=== PATIENT | female | born 1945 | race Caucasian/White ===

== ENCOUNTER 2018-04-21 22:56 | Inpatient (IN) | payer OTHER ==
[~2018-04-21] VITALS: Ht 166.4 cm; Wt 78.0 kg
--- NOTE | 2018-04-21 23:20 | ED GI/GU/ABDOMINAL COMPLAINT ---
History of Present Illness General Chief Complaint: General Adult Stated Complaint: "IM HAVING A GI BLEED" Source: patient, family Exam Limitations: no limitations Vital Signs & Intake/Output Vital Signs & Intake/Output Vital Signs Date Time Temp Pulse Resp B/P B/P Pulse O2 O2 Flow FiO2 Mean Ox Delivery Rate 04/21 2308 98.1 103 16 162/92 97 Room Air ED Intake and Output 04/22 0000 04/21 1200 Intake Total Output Total Balance Patient 160 lb Weight Allergies Coded Allergies: NSAIDS (Non-Steroidal Anti-Inflamma (GI 04/21/18) Sulfa (Sulfonamide Antibiotics) (HIVES 04/21/18) Triage Note: PER PT HEAVY GI BLEED X 30 MINUTES -1 HR. PT REPORTS HX OF IBS AND GI PROBLEMS REPORTS BOWL OF BLOOD X 4 VERY ANXIOUS Triage Nurses Notes Reviewed? yes ? N Is pt currently ? No HPI: Approximately 1 hour prior to arrival patient felt like she had to move her bowels but only dark red blood with blood clots came out. Patient states she filled 4 toilet bowels with blood. She denies any abdominal pain. Patient states that she has been having diarrhea for the past month however over the past week it is gotten much better and she did not have any bowel movements today. Patient had a CAT scan at the end of February which showed ilieitis. Patient does have a history of diverticulitis and has had a microperforation in the past. She denies any abdominal pain. She feels slightly lightheaded when she is standing. There is no chest pain. Past History Travel History Traveled to [place] past 21 day No Medical History Any Pertinent Medical History? see below for history Neurological: NONE EENT: NONE Cardiovascular: NONE Respiratory: NONE Gastrointestinal: irritable bowel syndrome, GI Hepatic: NONE Renal: NONE Musculoskeletal: SORIATIC ARTHRITIS Psychiatric: NONE Endocrine: NONE Surgical History Surgical History: non-contributory Psychosocial History What is your primary language [place] Tobacco Use: Never used ETOH Use: denies use Illicit Drug Use: denies illicit drug use Family History Hx Contributory? No Review of Systems Review of Systems Constitutional: Reports: no symptoms. EENTM: Reports: no symptoms. Respiratory: Reports: no symptoms. Cardiovascular: Reports: no symptoms. GI: Reports: see HPI, bloody stool. Genitourinary: Reports: no symptoms. Musculoskeletal: Reports: no symptoms. Skin: Reports: no symptoms. Neurological/Psychological: Reports: no symptoms. Hematologic/Endocrine: Reports: no symptoms. Immunologic/Allergic: Reports: no symptoms. All Other Systems: Reviewed and Negative Physical Exam Physical Exam General Appearance: well developed/nourished, alert, awake, anxious, mild distress Head: atraumatic, normal appearance Eyes: Bilateral: PERRL, EOMI. Ears, Nose, Throat, Mouth: hearing grossly normal, moist mucous membrane Neck: normal inspection, supple, full range of motion Respiratory: normal breath sounds, chest non-tender, no respiratory distress, lungs clear Cardiovascular: regular rate/rhythm, normal peripheral pulses Gastrointestinal: normal bowel sounds, soft, non-tender, no organomegaly Rectal: normal rectal tone, NO STOOL, HEME POSITIVE Back: normal inspection, normal range of motion Extremities: normal range of motion Neurologic/Psych: no motor/sensory deficits, awake, alert, oriented x 3, normal mood/affect Skin: intact, normal color, warm/dry Core Measures ACS in differential dx? No Sepsis Present: No Sepsis Focused Exam Completed? No Progress Differential Diagnosis: diverticulitis, hemorrhoids, ischemic bowel, inflamm bowel dis Plan of Care: Orders Procedure Date/time Status Clear Liquid Diet 04/22 B Active ED Holding Orders 04/22 0056 Active Admit to inpatient 04/22 0056 Active Vital Signs 04/22 0056 Active Code Status 04/22 0056 Active Patient Data 04/[address] ABD & PELVIS W IV CONTRAST 04/22 0040 Active MISTAKE 04/21 2317 Active URINALYSIS 04/21 2317 Active TROPONIN LEVEL 04/21 2317 Complete PARTIAL THROMBOPLASTIN TIME 04/21 2317 Active PROTHROMBIN TIME 04/21 2317 Active COMPREHENSIVE METABOLIC PANEL 04/21 2317 Complete CBC WITHOUT DIFFERENTIAL 04/21 2317 Complete EKG 04/21 2317 Active TYPE & SCREEN (NOT X-MATCH) 04/21 2317 Active Current Medications Sig/Lynette Start time Last Medication Dose Stop Time Status Admin Sodium Chloride 1,000 ML BOLUS ONE 04/21 2330 UNVr 04/21 (Normal Saline 0.9%) 04/22 0029 2330 Laboratory Tests 04/22/18 0004: Anion Gap 8, Estimated GFR > 60, BUN/Creatinine Ratio 28.3 H, Glucose 101 H, Calcium 8.7, Total Bilirubin 0.2, AST 14, ALT 26, Alkaline Phosphatase 57, Troponin I < 0.01, Total Protein 5.8 L, Albumin 3.0 L, Globulin 2.8, Albumin/ Globulin Ratio 1.1, PT Pending, INR Pending, APTT Pending 04/21/18 2330: CBC w Diff NO MAN DIFF REQ, RBC 3.90 L, MCV 84.9, MCH 27.6, MCHC 32.6 L, RDW 14.9 H, MPV 9.3, Gran % 70.4, Lymphocytes % 20.8, Monocytes % 6.3, Eosinophils % 2.1, Basophils % 0.4, Absolute Granulocytes 9.4 H, Absolute Lymphocytes 2.8, Absolute Monocytes 0.8 H, Absolute Eosinophils 0.3, Absolute Basophils 0 Initial ED EKG: none, NSR, no ST T wave changes Departure Departure Disposition: STILL A PATIENT Condition: Guarded Clinical Impression Primary Impression: Lower GI bleed Referrals: Ta Brink MD, III (PCP/Family) Departure Forms: Customer Survey General Discharge Information Admission Note Spoke With: Jed Powell MD Documentation of Exam: Documentation of any treatments & extenuating circumstances including Concerns Regarding Discharge (functional status, medication knowledge or non-compliance, living conditions, etc.) that warrant an admission rather than observation: [IV fluids, serial hematocrits, gastroenterology consultation, colonoscopy, possible transfusion if she continues to bleed, tagged red blood cell scan if she continues to bleed]
[2018-04-21 23:54] LABS: ABSOLUTE BASOPHIL COUNT 0 /CUMM (0.0-0.2); ABSOLUTE EOSINOPHIL COUNT 0.3 /CUMM (0.0-0.7); ABSOLUTE GRANULOCYTE CT 9.4 /CUMM (1.4-6.5); ABSOLUTE LYMPH COUNT 2.8 /CUMM (1.2-3.4); ABSOLUTE MONOCYTE COUNT 0.8 /CUMM (0.10-0.60); BASOPHIL % 0.4 % (0.0-2.0); EOSINOPHIL % 2.1 % (0-5); GRANULOCYTE % 70.4 % (42.2-75.2); HEMATOCRIT 33.1 % (37-47); MEAN CORPUSCULAR HGB 27.6 PG (27.0-31.0); MEAN CORPUSCULAR HGB CONC 32.6 G/DL (33.0-37.0); MEAN CORPUSCULAR VOLUME 84.9 FL (81.0-99.0); MEAN PLATELET VOLUME 9.3 FL (7.4-10.4); PLATELET COUNT 383 /CUMM (130-400); RBC DISTRIBUTION WIDTH 14.9 % (11.5-14.5); WHITE BLOOD CELL COUNT 13.3 /CUMM (4.8-10.8)
[2018-04-22 00:31] LABS: PT 11.3 SEC (9.4-12.5); PTT 33 SEC (25-37)
[2018-04-22] MEDS ORDERED: COZAAR50 M1 PO (01:32)
[2018-04-22] MEDS ORDERED: AMLODIPINE BESYL5 M1 PO (01:33)
[2018-04-22] MEDS ORDERED: XYZAL5 M1 PO (01:33)
[2018-04-22] MEDS ORDERED: CLARINEX5 M1 PO (01:33)
[2018-04-22] MEDS ORDERED: SINGULAIR10 M1 PO (01:33)
[2018-04-22] MEDS ORDERED: PROAIR HFA8.5 GM INH (01:34)
[2018-04-22] MEDS ORDERED: ENTOCORT EC3 M1 PO (01:36)
[2018-04-22] MEDS ORDERED: PROTONIX40 M3 PO (01:36)
[2018-04-22] MEDS ORDERED: TRAVATAN Z5 ML OPH (01:37)
[2018-04-22] MEDS ORDERED: MULTIVITAMINS1 EAC9 PO (01:38)
--- NOTE | 2018-04-22 01:41 | CT SCAN REPORT ---
EXAMINATION: CT ABDOMEN AND PELVIS WITH CONTRAST CLINICAL INFORMATION: Left lower quadrant pain. Bright red blood per rectum. COMPARISON: None. TECHNIQUE: Contiguous axial thin section helical images of the abdomen and pelvis were performed following the administration of 95 mL of intravenous Optiray 320. The data set was reformatted in the coronal and sagittal planes and reviewed on an independent workstation. DLP: 339 mGy-cm. FINDINGS: Adjacent to the pleura within the lateral segment right middle lobe on image 40/728, there is a 4 mm nodule. Within the lateral basal segment of the right lower lobe on image 52/728, there is a 2 mm nodule. The visualized lung bases are otherwise clear. The visualized portions of the heart are unremarkable. There is a small hiatal hernia. The liver is of normal size and attenuation without intrahepatic biliary ductal dilation. There is a 4 cm cyst within the right lobe of the liver. A normal gallbladder is identified. There is no wall thickening or discernible pericholecystic fluid. The spleen, pancreas, adrenal glands are unremarkable. Both kidneys are of normal size and attenuation without hydronephrosis or nephrolithiasis. Following the administration of IV contrast, prompt symmetric nephrograms are displayed. There is no abdominal free fluid. There is neither mesenteric nor retroperitoneal lymphadenopathy. There are several centimeters of distal small bowel with mucosal enhancement. There is mild wall thickening and no significant adjacent fat stranding. There is mild sigmoid diverticulosis without evidence of diverticulitis. Otherwise, unremarkable unopacified loops of small and large bowel are identified. There is no pelvic free fluid. The urinary bladder is unremarkable. There is neither pelvic nor inguinal lymphadenopathy. Bone windows: Neither sclerotic nor lytic bone lesions are identified. IMPRESSION: Mucosal enhancement and mild wall thickening to several centimeters of distal ileum. The differential diagnosis for this appearance includes inflammatory and infectious processes. There are no drainable fluid collections. Sigmoid diverticulosis without evidence of diverticulitis. 4 mm right middle lobe nodule. 2 mm right lower lobe nodule. Various management parameters for solitary pulmonary nodules are in the literature. According to the Fleischner Society, recommendations for pulmonary nodules are as follows: Nodule size < or = to 4 mm in LOW RISK PATIENTS: No follow up needed. Nodule size < or = to 4 mm in HIGH RISK PATIENTS: Follow up CT at 12 months; if unchanged, no further follow up. Nodule size > 4-6 mm in LOW RISK PATIENTS: Follow up CT at 12 months; if unchanged, no further follow up. Nodule size > 4-6 mm in HIGH RISK PATIENTS: Initial follow up CT at 6-12 months, then at 18-24 months if no change. Nodule size > 6-8 mm in LOW RISK PATIENTS: Initial follow up CT at 6-12 months, then at 18-24 months if no change. Nodule size > 6-8 mm in HIGH RISK PATIENTS: Initial follow up CT at 3-6 months, then 9-12 months and 24 months if no change. Nodule size > 8 mm in LOW RISK PATIENTS: Follow up CT at around 3, 9, and 24 months, dynamic contrast-enhanced CT, PET, and/or biopsy. Nodule size > 8 mm in HIGH RISK PATIENTS: Same as for low-risk patients.
--- NOTE | 2018-04-22 02:05 | History & Physical ---
Karen GASTON,Willy 04/22/18 0156: General Information and HPI History of Present Illness: 72 year old woman with past medical history of GI bleed secondary to NSAID use, chronic diarrhea, terminal ileitis, IBS, psoriatic arthritis, seasonal allergies , asthma, hypertension, GERD, glaucoma, and several cervical stenosis seen for evaluation of bloody stools. Patient reports have chronic diarrhea since June this year for which she is followed by willow analyst Dr. Reynolds of [place]. She occasionally has scant amounts of bright red blood pass during these events which were self limited. She reportedly recently had an abdominal CT scan that demonstrated terminal ileitis. She also reportedly underwent a colonoscopy with biopsy in november of this year that was apparently unremarkable. Patient reports that her diarrhea was actually resolved for the first time over the past four days. She felt well and has no complaints until this evening where she went to use the rest room and noted a large volume bloody bowel movement mixed in with brown stool and dark clots. This occured several more times for which she came to the [facility] ED for evaluation. Presently she is complaining of mild nausea and lightheadedness and otherwise feels well but is admitted anxious. She denies any recent antiplatelet / NSAID use. Review of Systems She otherwise denies any headache, fever, chills, blurred / double vision, chest pain, palpitations, shortness of breath, vomiting, current diarrhea. Allergies/Medications Allergies: Coded Allergies: NSAIDS (Non-Steroidal Anti-Inflamma (GI 04/21/18) Sulfa (Sulfonamide Antibiotics) (HIVES 04/21/18) Home Med list Albuterol Sulfate (Proair Hfa) 90 MCG HFA.AER.AD 2 PUF INH Q4-6 PRN PRN SOB ( Reported) Amlodipine Besylate 5 MG TABLET 1 TAB PO QHS HTN (Reported) Budesonide (Entocort EC) 3 MG CAPDR...ER 9 MG PO DAILY GI (Reported) Desloratadine (Clarinex) 5 MG TABLET 1 TAB PO DAILY Allergies (Reported) Levocetirizine Dihydrochloride (Xyzal) 5 MG TABLET 1 TAB PO DAILY Allergies ( Reported) Losartan Potassium (Cozaar) 50 MG TABLET 1.5 TAB PO DAILY HTN (Reported) Montelukast Sodium (Singulair) 10 MG TABLET 1 TAB PO DAILY Allergies ( Reported) Multiple Vitamin (Multivitamins) 1 EACH TABLET 1 TAB PO DAILY SUPPLEMENT ( Reported) Pantoprazole Sodium (Protonix) 40 MG TABLET.DR 1 TAB PO DAILY GERD (Reported) Travoprost (Travatan Z) 0.004 % DROPS 1 GTT OPH QPM GLAUCOMA (Reported) Past History Travel History Traveled to [place] past 21 day No Medical History Neurological: NONE EENT: NONE Cardiovascular: NONE Respiratory: NONE Gastrointestinal: irritable bowel syndrome, GI Hepatic: NONE Renal: NONE Musculoskeletal: SORIATIC ARTHRITIS Psychiatric: NONE Endocrine: NONE Surgical History Surgical History: non-contributory Past Family/Social History Psychosocial History ETOH Use: denies use Illicit Drug Use: denies illicit drug use Functional Ability ADLs Independent: dressing, eating, toileting, bathing. Ambulation: independent Review of Systems Review of Systems Constitutional: Reports: see HPI. Exam & Diagnostic Data Last 24 Hrs of Vital Signs/I&O Vital Signs Date Time Temp Pulse Resp B/P B/P Pulse O2 O2 Flow FiO2 Mean Ox Delivery Rate 04/22 0130 98.5 83 16 168/88 98 Room Air 04/21 2308 98.1 103 16 162/92 97 Room Air Intake & Output 04/22 0800 04/22 0000 04/21 1600 Intake Total 1000 Output Total 15 Balance 985 Intake, IV 1000 Number 2 Bowel Movements Output, Urine 15 Patient 72.575 kg Weight Physical Exam General Appearance Alert, Oriented X3, Cooperative, No Acute Distress Skin No Rashes, No Breakdown, No Significant Lesion Skin Temp/Moisture Exam: Warm/Dry Sepsis Skin Exam (color): Normal for Ethnicity HEENT Atraumatic, PERRLA, EOMI, Dry oral mucosa Neck Supple Cardiovascular Regular Rate, Normal S1, Normal S2, No Murmurs Lungs Clear to Auscultation, Normal Air Movement Abdomen Normal Bowel Sounds, Soft, No Tenderness, No Hepatospenomegaly, No Masses Neurological Normal Speech, Normal Tone, Cranial Nerves 3-12 NL Extremities No Clubbing, No Cyanosis, No Edema, Normal Pulses, No Tenderness/ Swelling Vascular Normal Pulses, Pulses Symmetrical Last 24 Hrs of Labs/Henry: Laboratory Tests 04/22/18 0055: Urine Color YEL, Urine Clarity CLEAR, Urine pH 6.0, Ur Specific [place] 1.015, Urine Protein NEG, Urine Ketones NEG, Urine Nitrite NEG, Urine Bilirubin NEG, Urine Urobilinogen 0.2, Ur Leukocyte Esterase TRACE H, Ur Microscopic SEDIMENT EXAMINED, Urine RBC RARE, Urine WBC 1-3 H, Ur Epithelial Cells FEW, Urine Hemoglobin MOD H, Urine Glucose NEG 04/22/18 0004: Anion Gap 8, Estimated GFR > 60, BUN/Creatinine Ratio 28.3 H, Glucose 101 H, Calcium 8.7, Total Bilirubin 0.2, AST 14, ALT 26, Alkaline Phosphatase 57, Troponin I < 0.01, Total Protein 5.8 L, Albumin 3.0 L, Globulin 2.8, Albumin/ Globulin Ratio 1.1, PT 11.3, INR 1.04, APTT 33 04/21/18 2330: CBC w Diff NO MAN DIFF REQ, RBC 3.90 L, MCV 84.9, MCH 27.6, MCHC 32.6 L, RDW 14.9 H, MPV 9.3, Gran % 70.4, Lymphocytes % 20.8, Monocytes % 6.3, Eosinophils % 2.1, Basophils % 0.4, Absolute Granulocytes 9.4 H, Absolute Lymphocytes 2.8, Absolute Monocytes 0.8 H, Absolute Eosinophils 0.3, Absolute Basophils 0 Assessment/Plan Assessment: 72-year-old woman with multiple medical problems significant for chronic diarrhea, terminal ileitis, lower GI bleed secondary to NSAID use, and GERD seen for evaluation of multiple bright red bloody bowel movements with clots. Presently patient is complaining of only mild nausea. Vitals signs are significant for an elevated systolic blood pressure to the 160s. Physical exam demonstrates normal cardiopulmonary findings with a soft, nontender, nondistended abdomen. Labs are signficant for WBC 13.3, H/H 10.8/33.1 with normal serum chemistry, hepatic function panel, troponin, and INR. CT abdomen / pelvis with IV contrast redemonstrated her known terminal ileitis. EKG was normal sinus rhythm. Patient received a liter of normal saline in the ED. Patient was orthostat postive. Clinically patient appears to have a lower GI bleed with associated mild acute blood loss anemia, likely secondary to a bleeding diverticuli. She continues to have frequent small to moderate volume bright red bowel movements in the context of orthostasis. Case was discussed with willow analyst Dr. Blanton who recommended urgent evaluation with CTA abdomen / pelvis. Patient remains currently hemodynamically stable without hypotension or tachycardia. Patient is to be admitted to the intensive care unit for for intravenous fluids, serial CBCs, and GI consultation with possible endoscopy. Problem List -Acute blood loss anemia -Bright red blood per rectum with clots, probable lower GI bleed -Leukocytosis, likely reactive -History of GI bleed secondary to chronic NSAID use -History of diverticulitis -History of Severe Cervical stenosis with neuroforaminal stenosis -Hypertension -Glaucoma -Psoriatic arthritis -Seasonal allergies -Asthma Plan -Admit to intensive care unit -Telemetry monitoring -Guaic stool -2 Large bore peripheral IV -NS @ 100 mL / hr -Zofran PRN for nausea -Continue home meds: amlodipine, losartan, singulair, multivitamin, protonix -Hold amlodipine, losartan due to GI bleed / orthostasis, restart as needed -Consult with GI for lower GI bleed -CBC Q6H -Type & Screen -Transfuse PRBC to hemoglobin > 8.0 or for large volume blood loss -Stat CTA / Abdomen pelvis -Pain control with acetaminophen -Clear liquid diet -DVT PPx with ALPS, avoid pharmacologic propylaxis due to active bleeding -FULL CODE As Ranked By This Provider Problem List: 1. Lower GI bleed Core Measures/Misc (07/16) Acute Coronary Syndrome ACS Diagnosis: No Congestive Heart Failure Congestive Heart Failure Diagnosis No Cerebrovascular Accident CVA/TIA Diagnosis: No VTE (View Protocol) VTE Risk Factors Age>40 No Mechanical VTE Prophylaxis d/t N/A MechProphylax Ordered No VTE Pharm Prophylaxis d/t Bleeding (Active) Sepsis (View protocol) Sepsis Present: No If YES complete Sepsis Event Note If YES complete Sepsis Event Note Jed Powell 04/22/18 0356: Core Measures/Misc (07/16) Sepsis (View protocol) If YES complete Sepsis Event Note If YES complete Sepsis Event Note Attending MD Review Statement Attending Statement Attending MD Statement: examined this patient, discuss w/resident/PA/CAMP COOK, agreed w/resident/PA/CAMP COOK, reviewed EMR data (avail), reviewed images, amended to note Attending Assessment/Plan: CC: Bright red blood per rectum PMH: Hypertension, IBS, psoriatic arthritis, seasonal allergies/asthma, GERD, glaucoma, cervical stenosis, history of GI bleed secondary to NSAIDs, diverticulosis Patient came to ER for 4 bloody bowel movements, started suddenly around 8 PM. The bloody bowel movements were not stopping is that she came to ER. Currently she feels lightheaded especially when lying down to sitting position, and nausea . She denies abdominal pain or cramping, fever or chills. Patient had been dealing with chronic on and off diarrhea since July and had undergone extensive GI workup outpatient. She has willow analyst in [place] has obtained a CT scan 2 times and on colonoscopy in November with biopsy results been inconclusive. Patient was started on Secukinumab, monthly injections for psoriatic arthritis in month of August. It has known side effect of diarrhea and exacerbation of underlying inflammatory bowel disease. Her willow analyst was contemplating on this diagnosis but biopsy could not prove any inflammatory bowel disease. Last dose of Secukinumab. As she did not have diarrhea in the last 4-5 days, they decided to continue her medication which is expected next week. According to patient she was feeling much better since last for 5 days, good by mouth intake and certainly noticed bloody bowel movement tonight. A CT scan done a month of back showed inflammation of distal ileum. She is also known to have diverticulosis but never had this excessive bleeding per rectum in the past. She had 2 episode of diverticulitis. She denies any recent travels, different food intake. She has completed 2 different courses of antibiotics in last few months without any relief. She is been tried on oral steroids for suspected inflammation. Vitals: Temperature 98.1, pulse 103, RR 16, blood pressure 162/92, saturating 97 % on room air. Initially patient was negative for orthostatic changes but within 3 hours she was positive for orthostatics with blood pressure dropping from 193/ 94 on lying down and 159/89 on supine position with heart rate increased from 103 to 112. On exam: A O 3, cooperative, pale looking, no acute distress, neck supple, JVD normal, no lymphadenopathy, mucosa dry, no focal neurological deficit, no dependent edema, no obvious skin rashes or inflammation CVS: S1-S2, RRR. RS: Clear to auscultate bilaterally. Abdomen: Soft, NT, ND, bowel sounds present. CT abdomen pelvis with IV contrast Mucosal enhancement and mild wall thickening to several centimeters of distal ileum. The differential diagnosis for this appearance includes inflammatory and infectious processes. There are no drainable fluid collections. Sigmoid diverticulosis without evidence of diverticulitis. 4 mm right middle lobe nodule. 2 mm right lower lobe nodule. Assessment and plan 72-year-old female with multiple comorbidities as mentioned above presented in ER for recurrent bloody bowel movement started approximately half an hour before coming to ER. She had 4 bloody bowel movement at home before coming, bright red blood and clots. Patient had several small bloody bowel movements while in ER approximately 50 mL each, 3 of which in front of me while taking history. Initially she was orthostatic negative but she was getting more and more lightheaded while under evaluation and became orthostatic hypotensive within 3 hours in ER. She appears pale and dehydrated. Abdomen is soft, rectal exam done by ER physician shows heme-positive stool. I saw chaim blood and clotted blood in bedside commode. Even though CT scan mentions distal ileum thickening probably infectious versus inflammatory, this is less likely source of bleeding; Patient would have been more hypotensive with fast transit GI bleed. I suspect this is a diverticular bleed. Given the hemodynamic changes over 3-4 hours in ER we will admit her in intensive care unit GI was called who suggested CT angiogram. + Bright red blood per rectum + Orthostatic hypotension + Terminal ileitis + History of Hypertension, IBS, psoriatic arthritis, seasonal allergies/asthma, GERD, glaucoma, cervical stenosis, history of GI bleed secondary to NSAIDs, diverticulosis - Admit to ICU - 2 wide bore peripheral lines - Aggressive hydration - Type and screen 2 units PRBC - Repeat H&H in 4 hours - Transfuse if hemoglobin drops below 8, or any evidence of further hypotension or tachycardia - Follow-up CT angiogram report and call GI accordingly - Clear liquid diet - IV Protonix - Hold oral antihypertensives - Obtain records from patient's willow analyst - DVT prophylaxis with Alps only, given her current bleeding
[2018-04-22 03:24] LABS: ABSOLUTE BASOPHIL COUNT 0.2 /CUMM (0.0-0.2); ABSOLUTE EOSINOPHIL COUNT 0.2 /CUMM (0.0-0.7); ABSOLUTE GRANULOCYTE CT 9.3 /CUMM (1.4-6.5); ABSOLUTE LYMPH COUNT 3.6 /CUMM (1.2-3.4); ABSOLUTE MONOCYTE COUNT 1.1 /CUMM (0.10-0.60); BASOPHIL % 1.3 % (0.0-2.0); EOSINOPHIL % 1.4 % (0-5); GRANULOCYTE % 64.7 % (42.2-75.2); MEAN CORPUSCULAR HGB 27.2 PG (27.0-31.0); MEAN CORPUSCULAR HGB CONC 32.4 G/DL (33.0-37.0); MEAN CORPUSCULAR VOLUME 83.9 FL (81.0-99.0); MEAN PLATELET VOLUME 8.7 FL (7.4-10.4); PLATELET COUNT 319 /CUMM (130-400); RBC DISTRIBUTION WIDTH 14.7 % (11.5-14.5)
[2018-04-22 03:52] LABS: WHITE BLOOD CELL COUNT 14.3 /CUMM (4.8-10.8)
--- NOTE | 2018-04-22 03:57 | Admission Certification ---
Admission Certification Certification Statement - As attending physician, I certify that at the time of - admission, based on clinical presentation, severity of - symptoms, need for further diagnostic testing and - therapeutic interventions, and risk of adverse outcomes - without in-hospital treatment, in my clinical assessment, - this patient requires an acute hospital stay for a minimum - of two nights or longer. I have also considered psychsocial - factors such as support system, advanced age, financial - issues, cognitive issues, and failed out-patient treatments, - past re-admission history, safety of patient, and lack of - compliance as applicable. Specific rationale supporting this admission is: Bright red blood per rectum
--- NOTE | 2018-04-22 04:05 | CT SCAN REPORT ---
EXAMINATION: CT ABDOMEN AND PELVIS ANGIOGRAM WITH CONTRAST CLINICAL INFORMATION: Left lower quadrant pain. Bright red blood per rectum. COMPARISON: Same day abdominal and pelvic CT. TECHNIQUE: Contiguous axial thin section helical images of the abdomen and pelvis were performed following the administration of 95 mL of intravenous Optiray 320. The data set was reformatted in the coronal and sagittal planes and reviewed on an independent workstation. DLP: 775 mGy-cm. FINDINGS: Adjacent to the pleura within the lateral segment right middle lobe on image 38/772, there is a 4 mm nodule. Within the lateral basal segment of the right lower lobe on image 51/772, there is a 2 mm nodule. The visualized lung bases are otherwise clear. The visualized portions of the heart are unremarkable. There is a small hiatal hernia. The liver is of normal size and attenuation without intrahepatic biliary ductal dilation. There is a 4 cm cyst within the right lobe of the liver. A normal gallbladder is identified. There is no wall thickening or discernible pericholecystic fluid. The spleen, pancreas, adrenal glands are unremarkable. Both kidneys are of normal size and attenuation without hydronephrosis or nephrolithiasis. Following the administration of IV contrast, prompt symmetric nephrograms are displayed. There is no abdominal free fluid. There is neither mesenteric nor retroperitoneal lymphadenopathy. There are several centimeters of distal small bowel with mucosal enhancement. There is mild wall thickening and no significant adjacent fat stranding. There is mild sigmoid diverticulosis. Better demonstrated on the current angiographic phase is mild mucosal enhancement and mild adjacent fat stranding at this location. There are 2 areas of new intraluminal high attenuation. One is identified on image 182/772 within the distal transverse colon. Another focus of intraluminal high attenuation is dependently within the mid descending colon on image 330/772. These 2 areas are suspicious for active contrast extravasation. There is no pelvic free fluid. The urinary bladder is unremarkable. There is neither pelvic nor inguinal lymphadenopathy. Bone windows: Neither sclerotic nor lytic bone lesions are identified. IMPRESSION: Two small discrete areas of intraluminal high attenuation suspicious for contrast extravasation within the distal transverse colon and mid descending colon. These are suspicious as representing two areas of active bleeding. Mucosal enhancement and mild wall thickening to several centimeters of distal ileum. The differential diagnosis for this appearance includes inflammatory and infectious processes. There are no drainable fluid collections. Sigmoid diverticulosis and wall thickening to the distal sigmoid colon. There is better demonstration on this exam of some mild wall thickening, mucosal enhancement and adjacent fat stranding. This could correspond to an area of diverticulitis or colitis. Stable 4 mm right middle lobe nodule. 2 mm right lower lobe nodule. The aforementioned was communicated to Dr. Marrufo at 0359 hours.
[2018-04-22 05:00] VITALS: BP 130/80
--- NOTE | 2018-04-22 05:45 | Event Note ---
Event Note Event Note: Situation Continued bleeding with drop in hemoglobin Background 72 year old woman with multiple medical problems significant for chronic diarrhea and history of GI bleed secondary to NSAID use admitted for acute blood loss anemia secondary to lower GI bleed. Assessment Stat CTA abdomen / pelvis identified two small discrete areas of intraluminal high attenuation suspicious for contrast extravasation within the distal transverse colon and mid descending colon. This was discussed with the reclamation furnace operator golf course architect whom recommended embolization. IR was contacted whom agreed with the plan. Patient continues to pass bright red blood in small volumes with a drop in hemoglobin from 10.8 to 8.4; this may be partially dillution as she received 3 liters of normal saline. Under Presser Dr. Powell aware of these events. Recommendations -Transfuse 1 unit PRBC, consent obtained and placed on chart -IR embolization of bleeding vessel(s) -GI evaluation in morning -Continue to monitor serial CBCs
[2018-04-22 06:10] LABS: ABSOLUTE BASOPHIL COUNT 0 /CUMM (0.0-0.2); ABSOLUTE EOSINOPHIL COUNT 0.2 /CUMM (0.0-0.7); ABSOLUTE GRANULOCYTE CT 10.9 /CUMM (1.4-6.5); ABSOLUTE LYMPH COUNT 2.3 /CUMM (1.2-3.4); ABSOLUTE MONOCYTE COUNT 0.8 /CUMM (0.10-0.60); BASOPHIL % 0.2 % (0.0-2.0); EOSINOPHIL % 1.1 % (0-5); GRANULOCYTE % 76.9 % (42.2-75.2); HEMATOCRIT 22.9 % (37-47); MEAN CORPUSCULAR HGB 27.4 PG (27.0-31.0); MEAN CORPUSCULAR HGB CONC 32.7 G/DL (33.0-37.0); MEAN CORPUSCULAR VOLUME 83.7 FL (81.0-99.0); MEAN PLATELET VOLUME 8.6 FL (7.4-10.4); PLATELET COUNT 300 /CUMM (130-400); RBC DISTRIBUTION WIDTH 14.6 % (11.5-14.5); RED BLOOD CELL CT 2.73 /CUMM (4.20-5.40); WHITE BLOOD CELL COUNT 14.2 /CUMM (4.8-10.8)
[2018-04-22 08:00] VITALS: BP 140/84
--- NOTE | 2018-04-22 08:40 | Cons- CRCU ---
Kevan Fraire 04/22/18 0831: General Information and HPI Consulting Request Date of Consult: 04/22/18 Requested By: Dr. 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 She follows up with her packing machine inspector in [place], who has been working her up for chronic diarrhea. She underwent several abdominal CAT scan which revealed possible ileitis, negative pathology for inflammatory bowel disease as per the patient. She was eventually started on biologic for the treatment of psoriatic arthritis. Reported decrease in the number of episodes of diarrhea in the last 1 week. On the day of presentation, she had several episodes of bleeding per rectum, which she describes it as dark clots mixed with brown stools. She was also orthostatically dizzy while she was in the ER, and had several episodes of bright red bleeding per rectum. She did not have any loss of consciousness, palpitations, chest pain, shortness of breath. At the time of admission, she was found to be orthostatic vitals positive, and was found to have a drop in hematocrit 33-->26, and was admitted to intensive care unit service for further management. Vitals remained stable in the last 12 hours, but she continued to have occasional episodes of lightheadedness. CTA was obtained which revealed 2 small discrete areas of intraluminal contrast extravasation in distal transverse colon and mid descending colon suspicious for active bleeding. She was taken up to interventional suite for possible arterial embolization. Allergies/Medications Allergies: Coded Allergies: NSAIDS (Non-Steroidal Anti-Inflamma (GI 04/21/18) Sulfa (Sulfonamide Antibiotics) (HIVES 04/21/18) Home Med List: Albuterol Sulfate (Proair Hfa) 90 MCG HFA.AER.AD 2 PUF INH Q4-6 PRN PRN SOB ( Reported) Amlodipine Besylate 5 MG TABLET 1 TAB PO QHS HTN (Reported) Budesonide (Entocort EC) 3 MG CAPDR...ER 9 MG PO DAILY GI (Reported) Cyclosporine (Restasis) 0.05 % DROPERETTE 1 GTT OPH BID eye drops (Reported) Desloratadine (Clarinex) 5 MG TABLET 1 TAB PO DAILY Allergies (Reported) Leflunomide (Arava) 20 MG TABLET 1 TAB PO DAILY arthritis (Reported) Levocetirizine Dihydrochloride (Xyzal) 5 MG TABLET 1 TAB PO DAILY Allergies ( Reported) Losartan Potassium (Cozaar) 50 MG TABLET 1.5 TAB PO DAILY HTN (Reported) Montelukast Sodium (Singulair) 10 MG TABLET 1 TAB PO DAILY Allergies ( Reported) Multiple Vitamin (Multivitamins) 1 EACH TABLET 1 TAB PO DAILY SUPPLEMENT ( Reported) Pantoprazole Sodium (Protonix) 40 MG TABLET.DR 1 TAB PO DAILY GERD (Reported) Travoprost (Travatan Z) 0.004 % DROPS 1 GTT OPH QPM GLAUCOMA (Reported) Current Medications: Current Medications Sig/Lynette Start time Last Medication Dose Route Stop Time Status Admin Acetaminophen 650 MG Q6P PRN 04/22 0230 AC PO Albuterol Sulfate 2 PUF Q4-6 PRN PRN 04/22 0215 AC INH Amlodipine Besylate 5 MG DAILY 04/22 0900 CAN PO Fentanyl Citrate 0 .STK-MED ONE 04/22 629 DC .ROUTE Ioversol 0 .STK-MED ONE 04/22 605 DC IV Lidocaine 0 .STK-MED ONE 04/22 605 DC .ROUTE Loratadine 10 MG DAILY 04/22 0900 AC PO Losartan Potassium 75 MG DAILY 04/22 0900 CAN PO Montelukast Sodium 10 MG 2100 04/22 2100 AC PO Multivitamins 1 TAB DAILY 04/22 09 AC Therapeutic PO Omeprazole 40 MG DAILY AC 04/22 0700 DC PO Ondansetron HCl 4 MG Q8P PRN 04/22 0230 AC 04/22 IV 0509 Pantoprazole Sodium 40 MG BID 04/22 0900 AC 04/22 IV 0943 Sodium Chloride 1,000 ML BOLUS ONE 04/22 0245 DC 04/22 IV 04/22 0344 0230 Sodium Chloride 1,000 ML .Q10H 04/22 0230 AC 04/22 IV 0315 Sodium Chloride 1,000 ML BOLUS ONE 04/21 2330 DC 04/21 IV 04/22 0029 2330 Review of Systems Review of Systems Constitutional: Reports: see HPI. EENTM: Denies: blurred vision. Cardiovascular: Denies: chest pain, edema, orthopena. Respiratory: Denies: cough, orthopnea, short of breath. GI: Denies: abdominal pain. Musculoskeletal: Reports: back pain. Skin: Reports: change in hair/nails. Denies: change in skin color. Hematologic/Endocrine: Denies: bruising. Past History Travel History Traveled to [place] past 21 day No Medical History Blood Transfusion Hx: No Neurological: NONE EENT: glaucoma Cardiovascular: NONE Respiratory: asthma Gastrointestinal: irritable bowel syndrome, lower GI bleed Hepatic: NONE Renal: NONE Musculoskeletal: PSORIATIC ARTHRITIS Psychiatric: NONE Endocrine: NONE Blood Disorders: coagulopathy Surgical History Surgical History: non-contributory Psychosocial History Where Do You Live? Home Smoking Status: Never Smoked ETOH Use: denies use Illicit Drug Use: denies illicit drug use Functional Ability ADLs Independent: dressing, eating, toileting, bathing. Ambulation: independent Employment History Employment: Retired Profession/Employer: [employer] UP [employer]PER[employer] Exam & Diagnostic Data Last 24 Hrs of Vital Signs/I&O Vital Signs Date Time Temp Pulse Resp B/P B/P Pulse O2 O2 Flow FiO2 Mean Ox Delivery Rate 04/22 0500 92 130/80 04/22 0325 99 18 145/74 98 Room Air 04/22 0230 112 129/89 04/22 0130 98.5 83 16 168/88 98 Room Air 04/21 2308 98.1 103 16 162/92 97 Room Air Intake & Output 04/22 1600 04/22 0800 04/22 0000 Intake Total 3100 Output Total 365 Balance 2735 Intake, IV 3100 Number 5 Bowel Movements Output, Urine 365 Patient 167 lb 160 lb Weight Weight Bed scale Measurement Method Physical Exam General Appearance: no apparent distress Other Physical Findings: General Appearance Alert, Oriented X3, Cooperative, No Acute Distress Skin No Rashes, No Breakdown, No Significant Lesion Skin Temp/Moisture Exam: Warm/Dry Sepsis Skin Exam (color): Normal for Ethnicity HEENT Atraumatic, PERRLA, EOMI, Dry oral mucosa Neck Supple Cardiovascular Regular Rate, Normal S1, Normal S2, No Murmurs Lungs Clear to Auscultation, Normal Air Movement Abdomen Normal Bowel Sounds, Soft, No Tenderness, No Hepatospenomegaly, No Masses Neurological Normal Speech, Normal Tone, Cranial Nerves 3-12 NL Extremities No Clubbing, No Cyanosis, No Edema, Normal Pulses, No Tenderness/ Swelling Vascular Normal Pulses, Pulses Symmetrica Last 48 Hrs of Labs/Henry: Laboratory Tests 04/22/18 1625: CBC w Diff NO MAN DIFF REQ, RBC 3.57 L, MCV 84.1, MCH 27.6, MCHC 32.8 L, RDW 14.7 H, MPV 9.0, Gran % 64.5, Lymphocytes % 23.6, Monocytes % 9.3, Eosinophils % 2.4, Basophils % 0.2, Absolute Granulocytes 8.5 H, Absolute Lymphocytes 3.1, Absolute Monocytes 1.2 H, Absolute Eosinophils 0.3, Absolute Basophils 0 04/22/18 1200: CBC w Diff Cancelled, WBC Cancelled, RBC Cancelled, Hgb Cancelled, Hct Cancelled , MCV Cancelled, MCH Cancelled, MCHC Cancelled, RDW Cancelled, Plt Count Cancelled, MPV Cancelled 04/22/18 1200: CBC w Diff Cancelled, WBC Cancelled, RBC Cancelled, Hgb Cancelled, Hct Cancelled , MCV Cancelled, MCH Cancelled, MCHC Cancelled, RDW Cancelled, Plt Count Cancelled, MPV Cancelled 04/22/18 1010: RBC 3.60 L, MCV 84.5, MCH 27.6, MCHC 32.6 L, RDW 14.6 H, MPV 8.8, Gran % 67.8 , Lymphocytes % 22.5, Monocytes % 7.9, Eosinophils % 1.5, Basophils % 0.3, Absolute Granulocytes 8.3 H, Absolute Lymphocytes 2.8, Absolute Monocytes 1.0 H, Absolute Eosinophils 0.2, Absolute Basophils 0 04/22/18 0600: Sodium Cancelled, Potassium Cancelled, Chloride Cancelled, Carbon Dioxide Cancelled, Anion Gap Cancelled, BUN Cancelled, Creatinine Cancelled, BUN/ Creatinine Ratio Cancelled, CBC w Diff Cancelled, WBC Cancelled, RBC Cancelled, Hgb Cancelled, Hct Cancelled, MCV Cancelled, MCH Cancelled, MCHC Cancelled, RDW Cancelled, Plt Count Cancelled, MPV Cancelled 04/22/18 0545: CBC w Diff NO MAN DIFF REQ, RBC 2.73 L, MCV 83.7, MCH 27.4, MCHC 32.7 L, RDW 14.6 H, MPV 8.6, Gran % 76.9 H, Lymphocytes % 15.9 L, Monocytes % 5.9, Eosinophils % 1.1, Basophils % 0.2, Absolute Granulocytes 10.9 H, Absolute Lymphocytes 2.3, Absolute Monocytes 0.8 H, Absolute Eosinophils 0.2, Absolute Basophils 0 04/22/18 0316: Anion Gap 8, Estimated GFR > 60, BUN/Creatinine Ratio 28.3 H, Vitamin B12 414, CBC w Diff NO MAN DIFF REQ, RBC 3.10 L, MCV 83.9, MCH 27.2, MCHC 32.4 L, RDW 14.7 H, MPV 8.7, Gran % 64.7, Lymphocytes % 25.1, Monocytes % 7.5, Eosinophils % 1.4, Basophils % 1.3, Absolute Granulocytes 9.3 H, Absolute Lymphocytes 3.6 H, Absolute Monocytes 1.1 H, Absolute Eosinophils 0.2, Absolute Basophils 0.2 04/22/18 0055: Urine Color YEL, Urine Clarity CLEAR, Urine pH 6.0, Ur Specific Farley 1.015, Urine Protein NEG, Urine Ketones NEG, Urine Nitrite NEG, Urine Bilirubin NEG, Urine Urobilinogen 0.2, Ur Leukocyte Esterase TRACE H, Ur Microscopic SEDIMENT EXAMINED, Urine RBC RARE, Urine WBC 1-3 H, Ur Epithelial Cells FEW, Urine Hemoglobin MOD H, Urine Glucose NEG 04/22/18 0004: Anion Gap 8, Estimated GFR > 60, BUN/Creatinine Ratio 28.3 H, Glucose 101 H, Calcium 8.7, Total Bilirubin 0.2, AST 14, ALT 26, Alkaline Phosphatase 57, Troponin I < 0.01, Total Protein 5.8 L, Albumin 3.0 L, Globulin 2.8, Albumin/ Globulin Ratio 1.1, PT 11.3, INR 1.04, APTT 33 04/21/18 2330: CBC w Diff NO MAN DIFF REQ, RBC 3.90 L, MCV 84.9, MCH 27.6, MCHC 32.6 L, RDW 14.9 H, MPV 9.3, Gran % 70.4, Lymphocytes % 20.8, Monocytes % 6.3, Eosinophils % 2.1, Basophils % 0.4, Absolute Granulocytes 9.4 H, Absolute Lymphocytes 2.8, Absolute Monocytes 0.8 H, Absolute Eosinophils 0.3, Absolute Basophils 0 Assessment/Plan CRCU Impression/Plan: Ms Sylvester is a 72-year-old woman with a 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 At the time of admission, temp 98.1, pulse rate 103, respirations 16, blood pressure 162/92, 97% on room air. Orthostatic vitals positive at the time of admission. Pertinent lab findings: WBC 13.3-->14.3-->14.2 Hemoglobin 10.8-->8.4-->7.5-->9.9 (s/p 3 PRBC transfusion) Hematocrit 33.1-->26-->22.9-->30.4 Platelet count 383 Sodium 140, potassium 3.4, chloride 108, bicarbonate 24, anion gap 8, BUN 17, creatinine 0.6 AST 14, ALT 26, alkaline phosphatase 57. INR 1.[address] abdomen pelvis: Mucosal enhancement and mild wall thickening to several centimeters of distal ileum. The differential diagnosis for this appearance includes inflammatory and infectious processes. There are no drainable fluid collections. Sigmoid diverticulosis without evidence of diverticulitis. 4 mm right middle lobe nodule. 2 mm right lower lobe nodule. CTA adbdomen- two small discrete areas of intraluminal high attenuation suspicious for contrast extravasation within the distal transverse colon and mid descending colon. These are suspicious as representing two areas of active bleeding. Etiology in her case with painless lower GI bleed is likely diverticular in origin. Given her chronic history of terminal ileitis, inflammatory bowel disease such as Crohn's with his atypical pattern could be considered in differential. Although history indicates that it was negative for any inflammatory bowel disease pattern on pathology. Having long-standing rheumatoid/psoriatic arthritis and being treated with biologics, would make her more prone to get infectious enteritis which needs to be investigated. As per the interventional radiology, no active bleeding vessels were seen to be embolized. Plan: 1. Respiratory-stable at this time. Given her history of asthma, would continue Singulair and albuterol as needed. Titrate off oxygen as tolerated. Monitor for any dyspnea. 2. Circulatory-systolic blood pressure stable. Check orthostatic vitals. Hold off on any antihypertensives at this time. Monitor blood pressure hourly. If in case of hemodynamic compromise, would alert GI for a possible evaluation to find a source of active bleed. CT scan did not show any evidence of retroperitoneal bleed. 3. Hematology-H&H improved after blood transfusions. Check iron panel. C BC every 12h. 4. Infectious-enteritis is in differential. Monitor for any fever, which could be because of her rheumatological disease, but would keep infectious etiology in differential. WBC is slighlty elevated at this time, which should be monitored. Serial abdominal exams to be done. 5. Metabolic- stable at this time. Monitor renal function closely. Check electrolytes, and replenish as needed given h/o diarrhea. 6. Alimentary- given inability to find a bleeder, even after finding s/o of bleeding vessel on angiogram, would point towards a diverticular bleed which typically behaves in this manner. Monitor for any further GI bleed. Continue protonix iv. Recheck C BC later afternoon. Advance diet to clear liquid diet as per the packing machine inspector recommendation. Await further final recommendation from the packing machine inspector. Colonoscopy in the a.m; GoLYTELY 0.5 gallons at 5PM and 0.5 gallons at 4 AM for bowel prep( as per GI). Obtain records from her packing machine inspector. Restarted budesonide 9 mg daily, but since we dont have budesonie in house would dose with predonisone 40mg x 1 dose. Also dosed leflunomide 20mg daily. Discussed w/ GI. Checklist ICU: #1 Central line- none. #2 Arterial line- none. #3 Ferrer catheter-none. #4 Rectal tube- none. #5 NG tube- none. #6 IV/peripheral line- 2 large bore needles. #7 IV drips- NS at 100ml/hr. #8 Vent settings- none. #9 pressors - none. #10 DVT prophylaxis-alps only #11 GI prophylaxis-Protonix IV. Problem List: 1. Lower GI bleed Consult Acknowledgment - Thank you for your consult request. Nisa GASTON,Dk 04/22/18 0937: Assessment/Plan CRCU Other Findings/Comments: I have: examined this patient, reviewed [employer] EMR data, personally reviewd images, discussd w/resident/PA/RATTLING MACHINE TENDER, discussed mgmt plan w/evelyn, discussed mgmt plan w/CM, discussed mgmt plan w/pt, agreed w/resident/PA/RATTLING MACHINE TENDER, amended to note. Impression 72 year old woman * acute blood loss anemia secondary to 2 small discrete areas of intraluminal high attenuationp suspicious for contrast extravasation - distal transverse colon and mid descending colon - in the setting of diarrhea/IBS * 4mm RML nodule, 2mm RLL nodule - stable - no f/u necessary - never smoker Plan -NPO -GI evaluation -IR consulted and appreciated -CXR -prbcs given bleeding - transfuse if active bleeding and for goal hgb >7 DVT prophylaxis - ALPS TTS 35 min Consult Acknowledgment - Thank you for your consult request.
[2018-04-22 10:33] LABS: ABSOLUTE BASOPHIL COUNT 0 /CUMM (0.0-0.2); ABSOLUTE EOSINOPHIL COUNT 0.2 /CUMM (0.0-0.7); ABSOLUTE GRANULOCYTE CT 8.3 /CUMM (1.4-6.5); ABSOLUTE LYMPH COUNT 2.8 /CUMM (1.2-3.4); BASOPHIL % 0.3 % (0.0-2.0); EOSINOPHIL % 1.5 % (0-5); GRANULOCYTE % 67.8 % (42.2-75.2); MEAN CORPUSCULAR HGB 27.6 PG (27.0-31.0); MEAN CORPUSCULAR HGB CONC 32.6 G/DL (33.0-37.0); MEAN CORPUSCULAR VOLUME 84.5 FL (81.0-99.0); MEAN PLATELET VOLUME 8.8 FL (7.4-10.4); PLATELET COUNT 268 /CUMM (130-400); RBC DISTRIBUTION WIDTH 14.6 % (11.5-14.5); WHITE BLOOD CELL COUNT 12.2 /CUMM (4.8-10.8)
[2018-04-22 10:39] LABS: HEMATOCRIT 30.4 % (37-47)
[2018-04-22 16:00] VITALS: BP 140/80
--- NOTE | 2018-04-22 16:11 | RADIOLOGY REPORT ---
EXAMINATION: XR PORTABLE CHEST CLINICAL INFORMATION: Chest pain. COMPARISON: None TECHNIQUE: Portable frontal view of the chest was obtained. FINDINGS: No significant abnormality is noted involving the heart, lungs, mediastinum, bony thorax or soft tissues. IMPRESSION: Unremarkable chest examination.
--- NOTE | 2018-04-22 16:12 | Cons- Gastroenterology ---
General Information and HPI Consulting Request Date of Consult: 04/22/18 Requested By: Dk Paula MD Reason for Consult: 1. Lower abdominal pain 2. Melena 3. Abnormal CT Scan of the Abdomen Source of Information: patient, Electronic Medical Record Exam Limitations: no limitations History of Present Illness: Patient is a 72 year old female with a H diverticular disease complicated by diverticulitis. She has not had a diverticular bleed in the past. Ms. Sylvester has a history of psoriatic arthritis and known inflammation of the terminal ileum. She underwent colonoscopy with biopsy of the terminal ileum earlier this year given a CT Scan that showed inflammatory changes in the TI. Biopsies were unrevealing. She has been taking Cosentyx for psoriatic arthritis but has had chronic diarrhea for the past 3-4 months. The diarrhea was felt to be an adverse reaction to the Cosentyx and was recently stopped and she has been started on budesonide for the diarrhea. She also has a history of stercoral ulcer and recently underwent surgical repair or a rectocele and cystocele. Patient was in her usual state of health Patient was in her usual state of health when she was awakened from sleep with painless large volume hematochezia admixed with clots. She had no nausea, vomiting or abdominal pain that preceded the onset of bleeding. She had no fever nor shaking chills. She had multiple episodes of large-volume hematochezia prior to coming to the ED. Patient underwent CT scan of the abdomen and pelvis followed by a CTAngiogram. The results are as follows. INDINGS: Adjacent to the pleura within the lateral segment right middle lobe on image 38/772, there is a 4 mm nodule. Within the lateral basal segment of the right lower lobe on image 51/772, there is a 2 mm nodule. The visualized lung bases are otherwise clear. The visualized portions of the heart are unremarkable. There is a small hiatal hernia. The liver is of normal size and attenuation without intrahepatic biliary ductal dilation. There is a 4 cm cyst within the right lobe of the liver. A normal gallbladder is identified. There is no wall thickening or discernible pericholecystic fluid. The spleen, pancreas, adrenal glands are unremarkable. Both kidneys are of normal size and attenuation without hydronephrosis or nephrolithiasis. Following the administration of IV contrast, prompt symmetric nephrograms are displayed. There is no abdominal free fluid. There is neither mesenteric nor retroperitoneal lymphadenopathy. There are several centimeters of distal small bowel with mucosal enhancement. There is mild wall thickening and no significant adjacent fat stranding. There is mild sigmoid diverticulosis. Better demonstrated on the current angiographic phase is mild mucosal enhancement and mild adjacent fat stranding at this location. There are 2 areas of new intraluminal high attenuation. One is identified on image 182/772 within the distal transverse colon. Another focus of intraluminal high attenuation is dependently within the mid descending colon on image 330/772. These 2 areas are suspicious for active contrast extravasation. There is no pelvic free fluid. The urinary bladder is unremarkable. There is neither pelvic nor inguinal lymphadenopathy. Bone windows: Neither sclerotic nor lytic bone lesions are identified. IMPRESSION: Two small discrete areas of intraluminal high attenuation suspicious for contrast extravasation within the distal transverse colon and mid descending colon. These are suspicious as representing two areas of active bleeding. Mucosal enhancement and mild wall thickening to several centimeters of distal ileum. The differential diagnosis for this appearance includes inflammatory and infectious processes. There are no drainable fluid collections. Sigmoid diverticulosis and wall thickening to the distal sigmoid colon. There is better demonstration on this exam of some mild wall thickening, mucosal enhancement and adjacent fat stranding. This could correspond to an area of diverticulitis or colitis. Stable 4 mm right middle lobe nodule. 2 mm right lower lobe nodule. Patient underwent patient underwent angiography for embolization without active bleeding identified. Thus no intervention was performed. Patient was subsequently returned to the room and has had no further bleeding since then. Patient denies nausea vomiting or abdominal pain. Allergies/Medications Allergies: Coded Allergies: NSAIDS (Non-Steroidal Anti-Inflamma (GI 04/21/18) Sulfa (Sulfonamide Antibiotics) (HIVES 04/21/18) Home Med List: Albuterol Sulfate (Proair Hfa) 90 MCG HFA.AER.AD 2 PUF INH Q4-6 PRN PRN SOB ( Reported) Amlodipine Besylate 5 MG TABLET 1 TAB PO QHS HTN (Reported) Budesonide (Entocort EC) 3 MG CAPDR...ER 9 MG PO DAILY GI (Reported) Desloratadine (Clarinex) 5 MG TABLET 1 TAB PO DAILY Allergies (Reported) Levocetirizine Dihydrochloride (Xyzal) 5 MG TABLET 1 TAB PO DAILY Allergies ( Reported) Losartan Potassium (Cozaar) 50 MG TABLET 1.5 TAB PO DAILY HTN (Reported) Montelukast Sodium (Singulair) 10 MG TABLET 1 TAB PO DAILY Allergies ( Reported) Multiple Vitamin (Multivitamins) 1 EACH TABLET 1 TAB PO DAILY SUPPLEMENT ( Reported) Pantoprazole Sodium (Protonix) 40 MG TABLET.DR 1 TAB PO DAILY GERD (Reported) Travoprost (Travatan Z) 0.004 % DROPS 1 GTT OPH QPM GLAUCOMA (Reported) Current Medications: Current Medications Sig/Lynette Start time Last Medication Dose Route Stop Time Status Admin Acetaminophen 650 MG Q6P PRN 04/22 0230 AC 04/22 PO 1400 Albuterol Sulfate 2 PUF Q4-6 PRN PRN 04/22 0215 AC INH Amlodipine Besylate 5 MG DAILY 04/22 0900 CAN PO Budesonide 9 MG DAILY 04/22 1515 AC PO Fentanyl Citrate 0 .STK-MED ONE 04/22 0629 DC .ROUTE Ioversol 0 .STK-MED ONE 04/22 06 DC IV Lidocaine 0 .STK-MED ONE 04/22 06 DC .ROUTE Loratadine 10 MG DAILY 04/22 0900 AC 04/22 PO 1019 Losartan Potassium 75 MG DAILY 04/22 0900 CAN PO Montelukast Sodium 10 MG 2100 04/22 2100 AC PO Multivitamins 1 TAB DAILY 04/22 0900 AC 04/22 Therapeutic PO 1019 Omeprazole 40 MG DAILY AC 04/22 0700 DC PO Ondansetron HCl 4 MG Q8P PRN 04/22 0230 AC 04/22 IV 0509 Pantoprazole Sodium 40 MG BID 04/22 0900 AC 04/22 IV 0943 Polyethylene Glycol 0.5 GAL ONCE ONE 04/23 0400 AC PO 04/23 0401 Polyethylene Glycol 0.5 GAL ONCE ONE 04/22 2355 DC PO 04/22 2356 Polyethylene Glycol 0.5 GAL ONCE ONE 04/22 1700 AC PO 04/22 1701 Potassium Chloride 10 MEQ Q1H 04/22 1115 DC 04/22 IV 04/22 1216 1412 Sodium Chloride 1,000 ML BOLUS ONE 04/22 0245 DC 04/22 IV 04/22 0344 0230 Sodium Chloride 1,000 ML .Q10H 04/22 0230 AC 04/22 IV 0315 Sodium Chloride 1,000 ML BOLUS ONE 04/21 2330 DC 04/21 IV 04/22 0029 2330 Past History Travel History Traveled to [place] past 21 day No Medical History Blood Transfusion Hx: No Neurological: NONE EENT: glaucoma Cardiovascular: NONE Respiratory: asthma Gastrointestinal: irritable bowel syndrome, lower GI bleed Hepatic: NONE Renal: NONE Musculoskeletal: PSORIATIC ARTHRITIS Psychiatric: NONE Endocrine: NONE Blood Disorders: coagulopathy Surgical History Surgical History: non-contributory Psychosocial History Where Do You Live? Home Smoking Status: Never Smoked ETOH Use: denies use Illicit Drug Use: denies illicit drug use Functional Ability ADLs Independent: dressing, eating, toileting, bathing. Ambulation: independent Employment History Employment: Retired Profession/Employer: [employer] Review of Systems Review of Systems Constitutional: Denies: chills, fever, malaise. EENTM: Reports: no symptoms. Cardiovascular: Reports: no symptoms. Respiratory: Reports: no symptoms. GI: Reports: see HPI. Genitourinary: Reports: no symptoms. Musculoskeletal: Reports: see HPI. Skin: Reports: see HPI. Immunologic/Allergic: Reports: other (RA/Psoriatic Arthritis). Exam & Diagnostic Data Vital Signs and I&O Vital Signs Date Time Temp Pulse Resp B/P B/P Pulse O2 O2 Flow FiO2 Mean Ox Delivery Rate 04/22 0800 98 Nasal 2.0L Cannula 04/22 0800 97.4 80 16 140/84 98 Non 2.0L ReBreather 04/22 0500 92 130/80 04/22 0325 99 18 145/74 98 Room Air 04/22 0230 112 129/89 04/22 0130 98.5 83 16 168/88 98 Room Air 04/21 2308 98.1 103 16 162/92 97 Room Air Intake & Output 04/22 1600 04/22 0400 04/21 1600 04/21 0400 04/20 1600 04/20 0400 Intake Total 2100 1000 Output Total 350 15 Balance 1750 985 Intake, IV 2100 1000 Number 3 2 Bowel Movements Output, Urine 350 15 Patient 167 lb 160 lb Weight Weight Bed scale Measurement Method Physical Exam General Appearance: well developed/nourished, no apparent distress, alert Head: atraumatic, normal appearance Eyes: Bilateral: normal appearance. Ears, Nose, Throat: hearing grossly normal Neck: normal inspection, supple, full range of motion Respiratory: lungs clear Cardiovascular: normal S1 and S2, without rub, murmur, or gallop. Gastrointestinal: normal bowel sounds, soft, non-tender, no organomegaly Rectal: deferred Back: severe cervical arthritis Extremities: severe deformity of the hands. Rheumatoid nodules noted. Neurologic/Psych: oriented x 3, normal mood/affect Cranial Nerves: cranial nerves II through XII grossly intact. Skin: normal color Results Pertinent Lab Results: Laboratory Tests 04/22 04/22 04/22 1200 1200 1010 Hematology CBC w Diff Cancelled Cancelled WBC (4.8 - 10.8 /CUMM) Cancelled Cancelled 12.2 H RBC (4.20 - 5.40 /CUMM) Cancelled Cancelled 3.60 L Hgb (12.0 - 16.0 G/DL) Cancelled Cancelled 9.9 L Hct (37 - 47 %) Cancelled Cancelled 30.4 L MCV (81.0 - 99.0 FL) Cancelled Cancelled 84.5 MCH (27.0 - 31.0 PG) Cancelled Cancelled 27.6 MCHC (33.0 - 37.0 G/DL) Cancelled Cancelled 32.6 L RDW (11.5 - 14.5 %) Cancelled Cancelled 14.6 H Plt Count (130 - 400 /CUMM) Cancelled Cancelled 268 MPV (7.4 - 10.4 FL) Cancelled Cancelled 8.8 Gran % (42.2 - 75.2 %) 67.8 Lymphocytes % (20.5 - 51.1 %) 22.5 Monocytes % (1.7 - 9.3 %) 7.9 Eosinophils % (0 - 5 %) 1.5 Basophils % (0.0 - 2.0 %) 0.3 Absolute Granulocytes (1.4 - 6.5 /CUMM) 8.3 H Absolute Lymphocytes (1.2 - 3.4 /CUMM) 2.8 Absolute Monocytes (0.10 - 0.60 /CUMM) 1.0 H Absolute Eosinophils (0.0 - 0.7 /CUMM) 0.2 Absolute Basophils (0.0 - 0.2 /CUMM) 0 04/22 04/22 0600 0545 Chemistry Sodium Cancelled Potassium Cancelled Chloride Cancelled Carbon Dioxide Cancelled Anion Gap Cancelled BUN Cancelled Creatinine Cancelled BUN/Creatinine Ratio Cancelled Hematology CBC w Diff Cancelled NO MAN DIFF REQ WBC (4.8 - 10.8 /CUMM) Cancelled 14.2 H RBC (4.20 - 5.40 /CUMM) Cancelled 2.73 L Hgb (12.0 - 16.0 G/DL) Cancelled 7.5 L Hct (37 - 47 %) Cancelled 22.9 L MCV (81.0 - 99.0 FL) Cancelled 83.7 MCH (27.0 - 31.0 PG) Cancelled 27.4 MCHC (33.0 - 37.0 G/DL) Cancelled 32.7 L RDW (11.5 - 14.5 %) Cancelled 14.6 H Plt Count (130 - 400 /CUMM) Cancelled 300 MPV (7.4 - 10.4 FL) Cancelled 8.6 Gran % (42.2 - 75.2 %) 76.9 H Lymphocytes % (20.5 - 51.1 %) 15.9 L Monocytes % (1.7 - 9.3 %) 5.9 Eosinophils % (0 - 5 %) 1.1 Basophils % (0.0 - 2.0 %) 0.2 Absolute Granulocytes (1.4 - 6.5 /CUMM) 10.9 H Absolute Lymphocytes (1.2 - 3.4 /CUMM) 2.3 Absolute Monocytes (0.10 - 0.60 /CUMM) 0.8 H Absolute Eosinophils (0.0 - 0.7 /CUMM) 0.2 Absolute Basophils (0.0 - 0.2 /CUMM) 0 04/22 04/22 0316 0055 Chemistry Sodium (137 - 145 mmol/L) 140 Potassium (3.5 - 5.1 mmol/L) 3.4 L Chloride (98 - 107 mmol/L) 108 H Carbon Dioxide (22 - 30 mmol/L) 24 Anion Gap (5 - 16) 8 BUN (7 - 17 mg/dL) 17 Creatinine (0.5 - 1.0 mg/dL) 0.6 Estimated GFR (>60 ml/min) > 60 BUN/Creatinine Ratio (7 - 25 %) 28.3 H Vitamin B12 (239 - 931 pg/mL) 414 Hematology CBC w Diff NO MAN DIFF REQ WBC (4.8 - 10.8 /CUMM) 14.3 H RBC (4.20 - 5.40 /CUMM) 3.10 L Hgb (12.0 - 16.0 G/DL) 8.4 L Hct (37 - 47 %) 26.0 L MCV (81.0 - 99.0 FL) 83.9 MCH (27.0 - 31.0 PG) 27.2 MCHC (33.0 - 37.0 G/DL) 32.4 L RDW (11.5 - 14.5 %) 14.7 H Plt Count (130 - 400 /CUMM) 319 MPV (7.4 - 10.4 FL) 8.7 Gran % (42.2 - 75.2 %) 64.7 Lymphocytes % (20.5 - 51.1 %) 25.1 Monocytes % (1.7 - 9.3 %) 7.5 Eosinophils % (0 - 5 %) 1.4 Basophils % (0.0 - 2.0 %) 1.3 Absolute Granulocytes (1.4 - 6.5 /CUMM) 9.3 H Absolute Lymphocytes (1.2 - 3.4 /CUMM) 3.6 H Absolute Monocytes (0.10 - 0.60 /CUMM) 1.1 H Absolute Eosinophils (0.0 - 0.7 /CUMM) 0.2 Absolute Basophils (0.0 - 0.2 /CUMM) 0.2 Urines Urine Color (YEL,AMB,STR) YEL Urine Clarity (CLEAR) CLEAR Urine pH (5.0 - 8.0) 6.0 Ur Specific Fabius (1.001 - 1.035) 1.015 Urine Protein (NEG,<30 MG/DL) NEG Urine Ketones (NEG) NEG Urine Nitrite (NEG) NEG Urine Bilirubin (NEG) NEG Urine Urobilinogen (0.1 - 1.0 EU/dl) 0.2 Ur Leukocyte Esterase (NEG) TRACE H Ur Microscopic SEDIMENT EXAMINED Urine RBC (0 - 5 /HPF) RARE Urine WBC (0 - 2 /HPF) 1-3 H Ur Epithelial Cells (NONE,FEW) FEW Urine Hemoglobin (NEG) MOD H Urine Glucose (N MG/DL) NEG 04/22 04/21 0004 2330 Chemistry Sodium (137 - 145 mmol/L) 141 Potassium (3.5 - 5.1 mmol/L) 3.6 Chloride (98 - 107 mmol/L) 106 Carbon Dioxide (22 - 30 mmol/L) 27 Anion Gap (5 - 16) 8 BUN (7 - 17 mg/dL) 17 Creatinine (0.5 - 1.0 mg/dL) 0.6 Estimated GFR (>60 ml/min) > 60 BUN/Creatinine Ratio (7 - 25 %) 28.3 H Glucose (65 - 99 mg/dL) 101 H Calcium (8.4 - 10.2 mg/dL) 8.7 Total Bilirubin (0.2 - 1.3 mg/dL) 0.2 AST (14 - 36 U/L) 14 ALT (9 - 52 U/L) 26 Alkaline Phosphatase (<127 U/L) 57 Troponin I (< 0.11 ng/ml) < 0.01 Total Protein (6.3 - 8.2 g/dL) 5.8 L Albumin (3.5 - 5.0 g/dL) 3.0 L Globulin (1.9 - 4.2 gm/dL) 2.8 Albumin/Globulin Ratio (1.1 - 2.2 %) 1.1 Coagulation PT (9.4 - 12.5 SEC) 11.3 INR (0.90 - 1.19) 1.04 APTT (25 - 37 SEC) 33 Hematology CBC w Diff NO MAN DIFF REQ WBC (4.8 - 10.8 /CUMM) 13.3 H RBC (4.20 - 5.40 /CUMM) 3.90 L Hgb (12.0 - 16.0 G/DL) 10.8 L Hct (37 - 47 %) 33.1 L MCV (81.0 - 99.0 FL) 84.9 MCH (27.0 - 31.0 PG) 27.6 MCHC (33.0 - 37.0 G/DL) 32.6 L RDW (11.5 - 14.5 %) 14.9 H Plt Count (130 - 400 /CUMM) 383 MPV (7.4 - 10.4 FL) 9.3 Gran % (42.2 - 75.2 %) 70.4 Lymphocytes % (20.5 - 51.1 %) 20.8 Monocytes % (1.7 - 9.3 %) 6.3 Eosinophils % (0 - 5 %) 2.1 Basophils % (0.0 - 2.0 %) 0.4 Absolute Granulocytes (1.4 - 6.5 /CUMM) 9.4 H Absolute Lymphocytes (1.2 - 3.4 /CUMM) 2.8 Absolute Monocytes (0.10 - 0.60 /CUMM) 0.8 H Absolute Eosinophils (0.0 - 0.7 /CUMM) 0.3 Absolute Basophils (0.0 - 0.2 /CUMM) 0 Assessment/Plan Assessment/Recommendations: ASSESSMENT: 1. Hematochezia -- ? etiology, likely diverticular bleed, however, patient has several possible sources of GI blood loss 2. Diverticulosis 3. Inflammatory Changes Sigmoid Colon: ? related to Psoriatic Arthritis versus Segemental Colitis Associated with Diverticula versus ischemia 4. Psoriatic Arthritis 5. Abnormal CT Scan of Abdomen with inflammation of the terminal ileum and sigmoid colon RECOMMENDATIONS: 1. Repeat CBC and perform serial H/H as well as monitor clinically for recurrent GI blood loss. 2. Transfuse as needed 3. Prep for colonoscopy tomorrow. Give patient 2 L of GoLYTELY at 5 PM. On Monday morning at 5 AM repeat 2 L of GoLYTELY. Call Dr. Blanton if patient not clear from below at end of prep 4. NPO after prep 5. I will speak with patient's half section ironer regarding her work up to date 6. Risks and benefits discussed with patient. Consult Acknowledgment - Thank you for your consult request.
[2018-04-22 16:44] LABS: ABSOLUTE BASOPHIL COUNT 0 /CUMM (0.0-0.2); ABSOLUTE EOSINOPHIL COUNT 0.3 /CUMM (0.0-0.7); ABSOLUTE GRANULOCYTE CT 8.5 /CUMM (1.4-6.5); ABSOLUTE LYMPH COUNT 3.1 /CUMM (1.2-3.4); ABSOLUTE MONOCYTE COUNT 1.2 /CUMM (0.10-0.60); BASOPHIL % 0.2 % (0.0-2.0); EOSINOPHIL % 2.4 % (0-5); GRANULOCYTE % 64.5 % (42.2-75.2); MEAN CORPUSCULAR HGB 27.6 PG (27.0-31.0); MEAN CORPUSCULAR HGB CONC 32.8 G/DL (33.0-37.0); MEAN CORPUSCULAR VOLUME 84.1 FL (81.0-99.0); PLATELET COUNT 276 /CUMM (130-400); RBC DISTRIBUTION WIDTH 14.7 % (11.5-14.5); RED BLOOD CELL CT 3.57 /CUMM (4.20-5.40); WHITE BLOOD CELL COUNT 13.1 /CUMM (4.8-10.8)
[2018-04-22] MEDS ORDERED: ARAVA20 M1 PO (18:46)
[2018-04-22] MEDS ORDERED: RESTASIS1 EACH OPH (18:47)
[2018-04-22 23:54] VITALS: BP 144/72
[2018-04-23] VITALS (7 sets, daily range): BP systolic 136–170; BP diastolic 60–86
[2018-04-23 04:49] LABS: ABSOLUTE BASOPHIL COUNT 0 /CUMM (0.0-0.2); ABSOLUTE EOSINOPHIL COUNT 0 /CUMM (0.0-0.7); ABSOLUTE GRANULOCYTE CT 6.5 /CUMM (1.4-6.5); ABSOLUTE LYMPH COUNT 0.9 /CUMM (1.2-3.4); ABSOLUTE MONOCYTE COUNT 0.1 /CUMM (0.10-0.60); BASOPHIL % 0.4 % (0.0-2.0); EOSINOPHIL % 0 % (0-5); GRANULOCYTE % 86.3 % (42.2-75.2); HEMATOCRIT 26.1 % (37-47); MEAN CORPUSCULAR HGB 27.8 PG (27.0-31.0); MEAN CORPUSCULAR HGB CONC 33.2 G/DL (33.0-37.0); MEAN CORPUSCULAR VOLUME 83.9 FL (81.0-99.0); MEAN PLATELET VOLUME 9.1 FL (7.4-10.4); PLATELET COUNT 248 /CUMM (130-400); RBC DISTRIBUTION WIDTH 14.8 % (11.5-14.5); RED BLOOD CELL CT 3.12 /CUMM (4.20-5.40); WHITE BLOOD CELL COUNT 7.6 /CUMM (4.8-10.8)
--- NOTE | 2018-04-23 07:43 | PN- Resident CRCU ---
TraeAvis Mata 04/23/18 0731: Subjective HPI/CRCU Issues: No overnight event. Patient finished golytely without much difficulty. No notice of new BRBPR. Denied CP/Fever/Ab pain/diaphoresis/dizziness. Pending Colonoscopy today Objective Vital Signs & I&O Last 8 Hrs of Vitals and I&O: Intake & Output 04/23 0800 Intake Total 2383 Output Total 450 Balance 1933 Intake, IV 383 Intake, Oral 2000 Number 4 Bowel Movements Output, Urine 450 Exam General Appearance: no apparent distress, alert, awake, comfortable Head: atraumatic Respiratory: normal breath sounds, chest non-tender, no respiratory distress Cardiovascular: regular rate/rhythm Gastrointestinal: normal bowel sounds, soft, non-tender Extremities: no edema Current Medications: Current Medications Sig/Lynette Start time Last Medication Dose Route Stop Time Status Admin Acetaminophen 650 MG Q6P PRN 04/22 0230 AC 04/22 PO 1400 Albuterol Sulfate 2 PUF Q4-6 PRN PRN 04/22 0215 AC INH Budesonide 9 MG DAILY 04/23 1000 AC PO Budesonide 9 MG DAILY 04/22 1515 CAN PO Cyclosporine 1 GTT BID 04/22 2100 AC 04/22 OPH 2130 Latanoprost 1 GTT QPM 04/22 2200 AC 04/22 OPH 2220 Leflunomide 20 MG DAILY 04/22 2000 AC 04/22 PO 2127 Loratadine 10 MG DAILY 04/22 0900 AC 04/22 PO 1019 Melatonin 5 MG AT BEDTIME 04/22 2100 AC 04/22 PO 2128 Montelukast Sodium 10 MG 2100 04/22 2100 AC 04/22 PO 2128 Multivitamins 1 TAB DAILY 04/22 09 AC 04/22 Therapeutic PO 1019 Omeprazole 40 MG DAILY AC 04/22 0700 DC PO Ondansetron HCl 4 MG Q8P PRN 04/22 0230 AC 04/22 IV 1938 Pantoprazole Sodium 40 MG BID 04/22 0900 AC 04/22 IV 2132 Polyethylene Glycol 0.5 GAL ONCE ONE 04/23 0400 DC 04/23 PO 04/23 040 0429 Polyethylene Glycol 0.5 GAL ONCE ONE 04/22 2355 DC PO 04/22 2356 Polyethylene Glycol 0.5 GAL ONCE ONE 04/22 1700 DC 04/22 PO 04/22 1701 1704 Potassium Chloride 10 MEQ Q1H 04/22 1115 DC 04/22 IV 04/22 1216 1412 Prednisone 30 MG ONCE ONE 04/22 1915 DC 04/22 PO 04/22 191 2128 Sodium Chloride 1,000 ML .Q20H 04/22 0230 DC 04/22 IV 04/23 0127 1807 Tramadol HCl 50 MG Q6 PRN 04/22 2345 AC 04/23 PO 0003 Tramadol HCl 50 MG ONCE ONE 04/22 1645 DC 04/22 PO 04/22 1646 1703 Impression/Plan Impression/Problem List Impression: Ms Sylvester is a 72-year-old woman with 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 At the time of admission, T 98.1, pulse rate 103, respirations 16, blood pressure 162/92, 97% on room air. Orthostatic vitals positive at the time of admission. Pertinent lab findings: WBC 13.3-->14.3-->14.2 Hemoglobin 10.8-->8.4-->7.5-->9.9 (s/p 3 PRBC transfusion) Hematocrit 33.1-->26-->22.9-->30.4 Platelet count 383 Sodium 140, potassium 3.4, chloride 108, bicarbonate 24, anion gap 8, BUN 17, creatinine 0.6 AST 14, ALT 26, alkaline phosphatase 57. INR 1.[address] abdomen pelvis: Mucosal enhancement and mild wall thickening to several centimeters of distal ileum. The differential diagnosis for this appearance includes inflammatory and infectious processes. There are no drainable fluid collections. Sigmoid diverticulosis without evidence of diverticulitis. 4 mm right middle lobe nodule. 2 mm right lower lobe nodule. CTA adbdomen- two small discrete areas of intraluminal high attenuation suspicious for contrast extravasation within the distal transverse colon and mid descending colon. These are suspicious as representing two areas of active bleeding. On presentatio, etiology with painless lower GI bleed is likely diverticular in origin. Given her chronic history of terminal ileitis, inflammatory bowel disease such as Crohn's with his atypical pattern could be considered in differential. Although history indicates that it was negative for any inflammatory bowel disease pattern on pathology. Having long-standing rheumatoid/psoriatic arthritis and being treated with biologics, would make her more prone to get infectious enteritis which needs to be investigated. As per the interventional radiology, no active bleeding vessels were seen to be embolized. Plan: 1. Respiratory-stable at this time. - Continue Singulair and albuterol as needed. Titrate off oxygen as tolerated. - Monitor for any dyspnea. 2. Circulatory - Orthostatic positive. Cont vitals per ICU protocol - Hold off on any antihypertensives at this time. - CT scan did not show any evidence of retroperitoneal bleed. 3. Hematology - Hgb trended 9.8 -> 8.7 on latest lab, s/p 2 U PRBC - Cont monitor 4. Infectious-enteritis is in differential. - Monitor for any fever, which could be because of her rheumatological disease, but would keep infectious etiology in differential. - WBC resolved to 7.6 w/ 1 band (reactive?), remained Afebrile and off ABx. 5. Metabolic- stable at this time. Monitor renal function closely. - Daily lab for electrolytes, and replenish as needed given h/o diarrhea. 6. Alimentary- given inability to find a bleeder, even after finding s/o of bleeding vessel on angiogram, would point towards a diverticular bleed which typically behaves in this manner. Monitor for any further GI bleed. - Continue protonix iv. - NPO pending colonoscopy - Obtain records from her tray delivery aide. - on admission, restarted budesonide 9 mg daily + leflunomide 20mg daily. Discussed w/ GI. Checklist ICU: #1 Central line- none. #2 Arterial line- none. #3 Ferrer catheter-none. #4 Rectal tube- none. #5 NG tube- none. #6 IV/peripheral line- 2 large bore needles. DVT prophylaxis-alps only Full Code Problem List: 1. Lower GI bleed Pain Ratin Tomorrow's Labs & Rationales: ICU/CBC Dk Paula MD 04/23/18 0842: Impression/Plan Plan DVT/Prophylaxis: mechanical Attending MD Review Statement Attending Sign Off Attending Cosign Statement: I have: examined this patient, reviewed [employer] EMR data, personally reviewd images, discussd w/resident/PA/SPECIAL EDUCATION PRESCHOOL TEACHER, discussed mgmt plan w/evelyn, discussed mgmt plan w/CM, discussed mgmt plan w/pt, agreed w/resident/PA/SPECIAL EDUCATION PRESCHOOL TEACHER, amended to note. Other Findings: I have: examined this patient, reviewed [employer] EMR data, personally reviewd images, discussd w/resident/PA/SPECIAL EDUCATION PRESCHOOL TEACHER, discussed mgmt plan w/evelyn, discussed mgmt plan w/CM, discussed mgmt plan w/pt, agreed w/resident/PA/SPECIAL EDUCATION PRESCHOOL TEACHER, amended to note. Impression 72 year old woman * acute blood loss anemia secondary to 2 small discrete areas of intraluminal high attenuationp suspicious for contrast extravasation - distal transverse colon and mid descending colon - in the setting of diarrhea/IBS * 4mm RML nodule, 2mm RLL nodule - stable - no f/u necessary - never smoker Plan -NPO -GI consultation appreciated - plan for colonoscopy today -IR consulted and appreciated - no bleeding vessels identified for embolization -prbcs given bleeding - transfuse if active bleeding and for goal hgb >7 DVT prophylaxis - ALPS TTS 35 min
--- NOTE | 2018-04-23 08:59 | INTERVENTIONAL RADIOLOGY RPT ---
CLINICAL HISTORY: This patient is a 72-year-old female with lower GI bleed. The patient presents to interventional radiology for mesenteric angiogram and possible embolization. PROCEDURES: 1. Ultrasound and fluoroscopic access into the right common femoral artery and arteriogram. 2. Arteriograms: Inferior mesenteric, left colic, superior mesenteric and right common femoral PHYSICIANS: Dr. Fab Feliz (attending). The attending radiologist was present during the procedure and related imaging, and reviewed the report. MONITORING: Continuous blood pressure, pulse oximetry as well as heartrate monitoring was performed by an independent registered nurse. MEDICATIONS: 1. 100 micrograms of fentanyl were administered. 2. 10 mL of 1% lidocaine SQ. COMPLICATIONS: None. ESTIMATED BLOOD LOSS: <5 mL SPECIMENS: None. CONTRAST: 146 mL of Optiray 320 FLUOROSCOPY TIME: 14.5 minus PROCEDURE NOTE: Informed consent was obtained from the patient prior to the procedure. During this process, the procedure and potential alternatives were explained along with the intended outcome and benefits. The risks of the procedure, including the possibility of an unsuccessful procedure, as well as the risk of not doing the procedure, were discussed. The patient was given the opportunity to ask questions regarding the procedure and appeared competent to make decisions. A signed consent form documenting this discussion was placed in the medical record. A time-out procedure was performed. Pulses in groin and pedal pulses were checked preprocedure. The patient was placed supine on the fluoroscopy table. The right groin was prepped and draped in usual sterile fashion. All elements of maximal sterile barrier technique followed including use of cap, mask, sterile gown, sterile gloves, a sterile full body drape and hand hygiene. Also followed skin preparation with 2% chlorhexidine for cutaneous antisepsis, and sterile ultrasound preparation with sterile gel and probe cover when applicable. Under ultrasound and fluoroscopic-guidance, a 5 Fr micropuncture set was used to access the right common femoral artery. A 5 Fr vascular sheath was advanced over a 0.035 in Bentson wire. The vascular sheath was attached to continuous slow flush. A 5 Fr Sos 2 catheter was then formed over the aortic arch and used to select the inferior mesenteric artery, and an arteriogram was performed. A STC Renegade catheter was coaxially advanced into the left colic artery, and subselective arteriogram was performed. Next, the superior mesenteric artery was selected and digital angiography was performed.. The catheter was removed. The sheath entry site in the common femoral artery was evaluated with arteriogram. After evaluation of the common femoral arteriogram, the vascular sheath was removed and hemostasis was achieved using a Star close device. Pulses were checked post procedure and were unchanged from the preprocedure exam. Groin and pulses were again unchanged when rechecked after the patient had been transported to the recovery unit. The patient tolerated the procedure well, with no immediate post procedural complications. FINDINGS: 1. Visceral arteriogram demonstrates no evidence of active extravasation. 2. Closure of the right common femoral arteriotomy with Star close. IMPRESSION: Mesenteric angiogram demonstrated no active contrast extravasation. Embolization was not performed. PLAN: 1. The patient was stable after the procedure and was transferred to her medical room. 2. The patient should remain in bed with the right leg straight for 3 hours post arteriotomy.
--- NOTE | 2018-04-23 12:09 | Proc Note Colonoscopy ---
Colonoscopy Procedure Medical History: unchanged Mental Status: alert/oriented Heart/Lung Eval Prior to Sedation: within normal limits Candidate for Sedation? Yes Date of Last Colonoscopy: 2017 Procedure Date: 04/23/18 Procedure Type: colonoscopy w/biopsy Continuous Linter Drier Operator: MD Blanton Deborah E. ASA Classification: III Indications: 1. Acute blood loss anemia 2. Hematochezia 3. Abnormal CT scan of the abdomen and pelvis 4. Psoriatic arthritis Instrument (Colonoscope): single channel Meds Received: MAC Patient's Tolerance: good Complications: none Extent Reached: terminal ileum Prep: good Procedure: The patient took a split dose colonic preparation after which they were NPO for an appropriate time prior to procedure. Note: Informed consent was obtained prior to procedure. Risks and benefits of procedure were discussed with patient. Potential complications discussed included perforation, bleeding, abdominal pain, and adverse reaction to medications. It was explained that iany or all of these complications could result in the need for extended hospitalization, emergency surgery, transfusion of packed red blood cells (with the risk of HIV or hepatitis virus), intubation with mechanical ventilation, and possible need for antibiotics. It was further explained that an existing tumor polyp or mucosal abnormality might not be identified at the time of the procedure thus resulting in a missed opportunity for early diagnosis and treatment of a gastrointestinal malignancy or disease with possible interval development of a gastrointestinal cancer or other disease with possible worsening of clinical condition in the interval between endoscopies. It was also discussed that complications are not limited to those listed above. Possible alternatives to endoscopic treatment or evaluation were discussed. All questions were answered. Continuous EKG and blood pressure monitors were attached. Supplemental oxygen was provided with O2 Sat monitoring. Patient was placed in the left lateral decubitus position. A surgical timeout was performed. All persons in the room were identified. All concerns were expressed and answered. Sedation was administered by anesthesia and titrated to comfort prior to starting procdedure. A digital rectal exam was performed. There was normal tone and no masses. The Olympus CHF 180AL video colonoscope was advanced under direct vision to the level of the cecum. The cecum was easily identified by internal landmarks. The cecum, ileocecal valve and appendiceal orifice were easily identified and photo documented. The ileocecal valve was intubated. The colonoscope was advanced for a distance of 10 cm within the terminal ileum. There was diffuse edema with scattered aphthous ulceration the visualized terminal ileum. Multiple biopsies were obtained from the terminal ileum. With colonoscope in the forward-viewing position it was slowly withdrawn and all areas were reinspected. The cecum, ascending colon, hepatic flexure, transverse colon, splenic flexure, descending colon, sigmoid colon, rectosigmoid junction, rectum and retroflexed view of the rectum all fully examined. Retroflexed view of the rectum revealed a normal mucosal and vascular pattern. There was a normal mucosal and vascular pattern throughout the colon with the exception of shallow ulceration with mucus in the cecum and proximal ascending colon. Multiple biopsies were obtained from this area. There also scattered rare diverticuli in the sigmoidvolon as well as in the ascending colon. Given patient's history of diarrhea unexplained by previous biopsy multiple biopsies were obtained from the ascending, transverse, descending, sigmoid colon and rectum to rule out microscopic or collagenous colitis. Air was suctioned as the scope was withdrawn from the colon. Patient tolerated the procedure well. Cecal withdrawal time: 12 minutes Colonic preparation: Davenport Prep Scale Total: 9. Difficulty of Colonoscopy: Not difficult EBL: Minimal Specimens Removed: 1. Mild colitis cecum and proximal ascending colon 2. Biopsy terminal ileum with edema and scattered aphthous ulceration 3. Random colon biopsy to rule out microscopic or collagenous colitis Findings: 1. Colitis involving cecum and proximal ascending colon 2. Edema with scattered aphthous ulceration terminal ileum 3. Scattered diverticuli in the sigmoid and distal descending colon as well as a ascending colon without stigmata of bleeding Impression: 1. Colitis involving cecum and proximal ascending colon 2. Edema with scattered aphthous ulceration terminal ileum 3. Scattered diverticuli in the sigmoid and distal descending colon as well as a ascending colon without stigmata of bleeding Recommendations: 1. Advance diet 2. If no further bleeding and patient tolerating diet consider discharge to home 3. Patient follow-up with regular co op in [place]. 4. The results of the procedure have been discussed with the patient. All questions have been answered. Patient has been instructed to call the office immediately for nausea, vomiting, abdominal pain, fever or shaking chills or any change in clinical condition. Patient has expressed understanding of discharge instructions and agreed to call for any questions or concerns. Patient has been given written instructions to this effect. Followup Colonscopy Screen In: pending biopsy result(s)
[2018-04-23 20:57] LABS: ABSOLUTE BASOPHIL COUNT 0.1 /CUMM (0.0-0.2); ABSOLUTE EOSINOPHIL COUNT 0.2 /CUMM (0.0-0.7); ABSOLUTE GRANULOCYTE CT 8.3 /CUMM (1.4-6.5); ABSOLUTE LYMPH COUNT 2.2 /CUMM (1.2-3.4); ABSOLUTE MONOCYTE COUNT 1.3 /CUMM (0.10-0.60); BASOPHIL % 0.5 % (0.0-2.0); EOSINOPHIL % 1.3 % (0-5); GRANULOCYTE % 69.6 % (42.2-75.2); HEMATOCRIT 22.4 % (37-47); MEAN CORPUSCULAR HGB 28.2 PG (27.0-31.0); MEAN CORPUSCULAR HGB CONC 33.4 G/DL (33.0-37.0); MEAN CORPUSCULAR VOLUME 84.4 FL (81.0-99.0); MEAN PLATELET VOLUME 9.6 FL (7.4-10.4); PLATELET COUNT 230 /CUMM (130-400); RBC DISTRIBUTION WIDTH 14.8 % (11.5-14.5); RED BLOOD CELL CT 2.65 /CUMM (4.20-5.40)
[2018-04-24 05:38] LABS: ABSOLUTE BASOPHIL COUNT 0.1 /CUMM (0.0-0.2); ABSOLUTE EOSINOPHIL COUNT 0.2 /CUMM (0.0-0.7); ABSOLUTE GRANULOCYTE CT 5.2 /CUMM (1.4-6.5); ABSOLUTE LYMPH COUNT 2.5 /CUMM (1.2-3.4); ABSOLUTE MONOCYTE COUNT 0.8 /CUMM (0.10-0.60); BASOPHIL % 0.6 % (0.0-2.0); EOSINOPHIL % 2.3 % (0-5); GRANULOCYTE % 59.2 % (42.2-75.2); HEMATOCRIT 23.7 % (37-47); MEAN CORPUSCULAR VOLUME 84.9 FL (81.0-99.0); MEAN PLATELET VOLUME 9.2 FL (7.4-10.4); PLATELET COUNT 229 /CUMM (130-400); RBC DISTRIBUTION WIDTH 14.9 % (11.5-14.5); RED BLOOD CELL CT 2.79 /CUMM (4.20-5.40); WHITE BLOOD CELL COUNT 8.8 /CUMM (4.8-10.8)
--- NOTE | 2018-04-24 07:24 | PN- Resident CRCU ---
TraeAvisie 04/24/18 0723: Subjective HPI/CRCU Issues: Patient had 1 episode of bloody/maroon BM yesterday with more liquid/mucoid stools subsequent BMs. Denied lightheadedness/CP/SOB/Ab pain. Patient had been eating regular diet for dinner without complaint. Objective Vital Signs & I&O Last 8 Hrs of Vitals and I&O: Intake & Output 04/24 0800 Intake Total 120 Output Total Balance 120 Intake, IV 0 Intake, Oral 120 Number 0 Bowel Movements Exam General Appearance: no apparent distress, alert, awake, comfortable Head: atraumatic, normal appearance Cardiovascular: regular rate/rhythm Gastrointestinal: normal bowel sounds, soft, non-tender Extremities: normal inspection, no edema Current Medications: Current Medications Sig/Lynette Start time Last Medication Dose Route Stop Time Status Admin Acetaminophen 650 MG Q6P PRN 04/22 0230 AC 04/22 PO 1400 Albuterol Sulfate 2 PUF Q4-6 PRN PRN 04/22 0215 AC INH Amlodipine Besylate 5 MG AT BEDTIME 04/23 2100 AC 04/23 PO 2125 Budesonide 9 MG DAILY 04/23 1000 AC 04/23 PO 1424 Chlorhexidine 1 GM .STK-MED ONE 04/23 1307 DC Gluconate TOP 04/23 1308 Cyclosporine 1 GTT BID 04/22 2100 AC 04/24 OPH 09 Latanoprost 1 GTT QPM 04/22 2200 AC 04/23 OPH 2125 Leflunomide 20 MG 2100 04/23 2100 AC 04/23 PO 2124 Leflunomide 20 MG DAILY 04/22 2000 DC 04/22 PO 2127 Loratadine 10 MG DAILY 04/22 0900 AC 04/23 PO 1424 Losartan Potassium 75 MG DAILY 04/23 1343 AC 04/23 PO 1424 Melatonin 5 MG AT BEDTIME 04/22 2100 AC 04/23 PO 2125 Montelukast Sodium 10 MG 2100 04/22 2100 AC 04/23 PO 2125 Multivitamins 1 TAB DAILY 04/22 09 AC 04/23 Therapeutic PO 1424 Omeprazole 40 MG DAILY AC 04/24 0700 AC 04/24 PO 0609 Ondansetron HCl 4 MG Q8P PRN 04/22 0230 AC 04/22 IV 1938 Pantoprazole Sodium 40 MG BID 04/22 0900 DC 04/23 IV 04/23 2300 2125 Tramadol HCl 50 MG Q6 PRN 04/22 2345 AC 04/24 PO 0523 Impression/Plan Impression/Problem List Impression: Ms Sylvester is a 72-year-old woman with 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 At the time of admission, T 98.1, pulse rate 103, respirations 16, blood pressure 162/92, 97% on room air. Orthostatic vitals positive at the time of admission. Pertinent lab findings: WBC 13.3-->14.3-->14.2 Hemoglobin 10.8-->8.4-->7.5-->9.9 (s/p 3 PRBC transfusion) Hematocrit 33.1-->26-->22.9-->30.4 Platelet count 383 Sodium 140, potassium 3.4, chloride 108, bicarbonate 24, anion gap 8, BUN 17, creatinine 0.6 AST 14, ALT 26, alkaline phosphatase 57. INR 1.[address] abdomen pelvis: Mucosal enhancement and mild wall thickening to several centimeters of distal ileum. The differential diagnosis for this appearance includes inflammatory and infectious processes. There are no drainable fluid collections. Sigmoid diverticulosis without evidence of diverticulitis. 4 mm right middle lobe nodule. 2 mm right lower lobe nodule. CTA adbdomen- two small discrete areas of intraluminal high attenuation suspicious for contrast extravasation within the distal transverse colon and mid descending colon. These are suspicious as representing two areas of active bleeding. On presentation, etiology with painless lower GI bleed is likely diverticular in origin. Given her chronic history of terminal ileitis, inflammatory bowel disease such as Crohn's with his atypical pattern could be considered in differential. Although history indicates that it was negative for any inflammatory bowel disease pattern on pathology. Having long-standing rheumatoid/psoriatic arthritis and being treated with biologics, would make her more prone to get infectious enteritis which needs to be investigated. As per the interventional radiology, no active bleeding vessels were seen to be embolized. Plan: 1. Respiratory-stable at this time. - Continue Singulair and albuterol as needed. Titrate off oxygen as tolerated. - Monitor for any dyspnea. 2. Circulatory - Orthostatic positive, however no longer dizzy/lightheadedness/SOB. Cont vitals per protocol - Restarted losartan and amlodipine, will cont monitor BP - CT scan did not show any evidence of retroperitoneal bleed. 3. Hematology - Hgb trended 9.8 -> 8.7 -> 7.5 -> 7.8 on latest lab, s/p 2 U PRBC 04/22 - Recheck CBC at 1600, if stable, may be discharged. - Cont monitor. No active bleeding at this point however patient had bloody/ maroon BMs s/p colonoscopy, will cont monitor, probably bleeding was 2/2 colonoscopy procedure? 4. Infectious-enteritis is in differential. - Monitor for any fever, which could be because of her rheumatological disease, but would keep infectious etiology in differential. - WBC 7.6 -> 12.0 -> 8.8. Patient had colitis on colonoscopy howeve rreamined afebrile overnight, without bands on latest AM lab. Will continue monitor off ABx. 5. Metabolic- stable at this time. Monitor renal function closely. - Daily lab for electrolytes, and replenish as needed given h/o diarrhea. 6. Alimentary- given inability to find a bleeder, even after finding s/o of bleeding vessel on angiogram, would point towards a diverticular bleed which typically behaves in this manner. Monitor for any further GI bleed. - Continue Omeprazole PO QAM - Tolerating regular diet well overnight without c/o AB pain. - on admission, restarted budesonide 9 mg daily + leflunomide 20mg daily. Discussed w/ GI. Checklist ICU: #1 Central line- none. #2 Arterial line- none. #3 Ferrer catheter-none. #4 Rectal tube- none. #5 NG tube- none. #6 IV/peripheral IV DVT prophylaxis-alps only Full Code Problem List: 1. Lower GI bleed Pain Ratin Tomorrow's Labs & Rationales: CBC/ICU Plan DVT/Prophylaxis: Dk Garcia MD 04/24/18 0903: Attending MD Review Statement Attending Sign Off Attending Cosign Statement: I have: examined this patient, reviewed aval EMR data, personally reviewd images, discussd w/resident/PA/POT FISHER, discussed mgmt plan w/evelyn, discussed mgmt plan w/CM, discussed mgmt plan w/pt, agreed w/resident/PA/POT FISHER, amended to note. Other Findings: Impression 72 year old woman * acute blood loss anemia secondary to 2 small discrete areas of intraluminal high attenuationp suspicious for contrast extravasation - distal transverse colon and mid descending colon - in the setting of diarrhea/IBS * 4mm RML nodule, 2mm RLL nodule - stable - no f/u necessary - never smoker Plan -s/p colonoscopy, report reviewed -GI consultation appreciated -still with anemia, monitor hgb prior to dc DVT prophylaxis - ALPS GM hold
[2018-04-24 08:00] VITALS: BP 132/70
[2018-04-24] MEDS ORDERED: OMEPRAZOLE20 M2 PO (10:58)
--- NOTE | 2018-04-24 11:03 | Patient Discharge Instructions ---
Discharge Instructions General Discharge Information Special Instructions: -Repeat CBC on MondayApril 27 - Please follow up with your primary care physician within 1-2 weeks of discharge. Inform your primary care physician of this admission to [facility]. F/U with your GI doctor after discharge - Continue your current medications per discharge instructions. - Please watch for these problems: Fever, Chills, Nausea, Vomiting, Shortness of Breath, Productive Cough, Chest Pain/Discomfort, Abdominal Pain, Active Bleeding or Bloody urine/stool. Diet Continue normal diet: Yes Recommended Diet: Regular Activity Full Activity/No Limits: Yes Acute Coronary Syndrome Inclusion Criteria At DC or during hospital stay patient has or had the following: ACS DIAGNOSIS No Discharge Core Measures Meds if any: Prescribed or Continued at Discharge Meds if any: NOT Prescribed or Continued at Discharge Congestive Heart Failure Inclusion Criteria At DC or during hospital stay patient has or had the following: CHF DIAGNOSIS No Discharge Core Measures Meds if any: Prescribed or Continued at Discharge Meds if any: NOT Prescribed or Continued at Discharge Cerebrovascular accident Inclusion Criteria At DC or during hospital stay patient has or had the following: CVA/TIA Diagnosis No Discharge Core Measures Meds if any: Prescribed or Continued at Discharge Meds if any: NOT Prescribed or Continued at Discharge Venous thromboembolism Inclusion Criteria VTE Diagnosis No VTE Type NONE VTE Confirmed by (Test) NONE Discharge Core Measures - Per Current guidelines, there needs to be overlap - treatment for the first 5 days of Warfarin therapy. - If discharged on Warfarin prior to 5 days of - overlap therapy, the patient will need to be - assessed for post discharge needs including - *Post discharge parental anticoagulation - *Warfarin and/or parental anticoagulation education - *Follow up date to check INR post discharge At least 5 days overlap therapy as Inpatient No Meds if any: Prescribed or Continued at Discharge Note: Overlap Therapy is Warfarin and Anticoagulant Meds if any: NOT Prescribed or Continued at Discharge
--- NOTE | 2018-04-24 11:16 | Discharge Summary ---
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 At the time of admission, T 98.1, pulse rate 103, respirations 16, blood pressure 162/92, 97% on room air. Orthostatic vitals positive at the time of admission. Pertinent lab findings: WBC 13.3-->14.3-->14.2 Hemoglobin 10.8-->8.4-->7.5-->9.9 (s/p 3 PRBC transfusion) Hematocrit 33.1-->26-->22.9-->30.4 Platelet count 383 Sodium 140, potassium 3.4, chloride 108, bicarbonate 24, anion gap 8, BUN 17, creatinine 0.6 AST 14, ALT 26, alkaline phosphatase 57. INR 1.[address] abdomen pelvis: Mucosal enhancement and mild wall thickening to several centimeters of distal ileum. The differential diagnosis for this appearance includes inflammatory and infectious processes. There are no drainable fluid collections. Sigmoid diverticulosis without evidence of diverticulitis. 4 mm right middle lobe nodule. 2 mm right lower lobe nodule. CTA adbdomen- two small discrete areas of intraluminal high attenuation suspicious for contrast extravasation within the distal transverse colon and mid descending colon. These are suspicious as representing two areas of active bleeding. On presentation, etiology with painless lower GI bleed is likely diverticular in origin. Given her chronic history of terminal ileitis, inflammatory bowel disease such as Crohn's with his atypical pattern could be considered in differential. Although history indicates that it was negative for any inflammatory bowel disease pattern on pathology. Having long-standing rheumatoid/psoriatic arthritis and being treated with biologics, would make her more prone to get infectious enteritis which needs to be investigated. As per the interventional radiology, no active bleeding vessels were seen to be embolized. Patient was admitted to ICU for management of the following: #Acute blood loss anemia 2/2 BRBPR (small discrete area of intraluminal high attenuation suspicious for contrast extravasation) #Colitis involving cecum and proximal ascending colon #Diverticulosis and sigmoid/distal descending colon/ascending colon, without stigmata of bleeding #Leukocytosis, likely reactive #Stable lung nodules (4mm RML nodule, 2mm RLL nodule) #MRSA surveillance positive #PMH of rheumoatoid + psoriatic arthritis, chronic back pain on occassional NSAID, recent diagnosis of terminal ileitis (negative pathologies for IBS), hypertension, asthma, glaucoma, chronic diarrhea for the last 10 months. On admission, patient was given 2 units of PRBC on 04/22, and hemoglobin improved to 9.8, stabilized and patient underwent abdominal CTA, with findings of 2 small discrete areas of intraluminal high attenuation suspicious for contrast extravasation within the distal transverse colon and mid descending colon, however due to the fact that with visceral arteriogram demonstrated no evidence of active extravasation, embolization was not performed and patient was scheduled for colonoscopy by Dr. Marcial. She underwent GoLYTELY prep with mostly maroon color liquid stool, later resolved to clear yellowish stool prior to the colonoscopy, and a biopsy was taken during the colonoscopy without finding of any active source of bleeding (see report below). Patient tolerated the procedure without any complications, came back and advanced the diet full liquid and later to regular diet without any specific complaint. Status post colonoscopy, patient had 3 more bowel movements of bloody clots, however no active bright red blood and resolved without any more bloody bowel movements at 9 PM on 04/23. Patient CBCs trended down to 7.5, and later stabilized at 7.8 the morning prior to discharge, recheck of CBCs at 4 PM prior to discharge showed that hemoglobin stabilized at ? After discussion with attending, patient was safe to discharge home at this point and will recheck CBCs in 3 days, follow-up her GI specialist in [place]. DVT PPX, ALPS only Regular diet Focal Allergies: Coded Allergies: NSAIDS (Non-Steroidal Anti-Inflamma (GI 04/21/18) Sulfa (Sulfonamide Antibiotics) (HIVES 04/21/18) Significant Procedures: SERVICE DATE: 04/22/18-599 EXAM TYPE: IR - INTERVENTIONAL SETUP; THERAPEUTIC EMBOLIZATION ROUTN; US- GUIDANCE VASCULAR ACCESS FINDINGS: 1. Visceral arteriogram demonstrates no evidence of active extravasation. 2. Closure of the right common femoral arteriotomy with Star close. IMPRESSION: Mesenteric angiogram demonstrated no active contrast extravasation. Embolization was not performed. PLAN: 1. The patient was stable after the procedure and was transferred to her medical room. 2. The patient should remain in bed with the right leg straight for 3 hours post arteriotomy. Pertinent Lab Results: SERVICE DATE: 04/22/18- EXAM TYPE: RAD - XRY-PORTABLE CHEST XRAY IMPRESSION: Unremarkable chest examination. SERVICE DATE: 04/22/18 EXAM TYPE: CAT - CT ABD & PELVIS W IV CONTRAST IMPRESSION: Mucosal enhancement and mild wall thickening to several centimeters of distal ileum. The differential diagnosis for this appearance includes inflammatory and infectious processes. There are no drainable fluid collections. Sigmoid diverticulosis without evidence of diverticulitis. 4 mm right middle lobe nodule. 2 mm right lower lobe nodule. Various management parameters for solitary pulmonary nodules are in the literature. According to the Fleischner Society, recommendations for pulmonary nodules are as follows: Nodule size < or = to 4 mm in LOW RISK PATIENTS: No follow up needed. Nodule size < or = to 4 mm in HIGH RISK PATIENTS: Follow up CT at 12 months; if unchanged, no further follow up. Nodule size > 4-6 mm in LOW RISK PATIENTS: Follow up CT at 12 months; if unchanged, no further follow up. Nodule size > 4-6 mm in HIGH RISK PATIENTS: Initial follow up CT at 6-12 months, then at 18-24 months if no change. Nodule size > 6-8 mm in LOW RISK PATIENTS: Initial follow up CT at 6-12 months, then at 18-24 months if no change. Nodule size > 6-8 mm in HIGH RISK PATIENTS: Initial follow up CT at 3-6 months, then 9-12 months and 24 months if no change. Nodule size > 8 mm in LOW RISK PATIENTS: Follow up CT at around 3, 9, and 24 months, dynamic contrast-enhanced CT, PET, and/or biopsy. Nodule size > 8 mm in HIGH RISK PATIENTS: Same as for low-risk patients. SERVICE DATE: 04/22/18 EXAM TYPE: CAT - CT ABD & PELVIS ANGIOGRAM IMPRESSION: Two small discrete areas of intraluminal high attenuation suspicious for contrast extravasation within the distal transverse colon and mid descending colon. These are suspicious as representing two areas of active bleeding. Mucosal enhancement and mild wall thickening to several centimeters of distal ileum. The differential diagnosis for this appearance includes inflammatory and infectious processes. There are no drainable fluid collections. Sigmoid diverticulosis and wall thickening to the distal sigmoid colon. There is better demonstration on this exam of some mild wall thickening, mucosal enhancement and adjacent fat stranding. This could correspond to an area of diverticulitis or colitis. Stable 4 mm right middle lobe nodule. 2 mm right lower lobe nodule. The aforementioned was communicated to Dr. Marrufo at 0359 hours. SERVICE DATE: 04/22/18 EXAM TYPE: IR - INTERVENTIONAL SETUP; THERAPEUTIC EMBOLIZATION ROUTN; US- GUIDANCE VASCULAR ACCESS FINDINGS: 1. Visceral arteriogram demonstrates no evidence of active extravasation. 2. Closure of the right common femoral arteriotomy with Star close. IMPRESSION: Mesenteric angiogram demonstrated no active contrast extravasation. Embolization was not performed. PLAN: 1. The patient was stable after the procedure and was transferred to her medical room. 2. The patient should remain in bed with the right leg straight for 3 hours post arteriotomy. SERVICE DATE: 04/22/18 EXAM TYPE: IR - INTERVENTIONAL SETUP; THERAPEUTIC EMBOLIZATION ROUTN; US- GUIDANCE VASCULAR ACCESS FINDINGS: 1. Visceral arteriogram demonstrates no evidence of active extravasation. 2. Closure of the right common femoral arteriotomy with Star close. IMPRESSION: Mesenteric angiogram demonstrated no active contrast extravasation. Embolization was not performed. PLAN: 1. The patient was stable after the procedure and was transferred to her medical room. 2. The patient should remain in bed with the right leg straight for 3 hours post arteriotomy. Laboratory Tests 04/24 Chemistry Sodium (137 - 145 mmol/L) 141 Potassium (3.5 - 5.1 mmol/L) 3.7 Chloride (98 - 107 mmol/L) 108 H Carbon Dioxide (22 - 30 mmol/L) 29 Anion Gap (5 - 16) 5 BUN (7 - 17 mg/dL) 9 Creatinine (0.5 - 1.0 mg/dL) 0.6 Estimated GFR (>60 ml/min) > 60 Glucose (65 - 99 mg/dL) 97 Calcium (8.4 - 10.2 mg/dL) 8.4 Phosphorus (2.5 - 4.5 mg/dL) 3.1 Magnesium (1.6 - 2.3 mg/dL) 1.6 Total Bilirubin (0.2 - 1.3 mg/dL) < 0.1 L AST (14 - 36 U/L) 12 L ALT (9 - 52 U/L) 24 Albumin (3.5 - 5.0 g/dL) 2.3 L Hematology CBC w Diff NO MAN DIFF REQ NO MAN DIFF REQ WBC (4.8 - 10.8 /CUMM) 8.8 12.0 H RBC (4.20 - 5.40 /CUMM) 2.79 L 2.65 L Hgb (12.0 - 16.0 G/DL) 7.8 L 7.5 L Hct (37 - 47 %) 23.7 L 22.4 L MCV (81.0 - 99.0 FL) 84.9 84.4 MCH (27.0 - 31.0 PG) 28.0 28.2 MCHC (33.0 - 37.0 G/DL) 33.0 33.4 RDW (11.5 - 14.5 %) 14.9 H 14.8 H Plt Count (130 - 400 /CUMM) 229 230 MPV (7.4 - 10.4 FL) 9.2 9.6 Gran % (42.2 - 75.2 %) 59.2 69.6 Lymphocytes % (20.5 - 51.1 %) 29.0 18.0 L Monocytes % (1.7 - 9.3 %) 8.9 10.6 H Eosinophils % (0 - 5 %) 2.3 1.3 Basophils % (0.0 - 2.0 %) 0.6 0.5 Absolute Granulocytes (1.4 - 6.5 /CUMM) 5.2 8.3 H Absolute Lymphocytes (1.2 - 3.4 /CUMM) 2.5 2.2 Absolute Monocytes (0.10 - 0.60 /CUMM) 0.8 H 1.3 H Absolute Eosinophils (0.0 - 0.7 /CUMM) 0.2 0.2 Absolute Basophils (0.0 - 0.2 /CUMM) 0.1 0.1 Disposition Summary Disposition Principal Diagnosis: #acute blood loss anemia, resolved #Stable lung nodules (4mm RML nodule, 2mm RLL nodule) #PMH of rheumoatoid + psoriatic arthritis, chronic back pain, terminal ileitis, hypertension, asthma, glaucoma, chronic diarrhea for the last 10 months Additional Diagnosis: as above Discharge Disposition: home or self care Discharge Instructions General Discharge Information Code Status: Full Code Patient's Diet: regular diet Patient's Activity: as tolerated Follow-Up Instructions/Appts: - Repeat CBC on MondayApril 27 - Please follow up with your primary care physician within 1-2 weeks of discharge. Inform your primary care physician of this admission to [facility]. F/U with your GI doctor after discharge - Continue your current medications per discharge instructions. - Please watch for these problems: Fever, Chills, Nausea, Vomiting, Shortness of Breath, Productive Cough, Chest Pain/Discomfort, Abdominal Pain, Active Bleeding or Bloody urine/stool. Medications at Discharge Discharge Medications: Continue taking these medications: Losartan Potassium (Cozaar) 50 MG TABLET 1.5 Tablet ORAL DAILY Comments: Last Taken: 04/24/18 Time: 9AM Amlodipine Besylate (Amlodipine Besylate) 5 MG TABLET 1 Tablet ORAL TAKE AT BEDTIME Comments: Last Taken: 04/23/18 Time: 9PM Montelukast Sodium (Singulair) 10 MG TABLET 1 Tablet ORAL DAILY Comments: Last Taken: 04/23/18 Time: 9PM Desloratadine (Clarinex) 5 MG TABLET 1 Tablet ORAL DAILY Comments: Last Taken: 04/24/18 Time: 9AM CLARITIN GIVEN SUBSTITUTION Levocetirizine Dihydrochloride (Xyzal) 5 MG TABLET 1 Tablet ORAL DAILY Comments: NOT GIVEN WHILE IN HOSPITAL Albuterol Sulfate (Proair Hfa) 90 MCG HFA.AER.AD 2 Puff Inhale through mouth EVERY 4-6 HOURS NEEDED as needed for SOB Comments: NOT GIVEN WHILE IN HOSPITAL Budesonide (Entocort EC) 3 MG CAPDR...ER 9 Milligram ORAL DAILY Comments: Last Taken: 04/24/18 Time: 9AM Pantoprazole Sodium (Protonix) 40 MG TABLET.DR 1 Tablet ORAL DAILY Comments: Last Taken: 04/24/18 Time: 6AM PRILOSEC GIVEN SUBSTITUTION Travoprost (Travatan Z) 0.004 % DROPS 1 Drop In the eye Every night Comments: Last Taken: 04/23/18 Time: 9PM LATANOPROST GIVEN WHILE IN HOSPITAL Multiple Vitamin (Multivitamins) 1 EACH TABLET 1 Tablet ORAL DAILY Comments: Last Taken: 04/24/18 Time: 9AM Leflunomide (Arava) 20 MG TABLET 1 Tablet ORAL DAILY Comments: Last Taken: 04/23/18 Time: 9PM Cyclosporine (Restasis) 0.05 % DROPERETTE 1 Drop In the eye TWICE DAILY Comments: Last Taken: 04/24/18 Time: 6AM Copies To: Keena GASTON,Ta Webb III
--- NOTE | 2018-04-24 12:38 | PN- Gastroenterology ---
Assessment/Plan GI Assessment/Recommendations: ASSESSMENT: 1. Drop in Hgb and Hct -- ? Dilutional 2. Diverticulosis with diverticular bleed 3. Psoriatic arthritis with mild superficial ulceration in the proximal ascending colon 4. Abnormal CT scan of the abdomen and pelvis 5. Edema in the terminal ileum with scattered aphthous ulceration RECOMMENDATIONS: 1. Await pathology 2. If H&H remained stable consider discharge to home. I have discussed with patient that she likely had a diverticular bleed. I've explained to her that she may have recurrent diverticular bleeding and should this happen she should return to the [place] ED for monitoring. I have told her that her nonprofit financial controller can obtain these records by having her sign a release of information. All questions were answered. 3. If patient has no further bleeding and is tolerating diet she is stable for discharge to home. 4. GI will sign off for now. Please do not hesitate contact us as needed. Subjective Subjective: Patient has had no nausea vomiting or abdominal pain. She had an episode of hematochezia last night but has had none since then. She has had a general trend downwards in her H/H from 8.4 to 7.5 with a repeat of 7.8. This may be, in part, dilutional. I have reviewed the results of her colonoscopy with her. She is tolerating a diet. Objective Vital Signs and I&Os Vital Signs Date Time Temp Pulse Resp B/P B/P Pulse O2 O2 Flow FiO2 Mean Ox Delivery Rate 04/24 0800 97.7 85 16 132/70 96 Room Air 04/23 2207 97.6 90 20 136/68 97 Room Air 04/23 2125 97.6 90 20 136/68 04/23 1828 148/60 04/23 1718 170/70 04/23 1626 98.4 90 16 160/70 98 Room Air 04/23 1341 97.0 80 15 156/80 96 Room Air Intake & Output 04/24 1600 04/24 0400 04/23 1600 04/23 0400 04/22 1600 04/22 0400 Intake Total 612 267 0487 555 3700 1000 Output Total 250 430 652 6500 15 Balance 329 970 6437 455 2650 985 Intake, Blood 700 Product Intake, IV 0 20 091 288 6766 1000 Intake, Oral 208 819 5368 320 400 Number 0 2 7 4 2 Bowel Movements Output, Stool 250 Output, Urine 928 406 7260 15 Patient 172 lb 167 lb 160 lb Weight Weight Bed scale Bed scale Measurement Method Physical Exam General Appearance: well developed/nourished, no apparent distress, comfortable Respiratory: lungs clear Neurologic/Psychiatric: oriented x 3, normal mood/affect Current Medications: Current Medications Sig/Lynette Start time Last Medication Dose Route Stop Time Status Admin Acetaminophen 650 MG Q6P PRN 04/22 0230 AC 04/24 PO 1042 Albuterol Sulfate 2 PUF Q4-6 PRN PRN 04/22 0215 AC INH Amlodipine Besylate 5 MG AT BEDTIME 04/23 2100 AC 04/23 PO 2125 Budesonide 9 MG DAILY 04/23 1000 AC 04/24 PO 0908 Chlorhexidine 1 GM .STK-MED ONE 04/23 1307 DC Gluconate TOP 04/23 1308 Cyclosporine 1 GTT BID 04/22 2100 AC 04/24 OPH 0609 Latanoprost 1 GTT QPM 04/22 220 AC 04/23 OPH 2125 Leflunomide 20 MG 04/23 AC 04/23 PO 2124 Leflunomide 20 MG DAILY 04/22 2000 DC 04/22 PO 2127 Loratadine 10 MG DAILY 04/22 09 AC 04/24 PO 0908 Losartan Potassium 75 MG DAILY 04/23 1343 AC 04/24 PO 0908 Melatonin 5 MG AT BEDTIME 04/22 2100 AC 04/23 PO 2125 Montelukast Sodium 10 MG 2100 04/22 2100 AC 04/23 PO 2125 Multivitamins 1 TAB DAILY 04/22 09 AC 04/24 Therapeutic PO 0908 Omeprazole 40 MG DAILY AC 04/24 07 AC 04/24 PO 0609 Ondansetron HCl 4 MG Q8P PRN 04/22 0230 AC 04/22 IV 1938 Pantoprazole Sodium 40 MG BID 04/22 09 DC 04/23 IV 04/23 2300 212 Tramadol HCl 50 MG Q6 PRN 04/22 234 AC 04/24 PO 0523 Results Pertinent Lab Results: Laboratory Tests 04/24 Chemistry Sodium (137 - 145 mmol/L) 141 Potassium (3.5 - 5.1 mmol/L) 3.7 Chloride (98 - 107 mmol/L) 108 H Carbon Dioxide (22 - 30 mmol/L) 29 Anion Gap (5 - 16) 5 BUN (7 - 17 mg/dL) 9 Creatinine (0.5 - 1.0 mg/dL) 0.6 Estimated GFR (>60 ml/min) > 60 Glucose (65 - 99 mg/dL) 97 Calcium (8.4 - 10.2 mg/dL) 8.4 Phosphorus (2.5 - 4.5 mg/dL) 3.1 Magnesium (1.6 - 2.3 mg/dL) 1.6 Total Bilirubin (0.2 - 1.3 mg/dL) < 0.1 L AST (14 - 36 U/L) 12 L ALT (9 - 52 U/L) 24 Albumin (3.5 - 5.0 g/dL) 2.3 L Hematology CBC w Diff NO MAN DIFF REQ NO MAN DIFF REQ WBC (4.8 - 10.8 /CUMM) 8.8 12.0 H RBC (4.20 - 5.40 /CUMM) 2.79 L 2.65 L Hgb (12.0 - 16.0 G/DL) 7.8 L 7.5 L Hct (37 - 47 %) 23.7 L 22.4 L MCV (81.0 - 99.0 FL) 84.9 84.4 MCH (27.0 - 31.0 PG) 28.0 28.2 MCHC (33.0 - 37.0 G/DL) 33.0 33.4 RDW (11.5 - 14.5 %) 14.9 H 14.8 H Plt Count (130 - 400 /CUMM) 229 230 MPV (7.4 - 10.4 FL) 9.2 9.6 Gran % (42.2 - 75.2 %) 59.2 69.6 Lymphocytes % (20.5 - 51.1 %) 29.0 18.0 L Monocytes % (1.7 - 9.3 %) 8.9 10.6 H Eosinophils % (0 - 5 %) 2.3 1.3 Basophils % (0.0 - 2.0 %) 0.6 0.5 Absolute Granulocytes (1.4 - 6.5 /CUMM) 5.2 8.3 H Absolute Lymphocytes (1.2 - 3.4 /CUMM) 2.5 2.2 Absolute Monocytes (0.10 - 0.60 /CUMM) 0.8 H 1.3 H Absolute Eosinophils (0.0 - 0.7 /CUMM) 0.2 0.2 Absolute Basophils (0.0 - 0.2 /CUMM) 0.1 0.1 04/23 04/22 0420 1625 Chemistry Sodium (137 - 145 mmol/L) 140 Potassium (3.5 - 5.1 mmol/L) 3.7 Chloride (98 - 107 mmol/L) 108 H Carbon Dioxide (22 - 30 mmol/L) 25 Anion Gap (5 - 16) 7 BUN (7 - 17 mg/dL) 6 L Creatinine (0.5 - 1.0 mg/dL) 0.5 Estimated GFR (>60 ml/min) > 60 BUN/Creatinine Ratio (7 - 25 %) 12.0 Iron (37 - 170 ug/dL) 23 L TIBC (265 - 497 ug/dL) 224 L Ferritin (11.1 - 264 ng/mL) 153.0 Hematology CBC w Diff MAN DIFF ORDERED NO MAN DIFF REQ WBC (4.8 - 10.8 /CUMM) 7.6 13.1 H RBC (4.20 - 5.40 /CUMM) 3.12 L 3.57 L Hgb (12.0 - 16.0 G/DL) 8.7 L 9.8 L Hct (37 - 47 %) 26.1 L 30.0 L MCV (81.0 - 99.0 FL) 83.9 84.1 MCH (27.0 - 31.0 PG) 27.8 27.6 MCHC (33.0 - 37.0 G/DL) 33.2 32.8 L RDW (11.5 - 14.5 %) 14.8 H 14.7 H Plt Count (130 - 400 /CUMM) 248 276 MPV (7.4 - 10.4 FL) 9.1 9.0 Gran % (42.2 - 75.2 %) 86.3 H 64.5 Lymphocytes % (20.5 - 51.1 %) 11.6 L 23.6 Monocytes % (1.7 - 9.3 %) 1.7 9.3 Eosinophils % (0 - 5 %) 0 2.4 Basophils % (0.0 - 2.0 %) 0.4 0.2 Absolute Granulocytes (1.4 - 6.5 /CUMM) 6.5 8.5 H Segmented Neutrophils (42.2 - 75.2 %) 80 H Band Neutrophils (0.0 - 5.0 %) 1 Absolute Lymphocytes (1.2 - 3.4 /CUMM) 0.9 L 3.1 Lymphocytes (20.5 - 51.1 %) 17 L Monocytes (1.7 - 9.3 %) 2 Absolute Monocytes (0.10 - 0.60 /CUMM) 0.1 1.2 H Absolute Eosinophils (0.0 - 0.7 /CUMM) 0 0.3 Absolute Basophils (0.0 - 0.2 /CUMM) 0 0 Platelet Estimate (ADEQUATE) ADEQUATE Polychromasia 1+ Ovalocytes FEW Other Body Source Fld Total RBCs Counted (%) 100 04/22 04/22 04/22 1200 1200 1010 Hematology CBC w Diff Cancelled Cancelled WBC (4.8 - 10.8 /CUMM) Cancelled Cancelled 12.2 H RBC (4.20 - 5.40 /CUMM) Cancelled Cancelled 3.60 L Hgb (12.0 - 16.0 G/DL) Cancelled Cancelled 9.9 L Hct (37 - 47 %) Cancelled Cancelled 30.4 L MCV (81.0 - 99.0 FL) Cancelled Cancelled 84.5 MCH (27.0 - 31.0 PG) Cancelled Cancelled 27.6 MCHC (33.0 - 37.0 G/DL) Cancelled Cancelled 32.6 L RDW (11.5 - 14.5 %) Cancelled Cancelled 14.6 H Plt Count (130 - 400 /CUMM) Cancelled Cancelled 268 MPV (7.4 - 10.4 FL) Cancelled Cancelled 8.8 Gran % (42.2 - 75.2 %) 67.8 Lymphocytes % (20.5 - 51.1 %) 22.5 Monocytes % (1.7 - 9.3 %) 7.9 Eosinophils % (0 - 5 %) 1.5 Basophils % (0.0 - 2.0 %) 0.3 Absolute Granulocytes (1.4 - 6.5 /CUMM) 8.3 H Absolute Lymphocytes (1.2 - 3.4 /CUMM) 2.8 Absolute Monocytes (0.10 - 0.60 /CUMM) 1.0 H Absolute Eosinophils (0.0 - 0.7 /CUMM) 0.2 Absolute Basophils (0.0 - 0.2 /CUMM) 0 04/22 04/22 0600 0545 Chemistry Sodium Cancelled Potassium Cancelled Chloride Cancelled Carbon Dioxide Cancelled Anion Gap Cancelled BUN Cancelled Creatinine Cancelled BUN/Creatinine Ratio Cancelled Hematology CBC w Diff Cancelled NO MAN DIFF REQ WBC (4.8 - 10.8 /CUMM) Cancelled 14.2 H RBC (4.20 - 5.40 /CUMM) Cancelled 2.73 L Hgb (12.0 - 16.0 G/DL) Cancelled 7.5 L Hct (37 - 47 %) Cancelled 22.9 L MCV (81.0 - 99.0 FL) Cancelled 83.7 MCH (27.0 - 31.0 PG) Cancelled 27.4 MCHC (33.0 - 37.0 G/DL) Cancelled 32.7 L RDW (11.5 - 14.5 %) Cancelled 14.6 H Plt Count (130 - 400 /CUMM) Cancelled 300 MPV (7.4 - 10.4 FL) Cancelled 8.6 Gran % (42.2 - 75.2 %) 76.9 H Lymphocytes % (20.5 - 51.1 %) 15.9 L Monocytes % (1.7 - 9.3 %) 5.9 Eosinophils % (0 - 5 %) 1.1 Basophils % (0.0 - 2.0 %) 0.2 Absolute Granulocytes (1.4 - 6.5 /CUMM) 10.9 H Absolute Lymphocytes (1.2 - 3.4 /CUMM) 2.3 Absolute Monocytes (0.10 - 0.60 /CUMM) 0.8 H Absolute Eosinophils (0.0 - 0.7 /CUMM) 0.2 Absolute Basophils (0.0 - 0.2 /CUMM) 0 04/22 04/22 0316 0055 Chemistry Sodium (137 - 145 mmol/L) 140 Potassium (3.5 - 5.1 mmol/L) 3.4 L Chloride (98 - 107 mmol/L) 108 H Carbon Dioxide (22 - 30 mmol/L) 24 Anion Gap (5 - 16) 8 BUN (7 - 17 mg/dL) 17 Creatinine (0.5 - 1.0 mg/dL) 0.6 Estimated GFR (>60 ml/min) > 60 BUN/Creatinine Ratio (7 - 25 %) 28.3 H Vitamin B12 (239 - 931 pg/mL) 414 Hematology CBC w Diff NO MAN DIFF REQ WBC (4.8 - 10.8 /CUMM) 14.3 H RBC (4.20 - 5.40 /CUMM) 3.10 L Hgb (12.0 - 16.0 G/DL) 8.4 L Hct (37 - 47 %) 26.0 L MCV (81.0 - 99.0 FL) 83.9 MCH (27.0 - 31.0 PG) 27.2 MCHC (33.0 - 37.0 G/DL) 32.4 L RDW (11.5 - 14.5 %) 14.7 H Plt Count (130 - 400 /CUMM) 319 MPV (7.4 - 10.4 FL) 8.7 Gran % (42.2 - 75.2 %) 64.7 Lymphocytes % (20.5 - 51.1 %) 25.1 Monocytes % (1.7 - 9.3 %) 7.5 Eosinophils % (0 - 5 %) 1.4 Basophils % (0.0 - 2.0 %) 1.3 Absolute Granulocytes (1.4 - 6.5 /CUMM) 9.3 H Absolute Lymphocytes (1.2 - 3.4 /CUMM) 3.6 H Absolute Monocytes (0.10 - 0.60 /CUMM) 1.1 H Absolute Eosinophils (0.0 - 0.7 /CUMM) 0.2 Absolute Basophils (0.0 - 0.2 /CUMM) 0.2 Urines Urine Color (YEL,AMB,STR) YEL Urine Clarity (CLEAR) CLEAR Urine pH (5.0 - 8.0) 6.0 Ur Specific Rayle (1.001 - 1.035) 1.015 Urine Protein (NEG,<30 MG/DL) NEG Urine Ketones (NEG) NEG Urine Nitrite (NEG) NEG Urine Bilirubin (NEG) NEG Urine Urobilinogen (0.1 - 1.0 EU/dl) 0.2 Ur Leukocyte Esterase (NEG) TRACE H Ur Microscopic SEDIMENT EXAMINED Urine RBC (0 - 5 /HPF) RARE Urine WBC (0 - 2 /HPF) 1-3 H Ur Epithelial Cells (NONE,FEW) FEW Urine Hemoglobin (NEG) MOD H Urine Glucose (N MG/DL) NEG 04/22 04/21 0004 2330 Chemistry Sodium (137 - 145 mmol/L) 141 Potassium (3.5 - 5.1 mmol/L) 3.6 Chloride (98 - 107 mmol/L) 106 Carbon Dioxide (22 - 30 mmol/L) 27 Anion Gap (5 - 16) 8 BUN (7 - 17 mg/dL) 17 Creatinine (0.5 - 1.0 mg/dL) 0.6 Estimated GFR (>60 ml/min) > 60 BUN/Creatinine Ratio (7 - 25 %) 28.3 H Glucose (65 - 99 mg/dL) 101 H Calcium (8.4 - 10.2 mg/dL) 8.7 Total Bilirubin (0.2 - 1.3 mg/dL) 0.2 AST (14 - 36 U/L) 14 ALT (9 - 52 U/L) 26 Alkaline Phosphatase (<127 U/L) 57 Troponin I (< 0.11 ng/ml) < 0.01 Total Protein (6.3 - 8.2 g/dL) 5.8 L Albumin (3.5 - 5.0 g/dL) 3.0 L Globulin (1.9 - 4.2 gm/dL) 2.8 Albumin/Globulin Ratio (1.1 - 2.2 %) 1.1 Coagulation PT (9.4 - 12.5 SEC) 11.3 INR (0.90 - 1.19) 1.04 APTT (25 - 37 SEC) 33 Hematology CBC w Diff NO MAN DIFF REQ WBC (4.8 - 10.8 /CUMM) 13.3 H RBC (4.20 - 5.40 /CUMM) 3.90 L Hgb (12.0 - 16.0 G/DL) 10.8 L Hct (37 - 47 %) 33.1 L MCV (81.0 - 99.0 FL) 84.9 MCH (27.0 - 31.0 PG) 27.6 MCHC (33.0 - 37.0 G/DL) 32.6 L RDW (11.5 - 14.5 %) 14.9 H Plt Count (130 - 400 /CUMM) 383 MPV (7.4 - 10.4 FL) 9.3 Gran % (42.2 - 75.2 %) 70.4 Lymphocytes % (20.5 - 51.1 %) 20.8 Monocytes % (1.7 - 9.3 %) 6.3 Eosinophils % (0 - 5 %) 2.1 Basophils % (0.0 - 2.0 %) 0.4 Absolute Granulocytes (1.4 - 6.5 /CUMM) 9.4 H Absolute Lymphocytes (1.2 - 3.4 /CUMM) 2.8 Absolute Monocytes (0.10 - 0.60 /CUMM) 0.8 H Absolute Eosinophils (0.0 - 0.7 /CUMM) 0.3 Absolute Basophils (0.0 - 0.2 /CUMM) 0
[2018-04-24 15:47] LABS: ABSOLUTE BASOPHIL COUNT 0 /CUMM (0.0-0.2); ABSOLUTE EOSINOPHIL COUNT 0.2 /CUMM (0.0-0.7); ABSOLUTE GRANULOCYTE CT 8.2 /CUMM (1.4-6.5); ABSOLUTE LYMPH COUNT 1.4 /CUMM (1.2-3.4); ABSOLUTE MONOCYTE COUNT 0.7 /CUMM (0.10-0.60); BASOPHIL % 0.4 % (0.0-2.0); EOSINOPHIL % 1.7 % (0-5); GRANULOCYTE % 77.4 % (42.2-75.2); HEMATOCRIT 24.7 % (37-47); MEAN CORPUSCULAR HGB 28.1 PG (27.0-31.0); MEAN CORPUSCULAR HGB CONC 32.9 G/DL (33.0-37.0); MEAN CORPUSCULAR VOLUME 85.2 FL (81.0-99.0); MEAN PLATELET VOLUME 9.5 FL (7.4-10.4); PLATELET COUNT 257 /CUMM (130-400); RBC DISTRIBUTION WIDTH 14.6 % (11.5-14.5); WHITE BLOOD CELL COUNT 10.6 /CUMM (4.8-10.8)
[2018-04-24 16:00] VITALS: BP 124/68
== END 2018-04-24 17:00 | DRG 811 ==
LOC: ERH 22:56 → ERHI 04-22 00:55 → CRI 04-22 00:55 → CANRESERV 04-22 01:36 → ENRESERV 04-22 01:36 → EDBEDREQ 04-22 03:47 → CRI 04-22 03:48 → ENTRNSPT 04-24 17:10 → EDTRNSPT 04-24 17:13 → EDTRNSPTSTS 04-24 17:13 → CMPTRNSPT 04-24 17:24
PROVIDERS: Emergency Medicine; Internal Medicine Endocrinology, Diabetes & Metabolism; Internal Medicine Interventional Cardiology; Preventive Medicine Public Health & General Preventive Medicine
PROC: 30233N1 Transfusion of Nonautologous Red Blood Cells into Peripheral Vein, Percutaneous Approach (ICD-10-PCS; principal; 2018-04-22)
PROC: B4151ZZ Fluoroscopy of Inferior Mesenteric Artery using Low Osmolar Contrast (ICD-10-PCS; 2018-04-22)
PROC: B41J1ZZ Fluoroscopy of Other Lower Arteries using Low Osmolar Contrast (ICD-10-PCS; 2018-04-22)
PROC: 0DBP8ZX Excision of Rectum, Via Natural or Artificial Opening Endoscopic, Diagnostic (ICD-10-PCS; 2018-04-23)
PROC: 0DBM8ZX Excision of Descending Colon, Via Natural or Artificial Opening Endoscopic, Diagnostic (ICD-10-PCS; 2018-04-23)
PROC: 0DBN8ZX Excision of Sigmoid Colon, Via Natural or Artificial Opening Endoscopic, Diagnostic (ICD-10-PCS; 2018-04-23)
PROC: 0DBL8ZX Excision of Transverse Colon, Via Natural or Artificial Opening Endoscopic, Diagnostic (ICD-10-PCS; 2018-04-23)
PROC: 0DBK8ZX Excision of Ascending Colon, Via Natural or Artificial Opening Endoscopic, Diagnostic (ICD-10-PCS; 2018-04-23)
DX: D62 Acute posthemorrhagic anemia (principal); K57.31 Diverticulosis of large intestine without perforation or abscess with bleeding; K50.10 Crohn's disease of large intestine without complications; E86.0 Dehydration; L40.50 Arthropathic psoriasis, unspecified; K21.9 Gastro-esophageal reflux disease without esophagitis; H40.9 Unspecified glaucoma; I10 Essential (primary) hypertension; Z88.6 Allergy status to analgesic agent; Z88.2 Allergy status to sulfonamides; Z79.51 Long term (current) use of inhaled steroids; M48.02 Spinal stenosis, cervical region; M06.9 Rheumatoid arthritis, unspecified; J45.909 Unspecified asthma, uncomplicated; D72.829 Elevated white blood cell count, unspecified; R91.8 Other nonspecific abnormal finding of lung field; B95.62 Methicillin resistant Staphylococcus aureus infection as the cause of diseases classified elsewhere
CPT/HCPCS: CCU; 36415; 36592; 71045; 74174; 74177; 81001; 82436; 86920; 87070; 93005; 93010; 96360; C1725; C1760; C1769; J2001; J2405; J3490; J7512; P9016; Q9967

== ENCOUNTER 2018-04-25 13:29 | Inpatient (IN) | payer OTHER ==
[~2018-04-25] VITALS: Ht 165.1 cm; Wt 77.6 kg
[~2018-04-25 13:29] MED LIST: AMLODIPINE BESYL5 M1 PO; ARAVA20 M1 PO; CLARINEX5 M1 PO; COZAAR50 M1 PO; ENTOCORT EC3 M1 PO; MULTIVITAMINS1 EAC9 PO; OMEPRAZOLE20 M2 PO; PROAIR HFA8.5 GM INH; PROTONIX40 M3 PO; RESTASIS1 EACH OPH; SINGULAIR10 M1 PO; TRAVATAN Z5 ML OPH; XYZAL5 M1 PO
--- NOTE | 2018-04-25 15:12 | ED GI/GU/ABDOMINAL COMPLAINT ---
History of Present Illness General Chief Complaint: General Adult Stated Complaint: BIBA RECTAL BLEEDING Source: patient, family Exam Limitations: no limitations Vital Signs & Intake/Output Vital Signs & Intake/Output Vital Signs Date Time Temp Pulse Resp B/P B/P Pulse O2 O2 Flow FiO2 Mean Ox Delivery Rate 04/25 1750 88 18 175/86 99 Room Air 04/25 1636 90 18 163/76 97 Room Air 04/25 1413 98 166/70 04/25 1339 Room Air 04/25 1337 99.3 101 18 177/84 100 Room Air Allergies Coded Allergies: NSAIDS (Non-Steroidal Anti-Inflamma (GI 04/21/18) Sulfa (Sulfonamide Antibiotics) (HIVES 04/21/18) Reconcile Medications Albuterol Sulfate (Proair Hfa) 90 MCG HFA.AER.AD 2 PUF INH Q4-6 PRN PRN SOB ( Reported) Amlodipine Besylate 5 MG TABLET 1 TAB PO QHS HTN (Reported) Budesonide (Entocort EC) 3 MG CAPDR...ER 9 MG PO DAILY GI (Reported) Cyclosporine (Restasis) 0.05 % DROPERETTE 1 GTT OPH BID eye drops (Reported) Desloratadine (Clarinex) 5 MG TABLET 1 TAB PO DAILY Allergies (Reported) Leflunomide (Arava) 20 MG TABLET 1 TAB PO DAILY arthritis (Reported) Levocetirizine Dihydrochloride (Xyzal) 5 MG TABLET 1 TAB PO DAILY Allergies ( Reported) Losartan Potassium (Cozaar) 50 MG TABLET 1.5 TAB PO DAILY HTN (Reported) Montelukast Sodium (Singulair) 10 MG TABLET 1 TAB PO DAILY Allergies ( Reported) Multiple Vitamin (Multivitamins) 1 EACH TABLET 1 TAB PO DAILY SUPPLEMENT ( Reported) Pantoprazole Sodium (Protonix) 40 MG TABLET.DR 1 TAB PO DAILY GERD (Reported) Travoprost (Travatan Z) 0.004 % DROPS 1 GTT OPH QPM GLAUCOMA (Reported) Triage Note: PT WAS DC FROM ICU YESTERDAY FOR LOWER GI BLEED. PT HAD SCOPE AND COLONOSCOPY. NO ACTIVE BLEEDING FOUND. HGB DROPPED DOWN TO 7.2 WHILE IN HOSPITAL, HAD 2 BLOOD TRANSFUSIONS. NO THINNERS. B/P 150/90 Triage Nurses Notes Reviewed? yes ? N Is pt currently ? No HPI: Patient is a 72-year-old female with recent past medical history of lower GI bleeding who presents today with return of her bleeding. She was admitted to this institution in the ICU for critical hemoglobin and multiple blood transfusions. She underwent emergent colonoscopy with Dr. Marcial, during which they did not see evidence of active bleeding. She was discharged home yesterday at 6 PM after having had approximately 24 hours of no bloody bowel movements. Today however, she has had right middle abdominal pain and multiple red bloody bowel movements, including 2 here. She approximates the volume at home to be around 300 mL, and her nurse here, keyshawn, approximates 500 mL of output. She has a systolic blood pressure of 170 at present. Past History Travel History Traveled to [place] past 21 day No Medical History Any Pertinent Medical History? see below for history Neurological: NONE EENT: glaucoma Cardiovascular: NONE, hypertension Respiratory: asthma Gastrointestinal: irritable bowel syndrome, lower GI bleed, DIVERTICULITIS Hepatic: NONE Renal: NONE Musculoskeletal: PSORIATIC ARTHRITIS Psychiatric: NONE Endocrine: NONE Blood Disorders: coagulopathy History of MRSA: Yes History of VRE: No History of CDIFF: No Surgical History Surgical History: non-contributory Psychosocial History Who do you live with Spouse What is your primary language Marshallese Tobacco Use: Never used ETOH Use: denies use Illicit Drug Use: denies illicit drug use Family History Hx Contributory? No Review of Systems Review of Systems Constitutional: Reports: see HPI. Denies: diaphoresis, fever. EENTM: Reports: no symptoms. Respiratory: Reports: no symptoms. Cardiovascular: Reports: no symptoms. GI: Reports: melena, bloody stool. Genitourinary: Reports: no symptoms. Musculoskeletal: Reports: no symptoms. Skin: Reports: no symptoms. Neurological/Psychological: Reports: no symptoms. Hematologic/Endocrine: Reports: no symptoms. Immunologic/Allergic: Reports: no symptoms. All Other Systems: Reviewed and Negative Physical Exam Physical Exam Gastrointestinal: soft, non-tender Comments: HEENT: Inspection of the head reveals a normocephalic cranium with no signs of trauma. Ophtho: Extraocular muscles are intact. The sclera are noninjected, and there is no obvious discharge. Neck: No signs of trauma or asymmetry to the neck. Respiratory: The patient exhibits no signs of labored breathing. Cardiac: Non-tachycardic. GI: No gross abdominal distention. No pain on palpation. Rectal: Obviously bloody bowel movement witnessed by RN, therefore rectal examination for guaiac testing was deferred. : Deferred Neuro: The patient is oriented to person, place, time, and situation, with no obvious focal motor deficits. Cranial nerves II through XII are intact, and gait is normal. Behavioral: Calm and cooperative Dermatologic: Dermatologic examination reveals no obvious rashes or exanthems. Core Measures ACS in differential dx? No Sepsis Present: No Sepsis Focused Exam Completed? No Progress Differential Diagnosis: ischemic bowel, inflamm bowel dis, GI bleed Plan of Care: Orders Procedure Date/time Status Nothing by Mouth 04/26 B Active ED Holding Orders 04/25 173 Active Admit to inpatient 04/25 1739 Active Code Status 04/[address] ABD & PELVIS ANGIOGRAM 04/25 1548 Active PARTIAL THROMBOPLASTIN TIME 04/25 1507 Complete PROTHROMBIN TIME 04/25 1507 Complete COMPREHENSIVE METABOLIC PANEL 04/25 1507 Complete CBC WITHOUT DIFFERENTIAL 04/25 1507 Complete TYPE & SCREEN (NOT X-MATCH) 04/25 1507 Complete EKG 04/25 1342 Active Laboratory Tests 04/25/18 1523: Anion Gap 8, Estimated GFR > 60, BUN/Creatinine Ratio 17.1, Glucose 99, Calcium 8.7, Total Bilirubin 0.2, AST 15, ALT 33, Alkaline Phosphatase 55, Total Protein 5.3 L, Albumin 2.9 L, Globulin 2.4, Albumin/Globulin Ratio 1.2, PT 11.8, INR 1.08, APTT 30, CBC w Diff NO MAN DIFF REQ, RBC 2.63 L, MCV 85.2, MCH 28.3, MCHC 33.2, RDW 15.2 H, MPV 8.9, Gran % 80.3 H, Lymphocytes % 12.6 L, Monocytes % 6.3, Eosinophils % 0.4, Basophils % 0.4, Absolute Granulocytes 8.9 H, Absolute Lymphocytes 1.4, Absolute Monocytes 0.7 H, Absolute Eosinophils 0, Absolute Basophils 0 Initial ED EKG: none Comments: Patient returns today for return of her bleeding. From her discharge yesterday at 6 PM to her arrival in the ED today, she dropped also 1 g of her hemoglobin. I discussed the case with the treating small battery plate assembler from her recent admission, and she recommended repeating the CT abdomen angiogram and admitting to the ICU for consideration of transfusion, close monitoring, and GI consultation. Hospitalized in hemodynamically stable condition. Departure Departure Time of Disposition: 1802 Disposition: HOME OR SELF CARE Condition: Stable Clinical Impression Primary Impression: GI hemorrhage Qualifiers: GI bleed type/associated pathology: unspecified gastrointestinal hemorrhage type Qualified Code: K92.2 - Gastrointestinal hemorrhage, unspecified Referrals: Keena GASTON,Ta Webb III (PCP/Family) Departure Forms: Customer Survey General Discharge Information Admission Note Spoke With: Hugo Kirby MD Documentation of Exam: Documentation of any treatments & extenuating circumstances including Concerns Regarding Discharge (functional status, medication knowledge or non-compliance, living conditions, etc.) that warrant an admission rather than observation: The patient is in critical condition with return of brisk GI bleeding and a drop of almost 1 g of hemoglobin in less than 24 hours. I feel that she is at risk for clinical decompensation and that she will require frequent laboratory reassessment, frequent blood pressure control and management him a GI consultation, possible colonoscopy procedure, likely blood transfusion, and further critical care needs. Critical Care Note Critical Care Note Critical Care Time: 30-74 min Comments: Critical care time spent >60 minutes. The patient was suffering from a critical illness that acutely impairs one or more vital organ systems and there is a high probability of imminent or life threatening deterioration in the patient's condition. During this time I was personally involved in activities including direct delivery of medical care, consulting multiple specialists, and decision making of high complexity to assess, manipulate, and support vital organ system failure (in this case, GI hemorrhage with potential for hemorrhagic shock) and/ or to prevent further life threatening deterioration of the patient's condition. The failure to initiate these interventions on an urgent basis would likely result in sudden, clinically significant or life threatening deterioration in the patient's condition.
[2018-04-25 15:34] LABS: ABSOLUTE BASOPHIL COUNT 0 /CUMM (0.0-0.2); ABSOLUTE EOSINOPHIL COUNT 0 /CUMM (0.0-0.7); ABSOLUTE GRANULOCYTE CT 8.9 /CUMM (1.4-6.5); ABSOLUTE LYMPH COUNT 1.4 /CUMM (1.2-3.4); ABSOLUTE MONOCYTE COUNT 0.7 /CUMM (0.10-0.60); BASOPHIL % 0.4 % (0.0-2.0); EOSINOPHIL % 0.4 % (0-5); GRANULOCYTE % 80.3 % (42.2-75.2); HEMATOCRIT 22.4 % (37-47); MEAN CORPUSCULAR HGB 28.3 PG (27.0-31.0); MEAN CORPUSCULAR HGB CONC 33.2 G/DL (33.0-37.0); MEAN CORPUSCULAR VOLUME 85.2 FL (81.0-99.0); MEAN PLATELET VOLUME 8.9 FL (7.4-10.4); PLATELET COUNT 267 /CUMM (130-400); RBC DISTRIBUTION WIDTH 15.2 % (11.5-14.5); RED BLOOD CELL CT 2.63 /CUMM (4.20-5.40); WHITE BLOOD CELL COUNT 11.1 /CUMM (4.8-10.8)
[2018-04-25 15:42] LABS: PT 11.8 SEC (9.4-12.5); PTT 30 SEC (25-37)
--- NOTE | 2018-04-25 18:11 | History & Physical ---
PedroJorge Luis 04/25/181810: General Information and HPI MD Statement: I have seen and personally examined BELLA ARAIZA and documented this H&P. The patient is a 72 year old F who presented with a patient stated chief complaint of [rectal bleeding]. Source of Information: patient, old records Exam Limitations: no limitations History of Present Illness: This is a 72 year old woman with past medical history of GI bleed secondary to NSAID use, chronic diarrhea, terminal ileitis, IBS, psoriatic arthritis, seasonal allergies, asthma, hypertension, GERD, glaucoma, and several cervical stenosis who is presenting today for evaluation of bloody stools. The patient was discharged on April 24 yesterday after being admitted for blood in stool. During the course of the admission she had a colonoscopy which could not identify active bleeding site for cauterization although it demonstrated multiple diverticuli. Patient had abdominal CTA that demonstrated active bleeding sites but when angiography was performed the area could not be identified. patient was discharged home after having 24 hours of no blood in stool but is reporting today starting from 10 AM she had the first bowel movement mixed with blood and he subsequently had other 2 small bowel motions before a heavy fourth large bowel motion with blood clots and chaim red blood after which she started feeling lightheaded. Patient reports history chronic diarrhea for which she is followed by [employer] attendant Dr. Reynolds of [place]. She occasionally has scant amounts of bright red blood which are self limited. She reports mild abdominal pain that was transient around 3-4 out of 10 mainly on the center part of the belly and was not radiating she just had one episode and pain completely resolved without using an medication to alleviate. She denies any chest pain or shortness of breath but reports that before she was given IV fluid she was experiencing palpitations which has resolved with the hydration. She has no nausea or vomiting. She denies any fevers or chills. She has no urine frequency or dysuria. Allergies/Medications Allergies: Coded Allergies: NSAIDS (Non-Steroidal Anti-Inflamma (GI 04/21/18) Sulfa (Sulfonamide Antibiotics) (HIVES 04/21/18) Home Med list Albuterol Sulfate (Proair Hfa) 90 MCG HFA.AER.AD 2 PUF INH Q4-6 PRN PRN SOB ( Reported) Amlodipine Besylate 5 MG TABLET 1 TAB PO QHS HTN (Reported) Budesonide (Entocort EC) 3 MG CAPDR...ER 9 MG PO DAILY GI (Reported) Cyclosporine (Restasis) 0.05 % DROPERETTE 1 GTT OPH BID eye drops (Reported) Desloratadine (Clarinex) 5 MG TABLET 1 TAB PO DAILY Allergies (Reported) Leflunomide (Arava) 20 MG TABLET 1 TAB PO DAILY arthritis (Reported) Levocetirizine Dihydrochloride (Xyzal) 5 MG TABLET 1 TAB PO DAILY Allergies ( Reported) Losartan Potassium (Cozaar) 50 MG TABLET 1.5 TAB PO DAILY HTN (Reported) Montelukast Sodium (Singulair) 10 MG TABLET 1 TAB PO DAILY Allergies ( Reported) Multiple Vitamin (Multivitamins) 1 EACH TABLET 1 TAB PO DAILY SUPPLEMENT ( Reported) Pantoprazole Sodium (Protonix) 40 MG TABLET.DR 1 TAB PO DAILY GERD (Reported) Travoprost (Travatan Z) 0.004 % DROPS 1 GTT OPH QPM GLAUCOMA (Reported) Past History Travel History Traveled to [place] past 21 day No Medical History Neurological: NONE EENT: glaucoma Cardiovascular: NONE, hypertension Respiratory: asthma Gastrointestinal: irritable bowel syndrome, lower GI bleed, DIVERTICULITIS Hepatic: NONE Renal: NONE Musculoskeletal: PSORIATIC ARTHRITIS Psychiatric: NONE Endocrine: NONE Blood Disorders: coagulopathy History of MRSA: Yes History of VRE: No History of CDIFF: No Surgical History Surgical History: non-contributory Past Family/Social History Family History Relations & Conditions if any MOTHER (Hypertension Arthritis). FATHER (Esophageal cancer). BROTHER (Esophageal cancer Coronary artery disease). Psychosocial History ETOH Use: denies use Illicit Drug Use: denies illicit drug use Functional Ability ADLs Independent: dressing, eating, toileting, bathing. Ambulation: independent Review of Systems Review of Systems Constitutional: Denies: chills, fever. EENTM: Denies: no symptoms. Cardiovascular: Denies: chest pain, palpitations, syncope. Respiratory: Denies: cough, short of breath. GI: Reports: see HPI, abdominal pain, bloody stool. Genitourinary: Denies: no symptoms. Musculoskeletal: Denies: no symptoms. Skin: Denies: no symptoms. Neurological/Psychological: Reports: anxiety. Immunologic/Allergic: Denies: no symptoms. All Other Systems: Reviewed and Negative Exam & Diagnostic Data Last 24 Hrs of Vital Signs/I&O Vital Signs Date Time Temp Pulse Resp B/P B/P Pulse O2 O2 Flow FiO2 Mean Ox Delivery Rate 04/25 1750 88 18 175/86 99 Room Air 04/25 1636 90 18 163/76 97 Room Air 04/25 1413 98 166/70 04/25 1339 Room Air 04/25 1337 99.3 101 18 177/84 100 Room Air Intake & Output 04/25 1600 04/25 0800 04/25 0000 Intake Total Output Total Balance Patient 164 lb Weight Weight Estimated Measurement Method Physical Exam General Appearance Alert, Oriented X3, Cooperative, No Acute Distress Skin No Rashes, No Breakdown Skin Temp/Moisture Exam: Warm/Dry Sepsis Skin Exam (color): Normal for Ethnicity HEENT Atraumatic, Dry mucous membranes Neck Supple, No JVD Cardiovascular Regular Rate, Normal S1, Normal S2, No Murmurs Lungs Clear to Auscultation, Normal Air Movement Abdomen Normal Bowel Sounds, Soft, No Tenderness, No Masses Neurological Normal Speech, Normal Tone Extremities No Clubbing, No Cyanosis, No Edema Last 24 Hrs of Labs/Henry: Laboratory Tests 04/25/18 1523: Anion Gap 8, Estimated GFR > 60, BUN/Creatinine Ratio 17.1, Glucose 99, Calcium 8.7, Total Bilirubin 0.2, AST 15, ALT 33, Alkaline Phosphatase 55, Total Protein 5.3 L, Albumin 2.9 L, Globulin 2.4, Albumin/Globulin Ratio 1.2, PT 11.8, INR 1.08, APTT 30, CBC w Diff NO MAN DIFF REQ, RBC 2.63 L, MCV 85.2, MCH 28.3, MCHC 33.2, RDW 15.2 H, MPV 8.9, Gran % 80.3 H, Lymphocytes % 12.6 L, Monocytes % 6.3, Eosinophils % 0.4, Basophils % 0.4, Absolute Granulocytes 8.9 H, Absolute Lymphocytes 1.4, Absolute Monocytes 0.7 H, Absolute Eosinophils 0, Absolute Basophils 0 Diagnostic Data EKG Results Regular sinus normal axis no ST-T wave changes, QTC of 440 Other Results 1. No contrast is seen extravasating into the gastrointestinal track. Source of the gastrointestinal bleed noted to be clinically present is not identified. 2. No acute change of the abdomen or pelvis. Assessment/Plan Assessment: This is a 72 years old lady with past medical history of lower GI bleeding who was discharged from [facility] yesterday April 24 after being admitted for lower GI bleeding during the course of workup the source colonoscopy and identified through IR and colonoscopy and is presenting again today after several bouts of hematochezia and subsequent lightheadedness. Patient has had about 4 bloody bowel motions in the ER and has experienced significant drop in hemoglobin from 8.1 on discharge to 7.4. Diverticular bleed is common to have repetitive episodes in this patient could be an unfortunate for having multiple episodes of lower GI bleed. On arrival she has stable vitals with blood pressure of 177/84 but was slightly tachycardic at 101, orthostatic vitals on arrival were negative for blood pressure no documentation of heart rate. Problem list Hematochezia Acute blood loss anemia Multiple diverticula Diverticular bleed Hypertension Psoriatic arthritis Admit the patient to the intensive care unit Vital signs every hour 2 peripheral large bore cannulas N.p.o. Check CBCs every 6 hours Guaiac all stools Type and crossmatch done in the ER We will consider transfusion to maintain hemoglobin above 7 Will hold on antihypertensive medication losartan and amlodipine on the only dose when systolic is above 180 Continue home medications Singulair 10 mg daily and budesonide We will continue Arava 20 mg daily Patient medication history has asthma medications but she has not taken them for a while and reports no symptoms, will order TRC evaluation in case of respiratory symptoms DVT prophylaxis by Alps only Patient is full code As Ranked By This Provider Problem List: 1. Lower GI bleed 2. Acute blood loss anemia 3. Diverticula of colon Core Measures/Misc (07/16) Acute Coronary Syndrome ACS Diagnosis: No Congestive Heart Failure Congestive Heart Failure Diagnosis No Cerebrovascular Accident CVA/TIA Diagnosis: No VTE (View Protocol) VTE Risk Factors Age>40 No Mechanical VTE Prophylaxis d/t N/A MechProphylax Ordered No VTE Pharm Prophylaxis d/t Bleeding (Active) Sepsis (View protocol) Sepsis Present: No If YES complete Sepsis Event Note If YES complete Sepsis Event Note Jed Powell 04/26/18 0403: Core Measures/Misc (07/16) Sepsis (View protocol) If YES complete Sepsis Event Note If YES complete Sepsis Event Note Attending MD Review Statement Attending Statement Attending MD Statement: examined this patient, discuss w/resident/PA/SENIOR PRODUCT DEVELOPMENT SCIENTIST, agreed w/resident/PA/SENIOR PRODUCT DEVELOPMENT SCIENTIST, reviewed EMR data (avail), reviewed images, amended to note Attending Assessment/Plan: CC: Bright red blood per rectum PMH: Hypertension, IBS, psoriatic arthritis, seasonal allergies/asthma, GERD, glaucoma, cervical stenosis, history of GI bleed secondary to NSAIDs, diverticulosis Patient came to ER for 4 bowel movements mixed with stool, started suddenly around 10 Am. The bloody bowel movements were not stopping is that she came to ER. As she was recently admitted here for similar problem and had blood transfusion, she immediately called EMS and came to ER . Patient had additional 6 bloody bowel movements while in ER. She has mild cramp in abdomen otherwise complete ROS is negative. Vitals: Temperature 99.3, pulse 101, RR 18, blood pressure 177/84 on arrival dropped up to 160/80, saturating well on room air. Orthostatic vital positive lying down blood pressure 173/101, sitting blood pressure 159/83 On exam: A O 3, cooperative, pale looking, no acute distress, neck supple, JVD normal, no lymphadenopathy, mucosa dry, no focal neurological deficit, no dependent edema, no obvious skin rashes or inflammation CVS: S1-S2, RRR. RS: Clear to auscultate bilaterally. Abdomen: Soft, NT, ND, bowel sounds present. Assessment and plan 72-year-old female with multiple comorbidities as mentioned above presented in ER for recurrent bloody bowel movement started approximately 10 am and continued after coming to ER. She had 4 bloody bowel movement at home before coming, bright red blood and clots and ER in ER. Initially she was orthostatic negative but she eventually became orthostatic hypotensive while in ER. She appears pale and dehydrated. Abdomen is soft, I saw chaim blood and clotted blood in bedside commode. She recently underwent workup for similar problem. No active bleeder was identified on colonoscopy. BRBPR resolved and she was discharged once H and H was stable. I suspect this is a diverticular bleed. Given the hemodynamic changes over 3-4 hours in ER we will admit her in intensive care unit. CTA was obtained showed no active bleeding. + Bright red blood per rectum + acute blood loss anemia + Orthostatic hypotension + Terminal ileitis + History of Hypertension, IBS, psoriatic arthritis, seasonal allergies/asthma, GERD, glaucoma, cervical stenosis, history of GI bleed secondary to NSAIDs, diverticulosis - Admit to ICU - 2 wide bore peripheral lines - Aggressive hydration - Type and screen 1 units PRBC - Repeat H&H in 4 hours - Transfuse if hemoglobin drops below 8, or any evidence of further hypotension or tachycardia - Clear liquid diet - Hold oral antihypertensives - DVT prophylaxis with Alps only, given her current bleeding
--- NOTE | 2018-04-25 18:21 | CT SCAN REPORT ---
EXAMINATION: CT ANGIOGRAM ABDOMEN AND PELVIS CLINICAL INFORMATION: GI bleed. COMPARISON: CT abdomen pelvis angiogram 04/22/2018. TECHNIQUE: Noncontrast axial images obtained through the abdomen and pelvis. Multiple axial images were obtained through the abdomen and pelvis following the administration of 95 mL of Optiray 320 intravenous contrast. Coronal and sagittal reformatted images are performed at the CT scanner. No 3-D images performed. DLP: 562.21 mGy-cm FINDINGS: VASCULAR: There is atherosclerotic vascular wall calcifications of the aorta and common iliac arteries but there is no aneurysm. After injection of contrast there is good opacification of aorta and iliac arteries with runoff into the femoral arteries without occlusions or stenosis. There is good opacification of the celiac axis, renal arteries and SMA. There is no extravasation of contrast into the gastrointestinal track. The site of the gastrointestinal bleed noted to be clinically present not identified. LUNG BASES: The visualized lung bases are unremarkable. LIVER, GALLBLADDER, AND BILIARY TREE: There is a focal ovoid hypodensity in the central liver measuring 3.5 cm but is nonenhancing consistent with hepatic cyst. No suspicious liver lesions. There is no intrahepatic bile duct dilatation. The gallbladder is unremarkable with no evidence of radiopaque gallstones, gallbladder wall thickening, or obvious pericholecystic inflammatory changes. PANCREAS: No acute change of the pancreas. No mass. No pancreatic duct dilatation. SPLEEN: Spleen normal in size and contour. No focal lesion. There is a 1.5 cm splenule at the anterior inferior splenic margin. ADRENAL GLANDS: Adrenal glands are normal in size. No focal mass. KIDNEYS AND URETERS: There is normal variant of a duplicated left collecting system. No acute change of the kidneys. The kidneys are normal in size, shape, and attenuation. No hydronephrosis, hydroureter, or calculi seen. No perinephric stranding. BLADDER: Unremarkable. GASTROINTESTINAL TRACT: There are a few diverticula of the colon but no diverticulitis. There is no acute change of the bowel. No bowel obstruction. No bowel wall thickening or edema. Moderate amount of scattered stool in the colon. The appendix is not seen. There is no inflammation the mesentery. The small bowel loops are unremarkable. MESENTERY: No focal inflammation. No free fluid. No free air. ABDOMINAL WALL: No significant hernia is appreciated. LYMPH NODES: Normal. PELVIC VISCERA: The uterus is absent. There is no adnexal abnormality. OSSEOUS STRUCTURES: Degenerative endplate spurring of the thoracic and lumbar vertebrae with multilevel facet joint arthrosis. IMPRESSION: 1. No contrast is seen extravasating into the gastrointestinal track. Source of the gastrointestinal bleed noted to be clinically present is not identified. 2. No acute change of the abdomen or pelvis.
--- NOTE | 2018-04-25 18:44 | Cons- Gastroenterology ---
General Information and HPI Consulting Request Date of Consult: 04/25/18 Requested By: DO Freitas Douglas Reason for Consult: 1. Hematochezia 2. Acute blood loss anemia 3. Diverticulosis 4. Diverticular bleed Source of Information: patient Exam Limitations: no limitations History of Present Illness: Patient is a 72-year-old white female well known to me. She has a past medical history of diverticular bleed as well as psoriatic arthritis. She was discharged from [facility] on 04/24 where she had been admitted for diverticular bleeding. During that admission she had undergone CT angiography which was positive for two possible sources of bleeding in the distal transverse colon and mid-descending colon. After CT a she had undergone angiography however a bleeding source was not identified at that time and embolization was not performed.. I performed a colonoscopy on 04/23/2018 which showed extensive diverticular disease with no active bleeding as well as mild colitis in the proximal ascending colon and cecum. Pathology from biopsies obtained during that procedure is not available at this time. Of recurrent large volume hematochezia. At discharge her hemoglobin had been 8.1 and on admission it is 7.4. She is also felt lightheaded but had not had a syncopal episode. She denies chest pain shortness of breath or palpitations. On admission she had had 2 additional large volume episodes of hematochezia in the ED and underwent repeat CTA which was negative for an active source of bleeding. She denies nausea vomiting or abdominal pain. She has had no fever or shaking chills. Allergies/Medications Allergies: Coded Allergies: NSAIDS (Non-Steroidal Anti-Inflamma (GI 04/21/18) Sulfa (Sulfonamide Antibiotics) (HIVES 04/21/18) Home Med List: Albuterol Sulfate (Proair Hfa) 90 MCG HFA.AER.AD 2 PUF INH Q4-6 PRN PRN SOB ( Reported) Amlodipine Besylate 5 MG TABLET 1 TAB PO QHS HTN (Reported) Budesonide (Entocort EC) 3 MG CAPDR...ER 9 MG PO DAILY GI (Reported) Cyclosporine (Restasis) 0.05 % DROPERETTE 1 GTT OPH BID eye drops (Reported) Desloratadine (Clarinex) 5 MG TABLET 1 TAB PO DAILY Allergies (Reported) Leflunomide (Arava) 20 MG TABLET 1 TAB PO DAILY arthritis (Reported) Levocetirizine Dihydrochloride (Xyzal) 5 MG TABLET 1 TAB PO DAILY Allergies ( Reported) Losartan Potassium (Cozaar) 50 MG TABLET 1.5 TAB PO DAILY HTN (Reported) Montelukast Sodium (Singulair) 10 MG TABLET 1 TAB PO DAILY Allergies ( Reported) Multiple Vitamin (Multivitamins) 1 EACH TABLET 1 TAB PO DAILY SUPPLEMENT ( Reported) Pantoprazole Sodium (Protonix) 40 MG TABLET.DR 1 TAB PO DAILY GERD (Reported) Travoprost (Travatan Z) 0.004 % DROPS 1 GTT OPH QPM GLAUCOMA (Reported) Current Medications: Current Medications Sig/Lynette Start time Last Medication Dose Route Stop Time Status Admin Sodium Chloride 1,000 ML BOLUS ONE 04/25 1515 DC 04/25 IV 04/25 1614 1510 Past History Travel History Traveled to [place] past 21 day No Medical History Neurological: NONE EENT: glaucoma Cardiovascular: NONE, hypertension Respiratory: asthma Gastrointestinal: irritable bowel syndrome, lower GI bleed, DIVERTICULITIS Hepatic: NONE Renal: NONE Musculoskeletal: PSORIATIC ARTHRITIS Psychiatric: NONE Endocrine: NONE Blood Disorders: coagulopathy Surgical History Surgical History: non-contributory Psychosocial History ETOH Use: denies use Illicit Drug Use: denies illicit drug use Functional Ability ADLs Independent: dressing, eating, toileting, bathing. Ambulation: independent Review of Systems Review of Systems Constitutional: Reports: weakness. Denies: chills, diaphoresis, fever, malaise. EENTM: Reports: no symptoms. Cardiovascular: Reports: no symptoms. Respiratory: Reports: no symptoms. GI: Reports: see HPI. Genitourinary: Reports: no symptoms. Musculoskeletal: Reports: see HPI (Psoriatic Arthritis). Skin: Reports: no symptoms. Neurological/Psychological: Reports: no symptoms. Hematologic/Endocrine: Reports: no symptoms. Exam & Diagnostic Data Vital Signs and I&O Vital Signs Date Time Temp Pulse Resp B/P B/P Pulse O2 O2 Flow FiO2 Mean Ox Delivery Rate 04/25 1750 88 18 175/86 99 Room Air 04/25 1636 90 18 163/76 97 Room Air 04/25 1413 98 166/70 04/25 1339 Room Air 04/25 1337 99.3 101 18 177/84 100 Room Air Intake & Output 04/25 1600 04/25 0400 04/24 1600 04/24 0400 04/23 1600 04/23 0400 Intake Total Output Total Balance Patient 164 lb Weight Weight Estimated Measurement Method Physical Exam General Appearance: well developed/nourished, no apparent distress, comfortable Head: atraumatic, normal appearance Eyes: Bilateral: normal appearance. Ears, Nose, Throat: hearing grossly normal Neck: normal inspection, supple, full range of motion Respiratory: normal breath sounds, lungs clear Cardiovascular: regular rate/rhythm Gastrointestinal: normal bowel sounds, soft, non-tender, no organomegaly Extremities: no edema Neurologic/Psych: awake, alert, oriented x 3 Cranial Nerves: normal hearing, normal speech, PERRL, Cranial Nerves II-XII Intact Skin: intact, normal color, warm/dry Results Pertinent Lab Results: Laboratory Tests 04/25 1523 Chemistry Sodium (137 - 145 mmol/L) 142 Potassium (3.5 - 5.1 mmol/L) 3.6 Chloride (98 - 107 mmol/L) 106 Carbon Dioxide (22 - 30 mmol/L) 28 Anion Gap (5 - 16) 8 BUN (7 - 17 mg/dL) 12 Creatinine (0.5 - 1.0 mg/dL) 0.7 Estimated GFR (>60 ml/min) > 60 BUN/Creatinine Ratio (7 - 25 %) 17.1 Glucose (65 - 99 mg/dL) 99 Calcium (8.4 - 10.2 mg/dL) 8.7 Total Bilirubin (0.2 - 1.3 mg/dL) 0.2 AST (14 - 36 U/L) 15 ALT (9 - 52 U/L) 33 Alkaline Phosphatase (<127 U/L) 55 Total Protein (6.3 - 8.2 g/dL) 5.3 L Albumin (3.5 - 5.0 g/dL) 2.9 L Globulin (1.9 - 4.2 gm/dL) 2.4 Albumin/Globulin Ratio (1.1 - 2.2 %) 1.2 Coagulation PT (9.4 - 12.5 SEC) 11.8 INR (0.90 - 1.19) 1.08 APTT (25 - 37 SEC) 30 Hematology CBC w Diff NO MAN DIFF REQ WBC (4.8 - 10.8 /CUMM) 11.1 H RBC (4.20 - 5.40 /CUMM) 2.63 L Hgb (12.0 - 16.0 G/DL) 7.4 *L Hct (37 - 47 %) 22.4 L MCV (81.0 - 99.0 FL) 85.2 MCH (27.0 - 31.0 PG) 28.3 MCHC (33.0 - 37.0 G/DL) 33.2 RDW (11.5 - 14.5 %) 15.2 H Plt Count (130 - 400 /CUMM) 267 MPV (7.4 - 10.4 FL) 8.9 Gran % (42.2 - 75.2 %) 80.3 H Lymphocytes % (20.5 - 51.1 %) 12.6 L Monocytes % (1.7 - 9.3 %) 6.3 Eosinophils % (0 - 5 %) 0.4 Basophils % (0.0 - 2.0 %) 0.4 Absolute Granulocytes (1.4 - 6.5 /CUMM) 8.9 H Absolute Lymphocytes (1.2 - 3.4 /CUMM) 1.4 Absolute Monocytes (0.10 - 0.60 /CUMM) 0.7 H Absolute Eosinophils (0.0 - 0.7 /CUMM) 0 Absolute Basophils (0.0 - 0.2 /CUMM) 0 Assessment/Plan Assessment/Recommendations: ASSESSMENT: 1. Hematochezia 2. Likely Diverticular Bleeding, Recurrent 3. Inflammation, Proximal Ascending Colon and Cecum, likely adverse effect Cosentyx 4. Psoriatic Arthritis 5. Acute Blood Loss Anemia RECOMMENDATIONS: 1. Two large Bore IVs 2. Serial H/h 3. Transfuse to keep Hgb between 7 and 8 4. Admit to ICU. 5. Await Pathology 6. Call GI livestock nutritionist for recurrent bleeding Consult Acknowledgment - Thank you for your consult request.
[2018-04-25 20:19] LABS: ABSOLUTE BASOPHIL COUNT 0.1 /CUMM (0.0-0.2); ABSOLUTE EOSINOPHIL COUNT 0.1 /CUMM (0.0-0.7); ABSOLUTE GRANULOCYTE CT 7.1 /CUMM (1.4-6.5); ABSOLUTE LYMPH COUNT 2.3 /CUMM (1.2-3.4); ABSOLUTE MONOCYTE COUNT 0.8 /CUMM (0.10-0.60); BASOPHIL % 0.7 % (0.0-2.0); EOSINOPHIL % 0.9 % (0-5); GRANULOCYTE % 68.1 % (42.2-75.2); HEMATOCRIT 21.1 % (37-47); MEAN CORPUSCULAR HGB 28.3 PG (27.0-31.0); MEAN CORPUSCULAR HGB CONC 33.3 G/DL (33.0-37.0); MEAN PLATELET VOLUME 9.1 FL (7.4-10.4); PLATELET COUNT 254 /CUMM (130-400); RBC DISTRIBUTION WIDTH 15.7 % (11.5-14.5); RED BLOOD CELL CT 2.48 /CUMM (4.20-5.40); WHITE BLOOD CELL COUNT 10.4 /CUMM (4.8-10.8)
[2018-04-25 21:00] VITALS: BP 116/80
[2018-04-26 03:37] LABS: ABSOLUTE BASOPHIL COUNT 0.2 /CUMM (0.0-0.2); ABSOLUTE EOSINOPHIL COUNT 0.2 /CUMM (0.0-0.7); ABSOLUTE GRANULOCYTE CT 4.8 /CUMM (1.4-6.5); ABSOLUTE LYMPH COUNT 2.8 /CUMM (1.2-3.4); ABSOLUTE MONOCYTE COUNT 0.9 /CUMM (0.10-0.60); BASOPHIL % 1.8 % (0.0-2.0); EOSINOPHIL % 2.6 % (0-5); GRANULOCYTE % 53.6 % (42.2-75.2); MEAN CORPUSCULAR HGB 28.9 PG (27.0-31.0); MEAN CORPUSCULAR HGB CONC 33.6 G/DL (33.0-37.0); MEAN CORPUSCULAR VOLUME 86.2 FL (81.0-99.0); MEAN PLATELET VOLUME 10.3 FL (7.4-10.4); PLATELET COUNT 194 /CUMM (130-400); RBC DISTRIBUTION WIDTH 14.4 % (11.5-14.5); RED BLOOD CELL CT 2.16 /CUMM (4.20-5.40); WHITE BLOOD CELL COUNT 8.9 /CUMM (4.8-10.8)
[2018-04-26 03:39] LABS: HEMATOCRIT 18.6 % (37-47)
--- NOTE | 2018-04-26 04:04 | Admission Certification ---
Admission Certification Certification Statement - As attending physician, I certify that at the time of - admission, based on clinical presentation, severity of - symptoms, need for further diagnostic testing and - therapeutic interventions, and risk of adverse outcomes - without in-hospital treatment, in my clinical assessment, - this patient requires an acute hospital stay for a minimum - of two nights or longer. I have also considered psychsocial - factors such as support system, advanced age, financial - issues, cognitive issues, and failed out-patient treatments, - past re-admission history, safety of patient, and lack of - compliance as applicable. Specific rationale supporting this admission is: Recurrent lower GI bleed
--- NOTE | 2018-04-26 07:41 | Cons- CRCU ---
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 (dx'ed 2002 recently tx w/ anti-IL17a, failed anti-TNFa and MTX), occassional NSAID use for back pain, recent diagnosis of terminal ileitis (negative pathologies for IBS), hypertension, asthma, glaucoma, chronic diarrhea for the last 10 months, recently admitted to [facility] ICU from 04/22 - 04/24 for BRBPR s/p Ab CTA w/o embolization & colonoscopy w/ extensive diverticular disease however no signs of active bleeding, presented w/ CC of similar several episodes of painless GI bleed starting 10AM of 04/25 that she had first bowel movement mixed with blood and subsequently added 2 small bowel movements before are negative large 4th large bowel movement with blood clots and chaim red blood after which started feeling lightheaded however there was no syncope episodes per patient, and denied any chest pain/shortness breath/ palpitations. On admission, patient had 2 additional large-volume episodes of bloody bowel movement in the ED, and underwent repeat a CTA which was negative for any active source of bleeding. For last discharge, her hemoglobin had been 8.1, and on admission that decreased down to 7.4, and now trended down to 6.2 on latest lab, currently S/P 2 unit PRBC. Patient reports history chronic diarrhea for which she is followed by rn cvicu Dr. Reynolds of [place]. Allergies/Medications Allergies: Coded Allergies: NSAIDS (Non-Steroidal Anti-Inflamma (GI 04/21/18) Sulfa (Sulfonamide Antibiotics) (HIVES 04/21/18) Home Med List: Albuterol Sulfate (Proair Hfa) 90 MCG HFA.AER.AD 2 PUF INH Q4-6 PRN PRN SOB ( Reported) Amlodipine Besylate 5 MG TABLET 1 TAB PO QHS HTN (Reported) Budesonide (Entocort EC) 3 MG CAPDR...ER 9 MG PO DAILY GI (Reported) Cyclosporine (Restasis) 0.05 % DROPERETTE 1 GTT OPH BID eye drops (Reported) Desloratadine (Clarinex) 5 MG TABLET 1 TAB PO DAILY Allergies (Reported) Leflunomide (Arava) 20 MG TABLET 1 TAB PO DAILY arthritis (Reported) Levocetirizine Dihydrochloride (Xyzal) 5 MG TABLET 1 TAB PO DAILY Allergies ( Reported) Losartan Potassium (Cozaar) 50 MG TABLET 1.5 TAB PO DAILY HTN (Reported) Montelukast Sodium (Singulair) 10 MG TABLET 1 TAB PO DAILY Allergies ( Reported) Multiple Vitamin (Multivitamins) 1 EACH TABLET 1 TAB PO DAILY SUPPLEMENT ( Reported) Pantoprazole Sodium (Protonix) 40 MG TABLET.DR 1 TAB PO DAILY GERD (Reported) Travoprost (Travatan Z) 0.004 % DROPS 1 GTT OPH QPM GLAUCOMA (Reported) Review of Systems Review of Systems Constitutional: Reports: see HPI. Past History Travel History Traveled to [place] past 21 day No Medical History Neurological: NONE EENT: glaucoma Cardiovascular: NONE, hypertension Respiratory: asthma Gastrointestinal: irritable bowel syndrome, lower GI bleed, DIVERTICULITIS Hepatic: NONE Renal: NONE Musculoskeletal: PSORIATIC ARTHRITIS Psychiatric: NONE Endocrine: NONE Blood Disorders: coagulopathy Surgical History Surgical History: non-contributory Family History Relations & Conditions If Any: MOTHER (Hypertension Arthritis). FATHER (Esophageal cancer). BROTHER (Esophageal cancer Coronary artery disease). Psychosocial History Where Do You Live? Home Services at Home: None Smoking Status: Never Smoked ETOH Use: denies use Illicit Drug Use: denies illicit drug use Functional Ability ADLs Independent: dressing, eating, toileting, bathing. Ambulation: independent Exam & Diagnostic Data Last 24 Hrs of Vital Signs/I&O Vital Signs Date Time Temp Pulse Resp B/P B/P Pulse O2 O2 Flow FiO2 Mean Ox Delivery Rate 04/25 2100 98.7 89 20 116/80 98 Room Air 04/25 2041 Room Air 04/25 202 84 18 98 Room Air 04/25 2025 159/83 04/25 1750 88 18 175/86 99 Room Air 04/25 1636 90 18 163/76 97 Room Air 04/25 1413 98 166/70 04/25 1339 Room Air 04/25 1337 99.3 101 18 177/84 100 Room Air Intake & Output 04/26 0800 04/26 0000 04/25 1600 Intake Total 1935 1660 Output Total 200 100 Balance 1735 1560 Intake, Blood 350 960 Product Intake, IV 1535 650 Intake, Oral 50 50 Number 8 7 Bowel Movements Output, Urine 200 100 Patient 77.564 kg 74.389 kg Weight Weight Bed scale Estimated Measurement Method Physical Exam General Appearance: alert, awake, comfortable Head: atraumatic, normal appearance Respiratory: normal breath sounds, chest non-tender, no respiratory distress Cardiovascular: regular rate/rhythm Gastrointestinal: normal bowel sounds, soft, non-tender Extremities: normal inspection, no edema Last 48 Hrs of Labs/Henry: Laboratory Tests 04/26/18 0700: CBC w Diff Pending, WBC Pending, RBC Pending, Hgb Pending, Hct Pending, MCV Pending, MCH Pending, MCHC Pending, RDW Pending, Plt Count Pending, MPV Pending 04/26/18 0320: Anion Gap 5, Estimated GFR > 60, Glucose 79, Calcium 7.4 L, Phosphorus 3.3, Magnesium 1.5 L, Total Bilirubin 0.6, AST 12 L, ALT 21, Albumin 1.9 L, CBC w Diff NO MAN DIFF REQ, RBC 2.16 L, MCV 86.2, MCH 28.9, MCHC 33.6, RDW 14.4, MPV 10.3, Gran % 53.6, Lymphocytes % 31.9, Monocytes % 10.1 H, Eosinophils % 2.6, Basophils % 1.8, Absolute Granulocytes 4.8, Absolute Lymphocytes 2.8, Absolute Monocytes 0.9 H, Absolute Eosinophils 0.2, Absolute Basophils 0.2 04/26/18 0230: WBC Cancelled, RBC Cancelled, Hgb Cancelled, Hct Cancelled, MCV Cancelled, MCH Cancelled, MCHC Cancelled, RDW Cancelled, Plt Count Cancelled, MPV Cancelled 04/25/182011: CBC w Diff NO MAN DIFF REQ, RBC 2.48 L, MCV 85.0, MCH 28.3, MCHC 33.3, RDW 15.7 H, MPV 9.1, Gran % 68.1, Lymphocytes % 22.4, Monocytes % 7.9, Eosinophils % 0.9 , Basophils % 0.7, Absolute Granulocytes 7.1 H, Absolute Lymphocytes 2.3, Absolute Monocytes 0.8 H, Absolute Eosinophils 0.1, Absolute Basophils 0.1 04/25/18 1523: Anion Gap 8, Estimated GFR > 60, BUN/Creatinine Ratio 17.1, Glucose 99, Calcium 8.7, Total Bilirubin 0.2, AST 15, ALT 33, Alkaline Phosphatase 55, Total Protein 5.3 L, Albumin 2.9 L, Globulin 2.4, Albumin/Globulin Ratio 1.2, PT 11.8, INR 1.08, APTT 30, CBC w Diff NO MAN DIFF REQ, RBC 2.63 L, MCV 85.2, MCH 28.3, MCHC 33.2, RDW 15.2 H, MPV 8.9, Gran % 80.3 H, Lymphocytes % 12.6 L, Monocytes % 6.3, Eosinophils % 0.4, Basophils % 0.4, Absolute Granulocytes 8.9 H, Absolute Lymphocytes 1.4, Absolute Monocytes 0.7 H, Absolute Eosinophils 0, Absolute Basophils 0 Assessment/Plan CRCU Impression/Plan: VS: Stable afebrile, BP 116/80, heart rate 89, breathing on room air Sedation: None Vent Setting: None [id number]: NGTD Problem List: #BRBPR likely 2/2 diverticular disease w/ recurrency #Acute blood loss anemia #Hypokalemia 2/2 blood loss #Inflammation, Proximal Ascending Colon and Cecum, likely adverse effect Cosentyx #orthostatic hypotension #terminal ileitis #History of Hypertension, IBS, psoriatic arthritis, seasonal allergies/asthma, GERD, glaucoma, cervical stenosis, history of GI bleed secondary to NSAIDs, diverticulosis Respiratory: - No issues at this moment. Patient was restarted on home medication of Singulair 10 mg every afternoon. Infection: underlying clinical conditions of GI bleeding. Currently resolved to 8.9 on latest lab ascending colon and cecum, likely adverse effect of course Entex pending further rule out of other possible etiology. - Pending Biopsy Cardio: for BRBPR was acute blood loss anemia. antihypertensive medications including losartan/amlodipine. Hem: P 2 units PRBC, 3rd unit in transfusion. - recheck in the PM Metabolism: Alimentary: bloody bowel movement. Neuro: DVT prophylaxis: Only ALPS NPO IV Access: Peripheral IV Full Code Consult Acknowledgment - Thank you for your consult request. Dk Paula MD 04/26/18 0847: Assessment/Plan CRCU Other Findings/Comments: Attending Cosign Statement: I have: examined this patient, reviewed aval EMR data, personally reviewd images, discussd w/resident/PA/PIG IRON LOADER, discussed mgmt plan w/evelyn, discussed mgmt plan w/CM, discussed mgmt plan w/pt, agreed w/resident/PA/PIG IRON LOADER, amended to note. Other Findings: Impression 72 year old woman * acute blood loss anemia, s/p recent colonoscopy 2 small discrete areas of intraluminal high attenuationp suspicious for contrast extravasation - distal transverse colon and mid descending colon - in the setting of diarrhea/IBS * 4mm RML nodule, 2mm RLL nodule - stable - no f/u necessary - never smoker Plan -s/p colonoscopy, report reviewed -GI consultation appreciated -large bore ivs -prbcs -NPO DVT prophylaxis - ALPS TTS 35 min Consult Acknowledgment - Thank you for your consult request.
[2018-04-26 08:00] VITALS: BP 114/70
[2018-04-26 08:31] LABS: ABSOLUTE BASOPHIL COUNT 0.1 /CUMM (0.0-0.2); ABSOLUTE EOSINOPHIL COUNT 0.3 /CUMM (0.0-0.7); ABSOLUTE GRANULOCYTE CT 5.6 /CUMM (1.4-6.5); ABSOLUTE LYMPH COUNT 2.4 /CUMM (1.2-3.4); ABSOLUTE MONOCYTE COUNT 0.9 /CUMM (0.10-0.60); BASOPHIL % 0.6 % (0.0-2.0); EOSINOPHIL % 3.3 % (0-5); HEMATOCRIT 22.2 % (37-47); MEAN CORPUSCULAR HGB 29.9 PG (27.0-31.0); MEAN CORPUSCULAR HGB CONC 34.4 G/DL (33.0-37.0); MEAN CORPUSCULAR VOLUME 86.8 FL (81.0-99.0); MEAN PLATELET VOLUME 9.4 FL (7.4-10.4); PLATELET COUNT 188 /CUMM (130-400); RBC DISTRIBUTION WIDTH 14.8 % (11.5-14.5); RED BLOOD CELL CT 2.56 /CUMM (4.20-5.40); WHITE BLOOD CELL COUNT 9.3 /CUMM (4.8-10.8)
[2018-04-26 12:00] VITALS: BP 130/70
--- NOTE | 2018-04-26 14:26 | PN- Gastroenterology ---
Assessment/Plan GI Assessment/Recommendations: ASSESSMENT: 1. Recurrent lower GI bleeding presumably diverticular. CTA was negative. 2. Mild colitis proximal ascending colon. Biopsies are unrevealing. They've been sent to [facility] for a second opinion. However there are no signs to suggest that this represents either Crohn's disease or other inflammatory colitis. This may represent an adverse reaction to CoSentyx. 3. Psoriatic Arthritis 4. Acute Blood Loss Anemia 5. Precipitous Drop in Hgb/Hct I spent 35 minutes with the patient and her son discussing the nature and natural history of diverticular bleeding. I have also discussed with them that there is no indication for colonoscopy at this time as patient does not appear to be actively bleeding. I discussed with them the treatment plan which would include advancing diet and observation with no plans for discharge until patient has been at least 48 hours without signs of bleeding. RECOMMENDATIONS: 1. Clear liquid diet 2. Monitor for clinical signs of bleeding 3. Serial H&H 4. Do not discharge patient to home until she is been at least 48 hours without any signs of gastrointestinal blood loss. 5. Keep hemoglobin between 7 and 8. 6. If patient has recurrent increased GI bleeding called GI doctor mason foreman/superintendant. Subjective Subjective: Patient had multiple small bloody stools last night. She received 3 units PRBC after having dropped her hgb to 6.2. Her Hgb this morning is 7.6. She has had no nausea, vomiting or abdominal pain. This morning shehas had several episodes during which she passed small amounts of old, dark blood (<50cc). She has had no fever or shaking chills. She has had no hypotension. Objective Vital Signs and I&Os Vital Signs Date Time Temp Pulse Resp B/P B/P Pulse O2 O2 Flow FiO2 Mean Ox Delivery Rate 04/26 1200 98.1 86 21 130/70 97 Room Air 04/26 0800 99 Room Air 04/26 0800 98.0 89 19 114/70 99 Room Air 04/25 2100 98.7 89 20 116/80 98 Room Air 04/25 204 Room Air 04/25 2026 84 18 98 Room Air 04/25 2025 159/83 04/25 1750 88 18 175/86 99 Room Air 04/25 1636 90 18 163/76 97 Room Air Intake & Output 04/26 1600 04/26 0400 04/25 1600 04/25 0400 04/24 1600 04/24 0400 Intake Total 2670 1660 Output Total 203 100 Balance 2467 1560 Intake, Blood 700 960 Product Intake, IV 1820 650 Intake, Oral 150 50 Number 12 7 Bowel Movements Output, Urine 203 100 Patient 171 lb 171 lb 164 lb Weight Weight Bed scale Bed scale Estimated Measurement Method Physical Exam General Appearance: well developed/nourished, no apparent distress, comfortable Head: atraumatic, normal appearance Respiratory: normal breath sounds, chest non-tender, lungs clear Cardiovascular: regular rate/rhythm Abdomen: normal bowel sounds, soft, non-tender Extremities: no edema Neurologic/Psychiatric: awake, alert, oriented x 3, normal mood/affect Skin: intact, warm/dry, pallor Current Medications: Current Medications Sig/Lynette Start time Last Medication Dose Route Stop Time Status Admin Acetaminophen 650 MG Q6-PRN PRN 04/25 214 AC 04/26 PO 1113 Cyclosporine 1 GTT Q12 04/25 2100 AC 04/26 OPH 0849 Latanoprost 1 GTT AT BEDTIME 04/25 2100 04/25 OPH 2303 Leflunomide 20 MG DAILY 04/26 0900 DC PO Leflunomide 20 MG QPM 04/25 2145 AC 04/25 PO 2303 Loratadine 10 MG DAILY 04/26 1157 AC 04/26 PO 1230 Montelukast Sodium 10 MG AT BEDTIME 04/26 2100 AC PO Pantoprazole Sodium 0 .STK-MED ONE 04/25 1857 DC IV Pantoprazole Sodium 40 MG DAILY 04/25 1848 AC 04/26 IV 0849 Potassium Chloride 40 MEQ .STK-MED ONE 04/26 1335 DC PO 04/26 1336 Potassium Chloride 40 MEQ ONCE ONE 04/26 0545 DC 04/26 PO 04/26 0546 0615 Sodium Chloride 500 ML BOLUS ONE 04/25 2315 DC 04/25 IV 04/26 0014 2315 Sodium Chloride 500 ML BOLUS ONE 04/25 2145 DC 04/25 IV 04/25 2244 2145 Sodium Chloride 1,000 ML Q13H 04/25 2030 AC 04/25 IV 2040 Sodium Chloride 1,000 ML BOLUS ONE 04/25 1515 DC 04/25 IV 04/25 1614 1510 Results Pertinent Lab Results: Laboratory Tests 04/26 04/26 04/26 0811 0320 0230 Chemistry Sodium (137 - 145 mmol/L) 142 Potassium (3.5 - 5.1 mmol/L) 3.2 L Chloride (98 - 107 mmol/L) 110 H Carbon Dioxide (22 - 30 mmol/L) 27 Anion Gap (5 - 16) 5 BUN (7 - 17 mg/dL) 10 Creatinine (0.5 - 1.0 mg/dL) 0.6 Estimated GFR (>60 ml/min) > 60 Glucose (65 - 99 mg/dL) 79 Calcium (8.4 - 10.2 mg/dL) 7.4 L Phosphorus (2.5 - 4.5 mg/dL) 3.3 Magnesium (1.6 - 2.3 mg/dL) 1.5 L Total Bilirubin (0.2 - 1.3 mg/dL) 0.6 AST (14 - 36 U/L) 12 L ALT (9 - 52 U/L) 21 Albumin (3.5 - 5.0 g/dL) 1.9 L Hematology CBC w Diff NO MAN DIFF REQ WBC (4.8 - 10.8 /CUMM) 9.3 8.9 Cancelled RBC (4.20 - 5.40 /CUMM) 2.56 L 2.16 L Cancelled Hgb (12.0 - 16.0 G/DL) 7.6 L 6.2 *L Cancelled Hct (37 - 47 %) 22.2 L 18.6 *L Cancelled MCV (81.0 - 99.0 FL) 86.8 86.2 Cancelled MCH (27.0 - 31.0 PG) 29.9 28.9 Cancelled MCHC (33.0 - 37.0 G/DL) 34.4 33.6 Cancelled RDW (11.5 - 14.5 %) 14.8 H 14.4 Cancelled Plt Count (130 - 400 /CUMM) 188 194 Cancelled MPV (7.4 - 10.4 FL) 9.4 10.3 Cancelled Gran % (42.2 - 75.2 %) 60.0 53.6 Lymphocytes % (20.5 - 51.1 %) 26.2 31.9 Monocytes % (1.7 - 9.3 %) 9.9 H 10.1 H Eosinophils % (0 - 5 %) 3.3 2.6 Basophils % (0.0 - 2.0 %) 0.6 1.8 Absolute Granulocytes (1.4 - 6.5 /CUMM) 5.6 4.8 Absolute Lymphocytes (1.2 - 3.4 /CUMM) 2.4 2.8 Absolute Monocytes (0.10 - 0.60 /CUMM) 0.9 H 0.9 H Absolute Eosinophils (0.0 - 0.7 /CUMM) 0.3 0.2 Absolute Basophils (0.0 - 0.2 /CUMM) 0.1 0.2 04/25 1523 Chemistry Sodium (137 - 145 mmol/L) 142 Potassium (3.5 - 5.1 mmol/L) 3.6 Chloride (98 - 107 mmol/L) 106 Carbon Dioxide (22 - 30 mmol/L) 28 Anion Gap (5 - 16) 8 BUN (7 - 17 mg/dL) 12 Creatinine (0.5 - 1.0 mg/dL) 0.7 Estimated GFR (>60 ml/min) > 60 BUN/Creatinine Ratio (7 - 25 %) 17.1 Glucose (65 - 99 mg/dL) 99 Calcium (8.4 - 10.2 mg/dL) 8.7 Total Bilirubin (0.2 - 1.3 mg/dL) 0.2 AST (14 - 36 U/L) 15 ALT (9 - 52 U/L) 33 Alkaline Phosphatase (<127 U/L) 55 Total Protein (6.3 - 8.2 g/dL) 5.3 L Albumin (3.5 - 5.0 g/dL) 2.9 L Globulin (1.9 - 4.2 gm/dL) 2.4 Albumin/Globulin Ratio (1.1 - 2.2 %) 1.2 Coagulation PT (9.4 - 12.5 SEC) 11.8 INR (0.90 - 1.19) 1.08 APTT (25 - 37 SEC) 30 Hematology CBC w Diff NO MAN DIFF REQ NO MAN DIFF REQ WBC (4.8 - 10.8 /CUMM) 10.4 11.1 H RBC (4.20 - 5.40 /CUMM) 2.48 L 2.63 L Hgb (12.0 - 16.0 G/DL) 7.0 *L 7.4 *L Hct (37 - 47 %) 21.1 L 22.4 L MCV (81.0 - 99.0 FL) 85.0 85.2 MCH (27.0 - 31.0 PG) 28.3 28.3 MCHC (33.0 - 37.0 G/DL) 33.3 33.2 RDW (11.5 - 14.5 %) 15.7 H 15.2 H Plt Count (130 - 400 /CUMM) 254 267 MPV (7.4 - 10.4 FL) 9.1 8.9 Gran % (42.2 - 75.2 %) 68.1 80.3 H Lymphocytes % (20.5 - 51.1 %) 22.4 12.6 L Monocytes % (1.7 - 9.3 %) 7.9 6.3 Eosinophils % (0 - 5 %) 0.9 0.4 Basophils % (0.0 - 2.0 %) 0.7 0.4 Absolute Granulocytes (1.4 - 6.5 /CUMM) 7.1 H 8.9 H Absolute Lymphocytes (1.2 - 3.4 /CUMM) 2.3 1.4 Absolute Monocytes (0.10 - 0.60 /CUMM) 0.8 H 0.7 H Absolute Eosinophils (0.0 - 0.7 /CUMM) 0.1 0 Absolute Basophils (0.0 - 0.2 /CUMM) 0.1 0
[2018-04-26 16:00] VITALS: BP 116/64
[2018-04-26 18:25] LABS: ABSOLUTE BASOPHIL COUNT 0 /CUMM (0.0-0.2); ABSOLUTE EOSINOPHIL COUNT 0.4 /CUMM (0.0-0.7); ABSOLUTE GRANULOCYTE CT 6.7 /CUMM (1.4-6.5); ABSOLUTE LYMPH COUNT 3.2 /CUMM (1.2-3.4); BASOPHIL % 0.4 % (0.0-2.0); EOSINOPHIL % 3.5 % (0-5); GRANULOCYTE % 59.1 % (42.2-75.2); MEAN CORPUSCULAR HGB CONC 34.7 G/DL (33.0-37.0); MEAN CORPUSCULAR VOLUME 86.6 FL (81.0-99.0); MEAN PLATELET VOLUME 9.6 FL (7.4-10.4); PLATELET COUNT 189 /CUMM (130-400); RBC DISTRIBUTION WIDTH 14.6 % (11.5-14.5); RED BLOOD CELL CT 2.89 /CUMM (4.20-5.40); WHITE BLOOD CELL COUNT 11.3 /CUMM (4.8-10.8)
[2018-04-27] VITALS: BP 138/70
[2018-04-27 04:07] LABS: ABSOLUTE BASOPHIL COUNT 0 /CUMM (0.0-0.2); ABSOLUTE EOSINOPHIL COUNT 0.4 /CUMM (0.0-0.7); ABSOLUTE GRANULOCYTE CT 5.2 /CUMM (1.4-6.5); ABSOLUTE LYMPH COUNT 2.7 /CUMM (1.2-3.4); ABSOLUTE MONOCYTE COUNT 0.9 /CUMM (0.10-0.60); BASOPHIL % 0.5 % (0.0-2.0); EOSINOPHIL % 4.7 % (0-5); HEMATOCRIT 22.8 % (37-47); MEAN CORPUSCULAR HGB 29.5 PG (27.0-31.0); MEAN CORPUSCULAR HGB CONC 33.6 G/DL (33.0-37.0); MEAN CORPUSCULAR VOLUME 87.9 FL (81.0-99.0); PLATELET COUNT 176 /CUMM (130-400); RBC DISTRIBUTION WIDTH 15.4 % (11.5-14.5); RED BLOOD CELL CT 2.59 /CUMM (4.20-5.40); WHITE BLOOD CELL COUNT 9.2 /CUMM (4.8-10.8)
[2018-04-27 08:00] VITALS: BP 130/70
--- NOTE | 2018-04-27 08:32 | PN- Resident CRCU ---
TraeAvis 04/27/18 0811: Subjective HPI/CRCU Issues: Patient had additional 8 hemepositive BMs overnight, however she had a good night sleep, less dizziness on ambulating within the room. This morning she had 2 more episodes of bloody stool with blood dripped on floor. However, she denied any ab pain, tolerated the clear liquid diet well. Denied CP/SOB/Urinary abnormalities. Objective Vital Signs & I&O Last 8 Hrs of Vitals and I&O: Intake & Output 04/27 1600 04/27 0800 04/27 0000 Intake Total 663 1355 Output Total Balance 663 1355 Intake, IV 543 635 Intake, Oral 120 720 Number 3 5 Bowel Movements Exam General Appearance: alert, awake, comfortable Respiratory: normal breath sounds, chest non-tender, no respiratory distress Cardiovascular: regular rate/rhythm Gastrointestinal: normal bowel sounds, soft, non-tender Extremities: normal inspection, normal capillary refill, no edema Current Medications: Current Medications Sig/Lynette Start time Last Medication Dose Route Stop Time Status Admin Acetaminophen 650 MG .STK-MED ONE 04/26 1109 DC PO 04/26 1110 Acetaminophen 650 MG Q6-PRN PRN 04/25 2145 04/26 PO 1113 Cyclosporine 1 GTT Q12 04/25 2100 04/26 OPH 2023 Latanoprost 1 GTT AT BEDTIME 04/25 2100 04/26 OPH 2025 Leflunomide 20 MG QPM 04/25 2145 04/26 PO 2023 Loratadine 10 MG DAILY 04/26 1157 AC 04/26 PO 1230 Magnesium Sulfate 1 GM Q2H 04/26 1530 DC 04/26 Dextrose/Water 100 ML IV 04/26 Montelukast Sodium 10 MG AT BEDTIME 04/26 2100 04/26 PO 2023 Pantoprazole Sodium 40 MG DAILY 04/25 1848 AC 04/26 IV 0849 Potassium Chloride 60 MEQ ONCE ONE 04/26 191 DC 04/26 PO 04/26 1916 194 Potassium Chloride 40 MEQ .STK-MED ONE 04/26 1335 DC PO 04/26 1336 Sodium Chloride 1,000 ML Q13H 04/25 2030 04/27 IV 0040 Impression/Plan Impression/Problem List Impression: VS: Stable afebrile, BP 116/80, heart rate 89, breathing on room air Sedation: None Vent Setting: None [id number]: NGTD Problem List: #BRBPR likely 2/2 diverticular disease w/ recurrency #Acute blood loss anemia #Hypokalemia 2/2 blood loss #Inflammation, Proximal Ascending Colon and Cecum, likely adverse effect Cosentyx #orthostatic hypotension #terminal ileitis #History of Hypertension, IBS, psoriatic arthritis, seasonal allergies/asthma, GERD, glaucoma, cervical stenosis, history of GI bleed secondary to NSAIDs, diverticulosis Respiratory: - No issues at this moment. Patient was restarted on home medication of Singulair 10 mg every afternoon. Infection: underlying clinical conditions of GI bleeding. Currently resolved to 9.2 on latest lab - Of note, patient had intermittent leukocytosis in the PM (11.3), similar to last admission. ascending colon and cecum, likely adverse effect of course Entex pending further rule out of other possible etiology. - Pending Biopsy Cardio: for BRBPR was acute blood loss anemia. - Resolving overnight with less lightheadedness bloody BM. will recheck CBC as above and cont current diet regimen. antihypertensive medications including losartan/amlodipine. Hem: 8.7 -> 7.7, S/P 3 units PRBC - recheck q12h. Metabolism: Alimentary: any more bloody bowel movement. - May consider repeat Ab CTA if again bleeding. Neuro: DVT prophylaxis: Only ALPS NPO IV Access: Peripheral IV Full Code Problem List: 1. Diverticula of colon 2. Acute blood loss anemia Pain Ratin Tomorrow's Labs & Rationales: ICU/CBC Nisa GASTON,Dk 04/27/18 0846: Impression/Plan Plan DVT/Prophylaxis: mechanical Attending MD Review Statement Attending Sign Off Attending Cosign Statement: I have: examined this patient, reviewed aval EMR data, personally reviewd images, discussd w/resident/PA/INSTRUMENTATION SPECIALIST, discussed mgmt plan w/evelyn, discussed mgmt plan w/CM, discussed mgmt plan w/pt, agreed w/resident/PA/INSTRUMENTATION SPECIALIST, amended to note. Other Findings: Impression 72 year old woman * acute blood loss anemia, s/p recent colonoscopy 2 small discrete areas of intraluminal high attenuationp suspicious for contrast extravasation - distal transverse colon and mid descending colon - in the setting of diarrhea/IBS * 4mm RML nodule, 2mm RLL nodule - stable - no f/u necessary - never smoker Plan -s/p colonoscopy, report reviewed -GI consultation appreciated -large bore ivs -s/p prbcs -diet per GI -f/u pathology DVT prophylaxis - ALPS TTS 35 min
[2018-04-27 12:00] VITALS: BP 118/60
--- NOTE | 2018-04-27 12:29 | PN- Gastroenterology ---
Assessment/Plan GI Assessment/Recommendations: ASSESSMENT: 1. Hematochezia: Likely ongoing diverticular bleeding. 2. Non-specific Colitis involving Cecum and Terminal Ileum -- pathology still pending, however, initial report is not consistent with inflammatory bowel disease 3. Psoriatic Arthritis 4. Diverticulosis with bleeding -- patient given information from Up to Date regarding diverticular bleeding. RECOMMENDATIONS: 1. Surgical Consultation as patient has already received 5 units of packed red blood cells. 2. Continue to monitor for ongoing bleeding 3. Serial H/H and transfuse to keep Hgb between 7 and 8. 4. Spoke with housestaff this morning. Shoud patient have recurrent bleeding, GI should be called so that GI can help them assess the severity of bleeding and help them decide whether CTA is an appropriate diagnostic tool at that time. 5. Dr. Balbuena will be covering this weekend. Subjective Subjective: Patient with continued small volume hematochezia last night. Last episode of hematochezia was at 8 a.m. and was only a small amount of old blood. Ms. Sylvester feels that the amount of bleeding that she has been having is slowing down. GI was not called last night nor was a CTA ordered. Dropped Hgb from 8.7 to 7.7. However, her most recent Hgb has increased again to 8.7. Pt denies nausea, vomiting, or abdominal pain. She says she feels much better and has more energy. Objective Vital Signs and I&Os Vital Signs Date Time Temp Pulse Resp B/P B/P Pulse O2 O2 Flow FiO2 Mean Ox Delivery Rate 04/27 0800 98.4 94 20 130/70 96 Room Air 04/27 0400 98 Room Air 04/27 0000 94 Room Air 04/27 0000 99.4 82 18 138/70 94 Room Air 04/26 2000 98 Room Air 04/26 1600 98.7 82 18 116/64 94 Room Air Intake & Output 04/27 1600 04/27 0400 04/26 1600 04/26 0400 04/25 1600 04/25 0400 Intake Total 663 1355 2670 1660 Output Total 203 100 Balance 663 1355 2467 1560 Intake, Blood 700 960 Product Intake, IV 208 719 5742 650 Intake, Oral 120 720 150 50 Number 3 5 12 7 Bowel Movements Output, Urine 203 100 Patient 171 lb 171 lb 171 lb 164 lb Weight Weight Bed scale Bed scale Estimated Measurement Method Physical Exam General Appearance: no apparent distress, comfortable Respiratory: normal breath sounds, lungs clear Cardiovascular: regular rate/rhythm Abdomen: normal bowel sounds, soft, non-tender Extremities: no edema Neurologic/Psychiatric: awake, alert, oriented x 3 Skin: pallor Current Medications: Current Medications Sig/Lynette Start time Last Medication Dose Route Stop Time Status Admin Acetaminophen 650 MG Q6-PRN PRN 04/25 214 04/26 PO 1113 Cyclosporine 1 GTT Q12 04/25 2100 04/27 OPH 0942 Latanoprost 1 GTT AT BEDTIME 04/25 2100 04/26 OPH 2025 Leflunomide 20 MG QPM 04/25 2145 04/26 PO 2023 Loratadine 10 MG DAILY 04/26 1157 04/27 PO 0942 Magnesium Sulfate 1 GM Q2H 04/26 1530 SD 04/26 Dextrose/Water 100 ML IV 04/26 1929 1657 Montelukast Sodium 10 MG AT BEDTIME 04/26 2100 04/26 PO 2023 Pantoprazole Sodium 40 MG DAILY 04/25 1848 04/27 IV 0942 Potassium Chloride 60 MEQ ONCE ONE 04/26 1915 DC 04/26 PO 04/26 191 1945 Potassium Chloride 40 MEQ .STK-MED ONE 04/26 1335 DC PO 04/26 1336 Sodium Chloride 1,000 ML Q13H 04/25 2030 04/27 IV 0040 Results Pertinent Lab Results: Laboratory Tests 04/27 04/27 04/26 1200 0358 2130 Chemistry Sodium (137 - 145 mmol/L) 141 Potassium (3.5 - 5.1 mmol/L) 4.2 Chloride (98 - 107 mmol/L) 113 H Carbon Dioxide (22 - 30 mmol/L) 23 Anion Gap (5 - 16) 4 L BUN (7 - 17 mg/dL) 5 L Creatinine (0.5 - 1.0 mg/dL) 0.6 Estimated GFR (>60 ml/min) > 60 Glucose (65 - 99 mg/dL) 81 Calcium (8.4 - 10.2 mg/dL) 7.7 L Phosphorus (2.5 - 4.5 mg/dL) 3.0 Magnesium (1.6 - 2.3 mg/dL) 2.1 Total Bilirubin (0.2 - 1.3 mg/dL) 0.3 AST (14 - 36 U/L) 12 L ALT (9 - 52 U/L) 31 Albumin (3.5 - 5.0 g/dL) 2.1 L Hematology CBC w Diff Pending NO MAN DIFF REQ Cancelled WBC (4.8 - 10.8 /CUMM) Pending 9.2 Cancelled RBC (4.20 - 5.40 /CUMM) Pending 2.59 L Cancelled Hgb (12.0 - 16.0 G/DL) Pending 7.7 L Cancelled Hct (37 - 47 %) Pending 22.8 L Cancelled MCV (81.0 - 99.0 FL) Pending 87.9 Cancelled MCH (27.0 - 31.0 PG) Pending 29.5 Cancelled MCHC (33.0 - 37.0 G/DL) Pending 33.6 Cancelled RDW (11.5 - 14.5 %) Pending 15.4 H Cancelled Plt Count (130 - 400 /CUMM) Pending 176 Cancelled MPV (7.4 - 10.4 FL) Pending 9.0 Cancelled Gran % (42.2 - 75.2 %) 56.0 Lymphocytes % (20.5 - 51.1 %) 28.8 Monocytes % (1.7 - 9.3 %) 10.0 H Eosinophils % (0 - 5 %) 4.7 Basophils % (0.0 - 2.0 %) 0.5 Absolute Granulocytes (1.4 - 6.5 /CUMM) 5.2 Absolute Lymphocytes (1.2 - 3.4 /CUMM) 2.7 Absolute Monocytes (0.10 - 0.60 /CUMM) 0.9 H Absolute Eosinophils (0.0 - 0.7 /CUMM) 0.4 Absolute Basophils (0.0 - 0.2 /CUMM) 0 04/26 04/26 1800 0811 Chemistry Sodium (137 - 145 mmol/L) 137 Potassium (3.5 - 5.1 mmol/L) 3.2 L Chloride (98 - 107 mmol/L) 108 H Carbon Dioxide (22 - 30 mmol/L) 22 Anion Gap (5 - 16) 6 BUN (7 - 17 mg/dL) 8 Creatinine (0.5 - 1.0 mg/dL) 0.6 Estimated GFR (>60 ml/min) > 60 BUN/Creatinine Ratio (7 - 25 %) 13.3 Hematology CBC w Diff NO MAN DIFF REQ WBC (4.8 - 10.8 /CUMM) 11.3 H 9.3 RBC (4.20 - 5.40 /CUMM) 2.89 L 2.56 L Hgb (12.0 - 16.0 G/DL) 8.7 L 7.6 L Hct (37 - 47 %) 25.0 L 22.2 L MCV (81.0 - 99.0 FL) 86.6 86.8 MCH (27.0 - 31.0 PG) 30.0 29.9 MCHC (33.0 - 37.0 G/DL) 34.7 34.4 RDW (11.5 - 14.5 %) 14.6 H 14.8 H Plt Count (130 - 400 /CUMM) 189 188 MPV (7.4 - 10.4 FL) 9.6 9.4 Gran % (42.2 - 75.2 %) 59.1 60.0 Lymphocytes % (20.5 - 51.1 %) 28.4 26.2 Monocytes % (1.7 - 9.3 %) 8.6 9.9 H Eosinophils % (0 - 5 %) 3.5 3.3 Basophils % (0.0 - 2.0 %) 0.4 0.6 Absolute Granulocytes (1.4 - 6.5 /CUMM) 6.7 H 5.6 Absolute Lymphocytes (1.2 - 3.4 /CUMM) 3.2 2.4 Absolute Monocytes (0.10 - 0.60 /CUMM) 1.0 H 0.9 H Absolute Eosinophils (0.0 - 0.7 /CUMM) 0.4 0.3 Absolute Basophils (0.0 - 0.2 /CUMM) 0 0.1 04/26 04/26 0320 0230 Chemistry Sodium (137 - 145 mmol/L) 142 Potassium (3.5 - 5.1 mmol/L) 3.2 L Chloride (98 - 107 mmol/L) 110 H Carbon Dioxide (22 - 30 mmol/L) 27 Anion Gap (5 - 16) 5 BUN (7 - 17 mg/dL) 10 Creatinine (0.5 - 1.0 mg/dL) 0.6 Estimated GFR (>60 ml/min) > 60 Glucose (65 - 99 mg/dL) 79 Calcium (8.4 - 10.2 mg/dL) 7.4 L Phosphorus (2.5 - 4.5 mg/dL) 3.3 Magnesium (1.6 - 2.3 mg/dL) 1.5 L Total Bilirubin (0.2 - 1.3 mg/dL) 0.6 AST (14 - 36 U/L) 12 L ALT (9 - 52 U/L) 21 Albumin (3.5 - 5.0 g/dL) 1.9 L Hematology CBC w Diff NO MAN DIFF REQ WBC (4.8 - 10.8 /CUMM) 8.9 Cancelled RBC (4.20 - 5.40 /CUMM) 2.16 L Cancelled Hgb (12.0 - 16.0 G/DL) 6.2 *L Cancelled Hct (37 - 47 %) 18.6 *L Cancelled MCV (81.0 - 99.0 FL) 86.2 Cancelled MCH (27.0 - 31.0 PG) 28.9 Cancelled MCHC (33.0 - 37.0 G/DL) 33.6 Cancelled RDW (11.5 - 14.5 %) 14.4 Cancelled Plt Count (130 - 400 /CUMM) 194 Cancelled MPV (7.4 - 10.4 FL) 10.3 Cancelled Gran % (42.2 - 75.2 %) 53.6 Lymphocytes % (20.5 - 51.1 %) 31.9 Monocytes % (1.7 - 9.3 %) 10.1 H Eosinophils % (0 - 5 %) 2.6 Basophils % (0.0 - 2.0 %) 1.8 Absolute Granulocytes (1.4 - 6.5 /CUMM) 4.8 Absolute Lymphocytes (1.2 - 3.4 /CUMM) 2.8 Absolute Monocytes (0.10 - 0.60 /CUMM) 0.9 H Absolute Eosinophils (0.0 - 0.7 /CUMM) 0.2 Absolute Basophils (0.0 - 0.2 /CUMM) 0.2 04/25 1523 Chemistry Sodium (137 - 145 mmol/L) 142 Potassium (3.5 - 5.1 mmol/L) 3.6 Chloride (98 - 107 mmol/L) 106 Carbon Dioxide (22 - 30 mmol/L) 28 Anion Gap (5 - 16) 8 BUN (7 - 17 mg/dL) 12 Creatinine (0.5 - 1.0 mg/dL) 0.7 Estimated GFR (>60 ml/min) > 60 BUN/Creatinine Ratio (7 - 25 %) 17.1 Glucose (65 - 99 mg/dL) 99 Calcium (8.4 - 10.2 mg/dL) 8.7 Total Bilirubin (0.2 - 1.3 mg/dL) 0.2 AST (14 - 36 U/L) 15 ALT (9 - 52 U/L) 33 Alkaline Phosphatase (<127 U/L) 55 Total Protein (6.3 - 8.2 g/dL) 5.3 L Albumin (3.5 - 5.0 g/dL) 2.9 L Globulin (1.9 - 4.2 gm/dL) 2.4 Albumin/Globulin Ratio (1.1 - 2.2 %) 1.2 Coagulation PT (9.4 - 12.5 SEC) 11.8 INR (0.90 - 1.19) 1.08 APTT (25 - 37 SEC) 30 Hematology CBC w Diff NO MAN DIFF REQ NO MAN DIFF REQ WBC (4.8 - 10.8 /CUMM) 10.4 11.1 H RBC (4.20 - 5.40 /CUMM) 2.48 L 2.63 L Hgb (12.0 - 16.0 G/DL) 7.0 *L 7.4 *L Hct (37 - 47 %) 21.1 L 22.4 L MCV (81.0 - 99.0 FL) 85.0 85.2 MCH (27.0 - 31.0 PG) 28.3 28.3 MCHC (33.0 - 37.0 G/DL) 33.3 33.2 RDW (11.5 - 14.5 %) 15.7 H 15.2 H Plt Count (130 - 400 /CUMM) 254 267 MPV (7.4 - 10.4 FL) 9.1 8.9 Gran % (42.2 - 75.2 %) 68.1 80.3 H Lymphocytes % (20.5 - 51.1 %) 22.4 12.6 L Monocytes % (1.7 - 9.3 %) 7.9 6.3 Eosinophils % (0 - 5 %) 0.9 0.4 Basophils % (0.0 - 2.0 %) 0.7 0.4 Absolute Granulocytes (1.4 - 6.5 /CUMM) 7.1 H 8.9 H Absolute Lymphocytes (1.2 - 3.4 /CUMM) 2.3 1.4 Absolute Monocytes (0.10 - 0.60 /CUMM) 0.8 H 0.7 H Absolute Eosinophils (0.0 - 0.7 /CUMM) 0.1 0 Absolute Basophils (0.0 - 0.2 /CUMM) 0.1 0
[2018-04-27 13:07] LABS: ABSOLUTE BASOPHIL COUNT 0 /CUMM (0.0-0.2); ABSOLUTE EOSINOPHIL COUNT 0.5 /CUMM (0.0-0.7); ABSOLUTE GRANULOCYTE CT 6.5 /CUMM (1.4-6.5); ABSOLUTE LYMPH COUNT 2.4 /CUMM (1.2-3.4); BASOPHIL % 0.5 % (0.0-2.0); EOSINOPHIL % 4.6 % (0-5); GRANULOCYTE % 62.5 % (42.2-75.2); HEMATOCRIT 26.2 % (37-47); MEAN CORPUSCULAR HGB 29.6 PG (27.0-31.0); MEAN CORPUSCULAR HGB CONC 33.2 G/DL (33.0-37.0); MEAN CORPUSCULAR VOLUME 89.3 FL (81.0-99.0); MEAN PLATELET VOLUME 9.9 FL (7.4-10.4); PLATELET COUNT 216 /CUMM (130-400); RBC DISTRIBUTION WIDTH 15.4 % (11.5-14.5); RED BLOOD CELL CT 2.93 /CUMM (4.20-5.40); WHITE BLOOD CELL COUNT 10.4 /CUMM (4.8-10.8)
[2018-04-27 15:48] VITALS: BP 132/60
--- NOTE | 2018-04-27 19:13 | CT SCAN REPORT ---
EXAMINATION: CT ANGIOGRAM ABDOMEN AND PELVIS CLINICAL INFORMATION: Lower GI bleed. COMPARISON: CT abdomen and pelvis angiogram 04/25/2018. 04/22/2018. TECHNIQUE: Noncontrast axial images obtained through the abdomen and pelvis. Multiple axial images were obtained through the abdomen and pelvis following the administration of 95 mL of Optiray 320 intravenous contrast. Coronal and sagittal reformatted images performed at CT scanner. No 3-D imaging. DLP: 604.04 mGy-cm. FINDINGS: VASCULAR: There are atherosclerotic vascular wall calcifications of aorta and the common iliac arteries but there is no aneurysm. After injection of contrast there is good opacification of the aorta and iliac arteries with runoff into the femoral arteries without occlusion or stenosis. There is good opacification of the celiac axis, renal arteries and SMA. There is no extravasation of contrast into the gastrointestinal tract. The site of a gastrointestinal bleed noted to be clinically present is not identified. CT SCAN ABDOMEN PELVIS: Lung bases: The visualized lung bases are unremarkable. Liver, Gallbladder, And Biliary Tree: There is a focal ovoid hypodensity in the central liver measuring 3.5 cm consistent with hepatic cysts. No suspicious liver lesions. No intrahepatic bile duct dilatation. The gallbladder is unremarkable with no evidence of radiopaque gallstones, gallbladder wall thickening, or obvious pericholecystic inflammatory changes. Pancreas: Unremarkable. Spleen: The spleen is normal in size and contour. No focal lesion. There is a 1.5 cm splenule at the anterior inferior splenic margin. Adrenal Glands: The adrenal glands are normal in size. No focal mass. Kidneys And Ureters: There is a normal variant of a duplicated left collecting system. There is no acute abnormality of the kidneys. The kidneys are of normal size, shape and attenuation. There is no hydronephrosis, no hydroureter or calculi. There is no perinephric stranding. Bladder: Unremarkable. Gastrointestinal Tract: There are a few diverticula of the colon but no diverticulitis. No acute change of the bowel. No bowel obstruction. No bowel wall thickening or edema. Moderate amount of scattered stool in the colon. The appendix is not seen. There is no inflammation of the mesentery. Mild enhancement of the submucosal of the terminal ileum is seen similar to prior CT study of 04/22/2018 but without inflammatory changes of the surrounding mesentery. This is nonspecific. Mesentery: No focal inflammation. No free air. No free fluid. Abdominal Wall: No significant hernia is appreciated. Lymph Nodes: Normal. Pelvic Viscera: The uterus is absent. There is no adnexal abnormality. Osseous Structures: Degenerative endplate spurring of thoracic and lumbar vertebrae with multilevel facet joint arthrosis. IMPRESSION: 1. No contrast is seen to extravasate into the gastrointestinal tract. Source of a gastrointestinal bleed noted to be clinically present is not identified. 2. No acute abnormality of the abdomen or the pelvis.
[2018-04-27 21:28] LABS: ABSOLUTE BASOPHIL COUNT 0.1 /CUMM (0.0-0.2); ABSOLUTE EOSINOPHIL COUNT 0.4 /CUMM (0.0-0.7); ABSOLUTE GRANULOCYTE CT 6.4 /CUMM (1.4-6.5); BASOPHIL % 0.5 % (0.0-2.0); EOSINOPHIL % 3.6 % (0-5); GRANULOCYTE % 65.4 % (42.2-75.2); MEAN CORPUSCULAR HGB 29.7 PG (27.0-31.0); MEAN CORPUSCULAR HGB CONC 33.8 G/DL (33.0-37.0); MEAN CORPUSCULAR VOLUME 87.8 FL (81.0-99.0); MEAN PLATELET VOLUME 9.7 FL (7.4-10.4); PLATELET COUNT 194 /CUMM (130-400); RBC DISTRIBUTION WIDTH 15.3 % (11.5-14.5); WHITE BLOOD CELL COUNT 9.8 /CUMM (4.8-10.8)
[2018-04-28] VITALS: BP 118/60
[2018-04-28 01:08] LABS: ABSOLUTE BASOPHIL COUNT 0.1 /CUMM (0.0-0.2); ABSOLUTE EOSINOPHIL COUNT 0.4 /CUMM (0.0-0.7); ABSOLUTE GRANULOCYTE CT 4.6 /CUMM (1.4-6.5); ABSOLUTE LYMPH COUNT 2.4 /CUMM (1.2-3.4); BASOPHIL % 0.8 % (0.0-2.0); EOSINOPHIL % 4.5 % (0-5); HEMATOCRIT 22.5 % (37-47); MEAN CORPUSCULAR HGB 29.6 PG (27.0-31.0); MEAN CORPUSCULAR HGB CONC 33.8 G/DL (33.0-37.0); MEAN CORPUSCULAR VOLUME 87.5 FL (81.0-99.0); MEAN PLATELET VOLUME 8.8 FL (7.4-10.4); PLATELET COUNT 177 /CUMM (130-400); RBC DISTRIBUTION WIDTH 15.1 % (11.5-14.5); RED BLOOD CELL CT 2.57 /CUMM (4.20-5.40); WHITE BLOOD CELL COUNT 8.4 /CUMM (4.8-10.8)
[2018-04-28 06:39] LABS: ABSOLUTE BASOPHIL COUNT 0 /CUMM (0.0-0.2); ABSOLUTE EOSINOPHIL COUNT 0.3 /CUMM (0.0-0.7); ABSOLUTE GRANULOCYTE CT 4.6 /CUMM (1.4-6.5); ABSOLUTE LYMPH COUNT 1.8 /CUMM (1.2-3.4); ABSOLUTE MONOCYTE COUNT 0.9 /CUMM (0.10-0.60); BASOPHIL % 0.3 % (0.0-2.0); EOSINOPHIL % 4.3 % (0-5); GRANULOCYTE % 59.9 % (42.2-75.2); HEMATOCRIT 26.4 % (37-47); MEAN CORPUSCULAR HGB 29.6 PG (27.0-31.0); MEAN CORPUSCULAR HGB CONC 33.7 G/DL (33.0-37.0); MEAN CORPUSCULAR VOLUME 87.7 FL (81.0-99.0); MEAN PLATELET VOLUME 9.1 FL (7.4-10.4); PLATELET COUNT 167 /CUMM (130-400); RBC DISTRIBUTION WIDTH 15.1 % (11.5-14.5); WHITE BLOOD CELL COUNT 7.6 /CUMM (4.8-10.8)
[2018-04-28 08:00] VITALS: BP 124/70
--- NOTE | 2018-04-28 08:25 | PN- Resident CRCU ---
Subjective HPI/CRCU Issues: Patient again had several bloody BMs overnight, same maroon color, that "she was tired of counting how many". She had only about an hour sleep, and appeared frustrated regarding unstopping bloody BMs. S/p 2U PRBC overnight. Patient could ambulate to restroom and back without lightheadedness/SOB. Denied CP/Ab pain. Objective Vital Signs & I&O Last 8 Hrs of Vitals and I&O: Intake & Output 04/28 1600 04/28 0800 04/28 0000 Intake Total 1040 880 Output Total 620 Balance 1040 260 Intake, IV 800 Intake, Oral 240 880 Number 7 1 Bowel Movements Output, Stool 220 Output, Urine 400 Exam General Appearance: alert, awake Respiratory: normal breath sounds, chest non-tender, no respiratory distress Cardiovascular: regular rate/rhythm Gastrointestinal: normal bowel sounds, soft, non-tender Extremities: no edema Current Medications: Current Medications Sig/Lynette Start time Last Medication Dose Route Stop Time Status Admin Acetaminophen 650 MG Q6-PRN PRN 04/25 2145 04/26 PO 1113 Cyclosporine 1 GTT Q12 04/25 2100 04/27 OPH 2050 Latanoprost 1 GTT AT BEDTIME 04/25 2100 04/27 OPH 2050 Leflunomide 20 MG QPM 04/25 2145 04/27 PO 2050 Loratadine 10 MG DAILY 04/26 1157 AC 04/27 PO 0942 Montelukast Sodium 10 MG AT BEDTIME 04/26 2100 04/27 PO 2050 Pantoprazole Sodium 40 MG DAILY 04/25 1848 04/27 IV 0942 Sodium Chloride 1,000 ML Q13H 04/25 2030 MT 04/27 IV 0040 Tramadol HCl 50 MG ONCE ONE 04/27 2345 DC 04/27 PO 04/27 2346 2348 Impression/Plan Impression/Problem List Impression: VS: Stable afebrile, VSS under RA Sedation: None Vent Setting: None [id number]: NGTD Problem List: #BRBPR likely 2/2 diverticular disease w/ recurrency #Acute blood loss anemia #Hypokalemia 2/2 blood loss #Inflammation, Proximal Ascending Colon and Cecum, likely adverse effect Cosentyx #orthostatic hypotension #terminal ileitis #History of Hypertension, IBS, psoriatic arthritis, seasonal allergies/asthma, GERD, glaucoma, cervical stenosis, history of GI bleed secondary to NSAIDs, diverticulosis Respiratory: - No issues at this moment. Patient was restarted on home medication of Singulair 10 mg every afternoon. Infection: underlying clinical conditions of GI bleeding. Currently resolved to 7.6 on latest lab ascending colon and cecum, likely adverse effect of cosentyx pending further rule out of other possible etiology. - Prelim biopsy could not rule out IBS/infection/drug-induced change. Cardio: for BRBPR was acute blood loss anemia. - Resolving now with free ambulation within the room, without significant lightheadedness bloody BM. will recheck CBC q12 and cont current diet regimen. antihypertensive medications including losartan/amlodipine. Hem: 8.7 -> 7.1 -> 8.9, S/P 3 units PRBC on 04/25, and again s/p 2 unites PRBC on 04/28 overnight. A total of 5U PRBC during this admission. - Of note, she received 3U PRBC in last admission. - recheck q12h. Metabolism: Alimentary: any more bloody bowel movement. - May consider repeat Ab CTA if again bleeding. Neuro: DVT prophylaxis: Only ALPS Clear liquid IV Access: Peripheral IV Full Code Problem List: 1. Diverticula of colon 2. Acute blood loss anemia 3. GI hemorrhage Pain Ratin Tomorrow's Labs & Rationales: ICU/CBC Plan DVT/Prophylaxis: mechanical
--- NOTE | 2018-04-28 10:36 | PN- CRCU ---
Subjective HPI/Critical Care Issues: Patient l reports continued bloody bowel movements she continues to require packed cell transfusion. Studies to date have been unrevealing. We'll consult is pending. Objective Current Medications: Current Medications Sig/Lynette Start time Last Medication Dose Route Stop Time Status Admin Acetaminophen 650 MG Q6-PRN PRN 04/25 2145 AC 04/26 PO 1113 Cyclosporine 1 GTT Q12 04/25 2100 AC 04/28 OPH 0958 Latanoprost 1 GTT AT BEDTIME 04/25 2100 AC 04/27 OPH 1 Leflunomide 20 MG QPM 04/25 2145 AC 04/27 PO 205 Loratadine 10 MG DAILY 04/26 1157 AC 04/28 PO 0953 Montelukast Sodium 10 MG AT BEDTIME 04/26 2100 AC 04/27 PO 2050 Pantoprazole Sodium 40 MG DAILY 04/25 1848 AC 04/28 IV 0953 Sodium Chloride 1,000 ML Q13H 04/25 2030 DC 04/27 IV 0040 Tramadol HCl 50 MG ONCE ONE 04/27 2345 DC 04/27 PO 04/27 2346 2348 Vital Signs & I&O Last 24 Hrs of Vitals and I&O: Vital Signs Date Time Temp Pulse Resp B/P B/P Pulse O2 O2 Flow FiO2 Mean Ox Delivery Rate 04/28 0800 99 Room Air 04/28 0800 97.7 97 16 124/70 99 Room Air 04/28 0400 96 Room Air 04/28 0000 96 Room Air 04/28 0000 98.6 91 22 118/60 96 Room Air 04/27 2000 98 Room Air 04/27 1548 98.6 80 16 132/60 98 Room Air 04/27 1200 99.1 86 25 118/60 99 Room Air Intake & Output 04/28 1600 04/28 0800 04/28 0000 Intake Total 1040 880 Output Total 620 Balance 1040 260 Intake, IV 800 Intake, Oral 240 880 Number 7 1 Bowel Movements Output, Stool 220 Output, Urine 400 Patient has remained hemodynamically stable temperature shows clear lung lawson cardiac exam shows regular S1 and S2 abdomen is soft nontender Impression/Plan Impression/Plan Impression/Plan: 32-year-old to set persistent lower GI bleeding requiring multiple transfusions without a discernible source. Dr. alexander has been consulted for surgical evaluation. GI follow-up this morning. Continue to closely monitor hematocrit every 4 hours and transfuse as necessary.l Recommendations: Monitor CBCs every 4 hours. GI follow-up pending and surgical consult has been called. Transfuse should hematocrit for further
[2018-04-28 11:16] LABS: ABSOLUTE BASOPHIL COUNT 0 /CUMM (0.0-0.2); ABSOLUTE EOSINOPHIL COUNT 0.3 /CUMM (0.0-0.7); ABSOLUTE LYMPH COUNT 1.7 /CUMM (1.2-3.4); BASOPHIL % 0.5 % (0.0-2.0); EOSINOPHIL % 4.1 % (0-5); GRANULOCYTE % 62.3 % (42.2-75.2); HEMATOCRIT 26.8 % (37-47); MEAN CORPUSCULAR HGB 29.8 PG (27.0-31.0); MEAN CORPUSCULAR HGB CONC 34.1 G/DL (33.0-37.0); MEAN CORPUSCULAR VOLUME 87.2 FL (81.0-99.0); MEAN PLATELET VOLUME 9.1 FL (7.4-10.4); PLATELET COUNT 173 /CUMM (130-400); RED BLOOD CELL CT 3.08 /CUMM (4.20-5.40); WHITE BLOOD CELL COUNT 7.9 /CUMM (4.8-10.8)
--- NOTE | 2018-04-28 11:19 | Event Note ---
Event Note Event Note: I presented case to DR Gutierrez and asked that she be seen emergently as she continues to bleed with suspected diverticular bleed based on ct done on April 22 . GI to see in F/U
--- NOTE | 2018-04-28 11:48 | Cons- General Surgery ---
General Information and HPI Consulting Request Date of Consult: 04/28/18 Requested By: Blanca Cervantes MD History of Present Illness: CC: Bleeding per rectum HPI: 72-year-old nondiabetic nonsmoker with rheumatoid arthritis in the ICU for GI bleeding it's been going on since the she is already had a colonoscopy 2 CT angios a mesenteric angiogram and CT scans. So far she's been transfused a total of 7 units. She denies any recent NSAID use she's been followed by stone spreader operator outside for terminal ileitis which has caused some diarrhea but not recently and she had been taking a new immunologic agent for her rheumatoid arthritis that has been held. She has a remote history of sigmoid diverticulitis but hasn't had any symptoms like that for years she denies any abdominal pain throughout this episode other than that discomfort when she is having no liquid bloody bowel movement she describes the bowel movements as purplish occasionally with clot has not seen bright red blood or melena. She denies any upper abdominal discomfort and indigestion. When this started she initially presented with some dizziness but that has since resolved. There is no family history of ulcerative colitis or Crohn's disease there is a family history of esophageal cancer her twin brother had an MN. Presently she is tolerating a clear liquid diet.. I've reviewed the [facility]. No history of PUD, heart disease or issues with anesthesia. Past surgical history hysterectomy and repairs of rectocele and cystocele 2 years ago. Allergies/Medications Allergies: Coded Allergies: NSAIDS (Non-Steroidal Anti-Inflamma (GI 04/21/18) Sulfa (Sulfonamide Antibiotics) (HIVES 04/21/18) Home Med List: Albuterol Sulfate (Proair Hfa) 90 MCG HFA.AER.AD 2 PUF INH Q4-6 PRN PRN SOB ( Reported) Amlodipine Besylate 5 MG TABLET 1 TAB PO QHS HTN (Reported) Budesonide (Entocort EC) 3 MG CAPDR...ER 9 MG PO DAILY GI (Reported) Cyclosporine (Restasis) 0.05 % DROPERETTE 1 GTT OPH BID eye drops (Reported) Desloratadine (Clarinex) 5 MG TABLET 1 TAB PO DAILY Allergies (Reported) Leflunomide (Arava) 20 MG TABLET 1 TAB PO DAILY arthritis (Reported) Levocetirizine Dihydrochloride (Xyzal) 5 MG TABLET 1 TAB PO DAILY Allergies ( Reported) Losartan Potassium (Cozaar) 50 MG TABLET 1.5 TAB PO DAILY HTN (Reported) Montelukast Sodium (Singulair) 10 MG TABLET 1 TAB PO DAILY Allergies ( Reported) Multiple Vitamin (Multivitamins) 1 EACH TABLET 1 TAB PO DAILY SUPPLEMENT ( Reported) Pantoprazole Sodium (Protonix) 40 MG TABLET.DR 1 TAB PO DAILY GERD (Reported) Travoprost (Travatan Z) 0.004 % DROPS 1 GTT OPH QPM GLAUCOMA (Reported) Past History Medical History Neurological: NONE EENT: glaucoma Cardiovascular: NONE, hypertension Respiratory: asthma Gastrointestinal: irritable bowel syndrome, lower GI bleed, DIVERTICULITIS Hepatic: NONE Renal: NONE Musculoskeletal: PSORIATIC ARTHRITIS Psychiatric: NONE Endocrine: NONE Blood Disorders: coagulopathy Surgical History Pertinent Surgical History: non-contributory Family History Relations & Conditions If Any: MOTHER (Hypertension Arthritis). FATHER (Esophageal cancer). BROTHER (Esophageal cancer Coronary artery disease). Psychosocial History Where Do You Live? Home Services at Home: None Smoking Status: Never Smoked ETOH Use: denies use Illicit Drug Use: denies illicit drug use Functional Ability ADLs Independent: dressing, eating, toileting, bathing. Ambulation: independent Review of Systems Review of Systems: Constitutional: No fever, sweats or weight loss ENMT: No sore throat Cardiovascular: No chest pain, palpitations or leg swelling Respiratory: No shortness of breath, cough, or sputum or dyspnea on exertion GI: No GERD or bleeding per rectum : No dysuria or hematuria Musculoskeletal: No new muscle weakness, bone or joint pain Skin / Breast: No jaundice, rashes or itching Psychiatric: No history of drug or alcohol abuse no depression or anxiety Hematologic / lymphatic system: No problems with excessive bleeding, bruising, or blood clots Exam & Diagnostic Data Vital Signs and I&O I rev Vital Signs Date Time Temp Pulse Resp B/P B/P Pulse O2 O2 Flow FiO2 Mean Ox Delivery Rate 04/28 0800 99 Room Air 04/28 0800 97.7 97 16 124/70 99 Room Air 04/28 0400 96 Room Air 04/28 0000 96 Room Air 04/28 0000 98.6 91 22 118/60 96 Room Air 04/27 2000 98 Room Air 04/27 1548 98.6 80 16 132/60 98 Room Air 04/27 1200 99.1 86 25 118/60 99 Room Air I rev Intake & Output 04/28 1600 04/28 0804/28 0000 04/27 1600 04/27 0804/27 0000 Intake Total 5119 453 8202 663 1355 Output Total 620 4 Balance 9904 944 8387 663 1355 Intake, IV 800 142 543 635 Intake, Oral 240 880 880 120 720 Number 7 1 7 3 5 Bowel Movements Output, Stool 220 Output, Urine 400 4 Patient 171 lb Weight Physical Exam: Constitutional: pleasant, no acute distress, conversant Eyes: sclera anicteric ENMT: ears and nose atraumatic, moist mucous membranes, good dentition, no lip lesions Neck: Supple, trachea is midline, no cervical or supraclavicular adenopathy and no palpable thyromegaly Cardiovascular: S1, S2, no murmurs, no peripheral edema Respiratory: clear to auscultation with normal respiratory effort and no intercostal retractions GI: abdomen soft, nontender, nondistended, no palpable hepatosplenomegaly Extremities / lymphatics: symmetrically warm, free range of motion no peripheral edema, no cervical, supraclavicular, axillary, or inguinal adenopathy Musculoskeletal: Did not evaluate gait and station, no digital cyanosis, good muscle strength and tone no atrophy, motor grossly 5 out of 5 throughout Skin: no jaundice, no rashes warm, nondiaphoretic, no areas of erythema or induration Psychiatric: mood and affect are appropriate and alert and oriented to person place and time Last 24 Hours of Labs: I rev Laboratory Tests 04/28 04/28 1051 0618 Chemistry Sodium (137 - 145 mmol/L) 139 Potassium (3.5 - 5.1 mmol/L) 3.8 Chloride (98 - 107 mmol/L) 110 H Carbon Dioxide (22 - 30 mmol/L) 24 Anion Gap (5 - 16) 5 BUN (7 - 17 mg/dL) 4 L Creatinine (0.5 - 1.0 mg/dL) 0.7 Estimated GFR (>60 ml/min) > 60 Glucose (65 - 99 mg/dL) 85 Calcium (8.4 - 10.2 mg/dL) 7.7 L Phosphorus (2.5 - 4.5 mg/dL) 3.7 Magnesium (1.6 - 2.3 mg/dL) 1.9 Total Bilirubin (0.2 - 1.3 mg/dL) 0.3 AST (14 - 36 U/L) 13 L ALT (9 - 52 U/L) 26 Albumin (3.5 - 5.0 g/dL) 2.0 L Hematology CBC w Diff NO MAN DIFF REQ NO MAN DIFF REQ WBC (4.8 - 10.8 /CUMM) 7.9 7.6 RBC (4.20 - 5.40 /CUMM) 3.08 L 3.00 L Hgb (12.0 - 16.0 G/DL) 9.2 L 8.9 L Hct (37 - 47 %) 26.8 L 26.4 L MCV (81.0 - 99.0 FL) 87.2 87.7 MCH (27.0 - 31.0 PG) 29.8 29.6 MCHC (33.0 - 37.0 G/DL) 34.1 33.7 RDW (11.5 - 14.5 %) 15.0 H 15.1 H Plt Count (130 - 400 /CUMM) 173 167 MPV (7.4 - 10.4 FL) 9.1 9.1 Gran % (42.2 - 75.2 %) 62.3 59.9 Lymphocytes % (20.5 - 51.1 %) 21.1 23.6 Monocytes % (1.7 - 9.3 %) 12.0 H 11.9 H Eosinophils % (0 - 5 %) 4.1 4.3 Basophils % (0.0 - 2.0 %) 0.5 0.3 Absolute Granulocytes (1.4 - 6.5 /CUMM) 5.0 4.6 Absolute Lymphocytes (1.2 - 3.4 /CUMM) 1.7 1.8 Absolute Monocytes (0.10 - 0.60 /CUMM) 1.0 H 0.9 H Absolute Eosinophils (0.0 - 0.7 /CUMM) 0.3 0.3 Absolute Basophils (0.0 - 0.2 /CUMM) 0 0 04/28 Hematology CBC w Diff NO MAN DIFF REQ NO MAN DIFF REQ WBC (4.8 - 10.8 /CUMM) 8.4 9.8 RBC (4.20 - 5.40 /CUMM) 2.57 L 2.40 L Hgb (12.0 - 16.0 G/DL) 7.6 L 7.1 *L Hct (37 - 47 %) 22.5 L 21.0 L MCV (81.0 - 99.0 FL) 87.5 87.8 MCH (27.0 - 31.0 PG) 29.6 29.7 MCHC (33.0 - 37.0 G/DL) 33.8 33.8 RDW (11.5 - 14.5 %) 15.1 H 15.3 H Plt Count (130 - 400 /CUMM) 177 194 MPV (7.4 - 10.4 FL) 8.8 9.7 Gran % (42.2 - 75.2 %) 55.0 65.4 Lymphocytes % (20.5 - 51.1 %) 28.4 20.6 Monocytes % (1.7 - 9.3 %) 11.3 H 9.9 H Eosinophils % (0 - 5 %) 4.5 3.6 Basophils % (0.0 - 2.0 %) 0.8 0.5 Absolute Granulocytes (1.4 - 6.5 /CUMM) 4.6 6.4 Absolute Lymphocytes (1.2 - 3.4 /CUMM) 2.4 2.0 Absolute Monocytes (0.10 - 0.60 /CUMM) 1.0 H 1.0 H Absolute Eosinophils (0.0 - 0.7 /CUMM) 0.4 0.4 Absolute Basophils (0.0 - 0.2 /CUMM) 0.1 0.1 04/27 1200 Hematology CBC w Diff NO MAN DIFF REQ WBC (4.8 - 10.8 /CUMM) 10.4 RBC (4.20 - 5.40 /CUMM) 2.93 L Hgb (12.0 - 16.0 G/DL) 8.7 L Hct (37 - 47 %) 26.2 L MCV (81.0 - 99.0 FL) 89.3 MCH (27.0 - 31.0 PG) 29.6 MCHC (33.0 - 37.0 G/DL) 33.2 RDW (11.5 - 14.5 %) 15.4 H Plt Count (130 - 400 /CUMM) 216 MPV (7.4 - 10.4 FL) 9.9 Gran % (42.2 - 75.2 %) 62.5 Lymphocytes % (20.5 - 51.1 %) 22.9 Monocytes % (1.7 - 9.3 %) 9.5 H Eosinophils % (0 - 5 %) 4.6 Basophils % (0.0 - 2.0 %) 0.5 Absolute Granulocytes (1.4 - 6.5 /CUMM) 6.5 Absolute Lymphocytes (1.2 - 3.4 /CUMM) 2.4 Absolute Monocytes (0.10 - 0.60 /CUMM) 1.0 H Absolute Eosinophils (0.0 - 0.7 /CUMM) 0.5 Absolute Basophils (0.0 - 0.2 /CUMM) 0 Assessment/Plan Assessment/Plan Impression is a GI bleed that has not been localized. I reviewed the CT scans CT angios mesenteric angio since the on PACS myself and also with the radiologist, there has been no definitive extravasation seen and the earlier CT angios was not done with the appropriate GI bleed protocol so that one might have some false positive findings. The colonoscopy reports no colonic mucosal or vascular abnormalities seen multiple biopsies were taken and are pending, ulcerations and the terminal ileum were seen which is consistent with her chronic disease here question if this could be the source of bleeding. If you look at the timing of the blood draws and the transfusions within the past 15 hours, her hemoglobin was 7.1 and now is 9.2 which is an appropriate rise having received 2 units. So despite the continued appearance of bloody bowel movements , which can be delayed reflecting an earlier bleed, she is probably not actively bleeding right now, her blood pressure and heart rate has remained stable throughout. I would increase the interval of phlebotomy. Will discuss with GI today, but at the moment surgical options are limited and I would reserve them as a last resort if she becomes unstable, if she shows that she is treating again would still try a CT angio with bleeding protocol, but at this point resection would have to include the terminal ileum and a total colectomy with an ileostomy, which can be quite morbid obviously the patient prefers to avoid this if possible. Otherwise await the biopsies consider nuclear bleeding scan hopefully the bleeding will stop but if otherwise it can be localized and maybe we could do a segmental resection. Problem List: 1. GI hemorrhage 2. Acute blood loss anemia Consult Acknowledgment - Thank you for your consult request.
--- NOTE | 2018-04-28 15:34 | PN- Gastroenterology ---
Assessment/Plan GI Assessment/Recommendations: Patient seen and chart reviewed and case discussed with team. 72-year-old lady who was in relatively good health until her episode of rectal bleeding starting 7 days ago. Since then she has had subacute intermittent leading which has been investigated with a colonoscopy and by multiple CT scans. Overall the most likely diagnosis appears to be a diverticular bleed. She has reached the point of 7 units of packed red blood cells in the last week. However she continues to look very well. She is alert, cooperative. As no abdominal discomfort. Exam she has a soft abdomen with no localized tenderness. Case discussed with surgeon continuous pillowcase cutter. Patient is not willing to consider a rectum E with ileostomy. Agree with continued supportive care over the next 24- 48 hrs. We'll continue to follow with you. Subjective Subjective: b Objective Vital Signs and I&Os Vital Signs Date Time Temp Pulse Resp B/P B/P Pulse O2 O2 Flow FiO2 Mean Ox Delivery Rate 04/28 0800 99 Room Air 04/28 0800 97.7 97 16 124/70 99 Room Air 04/28 0400 96 Room Air 04/28 0000 96 Room Air 04/28 0000 98.6 91 22 118/60 96 Room Air 04/27 2000 98 Room Air 04/27 1548 98.6 80 16 132/60 98 Room Air Intake & Output 04/28 1600 04/28 0400 04/27 1600 04/27 0400 04/26 1600 04/26 0400 Intake Total 2100 880 1685 1355 2670 1660 Output Total 620 4 203 100 Balance 2100 260 1681 1355 2467 1560 Intake, Blood 700 960 Product Intake, IV 820 253 728 6569 650 Intake, Oral 3020 512 8262 720 150 50 Number 13 1 10 5 12 7 Bowel Movements Output, Stool 220 Output, Urine 400 4 203 100 Patient 171 lb 171 lb 171 lb Weight Weight Bed scale Bed scale Measurement Method Results Pertinent Lab Results: m Laboratory Tests 04/28 04/28 1500 1051 Hematology CBC w Diff Cancelled NO MAN DIFF REQ WBC (4.8 - 10.8 /CUMM) Cancelled 7.9 RBC (4.20 - 5.40 /CUMM) Cancelled 3.08 L Hgb (12.0 - 16.0 G/DL) Cancelled 9.2 L Hct (37 - 47 %) Cancelled 26.8 L MCV (81.0 - 99.0 FL) Cancelled 87.2 MCH (27.0 - 31.0 PG) Cancelled 29.8 MCHC (33.0 - 37.0 G/DL) Cancelled 34.1 RDW (11.5 - 14.5 %) Cancelled 15.0 H Plt Count (130 - 400 /CUMM) Cancelled 173 MPV (7.4 - 10.4 FL) Cancelled 9.1 Gran % (42.2 - 75.2 %) 62.3 Lymphocytes % (20.5 - 51.1 %) 21.1 Monocytes % (1.7 - 9.3 %) 12.0 H Eosinophils % (0 - 5 %) 4.1 Basophils % (0.0 - 2.0 %) 0.5 Absolute Granulocytes (1.4 - 6.5 /CUMM) 5.0 Absolute Lymphocytes (1.2 - 3.4 /CUMM) 1.7 Absolute Monocytes (0.10 - 0.60 /CUMM) 1.0 H Absolute Eosinophils (0.0 - 0.7 /CUMM) 0.3 Absolute Basophils (0.0 - 0.2 /CUMM) 0 04/28 04/28 0618 0100 Chemistry Sodium (137 - 145 mmol/L) 139 Potassium (3.5 - 5.1 mmol/L) 3.8 Chloride (98 - 107 mmol/L) 110 H Carbon Dioxide (22 - 30 mmol/L) 24 Anion Gap (5 - 16) 5 BUN (7 - 17 mg/dL) 4 L Creatinine (0.5 - 1.0 mg/dL) 0.7 Estimated GFR (>60 ml/min) > 60 Glucose (65 - 99 mg/dL) 85 Calcium (8.4 - 10.2 mg/dL) 7.7 L Phosphorus (2.5 - 4.5 mg/dL) 3.7 Magnesium (1.6 - 2.3 mg/dL) 1.9 Total Bilirubin (0.2 - 1.3 mg/dL) 0.3 AST (14 - 36 U/L) 13 L ALT (9 - 52 U/L) 26 Albumin (3.5 - 5.0 g/dL) 2.0 L Hematology CBC w Diff NO MAN DIFF REQ NO MAN DIFF REQ WBC (4.8 - 10.8 /CUMM) 7.6 8.4 RBC (4.20 - 5.40 /CUMM) 3.00 L 2.57 L Hgb (12.0 - 16.0 G/DL) 8.9 L 7.6 L Hct (37 - 47 %) 26.4 L 22.5 L MCV (81.0 - 99.0 FL) 87.7 87.5 MCH (27.0 - 31.0 PG) 29.6 29.6 MCHC (33.0 - 37.0 G/DL) 33.7 33.8 RDW (11.5 - 14.5 %) 15.1 H 15.1 H Plt Count (130 - 400 /CUMM) 167 177 MPV (7.4 - 10.4 FL) 9.1 8.8 Gran % (42.2 - 75.2 %) 59.9 55.0 Lymphocytes % (20.5 - 51.1 %) 23.6 28.4 Monocytes % (1.7 - 9.3 %) 11.9 H 11.3 H Eosinophils % (0 - 5 %) 4.3 4.5 Basophils % (0.0 - 2.0 %) 0.3 0.8 Absolute Granulocytes (1.4 - 6.5 /CUMM) 4.6 4.6 Absolute Lymphocytes (1.2 - 3.4 /CUMM) 1.8 2.4 Absolute Monocytes (0.10 - 0.60 /CUMM) 0.9 H 1.0 H Absolute Eosinophils (0.0 - 0.7 /CUMM) 0.3 0.4 Absolute Basophils (0.0 - 0.2 /CUMM) 0 0.1 04/27 1200 Hematology CBC w Diff NO MAN DIFF REQ NO MAN DIFF REQ WBC (4.8 - 10.8 /CUMM) 9.8 10.4 RBC (4.20 - 5.40 /CUMM) 2.40 L 2.93 L Hgb (12.0 - 16.0 G/DL) 7.1 *L 8.7 L Hct (37 - 47 %) 21.0 L 26.2 L MCV (81.0 - 99.0 FL) 87.8 89.3 MCH (27.0 - 31.0 PG) 29.7 29.6 MCHC (33.0 - 37.0 G/DL) 33.8 33.2 RDW (11.5 - 14.5 %) 15.3 H 15.4 H Plt Count (130 - 400 /CUMM) 194 216 MPV (7.4 - 10.4 FL) 9.7 9.9 Gran % (42.2 - 75.2 %) 65.4 62.5 Lymphocytes % (20.5 - 51.1 %) 20.6 22.9 Monocytes % (1.7 - 9.3 %) 9.9 H 9.5 H Eosinophils % (0 - 5 %) 3.6 4.6 Basophils % (0.0 - 2.0 %) 0.5 0.5 Absolute Granulocytes (1.4 - 6.5 /CUMM) 6.4 6.5 Absolute Lymphocytes (1.2 - 3.4 /CUMM) 2.0 2.4 Absolute Monocytes (0.10 - 0.60 /CUMM) 1.0 H 1.0 H Absolute Eosinophils (0.0 - 0.7 /CUMM) 0.4 0.5 Absolute Basophils (0.0 - 0.2 /CUMM) 0.1 0 04/27 04/26 0358 2130 Chemistry Sodium (137 - 145 mmol/L) 141 Potassium (3.5 - 5.1 mmol/L) 4.2 Chloride (98 - 107 mmol/L) 113 H Carbon Dioxide (22 - 30 mmol/L) 23 Anion Gap (5 - 16) 4 L BUN (7 - 17 mg/dL) 5 L Creatinine (0.5 - 1.0 mg/dL) 0.6 Estimated GFR (>60 ml/min) > 60 Glucose (65 - 99 mg/dL) 81 Calcium (8.4 - 10.2 mg/dL) 7.7 L Phosphorus (2.5 - 4.5 mg/dL) 3.0 Magnesium (1.6 - 2.3 mg/dL) 2.1 Total Bilirubin (0.2 - 1.3 mg/dL) 0.3 AST (14 - 36 U/L) 12 L ALT (9 - 52 U/L) 31 Albumin (3.5 - 5.0 g/dL) 2.1 L Hematology CBC w Diff NO MAN DIFF REQ Cancelled WBC (4.8 - 10.8 /CUMM) 9.2 Cancelled RBC (4.20 - 5.40 /CUMM) 2.59 L Cancelled Hgb (12.0 - 16.0 G/DL) 7.7 L Cancelled Hct (37 - 47 %) 22.8 L Cancelled MCV (81.0 - 99.0 FL) 87.9 Cancelled MCH (27.0 - 31.0 PG) 29.5 Cancelled MCHC (33.0 - 37.0 G/DL) 33.6 Cancelled RDW (11.5 - 14.5 %) 15.4 H Cancelled Plt Count (130 - 400 /CUMM) 176 Cancelled MPV (7.4 - 10.4 FL) 9.0 Cancelled Gran % (42.2 - 75.2 %) 56.0 Lymphocytes % (20.5 - 51.1 %) 28.8 Monocytes % (1.7 - 9.3 %) 10.0 H Eosinophils % (0 - 5 %) 4.7 Basophils % (0.0 - 2.0 %) 0.5 Absolute Granulocytes (1.4 - 6.5 /CUMM) 5.2 Absolute Lymphocytes (1.2 - 3.4 /CUMM) 2.7 Absolute Monocytes (0.10 - 0.60 /CUMM) 0.9 H Absolute Eosinophils (0.0 - 0.7 /CUMM) 0.4 Absolute Basophils (0.0 - 0.2 /CUMM) 0 04/26 04/26 1800 0811 Chemistry Sodium (137 - 145 mmol/L) 137 Potassium (3.5 - 5.1 mmol/L) 3.2 L Chloride (98 - 107 mmol/L) 108 H Carbon Dioxide (22 - 30 mmol/L) 22 Anion Gap (5 - 16) 6 BUN (7 - 17 mg/dL) 8 Creatinine (0.5 - 1.0 mg/dL) 0.6 Estimated GFR (>60 ml/min) > 60 BUN/Creatinine Ratio (7 - 25 %) 13.3 Hematology CBC w Diff NO MAN DIFF REQ WBC (4.8 - 10.8 /CUMM) 11.3 H 9.3 RBC (4.20 - 5.40 /CUMM) 2.89 L 2.56 L Hgb (12.0 - 16.0 G/DL) 8.7 L 7.6 L Hct (37 - 47 %) 25.0 L 22.2 L MCV (81.0 - 99.0 FL) 86.6 86.8 MCH (27.0 - 31.0 PG) 30.0 29.9 MCHC (33.0 - 37.0 G/DL) 34.7 34.4 RDW (11.5 - 14.5 %) 14.6 H 14.8 H Plt Count (130 - 400 /CUMM) 189 188 MPV (7.4 - 10.4 FL) 9.6 9.4 Gran % (42.2 - 75.2 %) 59.1 60.0 Lymphocytes % (20.5 - 51.1 %) 28.4 26.2 Monocytes % (1.7 - 9.3 %) 8.6 9.9 H Eosinophils % (0 - 5 %) 3.5 3.3 Basophils % (0.0 - 2.0 %) 0.4 0.6 Absolute Granulocytes (1.4 - 6.5 /CUMM) 6.7 H 5.6 Absolute Lymphocytes (1.2 - 3.4 /CUMM) 3.2 2.4 Absolute Monocytes (0.10 - 0.60 /CUMM) 1.0 H 0.9 H Absolute Eosinophils (0.0 - 0.7 /CUMM) 0.4 0.3 Absolute Basophils (0.0 - 0.2 /CUMM) 0 0.1 04/26 04/26 0320 0230 Chemistry Sodium (137 - 145 mmol/L) 142 Potassium (3.5 - 5.1 mmol/L) 3.2 L Chloride (98 - 107 mmol/L) 110 H Carbon Dioxide (22 - 30 mmol/L) 27 Anion Gap (5 - 16) 5 BUN (7 - 17 mg/dL) 10 Creatinine (0.5 - 1.0 mg/dL) 0.6 Estimated GFR (>60 ml/min) > 60 Glucose (65 - 99 mg/dL) 79 Calcium (8.4 - 10.2 mg/dL) 7.4 L Phosphorus (2.5 - 4.5 mg/dL) 3.3 Magnesium (1.6 - 2.3 mg/dL) 1.5 L Total Bilirubin (0.2 - 1.3 mg/dL) 0.6 AST (14 - 36 U/L) 12 L ALT (9 - 52 U/L) 21 Albumin (3.5 - 5.0 g/dL) 1.9 L Hematology CBC w Diff NO MAN DIFF REQ WBC (4.8 - 10.8 /CUMM) 8.9 Cancelled RBC (4.20 - 5.40 /CUMM) 2.16 L Cancelled Hgb (12.0 - 16.0 G/DL) 6.2 *L Cancelled Hct (37 - 47 %) 18.6 *L Cancelled MCV (81.0 - 99.0 FL) 86.2 Cancelled MCH (27.0 - 31.0 PG) 28.9 Cancelled MCHC (33.0 - 37.0 G/DL) 33.6 Cancelled RDW (11.5 - 14.5 %) 14.4 Cancelled Plt Count (130 - 400 /CUMM) 194 Cancelled MPV (7.4 - 10.4 FL) 10.3 Cancelled Gran % (42.2 - 75.2 %) 53.6 Lymphocytes % (20.5 - 51.1 %) 31.9 Monocytes % (1.7 - 9.3 %) 10.1 H Eosinophils % (0 - 5 %) 2.6 Basophils % (0.0 - 2.0 %) 1.8 Absolute Granulocytes (1.4 - 6.5 /CUMM) 4.8 Absolute Lymphocytes (1.2 - 3.4 /CUMM) 2.8 Absolute Monocytes (0.10 - 0.60 /CUMM) 0.9 H Absolute Eosinophils (0.0 - 0.7 /CUMM) 0.2 Absolute Basophils (0.0 - 0.2 /CUMM) 0.2 04/25 2012 Hematology CBC w Diff NO MAN DIFF REQ WBC (4.8 - 10.8 /CUMM) 10.4 RBC (4.20 - 5.40 /CUMM) 2.48 L Hgb (12.0 - 16.0 G/DL) 7.0 *L Hct (37 - 47 %) 21.1 L MCV (81.0 - 99.0 FL) 85.0 MCH (27.0 - 31.0 PG) 28.3 MCHC (33.0 - 37.0 G/DL) 33.3 RDW (11.5 - 14.5 %) 15.7 H Plt Count (130 - 400 /CUMM) 254 MPV (7.4 - 10.4 FL) 9.1 Gran % (42.2 - 75.2 %) 68.1 Lymphocytes % (20.5 - 51.1 %) 22.4 Monocytes % (1.7 - 9.3 %) 7.9 Eosinophils % (0 - 5 %) 0.9 Basophils % (0.0 - 2.0 %) 0.7 Absolute Granulocytes (1.4 - 6.5 /CUMM) 7.1 H Absolute Lymphocytes (1.2 - 3.4 /CUMM) 2.3 Absolute Monocytes (0.10 - 0.60 /CUMM) 0.8 H Absolute Eosinophils (0.0 - 0.7 /CUMM) 0.1 Absolute Basophils (0.0 - 0.2 /CUMM) 0.1
[2018-04-28 16:27] VITALS: BP 121/63
[2018-04-28 19:04] LABS: ABSOLUTE BASOPHIL COUNT 0 /CUMM (0.0-0.2); ABSOLUTE EOSINOPHIL COUNT 0.5 /CUMM (0.0-0.7); ABSOLUTE GRANULOCYTE CT 4.2 /CUMM (1.4-6.5); ABSOLUTE LYMPH COUNT 2.2 /CUMM (1.2-3.4); BASOPHIL % 0.5 % (0.0-2.0); EOSINOPHIL % 6.2 % (0-5); GRANULOCYTE % 53.4 % (42.2-75.2); HEMATOCRIT 28.8 % (37-47); MEAN CORPUSCULAR HGB 29.8 PG (27.0-31.0); MEAN CORPUSCULAR HGB CONC 33.3 G/DL (33.0-37.0); MEAN CORPUSCULAR VOLUME 89.5 FL (81.0-99.0); MEAN PLATELET VOLUME 9.4 FL (7.4-10.4); PLATELET COUNT 204 /CUMM (130-400); RBC DISTRIBUTION WIDTH 15.4 % (11.5-14.5); RED BLOOD CELL CT 3.21 /CUMM (4.20-5.40); WHITE BLOOD CELL COUNT 7.8 /CUMM (4.8-10.8)
[2018-04-29] VITALS: BP 124/60
[2018-04-29 06:37] LABS: ABSOLUTE BASOPHIL COUNT 0 /CUMM (0.0-0.2); ABSOLUTE EOSINOPHIL COUNT 0.4 /CUMM (0.0-0.7); ABSOLUTE GRANULOCYTE CT 2.9 /CUMM (1.4-6.5); ABSOLUTE LYMPH COUNT 1.5 /CUMM (1.2-3.4); ABSOLUTE MONOCYTE COUNT 0.6 /CUMM (0.10-0.60); BASOPHIL % 0.9 % (0.0-2.0); EOSINOPHIL % 7.3 % (0-5); GRANULOCYTE % 53.2 % (42.2-75.2); HEMATOCRIT 25.3 % (37-47); MEAN CORPUSCULAR HGB CONC 33.3 G/DL (33.0-37.0); MEAN PLATELET VOLUME 9.3 FL (7.4-10.4); PLATELET COUNT 193 /CUMM (130-400); RBC DISTRIBUTION WIDTH 15.5 % (11.5-14.5); RED BLOOD CELL CT 2.81 /CUMM (4.20-5.40); WHITE BLOOD CELL COUNT 5.4 /CUMM (4.8-10.8)
[2018-04-29 08:00] VITALS: BP 106/74
--- NOTE | 2018-04-29 08:11 | PN- Resident CRCU ---
Subjective HPI/CRCU Issues: Lower GI bleed Acute blood loss anemia Patient seen and examined. States everything went well overnight until about 6am this morning when she started experiencing bloody bowel movements again. Had a total of 5 with variation in volume of blood loss per BM. States clots have recurred. Denies abdominal pain, lightheadedness or dizziness 24 Hour Events: No acute events overnight Objective Vital Signs & I&O Last 8 Hrs of Vitals and I&O: . Exam General Appearance: alert, awake, mild distress Head: atraumatic, normal appearance Respiratory: normal breath sounds, chest non-tender Cardiovascular: regular rate/rhythm Gastrointestinal: normal bowel sounds, soft, non-tender Extremities: no edema Cranial Nerves: normal hearing, normal speech Skin: intact, normal color, warm/dry Skin Temp/Moisture Exam: Warm/Dry Sepsis Skin Exam (color): Normal for Ethnicity Current Medications: Current Medications Sig/Lynette Start time Last Medication Dose Route Stop Time Status Admin Acetaminophen 650 MG Q6-PRN PRN 04/25 2145 AC 04/26 PO 1113 Cyclosporine 1 GTT Q12 04/25 2100 AC 04/28 OPH 2105 Latanoprost 1 GTT AT BEDTIME 04/25 2100 AC 04/28 OPH 2106 Leflunomide 20 MG QPM 04/25 2145 AC 04/28 PO 2105 Loratadine 10 MG DAILY 04/26 1157 AC 04/28 PO 0953 Montelukast Sodium 10 MG AT BEDTIME 04/26 2100 AC 04/28 PO 2105 Pantoprazole Sodium 40 MG DAILY 04/25 1848 AC 04/28 IV 0953 Potassium Chloride 40 MEQ ONCE ONE 04/29 0815 DC PO 04/29 0816 Impression/Plan Impression/Problem List Impression: 72 year old woman with past medical history of GI bleed secondary to NSAID use, chronic diarrhea, terminal ileitis, IBS, psoriatic arthritis, seasonal allergies , asthma, hypertension, GERD, glaucoma, and severe cervical stenosis presented to the ED for evaluation of bloody stools. Assesssmet: 1. BRBPR likely 2/2 diverticular disease w/ recurrency 2. Acute blood loss anemia 3. Hypokalemia likely 2/2 blood loss - improved 4.orthostatic hypotension 5. terminal ileitis 6. History of Hypertension, IBS, psoriatic arthritis, seasonal allergies/asthma, GERD, glaucoma, cervical stenosis, history of GI bleed secondary to NSAIDs, diverticulosis Plan: Respiratory: - Stable. No active issues. Infection: now. - Prelim biopsy could not rule out IBS/infection/drug-induced change. - Await final pathology. Cardio: volume. - Resolvednow with free ambulation within the room, without lightheadedness bloody BM. will recheck CBC q12 and cont current diet regimen. antihypertensive medications including losartan/amlodipine. Hem: 8.7 -> 7.1 -> 8.9--8.4, S/P 3 units PRBC on 04/25, and again s/p 2 unites PRBC on 04/28 overnight. A total of 5U PRBC during this admission. - Of note, she received 2U PRBC in last admission. - recheck q12h. Metabolism: - check prealbumin. Alimentary: Neuro: Sedation: None Vent Setting: None [id number]: MRSA (surveillance) DVT prophylaxis: Only ALPS Diet: Clear liquid IV Access: Peripheral IV Full Code Problem List: 1. Lower GI bleed Pain Ratin Tomorrow's Labs & Rationales: CBC, BEP Plan DVT/Prophylaxis: mechanical
--- NOTE | 2018-04-29 10:00 | PN- CRCU ---
Subjective HPI/Critical Care Issues: Patient continues to have intermittent rectal bleeding though remains hemodynamically stable without tachycardia or significant drop in hematocrit hemoglobin. GI surgery input appreciated Objective Current Medications: Current Medications Sig/Lynette Start time Last Medication Dose Route Stop Time Status Admin Acetaminophen 650 MG Q6-PRN PRN 04/25 2145 AC 04/26 PO 1113 Cyclosporine 1 GTT Q12 04/25 2100 AC 04/29 OPH 0913 Latanoprost 1 GTT AT BEDTIME 04/25 2100 AC 04/28 OPH 2106 Leflunomide 20 MG QPM 04/25 2145 AC 04/28 PO 2105 Loratadine 10 MG DAILY 04/26 1157 AC 04/29 PO 0904 Montelukast Sodium 10 MG AT BEDTIME 04/26 2100 AC 04/28 PO 2105 Pantoprazole Sodium 40 MG DAILY 04/25 1848 AC 04/29 IV 0904 Potassium Chloride 40 MEQ ONCE ONE 04/29 0815 DC 04/29 PO 04/29 0816 0904 Vital Signs & I&O Last 24 Hrs of Vitals and I&O: Vital Signs Date Time Temp Pulse Resp B/P B/P Pulse O2 O2 Flow FiO2 Mean Ox Delivery Rate 04/29 08 98.0 99 20 106/74 95 Room Air 04/29 0000 96.8 73 20 124/60 97 Room Air Room Air 04/28 1951 97 Room Air Room Air 04/28 1627 98.4 76 23 121/63 95 Room Air Intake & Output 04/29 1600 04/29 0800 04/29 0000 Intake Total 120 520 Output Total 700 100 Balance -580 420 Intake, Oral 120 520 Number 2 2 Bowel Movements Output, Stool 100 Output, Urine 700 Oxygen saturation normal exam for chest shows clear lung lawson cardiac exam shows regular S1 and S2 without murmurs abdomen is soft nontender Impression/Plan Impression/Plan Impression/Plan: 72-year-old who is had intermittent lower GI bleeding with uncertain source continues to have intermittent bleeding though remained medically stable. At this point further transfusion does not appear necessary Recommendations: CT scan with contrast for bleeding protocol showed bleeding reoccur. Monitor CBCs every 6 hours. Further management of GI bleeding per GI and general surgery
[2018-04-29 11:48] LABS: ABSOLUTE BASOPHIL COUNT 0 /CUMM (0.0-0.2); ABSOLUTE EOSINOPHIL COUNT 0.3 /CUMM (0.0-0.7); ABSOLUTE LYMPH COUNT 1.2 /CUMM (1.2-3.4); ABSOLUTE MONOCYTE COUNT 0.9 /CUMM (0.10-0.60); BASOPHIL % 0.5 % (0.0-2.0); EOSINOPHIL % 3.6 % (0-5); GRANULOCYTE % 73.5 % (42.2-75.2); HEMATOCRIT 26.5 % (37-47); MEAN CORPUSCULAR HGB 29.6 PG (27.0-31.0); MEAN CORPUSCULAR HGB CONC 32.9 G/DL (33.0-37.0); MEAN CORPUSCULAR VOLUME 89.9 FL (81.0-99.0); MEAN PLATELET VOLUME 9.4 FL (7.4-10.4); PLATELET COUNT 235 /CUMM (130-400); RBC DISTRIBUTION WIDTH 16.1 % (11.5-14.5); RED BLOOD CELL CT 2.95 /CUMM (4.20-5.40)
[2018-04-29 11:55] LABS: WHITE BLOOD CELL COUNT 9.6 /CUMM (4.8-10.8)
--- NOTE | 2018-04-29 13:36 | PN- Gastroenterology ---
Assessment/Plan GI Assessment/Recommendations: Mrs. Sylvester continues to feel relatively well. No nausea vomiting abdominal pain lightheadedness. She had minimal evidence of bleeding between 4 PM yesterday and 4 AM today. Since 4 AM today she's had 4-5 small bloody bowel movements. As before the bowel movements did not contain red fresh appearing blood. There also not melanotic. The bleeding is small brown and maroon. She has now received a total of 7 units of packed red blood cells. On exam she is alert orientated and common. Abdomen is soft nontender. Bowel sounds are present and somewhat increased likely due to blood in the GI tract. In view of the concerning and progressive subacute bleeding agree with repeat CT angiography to try and localize a site of bleeding. If negative would recommend a tagged RBC tomorrow. The GI team tomorrow may want to pursue an upper endoscopy and the D.O. To endoscopy. Subjective Subjective: x Objective Vital Signs and I&Os Vital Signs Date Time Temp Pulse Resp B/P B/P Pulse O2 O2 Flow FiO2 Mean Ox Delivery Rate 04/29 0800 98.0 99 20 106/74 95 Room Air 04/29 0000 96.8 73 20 124/60 97 Room Air Room Air 04/28 1951 97 Room Air Room Air 04/28 1627 98.4 76 23 121/63 95 Room Air Intake & Output 04/29 1600 04/29 0400 04/28 1600 04/28 0400 04/27 1600 04/27 0400 Intake Total 490 583 1507 880 1685 1355 Output Total 700 100 620 4 Balance -241 432 2700 260 1681 1355 Intake, IV 820 685 635 Intake, Oral 930 110 1230 880 1000 720 Number 2 2 13 1 10 5 Bowel Movements Output, Stool 100 220 Output, Urine 700 400 4 Patient 171 lb Weight Results Pertinent Lab Results: x Laboratory Tests 04/29 04/29 1124 0558 Chemistry Sodium (137 - 145 mmol/L) 138 Potassium (3.5 - 5.1 mmol/L) 3.6 Chloride (98 - 107 mmol/L) 109 H Carbon Dioxide (22 - 30 mmol/L) 26 Anion Gap (5 - 16) 4 L BUN (7 - 17 mg/dL) 4 L Creatinine (0.5 - 1.0 mg/dL) 0.7 Estimated GFR (>60 ml/min) > 60 Glucose (65 - 99 mg/dL) 79 Calcium (8.4 - 10.2 mg/dL) 8.0 L Phosphorus (2.5 - 4.5 mg/dL) 3.7 Magnesium (1.6 - 2.3 mg/dL) 1.9 Total Bilirubin (0.2 - 1.3 mg/dL) 0.3 AST (14 - 36 U/L) 15 ALT (9 - 52 U/L) 30 Albumin (3.5 - 5.0 g/dL) 2.2 L Prealbumin (17.6 - 36.0 mg/dL) 16.8 L Hematology CBC w Diff NO MAN DIFF REQ NO MAN DIFF REQ WBC (4.8 - 10.8 /CUMM) 9.6 5.4 RBC (4.20 - 5.40 /CUMM) 2.95 L 2.81 L Hgb (12.0 - 16.0 G/DL) 8.7 L 8.4 L Hct (37 - 47 %) 26.5 L 25.3 L MCV (81.0 - 99.0 FL) 89.9 90.0 MCH (27.0 - 31.0 PG) 29.6 30.0 MCHC (33.0 - 37.0 G/DL) 32.9 L 33.3 RDW (11.5 - 14.5 %) 16.1 H 15.5 H Plt Count (130 - 400 /CUMM) 235 193 MPV (7.4 - 10.4 FL) 9.4 9.3 Gran % (42.2 - 75.2 %) 73.5 53.2 Lymphocytes % (20.5 - 51.1 %) 12.6 L 27.2 Monocytes % (1.7 - 9.3 %) 9.8 H 11.4 H Eosinophils % (0 - 5 %) 3.6 7.3 H Basophils % (0.0 - 2.0 %) 0.5 0.9 Absolute Granulocytes (1.4 - 6.5 /CUMM) 7.0 H 2.9 Absolute Lymphocytes (1.2 - 3.4 /CUMM) 1.2 1.5 Absolute Monocytes (0.10 - 0.60 /CUMM) 0.9 H 0.6 Absolute Eosinophils (0.0 - 0.7 /CUMM) 0.3 0.4 Absolute Basophils (0.0 - 0.2 /CUMM) 0 0 04/28 04/28 04/28 1825 1800 1500 Hematology CBC w Diff NO MAN DIFF REQ Cancelled Cancelled WBC (4.8 - 10.8 /CUMM) 7.8 Cancelled Cancelled RBC (4.20 - 5.40 /CUMM) 3.21 L Cancelled Cancelled Hgb (12.0 - 16.0 G/DL) 9.6 L Cancelled Cancelled Hct (37 - 47 %) 28.8 L Cancelled Cancelled MCV (81.0 - 99.0 FL) 89.5 Cancelled Cancelled MCH (27.0 - 31.0 PG) 29.8 Cancelled Cancelled MCHC (33.0 - 37.0 G/DL) 33.3 Cancelled Cancelled RDW (11.5 - 14.5 %) 15.4 H Cancelled Cancelled Plt Count (130 - 400 /CUMM) 204 Cancelled Cancelled MPV (7.4 - 10.4 FL) 9.4 Cancelled Cancelled Gran % (42.2 - 75.2 %) 53.4 Lymphocytes % (20.5 - 51.1 %) 27.7 Monocytes % (1.7 - 9.3 %) 12.2 H Eosinophils % (0 - 5 %) 6.2 H Basophils % (0.0 - 2.0 %) 0.5 Absolute Granulocytes (1.4 - 6.5 /CUMM) 4.2 Absolute Lymphocytes (1.2 - 3.4 /CUMM) 2.2 Absolute Monocytes (0.10 - 0.60 /CUMM) 1.0 H Absolute Eosinophils (0.0 - 0.7 /CUMM) 0.5 Absolute Basophils (0.0 - 0.2 /CUMM) 0 04/28 04/28 1051 0618 Chemistry Sodium (137 - 145 mmol/L) 139 Potassium (3.5 - 5.1 mmol/L) 3.8 Chloride (98 - 107 mmol/L) 110 H Carbon Dioxide (22 - 30 mmol/L) 24 Anion Gap (5 - 16) 5 BUN (7 - 17 mg/dL) 4 L Creatinine (0.5 - 1.0 mg/dL) 0.7 Estimated GFR (>60 ml/min) > 60 Glucose (65 - 99 mg/dL) 85 Calcium (8.4 - 10.2 mg/dL) 7.7 L Phosphorus (2.5 - 4.5 mg/dL) 3.7 Magnesium (1.6 - 2.3 mg/dL) 1.9 Total Bilirubin (0.2 - 1.3 mg/dL) 0.3 AST (14 - 36 U/L) 13 L ALT (9 - 52 U/L) 26 Albumin (3.5 - 5.0 g/dL) 2.0 L Hematology CBC w Diff NO MAN DIFF REQ NO MAN DIFF REQ WBC (4.8 - 10.8 /CUMM) 7.9 7.6 RBC (4.20 - 5.40 /CUMM) 3.08 L 3.00 L Hgb (12.0 - 16.0 G/DL) 9.2 L 8.9 L Hct (37 - 47 %) 26.8 L 26.4 L MCV (81.0 - 99.0 FL) 87.2 87.7 MCH (27.0 - 31.0 PG) 29.8 29.6 MCHC (33.0 - 37.0 G/DL) 34.1 33.7 RDW (11.5 - 14.5 %) 15.0 H 15.1 H Plt Count (130 - 400 /CUMM) 173 167 MPV (7.4 - 10.4 FL) 9.1 9.1 Gran % (42.2 - 75.2 %) 62.3 59.9 Lymphocytes % (20.5 - 51.1 %) 21.1 23.6 Monocytes % (1.7 - 9.3 %) 12.0 H 11.9 H Eosinophils % (0 - 5 %) 4.1 4.3 Basophils % (0.0 - 2.0 %) 0.5 0.3 Absolute Granulocytes (1.4 - 6.5 /CUMM) 5.0 4.6 Absolute Lymphocytes (1.2 - 3.4 /CUMM) 1.7 1.8 Absolute Monocytes (0.10 - 0.60 /CUMM) 1.0 H 0.9 H Absolute Eosinophils (0.0 - 0.7 /CUMM) 0.3 0.3 Absolute Basophils (0.0 - 0.2 /CUMM) 0 0 04/28 Hematology CBC w Diff NO MAN DIFF REQ NO MAN DIFF REQ WBC (4.8 - 10.8 /CUMM) 8.4 9.8 RBC (4.20 - 5.40 /CUMM) 2.57 L 2.40 L Hgb (12.0 - 16.0 G/DL) 7.6 L 7.1 *L Hct (37 - 47 %) 22.5 L 21.0 L MCV (81.0 - 99.0 FL) 87.5 87.8 MCH (27.0 - 31.0 PG) 29.6 29.7 MCHC (33.0 - 37.0 G/DL) 33.8 33.8 RDW (11.5 - 14.5 %) 15.1 H 15.3 H Plt Count (130 - 400 /CUMM) 177 194 MPV (7.4 - 10.4 FL) 8.8 9.7 Gran % (42.2 - 75.2 %) 55.0 65.4 Lymphocytes % (20.5 - 51.1 %) 28.4 20.6 Monocytes % (1.7 - 9.3 %) 11.3 H 9.9 H Eosinophils % (0 - 5 %) 4.5 3.6 Basophils % (0.0 - 2.0 %) 0.8 0.5 Absolute Granulocytes (1.4 - 6.5 /CUMM) 4.6 6.4 Absolute Lymphocytes (1.2 - 3.4 /CUMM) 2.4 2.0 Absolute Monocytes (0.10 - 0.60 /CUMM) 1.0 H 1.0 H Absolute Eosinophils (0.0 - 0.7 /CUMM) 0.4 0.4 Absolute Basophils (0.0 - 0.2 /CUMM) 0.1 0.1 04/27 04/27 1200 0358 Chemistry Sodium (137 - 145 mmol/L) 141 Potassium (3.5 - 5.1 mmol/L) 4.2 Chloride (98 - 107 mmol/L) 113 H Carbon Dioxide (22 - 30 mmol/L) 23 Anion Gap (5 - 16) 4 L BUN (7 - 17 mg/dL) 5 L Creatinine (0.5 - 1.0 mg/dL) 0.6 Estimated GFR (>60 ml/min) > 60 Glucose (65 - 99 mg/dL) 81 Calcium (8.4 - 10.2 mg/dL) 7.7 L Phosphorus (2.5 - 4.5 mg/dL) 3.0 Magnesium (1.6 - 2.3 mg/dL) 2.1 Total Bilirubin (0.2 - 1.3 mg/dL) 0.3 AST (14 - 36 U/L) 12 L ALT (9 - 52 U/L) 31 Albumin (3.5 - 5.0 g/dL) 2.1 L Hematology CBC w Diff NO MAN DIFF REQ NO MAN DIFF REQ WBC (4.8 - 10.8 /CUMM) 10.4 9.2 RBC (4.20 - 5.40 /CUMM) 2.93 L 2.59 L Hgb (12.0 - 16.0 G/DL) 8.7 L 7.7 L Hct (37 - 47 %) 26.2 L 22.8 L MCV (81.0 - 99.0 FL) 89.3 87.9 MCH (27.0 - 31.0 PG) 29.6 29.5 MCHC (33.0 - 37.0 G/DL) 33.2 33.6 RDW (11.5 - 14.5 %) 15.4 H 15.4 H Plt Count (130 - 400 /CUMM) 216 176 MPV (7.4 - 10.4 FL) 9.9 9.0 Gran % (42.2 - 75.2 %) 62.5 56.0 Lymphocytes % (20.5 - 51.1 %) 22.9 28.8 Monocytes % (1.7 - 9.3 %) 9.5 H 10.0 H Eosinophils % (0 - 5 %) 4.6 4.7 Basophils % (0.0 - 2.0 %) 0.5 0.5 Absolute Granulocytes (1.4 - 6.5 /CUMM) 6.5 5.2 Absolute Lymphocytes (1.2 - 3.4 /CUMM) 2.4 2.7 Absolute Monocytes (0.10 - 0.60 /CUMM) 1.0 H 0.9 H Absolute Eosinophils (0.0 - 0.7 /CUMM) 0.5 0.4 Absolute Basophils (0.0 - 0.2 /CUMM) 0 0 04/26 04/26 2130 1800 Chemistry Sodium (137 - 145 mmol/L) 137 Potassium (3.5 - 5.1 mmol/L) 3.2 L Chloride (98 - 107 mmol/L) 108 H Carbon Dioxide (22 - 30 mmol/L) 22 Anion Gap (5 - 16) 6 BUN (7 - 17 mg/dL) 8 Creatinine (0.5 - 1.0 mg/dL) 0.6 Estimated GFR (>60 ml/min) > 60 BUN/Creatinine Ratio (7 - 25 %) 13.3 Hematology CBC w Diff Cancelled NO MAN DIFF REQ WBC (4.8 - 10.8 /CUMM) Cancelled 11.3 H RBC (4.20 - 5.40 /CUMM) Cancelled 2.89 L Hgb (12.0 - 16.0 G/DL) Cancelled 8.7 L Hct (37 - 47 %) Cancelled 25.0 L MCV (81.0 - 99.0 FL) Cancelled 86.6 MCH (27.0 - 31.0 PG) Cancelled 30.0 MCHC (33.0 - 37.0 G/DL) Cancelled 34.7 RDW (11.5 - 14.5 %) Cancelled 14.6 H Plt Count (130 - 400 /CUMM) Cancelled 189 MPV (7.4 - 10.4 FL) Cancelled 9.6 Gran % (42.2 - 75.2 %) 59.1 Lymphocytes % (20.5 - 51.1 %) 28.4 Monocytes % (1.7 - 9.3 %) 8.6 Eosinophils % (0 - 5 %) 3.5 Basophils % (0.0 - 2.0 %) 0.4 Absolute Granulocytes (1.4 - 6.5 /CUMM) 6.7 H Absolute Lymphocytes (1.2 - 3.4 /CUMM) 3.2 Absolute Monocytes (0.10 - 0.60 /CUMM) 1.0 H Absolute Eosinophils (0.0 - 0.7 /CUMM) 0.4 Absolute Basophils (0.0 - 0.2 /CUMM) 0
--- NOTE | 2018-04-29 14:01 | PN- General Surgery ---
See Addendum Subjective Subjective: Follow-up of GI bleed After I saw her yesterday she had no more bloody bowel movements the hematocrit was inching higher she had a good night sleep but this morning had more dark clots in the hemoglobin dipped a little bit. This afternoon she just had another bowel movement, smaller no clots some old blood and a little brown stool. Otherwise denies shortness of breath chest pain dizziness from that perspective feels about the same as yesterday and says her urine output is still brisk Objective Vital Signs and I&Os I reviewed Vital Signs Date Time Temp Pulse Resp B/P B/P Pulse O2 O2 Flow FiO2 Mean Ox Delivery Rate 04/29 08 98.0 99 20 106/74 95 Room Air 04/29 0000 96.8 73 20 124/60 97 Room Air Room Air 04/28 1951 97 Room Air Room Air 04/28 1627 98.4 76 23 121/63 95 Room Air I reviewed Intake & Output 04/29 1600 04/29 0804/29 0000 04/28 1600 04/28 0800 04/28 0000 Intake Total 302 614 9906 1040 880 Output Total 700 100 620 Balance -119 015 3899 1040 260 Intake, IV 20 800 Intake, Oral 955 835 1280 240 880 Number 2 2 6 7 1 Bowel Movements Output, Stool 100 220 Output, Urine 700 400 Physical Exam: Constitutional: no acute distress no pain Eyes: sclera anicteric ENMT: moist mucous membranes Cardiovascular: S1-S2 no murmurs no peripheral edema Respiratory: clear to auscultation with normal respiratory effort and no intercostal retractions GI: abdomen soft nontender nondistended Extremities / lymphatics: free range of motion no peripheral edema Skin: no jaundice no rashes warm, nondiaphoretic Psychiatric: mood and affect are appropriate and alert and oriented to person place and time Current Medications: I reviewed Current Medications Sig/Lynette Start time Last Medication Dose Route Stop Time Status Admin Acetaminophen 650 MG Q6-PRN PRN 04/25 2145 AC 04/26 PO 1113 Cyclosporine 1 GTT Q12 04/25 2100 AC 04/29 OPH 0913 Latanoprost 1 GTT AT BEDTIME 04/25 2100 AC 04/28 OPH 210 Leflunomide 20 MG QPM 04/25 2145 AC 04/28 PO 210 Loratadine 10 MG DAILY 04/26 1157 AC 04/29 PO 09 Montelukast Sodium 10 MG AT BEDTIME 04/26 2100 AC 04/28 PO 210 Pantoprazole Sodium 40 MG DAILY 04/25 1848 AC 04/29 IV 0904 Potassium Chloride 40 MEQ ONCE ONE 04/29 815 DC 04/29 PO 04/29 0816 0904 Results Last 48 Hours of Labs: I reviewed Laboratory Tests 04/29 04/29 1124 0558 Chemistry Sodium (137 - 145 mmol/L) 138 Potassium (3.5 - 5.1 mmol/L) 3.6 Chloride (98 - 107 mmol/L) 109 H Carbon Dioxide (22 - 30 mmol/L) 26 Anion Gap (5 - 16) 4 L BUN (7 - 17 mg/dL) 4 L Creatinine (0.5 - 1.0 mg/dL) 0.7 Estimated GFR (>60 ml/min) > 60 Glucose (65 - 99 mg/dL) 79 Calcium (8.4 - 10.2 mg/dL) 8.0 L Phosphorus (2.5 - 4.5 mg/dL) 3.7 Magnesium (1.6 - 2.3 mg/dL) 1.9 Total Bilirubin (0.2 - 1.3 mg/dL) 0.3 AST (14 - 36 U/L) 15 ALT (9 - 52 U/L) 30 Albumin (3.5 - 5.0 g/dL) 2.2 L Prealbumin (17.6 - 36.0 mg/dL) 16.8 L Hematology CBC w Diff NO MAN DIFF REQ NO MAN DIFF REQ WBC (4.8 - 10.8 /CUMM) 9.6 5.4 RBC (4.20 - 5.40 /CUMM) 2.95 L 2.81 L Hgb (12.0 - 16.0 G/DL) 8.7 L 8.4 L Hct (37 - 47 %) 26.5 L 25.3 L MCV (81.0 - 99.0 FL) 89.9 90.0 MCH (27.0 - 31.0 PG) 29.6 30.0 MCHC (33.0 - 37.0 G/DL) 32.9 L 33.3 RDW (11.5 - 14.5 %) 16.1 H 15.5 H Plt Count (130 - 400 /CUMM) 235 193 MPV (7.4 - 10.4 FL) 9.4 9.3 Gran % (42.2 - 75.2 %) 73.5 53.2 Lymphocytes % (20.5 - 51.1 %) 12.6 L 27.2 Monocytes % (1.7 - 9.3 %) 9.8 H 11.4 H Eosinophils % (0 - 5 %) 3.6 7.3 H Basophils % (0.0 - 2.0 %) 0.5 0.9 Absolute Granulocytes (1.4 - 6.5 /CUMM) 7.0 H 2.9 Absolute Lymphocytes (1.2 - 3.4 /CUMM) 1.2 1.5 Absolute Monocytes (0.10 - 0.60 /CUMM) 0.9 H 0.6 Absolute Eosinophils (0.0 - 0.7 /CUMM) 0.3 0.4 Absolute Basophils (0.0 - 0.2 /CUMM) 0 0 04/28 04/28 04/28 1825 1800 1500 Hematology CBC w Diff NO MAN DIFF REQ Cancelled Cancelled WBC (4.8 - 10.8 /CUMM) 7.8 Cancelled Cancelled RBC (4.20 - 5.40 /CUMM) 3.21 L Cancelled Cancelled Hgb (12.0 - 16.0 G/DL) 9.6 L Cancelled Cancelled Hct (37 - 47 %) 28.8 L Cancelled Cancelled MCV (81.0 - 99.0 FL) 89.5 Cancelled Cancelled MCH (27.0 - 31.0 PG) 29.8 Cancelled Cancelled MCHC (33.0 - 37.0 G/DL) 33.3 Cancelled Cancelled RDW (11.5 - 14.5 %) 15.4 H Cancelled Cancelled Plt Count (130 - 400 /CUMM) 204 Cancelled Cancelled MPV (7.4 - 10.4 FL) 9.4 Cancelled Cancelled Gran % (42.2 - 75.2 %) 53.4 Lymphocytes % (20.5 - 51.1 %) 27.7 Monocytes % (1.7 - 9.3 %) 12.2 H Eosinophils % (0 - 5 %) 6.2 H Basophils % (0.0 - 2.0 %) 0.5 Absolute Granulocytes (1.4 - 6.5 /CUMM) 4.2 Absolute Lymphocytes (1.2 - 3.4 /CUMM) 2.2 Absolute Monocytes (0.10 - 0.60 /CUMM) 1.0 H Absolute Eosinophils (0.0 - 0.7 /CUMM) 0.5 Absolute Basophils (0.0 - 0.2 /CUMM) 0 04/28 04/28 1051 0618 Chemistry Sodium (137 - 145 mmol/L) 139 Potassium (3.5 - 5.1 mmol/L) 3.8 Chloride (98 - 107 mmol/L) 110 H Carbon Dioxide (22 - 30 mmol/L) 24 Anion Gap (5 - 16) 5 BUN (7 - 17 mg/dL) 4 L Creatinine (0.5 - 1.0 mg/dL) 0.7 Estimated GFR (>60 ml/min) > 60 Glucose (65 - 99 mg/dL) 85 Calcium (8.4 - 10.2 mg/dL) 7.7 L Phosphorus (2.5 - 4.5 mg/dL) 3.7 Magnesium (1.6 - 2.3 mg/dL) 1.9 Total Bilirubin (0.2 - 1.3 mg/dL) 0.3 AST (14 - 36 U/L) 13 L ALT (9 - 52 U/L) 26 Albumin (3.5 - 5.0 g/dL) 2.0 L Hematology CBC w Diff NO MAN DIFF REQ NO MAN DIFF REQ WBC (4.8 - 10.8 /CUMM) 7.9 7.6 RBC (4.20 - 5.40 /CUMM) 3.08 L 3.00 L Hgb (12.0 - 16.0 G/DL) 9.2 L 8.9 L Hct (37 - 47 %) 26.8 L 26.4 L MCV (81.0 - 99.0 FL) 87.2 87.7 MCH (27.0 - 31.0 PG) 29.8 29.6 MCHC (33.0 - 37.0 G/DL) 34.1 33.7 RDW (11.5 - 14.5 %) 15.0 H 15.1 H Plt Count (130 - 400 /CUMM) 173 167 MPV (7.4 - 10.4 FL) 9.1 9.1 Gran % (42.2 - 75.2 %) 62.3 59.9 Lymphocytes % (20.5 - 51.1 %) 21.1 23.6 Monocytes % (1.7 - 9.3 %) 12.0 H 11.9 H Eosinophils % (0 - 5 %) 4.1 4.3 Basophils % (0.0 - 2.0 %) 0.5 0.3 Absolute Granulocytes (1.4 - 6.5 /CUMM) 5.0 4.6 Absolute Lymphocytes (1.2 - 3.4 /CUMM) 1.7 1.8 Absolute Monocytes (0.10 - 0.60 /CUMM) 1.0 H 0.9 H Absolute Eosinophils (0.0 - 0.7 /CUMM) 0.3 0.3 Absolute Basophils (0.0 - 0.2 /CUMM) 0 0 04/28 04/27 0100 2003 Hematology CBC w Diff NO MAN DIFF REQ NO MAN DIFF REQ WBC (4.8 - 10.8 /CUMM) 8.4 9.8 RBC (4.20 - 5.40 /CUMM) 2.57 L 2.40 L Hgb (12.0 - 16.0 G/DL) 7.6 L 7.1 *L Hct (37 - 47 %) 22.5 L 21.0 L MCV (81.0 - 99.0 FL) 87.5 87.8 MCH (27.0 - 31.0 PG) 29.6 29.7 MCHC (33.0 - 37.0 G/DL) 33.8 33.8 RDW (11.5 - 14.5 %) 15.1 H 15.3 H Plt Count (130 - 400 /CUMM) 177 194 MPV (7.4 - 10.4 FL) 8.8 9.7 Gran % (42.2 - 75.2 %) 55.0 65.4 Lymphocytes % (20.5 - 51.1 %) 28.4 20.6 Monocytes % (1.7 - 9.3 %) 11.3 H 9.9 H Eosinophils % (0 - 5 %) 4.5 3.6 Basophils % (0.0 - 2.0 %) 0.8 0.5 Absolute Granulocytes (1.4 - 6.5 /CUMM) 4.6 6.4 Absolute Lymphocytes (1.2 - 3.4 /CUMM) 2.4 2.0 Absolute Monocytes (0.10 - 0.60 /CUMM) 1.0 H 1.0 H Absolute Eosinophils (0.0 - 0.7 /CUMM) 0.4 0.4 Absolute Basophils (0.0 - 0.2 /CUMM) 0.1 0.1 Assessment/Plan Assessment/Plan Impression is slow lingering GI bleed not brisk or voluminous enough to promptly do a CT angiogram to localize it. There has not been bright red blood or obvious melena. On the positive side she is remained hemodynamically stable, no transfusions or significant drops in hemoglobin for over 24 hours. Discussed the situation again with radiology and GI, as long as stable, even if it means another transfusion, should try still to localize it with more workup because at this point the surgical option is total colectomy with ileostomy which the patient does not want unless it's a last resort because of instability. And it' s feasible that this could be even more proximal. Problem List: 1. GI hemorrhage 2. Acute blood loss anemia Attending MD Review Statement Attending Statement Attending MD Statement: examined this patient
[2018-04-29 16:00] VITALS: BP 133/57
--- NOTE | 2018-04-29 16:01 | CT SCAN REPORT ---
EXAMINATION: CT ANGIOGRAM ABDOMEN AND PELVIS CLINICAL INFORMATION: Lower GI bleed. COMPARISON: CTA abdomen and pelvis 04/27/2018. TECHNIQUE: Multiple axial images were obtained through the abdomen and pelvis following the administration of 100 mL of Optiray 320 intravenous contrast. Images were reviewed on a dedicated 3-D workstation. DLP: 570 mGy-cm FINDINGS: VASCULAR: There is atherosclerotic calcification changes of abdominal aorta without any aneurysmal dilatation. Origins of celiac, superior mesenteric and inferior mesenteric artery are widely patent. There are solitary renal arteries bilaterally which are patent as well. There is normal aortic bifurcation into right and left common iliac arteries which are widely patent. There is no extravasation of contrast seen in the colon or the small bowel loops. There is mild enhancement and increased hyperdensity seen in the body of the stomach on the axial image 73, series 5 and on sagittal image 68, series 605. Whether this represents an artifact or a hypervascular lesion, polyps or ulceration is questioned. NONVASCULAR: The liver is homogeneous in density without enhancing lesion. There is a known right hepatic cyst measuring 4.1 x 3.8 cm. No additional cyst seen. No intrahepatic ductal dilatation. The gallbladder is isodense to liver on postcontrast and slightly hyperdense to liver on precontrast. No radiopaque stone seen. Visualized spleen, small accessory splenule anteriorly, pancreas and bilateral adrenal glands unremarkable. Both kidneys are normal size, shape and position. No radiopaque renal calculi, enhancing renal mass or hydroureteronephrosis seen. There is nonspecific bowel gas pattern with adjacent sigmoid diverticulitis but no diverticulitis. There is no obstruction is no free air or free fluid seen There are no retroperitoneal mass or abnormal adenopathy. Imaging through the pelvis reveals unremarkable urinary bladder. The uterus is atrophic or surgically removed. It is not visualized. No evidence of abdominal wall hernia or lesion seen. Bone windows reveal no lytic or sclerotic process. Mild facet joint arthropathy L5-S1 disc level is noted. IMPRESSION: No extravasation of contrast seen to definitely pinpoint a source of bleed. Especially no abnormality seen in the lower GI section. However there is mild enhancement and hyperdensity on postcontrast CT in the body of the stomach, questioning vascular lesion, question ulceration or. Recommend upper GI endoscopy. Small accessory splenule, hepatic cyst and few scattered sigmoid diverticula are stable.
[2018-04-29 19:34] LABS: ABSOLUTE BASOPHIL COUNT 0.1 /CUMM (0.0-0.2); ABSOLUTE EOSINOPHIL COUNT 0.3 /CUMM (0.0-0.7); ABSOLUTE GRANULOCYTE CT 4.8 /CUMM (1.4-6.5); ABSOLUTE LYMPH COUNT 1.5 /CUMM (1.2-3.4); ABSOLUTE MONOCYTE COUNT 0.9 /CUMM (0.10-0.60); BASOPHIL % 0.7 % (0.0-2.0); GRANULOCYTE % 64.2 % (42.2-75.2); MEAN CORPUSCULAR HGB 29.7 PG (27.0-31.0); MEAN CORPUSCULAR HGB CONC 33.3 G/DL (33.0-37.0); MEAN CORPUSCULAR VOLUME 89.2 FL (81.0-99.0); MEAN PLATELET VOLUME 9.6 FL (7.4-10.4); PLATELET COUNT 216 /CUMM (130-400); RBC DISTRIBUTION WIDTH 15.4 % (11.5-14.5); RED BLOOD CELL CT 2.57 /CUMM (4.20-5.40); WHITE BLOOD CELL COUNT 7.5 /CUMM (4.8-10.8)
[2018-04-30] VITALS: BP 106/50
[2018-04-30 02:21] LABS: ABSOLUTE BASOPHIL COUNT 0 /CUMM (0.0-0.2); ABSOLUTE EOSINOPHIL COUNT 0.3 /CUMM (0.0-0.7); ABSOLUTE GRANULOCYTE CT 2.2 /CUMM (1.4-6.5); ABSOLUTE LYMPH COUNT 1.8 /CUMM (1.2-3.4); ABSOLUTE MONOCYTE COUNT 0.7 /CUMM (0.10-0.60); RED BLOOD CELL CT 2.16 /CUMM (4.20-5.40)
[2018-04-30 02:38] LABS: BASOPHIL % 0.7 % (0.0-2.0); EOSINOPHIL % 5.2 % (0-5); GRANULOCYTE % 44.5 % (42.2-75.2); MEAN CORPUSCULAR HGB 30.2 PG (27.0-31.0); MEAN PLATELET VOLUME 9.3 FL (7.4-10.4); PLATELET COUNT 177 /CUMM (130-400); RBC DISTRIBUTION WIDTH 15.8 % (11.5-14.5)
[2018-04-30 02:41] LABS: HEMATOCRIT 19.2 % (37-47)
--- NOTE | 2018-04-30 07:04 | PN- Resident CRCU ---
Paul GASTON,Kaleigh 04/30/18 0704: Subjective HPI/CRCU Issues: Lower GI bleed Acute blood loss anemia Patient seen and examined. She feels better. Had no episodes of blood BM from yesterday evening until this morning. Said she had a small amount of blood in her BM this morning. No other complaints. 24 Hour Events: H&H was found to be 6.5/19.2. She was started on 1 unit pRBC transfusion. Objective Vital Signs & I&O Last 8 Hrs of Vitals and I&O: Intake & Output 04/30 0800 Intake Total 350 Output Total 600 Balance -250 Intake, Blood 350 Product Output, Urine 600 Exam General Appearance: well developed/nourished, no apparent distress, alert, awake , comfortable Head: atraumatic, normal appearance Ears, Nose, Throat: hearing grossly normal Respiratory: normal breath sounds, chest non-tender, lungs clear Cardiovascular: regular rate/rhythm Gastrointestinal: soft, non-tender Extremities: no edema Cranial Nerves: normal hearing, normal speech Skin: intact Skin Temp/Moisture Exam: Warm/Dry Sepsis Skin Exam (color): Normal for Ethnicity Current Medications: Current Medications Sig/Lynette Start time Last Medication Dose Route Stop Time Status Admin Acetaminophen 650 MG Q6-PRN PRN 04/25 2145 AC 04/26 PO 1113 Cyclosporine 1 GTT Q12 04/25 2100 AC 04/29 OPH 2045 Latanoprost 1 GTT AT BEDTIME 04/25 2100 AC 04/29 OPH 2045 Leflunomide 20 MG QPM 04/25 2145 AC 04/29 PO 2045 Loratadine 10 MG DAILY 04/26 1157 AC 04/29 PO 0904 Melatonin 5 MG AT BEDTIME 04/30 0015 AC 04/30 PO 0010 Montelukast Sodium 10 MG AT BEDTIME 04/26 2100 AC 04/29 PO 2045 Pantoprazole Sodium 40 MG DAILY 04/25 1848 AC 04/29 IV 0904 Potassium Chloride 40 MEQ ONCE ONE 04/29 0815 DC 04/29 PO 04/29 0816 0904 Sucralfate 1 GM Q8 04/29 2200 AC 04/30 PO 0539 Impression/Plan Impression/Problem List Impression: 72 year old woman with past medical history of GI bleed secondary to NSAID use, chronic diarrhea, terminal ileitis, IBS, psoriatic arthritis, seasonal allergies , asthma, hypertension, GERD, glaucoma, and severe cervical stenosis presented to the ED for evaluation of bloody stools. Assesssmet: 1. BRBPR likely 2/2 diverticular disease w/ recurrency 2. Acute blood loss anemia 3. Hypokalemia likely 2/2 blood loss - improved 4. orthostatic hypotension 5. terminal ileitis 6. History of Hypertension, IBS, psoriatic arthritis, seasonal allergies/asthma, GERD, glaucoma, cervical stenosis, history of GI bleed secondary to NSAIDs, diverticulosis Plan: Respiratory: - Stable. No active issues. Infection: now. - Prelim biopsy could not rule out IBS/infection/drug-induced change. - Await final pathology. Cardio: volume. - Resolved now with free ambulation within the room, without lightheadedness bloody BM. will recheck CBC q12. antihypertensive medications including losartan/amlodipine. Hem: 8.7 -> 7.1 -> 8.9--8.4--->6.5, S/P 3 units PRBC on 04/25, and again s/p 2 units PRBC on 04/28 and 1 unit 04/29. A total of 6U PRBC during this admission. - Of note, she received 2U PRBC in last admission. - recheck q12h. - tagged RBC scan and EGD today for further assessment. Metabolism: - check prealbumin. Alimentary: anticipated EGD/Colonoscopy. Neuro: Sedation: None Vent Setting: None [id number]: MRSA (surveillance) DVT prophylaxis: Only ALPS Diet: Clear liquid IV Access: Peripheral IV Full Code Problem List: 1. Lower GI bleed Pain Ratin Tomorrow's Labs & Rationales: CBC, BEP Plan DVT/Prophylaxis: mechanical Dk Paula MD 04/30/18 0856: Attending MD Review Statement Attending Sign Off Attending Cosign Statement: I have: examined this patient, reviewed aval EMR data, personally reviewd images, discussd w/resident/PA/PHOTOGRAPHY SPOTTER, discussed mgmt plan w/evelyn, discussed mgmt plan w/CM, discussed mgmt plan w/pt, agreed w/resident/PA/PHOTOGRAPHY SPOTTER, amended to note. Other Findings: Impression 72 year old woman * persistent GI bleed with acute blood loss anemia Plan -plan for EGD per GI, NPO -surgical and GI consultation are reviewed and appreciated -If EGD is unrevealing a tagged RBC scan will be pursued -monitor hgb, goal >7 -hemodynamic monitoring -maintain large bore IV's ALPS for DVT prophylaxis TTS 35 min
[2018-04-30 08:00] VITALS: BP 112/60
[2018-04-30 11:49] LABS: PT 11.9 SEC (9.4-12.5)
[2018-04-30 12:17] LABS: ABSOLUTE BASOPHIL COUNT 0 /CUMM (0.0-0.2); ABSOLUTE EOSINOPHIL COUNT 0.3 /CUMM (0.0-0.7); ABSOLUTE GRANULOCYTE CT 3.3 /CUMM (1.4-6.5); ABSOLUTE LYMPH COUNT 1.5 /CUMM (1.2-3.4); ABSOLUTE MONOCYTE COUNT 0.7 /CUMM (0.10-0.60); BASOPHIL % 0.4 % (0.0-2.0); EOSINOPHIL % 5.1 % (0-5); GRANULOCYTE % 56.6 % (42.2-75.2); MEAN CORPUSCULAR HGB 30.1 PG (27.0-31.0); MEAN CORPUSCULAR HGB CONC 33.1 G/DL (33.0-37.0); MEAN CORPUSCULAR VOLUME 90.9 FL (81.0-99.0); PLATELET COUNT 134 /CUMM (130-400); RBC DISTRIBUTION WIDTH 15.5 % (11.5-14.5); WHITE BLOOD CELL COUNT 5.8 /CUMM (4.8-10.8)
[2018-04-30 12:55] LABS: HEMATOCRIT 26.1 % (37-47); RED BLOOD CELL CT 2.87 /CUMM (4.20-5.40)
--- NOTE | 2018-04-30 14:15 | NUCLEAR MEDICINE REPORT ---
EXAMINATION: NM TC RBC GI BLEEDING CLINICAL INFORMATION: EXAMINATION: RADIONUCLIDE GASTROINTESTINAL BLEEDING STUDY. PROCEDURE: Following the sequential intravenous administration of 2.8 mL stannous pyrophosphate and 24.9 mCi Tc-99m pertechnetate, sequential static images of the abdomen were obtained using a gamma scintillation camera total observation 80 minutes. FINDINGS: No abnormal accumulations of radioisotope are seen in the abdomen. IMPRESSION: No gastrointestinal bleeding is identified.
--- NOTE | 2018-04-30 14:48 | Proc Note Endoscopy ---
Endoscopy Procedure Procedure Date: 04/30/18 Procedure Type: EGD/enteroscopy Secretary Office Clerk: Jas Tuttle M.D. ASA Classification: III Indications: GI bleed Blood loss anemia Instrument: gastroscope, pediatric colonoscope Meds Received: MAC Patient's Tolerance: good Complications: none Extent Reached: jejunum Procedure: The patient signed informed consent, and was medicated. Lidocaine pharyngeal spray was administered. Pulse oximetry, blood pressure and cardiac monitoring were performed continuously throughout the procedure. The Olympus high- definition gastroscope was inserted into the mouth and advanced to the duodenum. Retroflexion was performed within the stomach to examine the cardia. The gastroscope was then exchanged for a high-definition pediatric colonoscope, which was advanced to its hilt, into the jejunum. Careful examination was performed. Findings: The esophagus had normal caliber and contour. The mucosa was normal throughout. There were no varices. The GE junction at 39 cm was normal. There was a small hiatal hernia. Stomach had normal distention, and active peristalsis. The cardia was normal. The mucosa and folds of the stomach were normal throughout. There was no fresh or old blood in the cavity, nor bleeding lesion. The pyloric channel was normal. The duodenal bulb was normal. There was no blood in the duodenum. The mucosa and folds of the duodenum and jejunum were normal. No bleeding lesion was identified. Impression: * No bleeding lesion identified Recommendations: * Consideration for repeat colonoscopy * Consideration for wireless capsule endoscopy (transfer to another institution) * Repeat CBC tonight and in the morning * Maintain hemoglobin at 7 CC: Keena GASTON,Ta Webb III
[2018-04-30 16:00] VITALS: BP 122/64
[2018-04-30 16:15] LABS: ABSOLUTE BASOPHIL COUNT 0.1 /CUMM (0.0-0.2); ABSOLUTE EOSINOPHIL COUNT 0.4 /CUMM (0.0-0.7); ABSOLUTE GRANULOCYTE CT 4.9 /CUMM (1.4-6.5); ABSOLUTE LYMPH COUNT 1.7 /CUMM (1.2-3.4); ABSOLUTE MONOCYTE COUNT 0.8 /CUMM (0.10-0.60); BASOPHIL % 0.7 % (0.0-2.0); EOSINOPHIL % 4.7 % (0-5); GRANULOCYTE % 62.2 % (42.2-75.2); HEMATOCRIT 27.3 % (37-47); MEAN CORPUSCULAR HGB 29.6 PG (27.0-31.0); MEAN CORPUSCULAR HGB CONC 32.9 G/DL (33.0-37.0); MEAN PLATELET VOLUME 9.2 FL (7.4-10.4); RBC DISTRIBUTION WIDTH 15.8 % (11.5-14.5); RED BLOOD CELL CT 3.04 /CUMM (4.20-5.40); WHITE BLOOD CELL COUNT 7.8 /CUMM (4.8-10.8)
[2018-04-30 16:18] LABS: PLATELET COUNT 235 /CUMM (130-400)
--- NOTE | 2018-04-30 17:52 | Event Note ---
Event Note Event Note: The patient had a positive nuclear bleeding scan (cecum/right colon) immediately after EGD/enteroscopy. Unfortunately, subsequent angiogram did not reveal a bleeding site. Would begin GoLYTELY bowel prep once femoral arterial compression is complete. May give split prep (1/2 gallon over 2 hours following termination of arterial compression tonight, followed by second half gallon over 2 hours, from 7 AM to 9 AM). Would make nothing by mouth after 10 AM, in anticipation of colonoscopy tomorrow afternoon. Please follow CBC carefully tonight and in the morning, and transfuse for hemoglobin less than 7.
--- NOTE | 2018-04-30 19:59 | PN- General Surgery ---
Subjective Subjective: Follow-up of GI bleed, Events noted she is back in bed in ICU laying flat because of the groin catheters, EGD negative, but the nuclear scan saw something in the right colon she was then taken to interventional radiology for an angiogram which did not see active bleeding. She feels fine as usual no lightheadedness no nausea no abdominal pain she says she is not passing bloody stools right now but earlier today had a little bit no chest pain or shortness of breath no nausea Objective Vital Signs and I&Os I reviewed I reviewed Vital Signs Date Time Temp Pulse Resp B/P B/P Pulse O2 O2 Flow FiO2 Mean Ox Delivery Rate 04/30 1600 98 Room Air 04/30 1600 98.0 81 18 122/64 98 Room Air 04/30 1200 100 Room Air 04/30 0800 Room Air 04/30 0800 98.9 73 20 112/60 100 Room Air 04/30 0400 96 Room Air 04/30 0000 96 Room Air / 0000 98.4 84 20 106/50 96 Room Air 04/29 2000 95 Room Air Intake & Output 04/30 1600 04/30 0800 / 0000 07/01 1600 / 0800 07/ 0000 Intake Total 130 145 440 5897 120 520 Output Total 600 700 100 Balance 130 -473 345 6029 -580 420 Intake, Blood 350 Product Intake, IV 130 20 Intake, Oral 520 1100 120 520 Number 1 6 9 2 2 Bowel Movements Output, Stool 100 Output, Urine 600 700 Physical Exam: Constitutional: no acute distress no pain Eyes: sclera anicteric ENMT: moist mucous membranes Cardiovascular: S1-S2 no murmurs no peripheral edema Respiratory: clear to auscultation with normal respiratory effort and no intercostal retractions GI: abdomen soft nontender nondistended Extremities / lymphatics: free range of motion no peripheral edema Skin: no jaundice no rashes warm, nondiaphoretic Psychiatric: mood and affect are appropriate and alert and oriented to person place and time Current Medications: I reviewed Current Medications Sig/Lynette Start time Last Medication Dose Route Stop Time Status Admin Acetaminophen 650 MG Q6-PRN PRN 04/25 2145 AC 04/26 PO 1113 Cyclosporine 1 GTT Q12 04/25 2100 AC 04/30 OPH 0753 Dextrose/Sodium 1,000 ML Q13H 04/30 1645 AC 04/30 Chloride IV 1640 Dextrose/Sodium 1,000 ML Q13H 04/30 1300 DC 04/30 Chloride IV 1622 Fentanyl Citrate 0 .STK-MED ONE 04/30 1706 DC .ROUTE Ioversol 0 .STK-MED ONE 04/30 1616 DC IV Latanoprost 1 GTT AT BEDTIME 04/25 2100 AC 04/29 OPH 2045 Leflunomide 20 MG QPM 04/25 2145 AC 04/29 PO 2045 Lidocaine 0 .STK-MED ONE 04/30 1617 DC .ROUTE Lidocaine 0 .STK-MED ONE 04/30 1616 DC .ROUTE Lidocaine 2 CHRIS .STK-MED ONE 04/30 1455 DC TOP 04/30 1456 Lidocaine 50 ML .STK-MED ONE 04/30 1455 DC TOP 04/30 1456 Loratadine 10 MG DAILY 04/26 1157 AC 04/30 PO 0753 Melatonin 5 MG .STK-MED ONE 04/30 1802 DC PO 04/30 1803 Melatonin 5 MG AT BEDTIME 04/30 0015 AC 04/30 PO 0010 Midazolam HCl 0 .STK-MED ONE 04/30 1706 DC .ROUTE Montelukast Sodium 10 MG AT BEDTIME 04/26 2100 AC 04/29 PO 2045 Pantoprazole Sodium 40 MG DAILY 04/25 1848 AC 04/30 IV 0753 Potassium Chloride 40 MEQ .STK-MED ONE 04/30 1802 DC PO 04/30 1803 Potassium Chloride 40 MEQ ONCE ONE 04/30 0800 DC PO 04/30 0801 Potassium Chloride 40 MEQ ONCE ONE 04/30 0745 CAN PO 04/30 0746 Sucralfate 1 GM Q8 04/29 2200 AC 04/30 PO 0539 Results Last 48 Hours of Labs: I reviewed Laboratory Tests 04/30 04/30 1550 1012 Coagulation PT (9.4 - 12.5 SEC) 11.9 INR (0.90 - 1.19) 1.09 Hematology CBC w Diff NO MAN DIFF REQ NO MAN DIFF REQ WBC (4.8 - 10.8 /CUMM) 7.8 5.8 RBC (4.20 - 5.40 /CUMM) 3.04 L 2.87 L Hgb (12.0 - 16.0 G/DL) 9.0 L 8.6 L Hct (37 - 47 %) 27.3 L 26.1 L MCV (81.0 - 99.0 FL) 90.0 90.9 MCH (27.0 - 31.0 PG) 29.6 30.1 MCHC (33.0 - 37.0 G/DL) 32.9 L 33.1 RDW (11.5 - 14.5 %) 15.8 H 15.5 H Plt Count (130 - 400 /CUMM) 235 134 MPV (7.4 - 10.4 FL) 9.2 10.0 Gran % (42.2 - 75.2 %) 62.2 56.6 Lymphocytes % (20.5 - 51.1 %) 21.7 26.2 Monocytes % (1.7 - 9.3 %) 10.7 H 11.7 H Eosinophils % (0 - 5 %) 4.7 5.1 H Basophils % (0.0 - 2.0 %) 0.7 0.4 Absolute Granulocytes (1.4 - 6.5 /CUMM) 4.9 3.3 Absolute Lymphocytes (1.2 - 3.4 /CUMM) 1.7 1.5 Absolute Monocytes (0.10 - 0.60 /CUMM) 0.8 H 0.7 H Absolute Eosinophils (0.0 - 0.7 /CUMM) 0.4 0.3 Absolute Basophils (0.0 - 0.2 /CUMM) 0.1 0 /04/29 0200 1809 Chemistry Sodium (137 - 145 mmol/L) 138 Potassium (3.5 - 5.1 mmol/L) 3.7 Chloride (98 - 107 mmol/L) 109 H Carbon Dioxide (22 - 30 mmol/L) 25 Anion Gap (5 - 16) 3 L BUN (7 - 17 mg/dL) 3 L Creatinine (0.5 - 1.0 mg/dL) 0.7 Estimated GFR (>60 ml/min) > 60 BUN/Creatinine Ratio (7 - 25 %) 4.3 L Hematology CBC w Diff NO MAN DIFF REQ NO MAN DIFF REQ WBC (4.8 - 10.8 /CUMM) 5.0 7.5 RBC (4.20 - 5.40 /CUMM) 2.16 L 2.57 L Hgb (12.0 - 16.0 G/DL) 6.5 *L 7.6 L Hct (37 - 47 %) 19.2 *L 23.0 L MCV (81.0 - 99.0 FL) 89.0 89.2 MCH (27.0 - 31.0 PG) 30.2 29.7 MCHC (33.0 - 37.0 G/DL) 34.0 33.3 RDW (11.5 - 14.5 %) 15.8 H 15.4 H Plt Count (130 - 400 /CUMM) 177 216 MPV (7.4 - 10.4 FL) 9.3 9.6 Gran % (42.2 - 75.2 %) 44.5 64.2 Lymphocytes % (20.5 - 51.1 %) 35.9 19.5 L Monocytes % (1.7 - 9.3 %) 13.7 H 11.6 H Eosinophils % (0 - 5 %) 5.2 H 4.0 Basophils % (0.0 - 2.0 %) 0.7 0.7 Absolute Granulocytes (1.4 - 6.5 /CUMM) 2.2 4.8 Absolute Lymphocytes (1.2 - 3.4 /CUMM) 1.8 1.5 Absolute Monocytes (0.10 - 0.60 /CUMM) 0.7 H 0.9 H Absolute Eosinophils (0.0 - 0.7 /CUMM) 0.3 0.3 Absolute Basophils (0.0 - 0.2 /CUMM) 0 0.1 04/29 04/29 1124 0558 Chemistry Sodium (137 - 145 mmol/L) 138 Potassium (3.5 - 5.1 mmol/L) 3.6 Chloride (98 - 107 mmol/L) 109 H Carbon Dioxide (22 - 30 mmol/L) 26 Anion Gap (5 - 16) 4 L BUN (7 - 17 mg/dL) 4 L Creatinine (0.5 - 1.0 mg/dL) 0.7 Estimated GFR (>60 ml/min) > 60 Glucose (65 - 99 mg/dL) 79 Calcium (8.4 - 10.2 mg/dL) 8.0 L Phosphorus (2.5 - 4.5 mg/dL) 3.7 Magnesium (1.6 - 2.3 mg/dL) 1.9 Total Bilirubin (0.2 - 1.3 mg/dL) 0.3 AST (14 - 36 U/L) 15 ALT (9 - 52 U/L) 30 Albumin (3.5 - 5.0 g/dL) 2.2 L Prealbumin (17.6 - 36.0 mg/dL) 16.8 L Hematology CBC w Diff NO MAN DIFF REQ NO MAN DIFF REQ WBC (4.8 - 10.8 /CUMM) 9.6 5.4 RBC (4.20 - 5.40 /CUMM) 2.95 L 2.81 L Hgb (12.0 - 16.0 G/DL) 8.7 L 8.4 L Hct (37 - 47 %) 26.5 L 25.3 L MCV (81.0 - 99.0 FL) 89.9 90.0 MCH (27.0 - 31.0 PG) 29.6 30.0 MCHC (33.0 - 37.0 G/DL) 32.9 L 33.3 RDW (11.5 - 14.5 %) 16.1 H 15.5 H Plt Count (130 - 400 /CUMM) 235 193 MPV (7.4 - 10.4 FL) 9.4 9.3 Gran % (42.2 - 75.2 %) 73.5 53.2 Lymphocytes % (20.5 - 51.1 %) 12.6 L 27.2 Monocytes % (1.7 - 9.3 %) 9.8 H 11.4 H Eosinophils % (0 - 5 %) 3.6 7.3 H Basophils % (0.0 - 2.0 %) 0.5 0.9 Absolute Granulocytes (1.4 - 6.5 /CUMM) 7.0 H 2.9 Absolute Lymphocytes (1.2 - 3.4 /CUMM) 1.2 1.5 Absolute Monocytes (0.10 - 0.60 /CUMM) 0.9 H 0.6 Absolute Eosinophils (0.0 - 0.7 /CUMM) 0.3 0.4 Absolute Basophils (0.0 - 0.2 /CUMM) 0 0 Assessment/Plan Assessment/Plan Impression is right sided gastrointestinal bleed the tracer was seen in the right colon but timing jerome it could've originated ileum where there is known inflammation chronically but may be somehow this is the source of this significant bleeding, the plan is for colonoscopy in the morning in the meantime she has responded appropriately to transfusions and remains hemodynamically stable overall still prefer to avoid surgery but at least if it becomes necessary, colostomy is less likely my concern is that this thickened ileum appears on imaging to be possibly more than 2 feet long so still if possible, it would be nice to narrow it down. Problem List: 1. Acute blood loss anemia 2. Lower GI bleed
[2018-05-01] VITALS: BP 120/60
[2018-05-01 00:18] LABS: ABSOLUTE BASOPHIL COUNT 0 /CUMM (0.0-0.2); ABSOLUTE EOSINOPHIL COUNT 0.2 /CUMM (0.0-0.7); ABSOLUTE GRANULOCYTE CT 4.3 /CUMM (1.4-6.5); ABSOLUTE LYMPH COUNT 1.7 /CUMM (1.2-3.4); ABSOLUTE MONOCYTE COUNT 0.7 /CUMM (0.10-0.60); BASOPHIL % 0.6 % (0.0-2.0); EOSINOPHIL % 3.4 % (0-5); GRANULOCYTE % 61.5 % (42.2-75.2); MEAN CORPUSCULAR HGB 30.1 PG (27.0-31.0); MEAN CORPUSCULAR HGB CONC 33.4 G/DL (33.0-37.0); MEAN CORPUSCULAR VOLUME 89.9 FL (81.0-99.0); MEAN PLATELET VOLUME 9.8 FL (7.4-10.4); PLATELET COUNT 192 /CUMM (130-400); RBC DISTRIBUTION WIDTH 15.6 % (11.5-14.5); RED BLOOD CELL CT 2.43 /CUMM (4.20-5.40)
[2018-05-01 00:27] LABS: HEMATOCRIT 21.8 % (37-47)
[2018-05-01 06:29] LABS: ABSOLUTE BASOPHIL COUNT 0.1 /CUMM (0.0-0.2); ABSOLUTE EOSINOPHIL COUNT 0.3 /CUMM (0.0-0.7); ABSOLUTE GRANULOCYTE CT 4.4 /CUMM (1.4-6.5); ABSOLUTE LYMPH COUNT 1.5 /CUMM (1.2-3.4); ABSOLUTE MONOCYTE COUNT 0.8 /CUMM (0.10-0.60); BASOPHIL % 0.7 % (0.0-2.0); EOSINOPHIL % 3.9 % (0-5); GRANULOCYTE % 62.6 % (42.2-75.2); HEMATOCRIT 23.4 % (37-47); MEAN CORPUSCULAR HGB 29.8 PG (27.0-31.0); MEAN CORPUSCULAR HGB CONC 33.8 G/DL (33.0-37.0); MEAN CORPUSCULAR VOLUME 88.2 FL (81.0-99.0); MEAN PLATELET VOLUME 9.3 FL (7.4-10.4); PLATELET COUNT 183 /CUMM (130-400); RBC DISTRIBUTION WIDTH 16.8 % (11.5-14.5); RED BLOOD CELL CT 2.65 /CUMM (4.20-5.40); WHITE BLOOD CELL COUNT 7.1 /CUMM (4.8-10.8)
--- NOTE | 2018-05-01 07:05 | PN- Resident CRCU ---
Paul GASTON,[facility] 05/01/18 0705: Subjective HPI/CRCU Issues: Lower GI bleeding Patient seen and examined. Is not pleased with her situation espcially about drinking Golytely. Continues to have bloody bowel movements. 24 Hour Events: Underwent a tagged RBC scan which showed no acute bleeding at 80 minutes. Patient was subsequently taken for EGD where the procedure was not able to identify any acute bleeding site but she continued to have lower GI bleeding. She was sent for a repeat nuclear scan where a bleeding source was identified in the right colon. Angiography was performed but no bleeding source could be identified. Patient was started on Golytely prep with plans for repeat colonoscopy this afternoon. She received another unit of pRBC last night. Objective Vital Signs & I&O Last 8 Hrs of Vitals and I&O: Intake & Output 05/01 0800 Intake Total 3075 Output Total 200 Balance 2875 Intake, Blood 350 Product Intake, IV 375 Intake, Oral 2350 Number 4 Bowel Movements Output, Urine 200 Exam General Appearance: well developed/nourished, no apparent distress, alert, awake , anxious Head: atraumatic, normal appearance Ears, Nose, Throat: hearing grossly normal Respiratory: normal breath sounds, chest non-tender, no respiratory distress Cardiovascular: regular rate/rhythm Gastrointestinal: normal bowel sounds, soft, non-tender Extremities: no edema Cranial Nerves: normal hearing, normal speech Skin: intact, normal color Skin Temp/Moisture Exam: Warm/Dry Sepsis Skin Exam (color): Normal for Ethnicity Current Medications: Current Medications Sig/Lynette Start time Last Medication Dose Route Stop Time Status Admin Acetaminophen 650 MG Q6-PRN PRN 04/25 2145 AC 04/26 PO 1113 Cyclosporine 1 GTT Q12 04/25 2100 AC 05/01 OPH 0739 Dextrose/Sodium 1,000 ML Q13H 04/30 1645 AC 05/01 Chloride IV 0615 Dextrose/Sodium 1,000 ML Q13H 04/30 1300 DC / Chloride IV 1622 Fentanyl Citrate 0 .STK-MED ONE 04/30 1706 DC .ROUTE Ioversol 0 .STK-MED ONE 04/30 1616 DC IV Latanoprost 1 GTT AT BEDTIME 04/25 2100 AC 05/01 OPH 0011 Leflunomide 20 MG QPM 04/25 2145 AC 04/30 PO 2345 Lidocaine 0 .STK-MED ONE 04/30 1617 DC .ROUTE Lidocaine 0 .STK-MED ONE 04/30 1616 DC .ROUTE Lidocaine 2 CHRIS .STK-MED ONE 04/30 1455 DC TOP 04/30 1456 Lidocaine 50 ML .STK-MED ONE 04/30 1455 DC TOP 04/30 1456 Loratadine 10 MG DAILY 04/26 1157 AC 05/01 PO 0739 Melatonin 5 MG .STK-MED ONE 04/30 1802 DC PO 04/30 1803 Melatonin 5 MG AT BEDTIME 04/30 0015 AC 04/30 PO 2345 Midazolam HCl 0 .STK-MED ONE 04/30 1706 DC .ROUTE Montelukast Sodium 10 MG AT BEDTIME 04/26 2100 AC 04/30 PO 2344 Pantoprazole Sodium 40 MG DAILY 04/25 1848 AC 05/01 IV 0739 Polyethylene Glycol 1 GAL SEE ADMIN CRITERIA 04/30 2355 AC PO Potassium Chloride 40 MEQ .STK-MED ONE 04/30 1802 DC PO 04/30 1803 Potassium Chloride 40 MEQ ONCE ONE 04/30 0800 DC PO 04/30 0801 Sucralfate 1 GM Q8 04/29 2200 AC 05/01 PO 0614 Impression/Plan Impression/Problem List Impression: 72 year old woman with past medical history of GI bleed secondary to NSAID use, chronic diarrhea, terminal ileitis, IBS, psoriatic arthritis, seasonal allergies , asthma, hypertension, GERD, glaucoma, and severe cervical stenosis presented to the ED for evaluation of bloody stools. Assesssmet: 1. BRBPR likely 2/2 diverticular disease w/ recurrency 2. Acute blood loss anemia 3. Hypokalemia likely 2/2 blood loss - resolved. 4. orthostatic hypotension 5. History of terminal ileitis 6. History of Hypertension, IBS, psoriatic arthritis, seasonal allergies/asthma, GERD, glaucoma, cervical stenosis, history of GI bleed secondary to NSAIDs, diverticulosis Plan: Respiratory: - Stable. No active issues. Infection: - Prelim biopsy could not rule out IBS/infection/drug-induced change. - Await final pathology. Cardio: volume. antihypertensive medications including losartan/amlodipine. Hem: 8.7 -> 7.1 -> 8.9--8.4--->6.5--->7.3, S/P 3 units PRBC on 04/25, and again s/p 2 units PRBC on 04/28 and 1 unit 04/29, 04/30. A total of 7U PRBC during this admission. - Of note, she received 2U PRBC in last admission. - recheck q12h. - tagged RBC scan showed signs of bleeding in the right colon. An EGD and angiography was performed yesterday but no source of bleeding could be identified. Metabolism: - Prealbumin is slightly low. She may have mild protein malnutrition. Alimentary: prep for colonoscopy today. Neuro: Sedation: None Vent Setting: None [id number]: MRSA (surveillance) DVT prophylaxis: Only ALPS Diet: Clear liquid IV Access: Peripheral IV Full Code Problem List: 1. Lower GI bleed Pain Ratin Tomorrow's Labs & Rationales: CBC Plan DVT/Prophylaxis: Dk Garcia MD 05/01/18 0737: Attending MD Review Statement Attending Sign Off Attending Cosign Statement: I have: examined this patient, reviewed [facility] data, personally reviewd images, discussd w/resident/PA/MOLD PARTER, discussed mgmt plan w/evelyn, discussed mgmt plan w/CM, discussed mgmt plan w/pt, agreed w/resident/PA/MOLD PARTER, amended to note. Other Findings: Impression 72 year old woman Continued GI bleed - lower source, unclear location, acute blood loss anemia, hemodynamically stable Plan -await repeat colonoscopy today -surgery/gi appreciated -if colonoscopy is unreavealing a transfer maybe necessary for a pill cam -no other changes today ALPS for DVT prophylaxis TTS 35 min
[2018-05-01 08:00] VITALS: BP 118/70
--- NOTE | 2018-05-01 08:54 | ULTRASOUND REPORT ---
PROCEDURES: 1. Ultrasound and fluoroscopic access into the right common femoral artery and arteriogram. 2. Arteriograms: Superior mesenteric artery CLINICAL HISTORY: 72-year-old female with GI bleed. The patient has had bleeding for the past 8 days. Prior angiography and 4 CTAs were negative. Nuclear medicine right blood cell scan today was positive on 3 hour delayed imaging with localization suspected to be within the right colon. Angiography requested with possible embolization is bleeding source identified. INTERVENTIONAL RADIOLOGIST: Fermin Lynch MD MEDICATION ADMINISTRATION: Moderate sedation was provided by a dedicated radiology nurse under my direct supervision. A total dosage of 1 mg Versed and 15 mcg Fentanyl was administered in divided doses. Total sedation time of 43 minutes. 1% local lidocaine was also administered. ESTIMATED BLOOD LOSS: <5 mL CONTRAST: 35 mL Optiray 320 FLUOROSCOPY TIME: 3 minutes and 53 seconds DOSE AREA PRODUCT: 21.6 mGy-m2 (milligray-meter squared) PROCEDURE NOTE: Informed consent was obtained from the patient prior to the procedure. During this process, the procedure and potential alternatives were explained along with the intended outcome and benefits. The risks of the procedure, including the possibility of an unsuccessful procedure, as well as the risk of not doing the procedure, were discussed. The patient was given the opportunity to ask questions regarding the procedure and appeared competent to make decisions. A signed consent form documenting this discussion was placed in the medical record. A time-out procedure was performed. Pulses in groin and pedal pulses were checked preprocedure. The patient was placed supine on the fluoroscopy table. The right groin was prepped and draped in usual sterile fashion. Under ultrasound and fluoroscopic-guidance, a 5 Fr micropuncture set was used to access the right common femoral artery. Care was made to go inferior to the closing device which was placed in the right common femoral artery one week ago. A 5 Fr vascular sheath was advanced over a 0.035 in Bentson wire. The vascular sheath was attached to continuous slow flush. A C2 glide catheter was advanced over the wire and used to select out the superior mesenteric artery. Several SMA arteriograms were performed. The catheters and wires were removed. The sheath was removed and hemostasis achieved using manual pressure. A sterile dressing was placed. Pulses were checked post procedure and were unchanged from the preprocedure exam. Groin and pulses were again unchanged when rechecked after the patient had been transported to the recovery unit. ULTRASOUND-GUIDED VASCULAR ACCESS: Ultrasound was used to identify the right common femoral artery. The right common femoral artery was confirmed to be patent. Real time imaging confirmed needle access into the right common femoral artery. An image was saved for permanent recording in PACS. COMPLICATIONS: None. FINDINGS: 1. Several arteriograms of the superior mesenteric artery failed to identify a bleeding site. IMPRESSION: No bleeding site identified on today's angiogram. Embolization not performed. PLAN: 1. The patient was stable after the procedure and was transferred back to the ICU. 2. The patient should remain in bed with the right leg straight for 5 hours post arteriotomy.
--- NOTE | 2018-05-01 14:59 | Proc Note Colonoscopy ---
Colonoscopy Procedure Procedure Date: 05/01/18 Procedure Type: colonoscopy Port Traffic Manager: Jas Tuttle M.D. ASA Classification: III Indications: Refractory/intermittent lower GI bleeding with blood loss anemia/multiple transfusions. Positive tagged-RBC bleeding scan (right colon/cecum) Instrument (Colonoscope): single channel Meds Received: MAC Patient's Tolerance: good Complications: none Extent Reached: terminal ileum Prep: good Procedure: The patient signed informed consent, was placed in the Rothman position, and medicated. Examination of the rectum revealed small external hemorrhoids. The Olympus high-definition variable stiffness colonoscope was inserted through the anus and advanced to the terminal ileum. Careful examination was performed. There was adequate withdrawal time. Findings: The rectum was normal. There were diverticula in the sigmoid, and several in the right colon. There were no clots or visible vessels. Otherwise, the mucosa , folds and vasculature from sigmoid to cecum were normal except for 2 small/ shallow aphthous ulcerations in the cecum. There were no vascular lesions. The ileocecal valve was normal. Proximally 10 cm of terminal ileum was inspected, and there was mucosal congestion/edema, but no ulceration or friability. Proximal to this there was luminal narrowing and sharp angulation, and it was not possible to intubate further. Of note, there was no fresh or old blood in the colon or ileum. Impression: * Diverticulosis (sigmoid, right colon) * 2 shallow cecal ulcerations * Ileitis * No active bleeding, nor recent bleeding site identified Recommendations: * Advance diet to full liquids, with polymeric supplements * May consider transfer to general medical floor * Follow-up CBC in the morning; maintain hemoglobin greater than 7 * Budesonide (small bowel formulary) 9 mg by mouth daily CC: Keena GASTON,Ta Webb III
[2018-05-01 16:00] VITALS: BP 116/80
[2018-05-01 17:54] LABS: ABSOLUTE BASOPHIL COUNT 0 /CUMM (0.0-0.2); ABSOLUTE EOSINOPHIL COUNT 0.2 /CUMM (0.0-0.7); ABSOLUTE GRANULOCYTE CT 5.5 /CUMM (1.4-6.5); ABSOLUTE LYMPH COUNT 1.7 /CUMM (1.2-3.4); ABSOLUTE MONOCYTE COUNT 0.8 /CUMM (0.10-0.60); BASOPHIL % 0.5 % (0.0-2.0); EOSINOPHIL % 2.9 % (0-5); GRANULOCYTE % 66.9 % (42.2-75.2); MEAN CORPUSCULAR HGB 29.2 PG (27.0-31.0); MEAN CORPUSCULAR VOLUME 88.5 FL (81.0-99.0); MEAN PLATELET VOLUME 9.9 FL (7.4-10.4); PLATELET COUNT 232 /CUMM (130-400); RBC DISTRIBUTION WIDTH 17.1 % (11.5-14.5); RED BLOOD CELL CT 3.24 /CUMM (4.20-5.40); WHITE BLOOD CELL COUNT 8.2 /CUMM (4.8-10.8)
[2018-05-01 18:00] LABS: HEMATOCRIT 28.6 % (37-47)
--- NOTE | 2018-05-01 19:25 | Proc Note Colonoscopy ---
Colonoscopy Procedure Procedure Date: 05/01/18 Procedure Type: colonoscopy Quill Reamer: Jas Tuttle M.D. ASA Classification: III Indications: Lower GI bleed. The patient had an unrevealing colonoscopy earlier today, and then subsequently passed blood and clots. Instrument (Colonoscope): single channel Meds Received: GRADY/TIVA Patient's Tolerance: good Complications: none Extent Reached: terminal ileum Prep: good Procedure: The patient signed informed consent, was intubated and medicated, and then was placed in the Rothman position. Examination of the rectum revealed nonbleeding external hemorrhoids. The Olympus high-definition variable stiffness colonoscope was inserted through the anus and advanced to the terminal ileum. Careful examination was performed. After the colonoscope was removed, the patient was extubated. Findings: The rectum was normal. There were left-sided and right-sided diverticula. There was dark bilious fluid within the colon, but no old or fresh blood. There were no evident vascular lesions. The cecum was normal. The ileocecal valve was normal. The terminal ileum had edema and congestion of the mucosa, scattered shallow ulcerations, and no significant friability. There was no old or fresh blood. A sharp angulation was encountered, and the colonoscope could not be advanced beyond this. Impression: * No bleeding site identified, nor old or fresh blood despite passage of clots less than 2 hours prior to the procedure * Diverticulosis * Ileitis Recommendations: * Maintain on clear liquid diet * Follow-up CBC tonight and in the morning, and maintain hemoglobin greater than 7 * Check PT and PTT * Vitamin K 10 mg subcutaneously * Hold on budesonide for now CC: Keena GASTON,Ta Webb III
[2018-05-01 19:48] LABS: PT 12.4 SEC (9.4-12.5); PTT 27 SEC (25-37)
--- NOTE | 2018-05-01 22:21 | PN- General Surgery ---
Subjective Subjective: f/up GIB, no abdom pain, no CP SOB, nauseous right now, waking up after colonoscopy, she had 2 today, both neg! transfused 9 units total but only 2 in last 72 hours Objective Vital Signs and I&Os I rev Vital Signs Date Time Temp Pulse Resp B/P B/P Pulse O2 O2 Flow FiO2 Mean Ox Delivery Rate 05/01 2000 100 Room Air 05/01 1600 98.6 96 20 116/80 98 Room Air / 0800 96.8 88 18 118/70 98 Room Air / 0400 96 Room Air 07/ 0000 96 Room Air 07/ 0000 98.6 88 20 120/60 96 Room Air I rev Intake & Output 05/01 1600 05/01 0800 / 0000 04/30 1600 04/30 0800 / 0000 Intake Total 1950 3075 409 130 350 520 Output Total 200 405 600 Balance 1950 2875 4 130 -250 520 Intake, Blood 350 350 Product Intake, IV 850 375 409 130 Intake, Oral 1100 2350 520 Number 8 4 1 6 Bowel Movements Output, Urine 200 405 600 Physical Exam: No change Constitutional: no acute distress no pain Eyes: sclera anicteric ENMT: moist mucous membranes Cardiovascular: S1-S2 no murmurs no peripheral edema Respiratory: clear to auscultation with normal respiratory effort and no intercostal retractions GI: abdomen soft nontender nondistended Extremities / lymphatics: free range of motion no peripheral edema Skin: no jaundice no rashes warm, nondiaphoretic Psychiatric: mood and affect are appropriate and alert and oriented to person place and time Current Medications: I reviewed Current Medications Sig/Lynette Start time Last Medication Dose Route Stop Time Status Admin Acetaminophen 650 MG Q6-PRN PRN 04/25 2145 AC 04/26 PO 1113 Budesonide 9 MG DAILY 05/01 1600 AC PO Chlorhexidine 1 GM .STK-MED ONE 05/01 1855 DC Gluconate TOP 05/01 1856 Chlorhexidine 1 GM .STK-MED ONE 05/01 1426 DC Gluconate TOP 05/01 1427 Cyclosporine 1 GTT Q12 04/25 2100 AC 05/01 OPH 2101 Dextrose/Sodium 1,000 ML Q13H 05/01 1700 DC 05/01 Chloride IV 1657 Dextrose/Sodium 1,000 ML Q13H 04/30 1645 DC 07/03 Chloride IV 0615 Latanoprost 1 GTT AT BEDTIME 04/25 2100 AC 05/01 OPH 2101 Leflunomide 20 MG QPM 04/25 2145 AC 05/01 PO 2100 Loratadine 10 MG DAILY 04/26 1157 AC 05/01 PO 0739 Melatonin 5 MG AT BEDTIME 04/30 0015 AC 05/01 PO 2100 Montelukast Sodium 10 MG AT BEDTIME 04/26 2100 AC 05/01 PO 2100 Ondansetron HCl 4 MG ONCE ONE 05/01 1845 DC 05/01 IV 05/01 1846 1848 Ondansetron HCl 4 MG .STK-MED ONE 05/01 1710 DC IV 05/01 1711 Ondansetron HCl 4 MG .STK-MED ONE 05/01 1710 DC IV 05/01 1711 Ondansetron HCl 4 MG ONCE ONE 05/01 1100 DC 05/01 IV 05/01 1101 1059 Pantoprazole Sodium 40 MG DAILY 04/25 1848 AC 05/01 IV 0739 Phytonadione 2.5 MG ONCE ONE 05/01 1845 DC 05/01 PO 05/01 184 2100 Polyethylene Glycol 1 GAL SEE ADMIN CRITERIA 04/30 2355 AC PO Sucralfate 1 GM Q8 04/29 2200 AC 05/01 PO 210 Results Last 48 Hours of Labs: I reviewed Laboratory Tests 05/01 05/01 1900 1710 Coagulation PT (9.4 - 12.5 SEC) 12.4 INR (0.90 - 1.19) 1.14 APTT (25 - 37 SEC) 27 Hematology CBC w Diff NO MAN DIFF REQ WBC (4.8 - 10.8 /CUMM) 8.2 RBC (4.20 - 5.40 /CUMM) 3.24 L Hgb (12.0 - 16.0 G/DL) 9.5 L Hct (37 - 47 %) 28.6 L MCV (81.0 - 99.0 FL) 88.5 MCH (27.0 - 31.0 PG) 29.2 MCHC (33.0 - 37.0 G/DL) 33.0 RDW (11.5 - 14.5 %) 17.1 H Plt Count (130 - 400 /CUMM) 232 MPV (7.4 - 10.4 FL) 9.9 Gran % (42.2 - 75.2 %) 66.9 Lymphocytes % (20.5 - 51.1 %) 20.4 L Monocytes % (1.7 - 9.3 %) 9.3 Eosinophils % (0 - 5 %) 2.9 Basophils % (0.0 - 2.0 %) 0.5 Absolute Granulocytes (1.4 - 6.5 /CUMM) 5.5 Absolute Lymphocytes (1.2 - 3.4 /CUMM) 1.7 Absolute Monocytes (0.10 - 0.60 /CUMM) 0.8 H Absolute Eosinophils (0.0 - 0.7 /CUMM) 0.2 Absolute Basophils (0.0 - 0.2 /CUMM) 0 05/01 07/ 0600 2330 Chemistry Sodium (137 - 145 mmol/L) 137 Potassium (3.5 - 5.1 mmol/L) 3.9 Chloride (98 - 107 mmol/L) 108 H Carbon Dioxide (22 - 30 mmol/L) 26 Anion Gap (5 - 16) 4 L BUN (7 - 17 mg/dL) 4 L Creatinine (0.5 - 1.0 mg/dL) 0.7 Estimated GFR (>60 ml/min) > 60 BUN/Creatinine Ratio (7 - 25 %) 5.7 L Hematology CBC w Diff NO MAN DIFF REQ NO MAN DIFF REQ WBC (4.8 - 10.8 /CUMM) 7.1 7.0 RBC (4.20 - 5.40 /CUMM) 2.65 L 2.43 L Hgb (12.0 - 16.0 G/DL) 7.9 L 7.3 *L Hct (37 - 47 %) 23.4 L 21.8 L MCV (81.0 - 99.0 FL) 88.2 89.9 MCH (27.0 - 31.0 PG) 29.8 30.1 MCHC (33.0 - 37.0 G/DL) 33.8 33.4 RDW (11.5 - 14.5 %) 16.8 H 15.6 H Plt Count (130 - 400 /CUMM) 183 192 MPV (7.4 - 10.4 FL) 9.3 9.8 Gran % (42.2 - 75.2 %) 62.6 61.5 Lymphocytes % (20.5 - 51.1 %) 21.8 24.3 Monocytes % (1.7 - 9.3 %) 11.0 H 10.2 H Eosinophils % (0 - 5 %) 3.9 3.4 Basophils % (0.0 - 2.0 %) 0.7 0.6 Absolute Granulocytes (1.4 - 6.5 /CUMM) 4.4 4.3 Absolute Lymphocytes (1.2 - 3.4 /CUMM) 1.5 1.7 Absolute Monocytes (0.10 - 0.60 /CUMM) 0.8 H 0.7 H Absolute Eosinophils (0.0 - 0.7 /CUMM) 0.3 0.2 Absolute Basophils (0.0 - 0.2 /CUMM) 0.1 0 07/ 07/ 1550 1012 Coagulation PT (9.4 - 12.5 SEC) 11.9 INR (0.90 - 1.19) 1.09 Hematology CBC w Diff NO MAN DIFF REQ NO MAN DIFF REQ WBC (4.8 - 10.8 /CUMM) 7.8 5.8 RBC (4.20 - 5.40 /CUMM) 3.04 L 2.87 L Hgb (12.0 - 16.0 G/DL) 9.0 L 8.6 L Hct (37 - 47 %) 27.3 L 26.1 L MCV (81.0 - 99.0 FL) 90.0 90.9 MCH (27.0 - 31.0 PG) 29.6 30.1 MCHC (33.0 - 37.0 G/DL) 32.9 L 33.1 RDW (11.5 - 14.5 %) 15.8 H 15.5 H Plt Count (130 - 400 /CUMM) 235 134 MPV (7.4 - 10.4 FL) 9.2 10.0 Gran % (42.2 - 75.2 %) 62.2 56.6 Lymphocytes % (20.5 - 51.1 %) 21.7 26.2 Monocytes % (1.7 - 9.3 %) 10.7 H 11.7 H Eosinophils % (0 - 5 %) 4.7 5.1 H Basophils % (0.0 - 2.0 %) 0.7 0.4 Absolute Granulocytes (1.4 - 6.5 /CUMM) 4.9 3.3 Absolute Lymphocytes (1.2 - 3.4 /CUMM) 1.7 1.5 Absolute Monocytes (0.10 - 0.60 /CUMM) 0.8 H 0.7 H Absolute Eosinophils (0.0 - 0.7 /CUMM) 0.4 0.3 Absolute Basophils (0.0 - 0.2 /CUMM) 0.1 0 07/02 0200 Chemistry Sodium (137 - 145 mmol/L) 138 Potassium (3.5 - 5.1 mmol/L) 3.7 Chloride (98 - 107 mmol/L) 109 H Carbon Dioxide (22 - 30 mmol/L) 25 Anion Gap (5 - 16) 3 L BUN (7 - 17 mg/dL) 3 L Creatinine (0.5 - 1.0 mg/dL) 0.7 Estimated GFR (>60 ml/min) > 60 BUN/Creatinine Ratio (7 - 25 %) 4.3 L Hematology CBC w Diff NO MAN DIFF REQ WBC (4.8 - 10.8 /CUMM) 5.0 RBC (4.20 - 5.40 /CUMM) 2.16 L Hgb (12.0 - 16.0 G/DL) 6.5 *L Hct (37 - 47 %) 19.2 *L MCV (81.0 - 99.0 FL) 89.0 MCH (27.0 - 31.0 PG) 30.2 MCHC (33.0 - 37.0 G/DL) 34.0 RDW (11.5 - 14.5 %) 15.8 H Plt Count (130 - 400 /CUMM) 177 MPV (7.4 - 10.4 FL) 9.3 Gran % (42.2 - 75.2 %) 44.5 Lymphocytes % (20.5 - 51.1 %) 35.9 Monocytes % (1.7 - 9.3 %) 13.7 H Eosinophils % (0 - 5 %) 5.2 H Basophils % (0.0 - 2.0 %) 0.7 Absolute Granulocytes (1.4 - 6.5 /CUMM) 2.2 Absolute Lymphocytes (1.2 - 3.4 /CUMM) 1.8 Absolute Monocytes (0.10 - 0.60 /CUMM) 0.7 H Absolute Eosinophils (0.0 - 0.7 /CUMM) 0.3 Absolute Basophils (0.0 - 0.2 /CUMM) 0 Assessment/Plan Assessment/Plan Impression: Slow but persistent GI bleed very difficult to localize for either embolization pr resection, so far it's probably not from the stomach or the sigmoid colon, maybe it's the right colon maybe it starts in the ileum which could be resected, still a significant length, that being removal of the ileum and the right colon, this is based mostly on the nuclear scan from yesterday but today two colonoscopies showing no blood raises possibility that the bleeding and may be even more proximal, where a blind resection is not practical, for this considering pillcam. The bleeding remains dark clotted blood, and she's stable otherwise. Discussed with GI, still prefer medical management but I'm increasingly considering resection, so for the moment we'll see what happens to the transfusion requirement, which may be slowing. After transfusion Hb 6.5 to 9.5 is a bigger jump than expected. Try to maintain nutrition. Problem List: 1. Acute blood loss anemia 2. GI hemorrhage
[2018-05-02] VITALS: BP 142/80
[2018-05-02 05:34] LABS: ABSOLUTE BASOPHIL COUNT 0.1 /CUMM (0.0-0.2); ABSOLUTE EOSINOPHIL COUNT 0.4 /CUMM (0.0-0.7); ABSOLUTE GRANULOCYTE CT 3.3 /CUMM (1.4-6.5); ABSOLUTE LYMPH COUNT 1.7 /CUMM (1.2-3.4); ABSOLUTE MONOCYTE COUNT 0.6 /CUMM (0.10-0.60); BASOPHIL % 1.2 % (0.0-2.0); EOSINOPHIL % 6.7 % (0-5); GRANULOCYTE % 54.7 % (42.2-75.2); MEAN CORPUSCULAR HGB 29.6 PG (27.0-31.0); MEAN CORPUSCULAR HGB CONC 33.3 G/DL (33.0-37.0); MEAN CORPUSCULAR VOLUME 89.1 FL (81.0-99.0); MEAN PLATELET VOLUME 9.8 FL (7.4-10.4); PLATELET COUNT 177 /CUMM (130-400); RBC DISTRIBUTION WIDTH 17.4 % (11.5-14.5); RED BLOOD CELL CT 2.63 /CUMM (4.20-5.40); WHITE BLOOD CELL COUNT 6.1 /CUMM (4.8-10.8)
[2018-05-02 05:40] LABS: HEMATOCRIT 23.4 % (37-47)
--- NOTE | 2018-05-02 08:02 | PN- Resident CRCU ---
Paul GASTON,[facility] 0802: Subjective HPI/CRCU Issues: Lower GI bleeding Continues to have bloody BM. States she had 2 last night and 3 this morning. Denies abdominal pain, nausea or any other symptoms. 24 Hour Events: Had a colonoscopy yesterday which did not show any active site of bleeding or evidence of blood in the colon. Shortly after the procedure the patient experienced a bloody BM. A repeat colonoscopy was performed thereafter which was unrevealing. The patient was given one dose of Vit K and started on clear liquids. Objective Vital Signs & I&O Last 8 Hrs of Vitals and I&O: . Exam General Appearance: well developed/nourished, alert, awake, mild distress Head: atraumatic, normal appearance Respiratory: normal breath sounds, chest non-tender, no respiratory distress Cardiovascular: regular rate/rhythm Gastrointestinal: soft, non-tender Extremities: mild edema Cranial Nerves: normal hearing, normal speech Skin: intact, normal color, warm/dry Skin Temp/Moisture Exam: Warm/Dry Sepsis Skin Exam (color): Normal for Ethnicity Current Medications: Current Medications Sig/Lynette Start time Last Medication Dose Route Stop Time Status Admin Acetaminophen 650 MG Q6-PRN PRN 04/25 2145 AC 04/26 PO 1113 Benzocaine 1 CHRIS Q12P PRN 05/02 1015 UNVr TOP Budesonide 9 MG DAILY 05/01 1600 GA 05/02 PO 0928 Chlorhexidine 1 GM .STK-MED ONE 05/01 1855 DC Gluconate TOP 05/01 1856 Chlorhexidine 1 GM .STK-MED ONE 05/01 1426 DC Gluconate TOP 05/01 1427 Cyclosporine 1 GTT Q12 04/25 2100 05/02 OPH 0930 Dextrose/Sodium 1,000 ML Q13H 05/01 1700 DC 05/01 Chloride IV 1657 Dextrose/Sodium 1,000 ML Q13H 04/30 1645 DC 05/01 Chloride IV 0615 Latanoprost 1 GTT AT BEDTIME 04/25 2100 AC 05/01 OPH 2101 Leflunomide 20 MG QPM 04/25 2145 AC 05/01 PO 2100 Loratadine 10 MG DAILY 04/26 1157 AC 05/02 PO 0928 Melatonin 5 MG AT BEDTIME 04/30 0015 AC 05/01 PO 2100 Montelukast Sodium 10 MG AT BEDTIME 04/26 2100 AC 05/01 PO 2100 Ondansetron HCl 4 MG ONCE ONE 05/01 1845 DC 05/01 IV 05/01 184 1848 Ondansetron HCl 4 MG .STK-MED ONE 05/01 1710 DC IV 05/01 1711 Ondansetron HCl 4 MG .STK-MED ONE 05/01 1710 DC IV 05/01 1711 Ondansetron HCl 4 MG ONCE ONE 05/01 1100 DC 05/01 IV 05/01 1101 1059 Pantoprazole Sodium 40 MG DAILY 04/25 1848 AC 05/02 IV 0929 Phytonadione 2.5 MG ONCE ONE 05/01 1845 DC 05/01 PO 05/01 184 2100 Polyethylene Glycol 1 GAL SEE ADMIN CRITERIA 04/30 2355 AC PO Potassium Chloride 60 MEQ ONCE ONE 05/02 0615 DC 05/02 PO 05/02 0616 0609 Sucralfate 1 GM Q8 04/29 2200 AC 05/02 PO 0502 Impression/Plan Impression/Problem List Impression: 72 year old woman with past medical history of GI bleed secondary to NSAID use, chronic diarrhea, terminal ileitis, IBS, psoriatic arthritis, seasonal allergies , asthma, hypertension, GERD, glaucoma, and severe cervical stenosis presented to the ED for evaluation of bloody stools. Assesssmet: 1. BRBPR likely 2/2 diverticular disease w/ recurrency 2. Acute blood loss anemia 3. Hypokalemia likely 2/2 blood loss - resolved. 4. orthostatic hypotension 5. History of terminal ileitis 6. History of Hypertension, IBS, psoriatic arthritis, seasonal allergies/asthma, GERD, glaucoma, cervical stenosis, history of GI bleed secondary to NSAIDs, diverticulosis Plan: Respiratory: - Stable. No active issues. Infection: - Biopsy obtained during colonoscopy showed in CECUM AND PROXIMAL ASCENDING COLON - MILD TO MODERATELY ACTIVE COLITIS. - In TERMINAL ILEUM, MULTIPLE BIOPSIES: MILD CHRONIC ILEITIS, MODERATELY ACTIVE Cardio: volume. antihypertensive medications including losartan/amlodipine. Hem: 8.7 -> 7.1 -> 8.9--8.4--->6.5--->7.3, S/P 3 units PRBC on 04/25, and again s/p 2 units PRBC on 04/28 and 1 unit 04/29, 7/2. A total of 7U PRBC during this admission. - Of note, she received 2U PRBC in last admission. - check q12h. - tagged RBC scan showed signs of bleeding in the right colon. An EGD and angiography was performed but no source of bleeding could be identified. - s/p two colonoscopies yesterday with no active bleeding site identified. - She may require a colectomy. Metabolism: - Prealbumin is slightly low. She may have mild protein malnutrition. Alimentary: Neuro: Sedation: None Vent Setting: None [id number]: MRSA (surveillance) DVT prophylaxis: Only ALPS Diet: Clear liquid IV Access: Peripheral IV Full Code Problem List: 1. Lower GI bleed Pain Ratin Tomorrow's Labs & Rationales: CBC, BEP Plan DVT/Prophylaxis: Dk Garcia MD 05/02/18 0844: Attending MD Review Statement Attending Sign Off Attending Cosign Statement: I have: examined this patient, reviewed [employer] EMR data, personally reviewd images, discussd w/resident/PA/SUPERVISOR [employer], discussed mgmt plan w/evelyn, discussed mgmt plan w/CM, discussed mgmt plan w/pt, agreed w/resident/PA/SUPERVISOR [employer]IV[employer], amended to note. Other Findings: Impression 72 year old woman Continued GI bleed - lower source, unclear location, acute blood loss anemia, hemodynamically stable Plan -s/p colonoscopy without evidence of bleeding -surgery/gi appreciated, contemplating surgery if continues to bleed -monitor hgb, transfuse to goal >7 ALPS for DVT prophylaxis TTS 35 min
[2018-05-02 08:57] VITALS: BP 122/68
[2018-05-02 10:39] LABS: ABSOLUTE BASOPHIL COUNT 0 /CUMM (0.0-0.2); ABSOLUTE EOSINOPHIL COUNT 0.4 /CUMM (0.0-0.7); ABSOLUTE GRANULOCYTE CT 5.3 /CUMM (1.4-6.5); ABSOLUTE LYMPH COUNT 1.3 /CUMM (1.2-3.4); ABSOLUTE MONOCYTE COUNT 0.8 /CUMM (0.10-0.60); BASOPHIL % 0.4 % (0.0-2.0); EOSINOPHIL % 5.3 % (0-5); GRANULOCYTE % 67.2 % (42.2-75.2); HEMATOCRIT 22.6 % (37-47); MEAN CORPUSCULAR HGB 29.8 PG (27.0-31.0); MEAN CORPUSCULAR HGB CONC 33.5 G/DL (33.0-37.0); MEAN CORPUSCULAR VOLUME 88.9 FL (81.0-99.0); MEAN PLATELET VOLUME 9.3 FL (7.4-10.4); PLATELET COUNT 194 /CUMM (130-400); RBC DISTRIBUTION WIDTH 16.9 % (11.5-14.5); RED BLOOD CELL CT 2.55 /CUMM (4.20-5.40); WHITE BLOOD CELL COUNT 7.9 /CUMM (4.8-10.8)
--- NOTE | 2018-05-02 11:44 | PN- Gastroenterology ---
Assessment/Plan GI Assessment/Recommendations: Continuing lower GI bleeding, source not identified. Remains hemodynamically stable, but with transfusion requirement (9 units PRBCs so far). Likely represents a small bowel etiology. Recommendations * Continue clear liquid diet * Continue to check CBC twice daily, and transfuse if hemoglobin drops below 7 * At this time, agree with surgical management. Will discuss with Dr. Ferris. I am available for intraoperative enteroscopy if needed. Subjective Subjective: The patient continues to pass dark blood and clots. There is no abdominal pain, nausea, vomiting. Objective Vital Signs and I&Os Vital Signs Date Time Temp Pulse Resp B/P B/P Pulse O2 O2 Flow FiO2 Mean Ox Delivery Rate 05/02 0857 98.4 89 20 122/68 95 Room Air 05/02 0400 96 Room Air 05/02 0000 99.4 72 14 142/80 96 Room Air / 0000 93 Room Air 05/01 2000 100 Room Air 05/01 1600 98.6 96 20 116/80 98 Room Air Intake & Output 05/02 0400 05/01 1600 05/01 0400 04/30 1600 04/30 0400 Intake Total 829 494 4090 409 480 520 Output Total 100 200 405 600 Balance 130 440 3577 4 -120 520 Intake, Blood 350 350 Product Intake, IV 300 1225 409 130 Intake, Oral 938 970 5599 520 Number 2 3 12 1 6 Bowel Movements Output, 100 Emesis Output, Urine 200 405 600 Physical Exam: Sclera anicteric. No adenopathy. Abdomen soft, nondistended, normal bowel sounds, nontender. Results Pertinent Lab Results: Laboratory Tests 05/02 05/02 1010 0457 Chemistry Sodium (137 - 145 mmol/L) 140 Potassium (3.5 - 5.1 mmol/L) 3.3 L Chloride (98 - 107 mmol/L) 108 H Carbon Dioxide (22 - 30 mmol/L) 26 Anion Gap (5 - 16) 5 BUN (7 - 17 mg/dL) 3 L Creatinine (0.5 - 1.0 mg/dL) 0.7 Estimated GFR (>60 ml/min) > 60 Glucose (65 - 99 mg/dL) 81 Calcium (8.4 - 10.2 mg/dL) 7.7 L Phosphorus (2.5 - 4.5 mg/dL) 3.7 Magnesium (1.6 - 2.3 mg/dL) 1.9 Total Bilirubin (0.2 - 1.3 mg/dL) 0.2 AST (14 - 36 U/L) 15 ALT (9 - 52 U/L) 26 Albumin (3.5 - 5.0 g/dL) 2.1 L Hematology CBC w Diff NO MAN DIFF REQ NO MAN DIFF REQ WBC (4.8 - 10.8 /CUMM) 7.9 6.1 RBC (4.20 - 5.40 /CUMM) 2.55 L 2.63 L Hgb (12.0 - 16.0 G/DL) 7.6 L 7.8 L Hct (37 - 47 %) 22.6 L 23.4 L MCV (81.0 - 99.0 FL) 88.9 89.1 MCH (27.0 - 31.0 PG) 29.8 29.6 MCHC (33.0 - 37.0 G/DL) 33.5 33.3 RDW (11.5 - 14.5 %) 16.9 H 17.4 H Plt Count (130 - 400 /CUMM) 194 177 MPV (7.4 - 10.4 FL) 9.3 9.8 Gran % (42.2 - 75.2 %) 67.2 54.7 Lymphocytes % (20.5 - 51.1 %) 16.8 L 27.6 Monocytes % (1.7 - 9.3 %) 10.3 H 9.8 H Eosinophils % (0 - 5 %) 5.3 H 6.7 H Basophils % (0.0 - 2.0 %) 0.4 1.2 Absolute Granulocytes (1.4 - 6.5 /CUMM) 5.3 3.3 Absolute Lymphocytes (1.2 - 3.4 /CUMM) 1.3 1.7 Absolute Monocytes (0.10 - 0.60 /CUMM) 0.8 H 0.6 Absolute Eosinophils (0.0 - 0.7 /CUMM) 0.4 0.4 Absolute Basophils (0.0 - 0.2 /CUMM) 0 0.1 /05/01 1900 1710 Coagulation PT (9.4 - 12.5 SEC) 12.4 INR (0.90 - 1.19) 1.14 APTT (25 - 37 SEC) 27 Hematology CBC w Diff NO MAN DIFF REQ WBC (4.8 - 10.8 /CUMM) 8.2 RBC (4.20 - 5.40 /CUMM) 3.24 L Hgb (12.0 - 16.0 G/DL) 9.5 L Hct (37 - 47 %) 28.6 L MCV (81.0 - 99.0 FL) 88.5 MCH (27.0 - 31.0 PG) 29.2 MCHC (33.0 - 37.0 G/DL) 33.0 RDW (11.5 - 14.5 %) 17.1 H Plt Count (130 - 400 /CUMM) 232 MPV (7.4 - 10.4 FL) 9.9 Gran % (42.2 - 75.2 %) 66.9 Lymphocytes % (20.5 - 51.1 %) 20.4 L Monocytes % (1.7 - 9.3 %) 9.3 Eosinophils % (0 - 5 %) 2.9 Basophils % (0.0 - 2.0 %) 0.5 Absolute Granulocytes (1.4 - 6.5 /CUMM) 5.5 Absolute Lymphocytes (1.2 - 3.4 /CUMM) 1.7 Absolute Monocytes (0.10 - 0.60 /CUMM) 0.8 H Absolute Eosinophils (0.0 - 0.7 /CUMM) 0.2 Absolute Basophils (0.0 - 0.2 /CUMM) 0 07/ 07/02 0600 2330 Chemistry Sodium (137 - 145 mmol/L) 137 Potassium (3.5 - 5.1 mmol/L) 3.9 Chloride (98 - 107 mmol/L) 108 H Carbon Dioxide (22 - 30 mmol/L) 26 Anion Gap (5 - 16) 4 L BUN (7 - 17 mg/dL) 4 L Creatinine (0.5 - 1.0 mg/dL) 0.7 Estimated GFR (>60 ml/min) > 60 BUN/Creatinine Ratio (7 - 25 %) 5.7 L Hematology CBC w Diff NO MAN DIFF REQ NO MAN DIFF REQ WBC (4.8 - 10.8 /CUMM) 7.1 7.0 RBC (4.20 - 5.40 /CUMM) 2.65 L 2.43 L Hgb (12.0 - 16.0 G/DL) 7.9 L 7.3 *L Hct (37 - 47 %) 23.4 L 21.8 L MCV (81.0 - 99.0 FL) 88.2 89.9 MCH (27.0 - 31.0 PG) 29.8 30.1 MCHC (33.0 - 37.0 G/DL) 33.8 33.4 RDW (11.5 - 14.5 %) 16.8 H 15.6 H Plt Count (130 - 400 /CUMM) 183 192 MPV (7.4 - 10.4 FL) 9.3 9.8 Gran % (42.2 - 75.2 %) 62.6 61.5 Lymphocytes % (20.5 - 51.1 %) 21.8 24.3 Monocytes % (1.7 - 9.3 %) 11.0 H 10.2 H Eosinophils % (0 - 5 %) 3.9 3.4 Basophils % (0.0 - 2.0 %) 0.7 0.6 Absolute Granulocytes (1.4 - 6.5 /CUMM) 4.4 4.3 Absolute Lymphocytes (1.2 - 3.4 /CUMM) 1.5 1.7 Absolute Monocytes (0.10 - 0.60 /CUMM) 0.8 H 0.7 H Absolute Eosinophils (0.0 - 0.7 /CUMM) 0.3 0.2 Absolute Basophils (0.0 - 0.2 /CUMM) 0.1 0 07/02 07/ 1550 1012 Coagulation PT (9.4 - 12.5 SEC) 11.9 INR (0.90 - 1.19) 1.09 Hematology CBC w Diff NO MAN DIFF REQ NO MAN DIFF REQ WBC (4.8 - 10.8 /CUMM) 7.8 5.8 RBC (4.20 - 5.40 /CUMM) 3.04 L 2.87 L Hgb (12.0 - 16.0 G/DL) 9.0 L 8.6 L Hct (37 - 47 %) 27.3 L 26.1 L MCV (81.0 - 99.0 FL) 90.0 90.9 MCH (27.0 - 31.0 PG) 29.6 30.1 MCHC (33.0 - 37.0 G/DL) 32.9 L 33.1 RDW (11.5 - 14.5 %) 15.8 H 15.5 H Plt Count (130 - 400 /CUMM) 235 134 MPV (7.4 - 10.4 FL) 9.2 10.0 Gran % (42.2 - 75.2 %) 62.2 56.6 Lymphocytes % (20.5 - 51.1 %) 21.7 26.2 Monocytes % (1.7 - 9.3 %) 10.7 H 11.7 H Eosinophils % (0 - 5 %) 4.7 5.1 H Basophils % (0.0 - 2.0 %) 0.7 0.4 Absolute Granulocytes (1.4 - 6.5 /CUMM) 4.9 3.3 Absolute Lymphocytes (1.2 - 3.4 /CUMM) 1.7 1.5 Absolute Monocytes (0.10 - 0.60 /CUMM) 0.8 H 0.7 H Absolute Eosinophils (0.0 - 0.7 /CUMM) 0.4 0.3 Absolute Basophils (0.0 - 0.2 /CUMM) 0.1 0 /04/29 0200 1809 Chemistry Sodium (137 - 145 mmol/L) 138 Potassium (3.5 - 5.1 mmol/L) 3.7 Chloride (98 - 107 mmol/L) 109 H Carbon Dioxide (22 - 30 mmol/L) 25 Anion Gap (5 - 16) 3 L BUN (7 - 17 mg/dL) 3 L Creatinine (0.5 - 1.0 mg/dL) 0.7 Estimated GFR (>60 ml/min) > 60 BUN/Creatinine Ratio (7 - 25 %) 4.3 L Hematology CBC w Diff NO MAN DIFF REQ NO MAN DIFF REQ WBC (4.8 - 10.8 /CUMM) 5.0 7.5 RBC (4.20 - 5.40 /CUMM) 2.16 L 2.57 L Hgb (12.0 - 16.0 G/DL) 6.5 *L 7.6 L Hct (37 - 47 %) 19.2 *L 23.0 L MCV (81.0 - 99.0 FL) 89.0 89.2 MCH (27.0 - 31.0 PG) 30.2 29.7 MCHC (33.0 - 37.0 G/DL) 34.0 33.3 RDW (11.5 - 14.5 %) 15.8 H 15.4 H Plt Count (130 - 400 /CUMM) 177 216 MPV (7.4 - 10.4 FL) 9.3 9.6 Gran % (42.2 - 75.2 %) 44.5 64.2 Lymphocytes % (20.5 - 51.1 %) 35.9 19.5 L Monocytes % (1.7 - 9.3 %) 13.7 H 11.6 H Eosinophils % (0 - 5 %) 5.2 H 4.0 Basophils % (0.0 - 2.0 %) 0.7 0.7 Absolute Granulocytes (1.4 - 6.5 /CUMM) 2.2 4.8 Absolute Lymphocytes (1.2 - 3.4 /CUMM) 1.8 1.5 Absolute Monocytes (0.10 - 0.60 /CUMM) 0.7 H 0.9 H Absolute Eosinophils (0.0 - 0.7 /CUMM) 0.3 0.3 Absolute Basophils (0.0 - 0.2 /CUMM) 0 0.1
[2018-05-02 16:00] VITALS: BP 112/58
[2018-05-02 18:43] LABS: ABSOLUTE BASOPHIL COUNT 0 /CUMM (0.0-0.2); ABSOLUTE EOSINOPHIL COUNT 0.2 /CUMM (0.0-0.7); ABSOLUTE GRANULOCYTE CT 5.2 /CUMM (1.4-6.5); ABSOLUTE LYMPH COUNT 1.3 /CUMM (1.2-3.4); ABSOLUTE MONOCYTE COUNT 0.5 /CUMM (0.10-0.60); BASOPHIL % 0.6 % (0.0-2.0); EOSINOPHIL % 2.7 % (0-5); GRANULOCYTE % 71.2 % (42.2-75.2); HEMATOCRIT 20.9 % (37-47); MEAN CORPUSCULAR HGB 29.4 PG (27.0-31.0); MEAN CORPUSCULAR HGB CONC 32.9 G/DL (33.0-37.0); MEAN CORPUSCULAR VOLUME 89.4 FL (81.0-99.0); MEAN PLATELET VOLUME 9.9 FL (7.4-10.4); PLATELET COUNT 226 /CUMM (130-400); RBC DISTRIBUTION WIDTH 17.1 % (11.5-14.5); RED BLOOD CELL CT 2.34 /CUMM (4.20-5.40); WHITE BLOOD CELL COUNT 7.3 /CUMM (4.8-10.8)
[2018-05-03] VITALS: BP 110/62
[2018-05-03 05:17] LABS: ABSOLUTE BASOPHIL COUNT 0 /CUMM (0.0-0.2); ABSOLUTE EOSINOPHIL COUNT 0.4 /CUMM (0.0-0.7); ABSOLUTE GRANULOCYTE CT 3.8 /CUMM (1.4-6.5); ABSOLUTE LYMPH COUNT 2.1 /CUMM (1.2-3.4); ABSOLUTE MONOCYTE COUNT 0.7 /CUMM (0.10-0.60); BASOPHIL % 0.4 % (0.0-2.0); EOSINOPHIL % 5.3 % (0-5); GRANULOCYTE % 55.1 % (42.2-75.2); HEMATOCRIT 23.4 % (37-47); MEAN CORPUSCULAR HGB 28.8 PG (27.0-31.0); MEAN CORPUSCULAR HGB CONC 32.2 G/DL (33.0-37.0); MEAN CORPUSCULAR VOLUME 89.3 FL (81.0-99.0); MEAN PLATELET VOLUME 9.4 FL (7.4-10.4); PLATELET COUNT 216 /CUMM (130-400); RED BLOOD CELL CT 2.61 /CUMM (4.20-5.40)
--- NOTE | 2018-05-03 07:09 | PN- Resident CRCU ---
Paul GASTON,[facility] 05/03/18 0708: Subjective HPI/CRCU Issues: Lower GI bleed. Patient seen and examined. Complains of persistent large volume bloody BM since last night. States it kept 'pouring out of her' this morning. Is anxious for her surgery. 24 Hour Events: Was transfused another unit of pRBC last night as she had a drop in her H&H again. Objective Vital Signs & I&O Last 8 Hrs of Vitals and I&O: Intake & Output 05/03 0800 Intake Total 75 Output Total 375 Balance -300 Intake, IV 75 Number 5 Bowel Movements Output, Urine 375 Exam General Appearance: well developed/nourished, alert, awake, anxious, mild distress Head: atraumatic, normal appearance Respiratory: normal breath sounds, chest non-tender, no respiratory distress Cardiovascular: regular rate/rhythm Gastrointestinal: soft, non-tender Extremities: edema till mid shins Cranial Nerves: normal hearing, normal speech Skin: intact, normal color, warm/dry Skin Temp/Moisture Exam: Warm/Dry Sepsis Skin Exam (color): Normal for Ethnicity Current Medications: Current Medications Sig/Lynette Start time Last Medication Dose Route Stop Time Status Admin Acetaminophen 650 MG Q6-PRN PRN 04/25 2145 AC 04/26 PO 1113 Benzocaine 1 CHRIS Q12P PRN 05/02 1015 AC TOP Budesonide 9 MG DAILY 05/01 1600 DC 05/02 PO 0928 Cyclosporine 1 GTT Q12 04/25 2100 AC 05/02 OPH 2051 Dextrose/Sodium 1,000 ML Q13H 05/03 06 AC 05/03 Chloride IV 0550 Latanoprost 1 GTT AT BEDTIME 04/25 2100 AC 05/02 OPH 2052 Leflunomide 20 MG QPM 04/25 2145 AC 05/01 PO 2100 Loratadine 10 MG DAILY 04/26 1157 AC 05/02 PO 0928 Melatonin 5 MG AT BEDTIME 04/30 0015 AC 05/02 PO 2050 Montelukast Sodium 10 MG AT BEDTIME 04/26 2100 AC 05/02 PO 2050 Ondansetron HCl 4 MG Q4-6 PRN PRN 05/03 0600 AC 05/03 IV 0530 Ondansetron HCl 4 MG ONCE ONE 05/03 530 CAN PO 05/03 0531 Pantoprazole Sodium 40 MG DAILY 04/25 1848 AC 05/02 IV 0929 Polyethylene Glycol 1 GAL SEE ADMIN CRITERIA 04/30 2355 AC PO Sucralfate 1 GM Q8 04/29 2200 AC 05/02 PO 2051 Impression/Plan Impression/Problem List Impression: 72 year old woman with past medical history of GI bleed secondary to NSAID use, chronic diarrhea, terminal ileitis, IBS, psoriatic arthritis, seasonal allergies , asthma, hypertension, GERD, glaucoma, and severe cervical stenosis presented to the ED for evaluation of bloody stools. Assesssmet: 1. BRBPR likely 2/2 diverticular disease w/ recurrency 2. Acute blood loss anemia 3. Hypokalemia likely 2/2 blood loss - resolved. 4. orthostatic hypotension 5. History of terminal ileitis 6. History of Hypertension, IBS, psoriatic arthritis, seasonal allergies/asthma, GERD, glaucoma, cervical stenosis, history of GI bleed secondary to NSAIDs, diverticulosis Plan: Respiratory: - Stable. No active issues. Infection: - Biopsy obtained during colonoscopy showed in CECUM AND PROXIMAL ASCENDING COLON - MILD TO MODERATELY ACTIVE COLITIS. - In TERMINAL ILEUM, MULTIPLE BIOPSIES: MILD CHRONIC ILEITIS, MODERATELY ACTIVE Cardio: antihypertensive medications including losartan/amlodipine. Hem: 8.7 -> 7.1 -> 8.9--8.4--->6.5--->7.3, S/P 3 units PRBC on 04/25, and again s/p 2 units PRBC on 04/28 and 1 unit 7/, 7, 7, 7. A total of 9U PRBC during this admission. - Current transfusion to keep Hb >7 before surgery. - Of note, she received 2U PRBC in last admission. - check q12h. - tagged RBC scan showed signs of bleeding in the right colon. An EGD and angiography was performed but no source of bleeding could be identified. - s/p two colonoscopies with no active bleeding site identified. - Plans for colectomy today. Metabolism: - Prealbumin is slightly low. She may have mild protein malnutrition. Alimentary: Neuro: Sedation: None Vent Setting: None [id number]: MRSA (surveillance) DVT prophylaxis: Only ALPS Diet: Clear liquid IV Access: Peripheral IV Full Code Problem List: 1. Lower GI bleed Pain Ratin Tomorrow's Labs & Rationales: CBC, BEP Plan DVT/Prophylaxis: Dk Garcia MD 05/03/18 0952: Attending MD Review Statement Attending Sign Off Attending Cosign Statement: I have: examined this patient, reviewed aval EMR data, personally reviewd images, discussd w/resident/PA/OBSTETRICS NURSE, discussed mgmt plan w/evelyn, discussed mgmt plan w/CM, discussed mgmt plan w/pt, agreed w/resident/PA/OBSTETRICS NURSE, amended to note. Other Findings: Impression 72 year old woman Continued GI bleed - lower source, unclear location, acute blood loss anemia, hemodynamically stable Plan -s/p colonoscopy without evidence of bleeding -continued bleeding, plan for surgery today with intraoperative endoscopy -monitor hgb, transfuse to goal >7 ALPS for DVT prophylaxis TTS 35 min
[2018-05-03 08:00] VITALS: BP 123/64
[2018-05-03 10:49] LABS: ABSOLUTE BASOPHIL COUNT 0 /CUMM (0.0-0.2); ABSOLUTE EOSINOPHIL COUNT 0.2 /CUMM (0.0-0.7); ABSOLUTE GRANULOCYTE CT 4.4 /CUMM (1.4-6.5); ABSOLUTE LYMPH COUNT 1.2 /CUMM (1.2-3.4); ABSOLUTE MONOCYTE COUNT 0.6 /CUMM (0.10-0.60); BASOPHIL % 0.6 % (0.0-2.0); EOSINOPHIL % 3.1 % (0-5); MEAN CORPUSCULAR HGB 29.9 PG (27.0-31.0); MEAN CORPUSCULAR HGB CONC 33.9 G/DL (33.0-37.0); MEAN CORPUSCULAR VOLUME 88.3 FL (81.0-99.0); MEAN PLATELET VOLUME 10.3 FL (7.4-10.4); PLATELET COUNT 194 /CUMM (130-400); RED BLOOD CELL CT 2.33 /CUMM (4.20-5.40); WHITE BLOOD CELL COUNT 6.4 /CUMM (4.8-10.8)
[2018-05-03 10:54] LABS: HEMATOCRIT 20.6 % (37-47)
--- NOTE | 2018-05-03 13:22 | PN- General Surgery ---
See Addendum Subjective Subjective: Follow-up GI bleed Patient sitting up in bed comfortable legs crossed no shortness of breath chest pain nausea abdominal pain same as yesterday morning, it's been her usual Still passing bloody bowel movements requiring on average 1 unit of blood per day Objective Vital Signs and I&Os I reviewed Vital Signs Date Time Temp Pulse Resp B/P B/P Pulse O2 O2 Flow FiO2 Mean Ox Delivery Rate 05/03 1200 Room Air 05/03 08 100 Room Air 05/03 0800 98.3 93 18 123/64 100 Room Air 05/03 0000 97.2 74 19 110/62 95 Room Air Room Air 05/02 1954 97 Room Air Room Air 05/02 1600 98.7 86 20 112/58 99 Room Air I reviewed Intake & Output 05/03 0805/03 0000 05/02 1600 05/02 0800 05/02 0000 Intake Total 75 770 920 180 420 Output Total 375 100 Balance -300 770 920 180 320 Intake, Blood 350 Product Intake, IV 75 20 300 Intake, Oral 420 900 180 120 Number 5 4 8 2 3 Bowel Movements Output, 100 Emesis Output, Urine 375 Physical Exam: Constitutional: no acute distress no pain Eyes: sclera anicteric ENMT: moist mucous membranes Cardiovascular: S1-S2 no murmurs no peripheral edema Respiratory: clear to auscultation with normal respiratory effort and no intercostal retractions GI: abdomen soft nontender nondistended Extremities / lymphatics: free range of motion no peripheral edema Skin: no jaundice no rashes warm, nondiaphoretic Psychiatric: mood and affect are appropriate and alert and oriented to person place and time Current Medications: I reviewed Current Medications Sig/Lynette Start time Last Medication Dose Route Stop Time Status Admin Acetaminophen 650 MG Q6-PRN PRN 04/25 2145 AC 04/26 PO 1113 Benzocaine 1 CHRIS Q12P PRN 05/02 1015 AC TOP Cyclosporine 1 GTT Q12 04/25 2100 AC 05/03 OPH 0826 Dextrose/Sodium 1,000 ML Q13H 05/03 06 AC 05/03 Chloride IV 0550 Fluticasone 2 SPRAY DAILY 05/03 1114 AC Propionate LIBBY Latanoprost 1 GTT AT BEDTIME 04/25 2100 AC 05/02 OPH 205 Leflunomide 20 MG QPM 04/25 2145 AC 05/01 PO 2100 Loratadine 10 MG DAILY 04/26 1157 AC 05/02 PO 927 Melatonin 5 MG AT BEDTIME 04/30 0015 AC 05/02 PO 2050 Montelukast Sodium 10 MG AT BEDTIME 04/26 2100 AC 05/02 PO 2050 Ondansetron HCl 4 MG Q4-6 PRN PRN 05/03 06 AC 05/03 IV 0530 Ondansetron HCl 4 MG ONCE ONE 05/03 530 CAN PO 05/03 531 Pantoprazole Sodium 40 MG DAILY 04/25 1848 AC 05/03 IV 0826 Polyethylene Glycol 1 GAL SEE ADMIN CRITERIA 04/30 2355 AC PO Sucralfate 1 GM Q8 04/29 2200 AC 05/02 PO 2051 Results Last 48 Hours of Labs: I reviewed Laboratory Tests 05/03 05/03 1000 0448 Chemistry Sodium (137 - 145 mmol/L) 139 Potassium (3.5 - 5.1 mmol/L) 3.7 Chloride (98 - 107 mmol/L) 109 H Carbon Dioxide (22 - 30 mmol/L) 25 Anion Gap (5 - 16) 5 BUN (7 - 17 mg/dL) 3 L Creatinine (0.5 - 1.0 mg/dL) 0.8 Estimated GFR (>60 ml/min) > 60 BUN/Creatinine Ratio (7 - 25 %) 3.8 L Hematology CBC w Diff NO MAN DIFF REQ NO MAN DIFF REQ WBC (4.8 - 10.8 /CUMM) 6.4 7.0 RBC (4.20 - 5.40 /CUMM) 2.33 L 2.61 L Hgb (12.0 - 16.0 G/DL) 7.0 *L 7.5 L Hct (37 - 47 %) 20.6 L 23.4 L MCV (81.0 - 99.0 FL) 88.3 89.3 MCH (27.0 - 31.0 PG) 29.9 28.8 MCHC (33.0 - 37.0 G/DL) 33.9 32.2 L RDW (11.5 - 14.5 %) 17.0 H 17.0 H Plt Count (130 - 400 /CUMM) 194 216 MPV (7.4 - 10.4 FL) 10.3 9.4 Gran % (42.2 - 75.2 %) 68.0 55.1 Lymphocytes % (20.5 - 51.1 %) 19.5 L 29.4 Monocytes % (1.7 - 9.3 %) 8.8 9.8 H Eosinophils % (0 - 5 %) 3.1 5.3 H Basophils % (0.0 - 2.0 %) 0.6 0.4 Absolute Granulocytes (1.4 - 6.5 /CUMM) 4.4 3.8 Absolute Lymphocytes (1.2 - 3.4 /CUMM) 1.2 2.1 Absolute Monocytes (0.10 - 0.60 /CUMM) 0.6 0.7 H Absolute Eosinophils (0.0 - 0.7 /CUMM) 0.2 0.4 Absolute Basophils (0.0 - 0.2 /CUMM) 0 0 05/02 05/02 1755 1010 Hematology CBC w Diff NO MAN DIFF REQ NO MAN DIFF REQ WBC (4.8 - 10.8 /CUMM) 7.3 7.9 RBC (4.20 - 5.40 /CUMM) 2.34 L 2.55 L Hgb (12.0 - 16.0 G/DL) 6.9 *L 7.6 L Hct (37 - 47 %) 20.9 L 22.6 L MCV (81.0 - 99.0 FL) 89.4 88.9 MCH (27.0 - 31.0 PG) 29.4 29.8 MCHC (33.0 - 37.0 G/DL) 32.9 L 33.5 RDW (11.5 - 14.5 %) 17.1 H 16.9 H Plt Count (130 - 400 /CUMM) 226 194 MPV (7.4 - 10.4 FL) 9.9 9.3 Gran % (42.2 - 75.2 %) 71.2 67.2 Lymphocytes % (20.5 - 51.1 %) 18.1 L 16.8 L Monocytes % (1.7 - 9.3 %) 7.4 10.3 H Eosinophils % (0 - 5 %) 2.7 5.3 H Basophils % (0.0 - 2.0 %) 0.6 0.4 Absolute Granulocytes (1.4 - 6.5 /CUMM) 5.2 5.3 Absolute Lymphocytes (1.2 - 3.4 /CUMM) 1.3 1.3 Absolute Monocytes (0.10 - 0.60 /CUMM) 0.5 0.8 H Absolute Eosinophils (0.0 - 0.7 /CUMM) 0.2 0.4 Absolute Basophils (0.0 - 0.2 /CUMM) 0 0 05/02 05/01 0457 1900 Chemistry Sodium (137 - 145 mmol/L) 140 Potassium (3.5 - 5.1 mmol/L) 3.3 L Chloride (98 - 107 mmol/L) 108 H Carbon Dioxide (22 - 30 mmol/L) 26 Anion Gap (5 - 16) 5 BUN (7 - 17 mg/dL) 3 L Creatinine (0.5 - 1.0 mg/dL) 0.7 Estimated GFR (>60 ml/min) > 60 Glucose (65 - 99 mg/dL) 81 Calcium (8.4 - 10.2 mg/dL) 7.7 L Phosphorus (2.5 - 4.5 mg/dL) 3.7 Magnesium (1.6 - 2.3 mg/dL) 1.9 Total Bilirubin (0.2 - 1.3 mg/dL) 0.2 AST (14 - 36 U/L) 15 ALT (9 - 52 U/L) 26 Albumin (3.5 - 5.0 g/dL) 2.1 L Coagulation PT (9.4 - 12.5 SEC) 12.4 INR (0.90 - 1.19) 1.14 APTT (25 - 37 SEC) 27 Hematology CBC w Diff NO MAN DIFF REQ WBC (4.8 - 10.8 /CUMM) 6.1 RBC (4.20 - 5.40 /CUMM) 2.63 L Hgb (12.0 - 16.0 G/DL) 7.8 L Hct (37 - 47 %) 23.4 L MCV (81.0 - 99.0 FL) 89.1 MCH (27.0 - 31.0 PG) 29.6 MCHC (33.0 - 37.0 G/DL) 33.3 RDW (11.5 - 14.5 %) 17.4 H Plt Count (130 - 400 /CUMM) 177 MPV (7.4 - 10.4 FL) 9.8 Gran % (42.2 - 75.2 %) 54.7 Lymphocytes % (20.5 - 51.1 %) 27.6 Monocytes % (1.7 - 9.3 %) 9.8 H Eosinophils % (0 - 5 %) 6.7 H Basophils % (0.0 - 2.0 %) 1.2 Absolute Granulocytes (1.4 - 6.5 /CUMM) 3.3 Absolute Lymphocytes (1.2 - 3.4 /CUMM) 1.7 Absolute Monocytes (0.10 - 0.60 /CUMM) 0.6 Absolute Eosinophils (0.0 - 0.7 /CUMM) 0.4 Absolute Basophils (0.0 - 0.2 /CUMM) 0.1 05/01 1710 Hematology CBC w Diff NO MAN DIFF REQ WBC (4.8 - 10.8 /CUMM) 8.2 RBC (4.20 - 5.40 /CUMM) 3.24 L Hgb (12.0 - 16.0 G/DL) 9.5 L Hct (37 - 47 %) 28.6 L MCV (81.0 - 99.0 FL) 88.5 MCH (27.0 - 31.0 PG) 29.2 MCHC (33.0 - 37.0 G/DL) 33.0 RDW (11.5 - 14.5 %) 17.1 H Plt Count (130 - 400 /CUMM) 232 MPV (7.4 - 10.4 FL) 9.9 Gran % (42.2 - 75.2 %) 66.9 Lymphocytes % (20.5 - 51.1 %) 20.4 L Monocytes % (1.7 - 9.3 %) 9.3 Eosinophils % (0 - 5 %) 2.9 Basophils % (0.0 - 2.0 %) 0.5 Absolute Granulocytes (1.4 - 6.5 /CUMM) 5.5 Absolute Lymphocytes (1.2 - 3.4 /CUMM) 1.7 Absolute Monocytes (0.10 - 0.60 /CUMM) 0.8 H Absolute Eosinophils (0.0 - 0.7 /CUMM) 0.2 Absolute Basophils (0.0 - 0.2 /CUMM) 0 Assessment/Plan Assessment/Plan Studies I reviewed the imaging with interventional radiology again today the angiogram the nuclear scan unfortunately there is nothing definite so our best gas mainly given the inflammation of the terminal ileum and the appearance of the angiogram and the nuclear scan most likely this bleeding is in the cecum maybe a little higher pooling down or a little more proximal getting through. Impression is she is stable we keeps saying this but eventually she will continue to weaken and repeating most of this workup or trying a PillCam which has to be outpatient will still span many more units so we'll have to go to the operating room on our best judgement that it's on the right, ie ileo-cecectomy. Not laparoscopically because of the situation I will need to palpate bowel especially the small bowel because the TI is inflamed need to consider the ends used to anastomose. Re: bowel resection c primary, she's had a prep, and just clears, we will give parenteral antibiotics, emphasized the importance of optimizing conditions for a secure perfused primary anastomosis without tension or twisting, I williams a diagram illustrating this, there will be dissection for adhesions, there is also a risk for incisional hernias in the future. I explained that there is a risk of anastomotic leak and colostomy, also infection, injury to surrounding structures such as bowel and blood vessels and ureters. We also discussed the potential risks, benefits and alternatives to the procedure and surgery in general, issues that included but were not limited to, anesthetic risk, hemorrhage requiring transfusion, the risk of transfusion itself, infection, heart attack, stroke, . Problem List: 1. Acute blood loss anemia 2. GI hemorrhage
[2018-05-03 21:50] LABS: ABSOLUTE BASOPHIL COUNT 0 /CUMM (0.0-0.2); ABSOLUTE EOSINOPHIL COUNT 0 /CUMM (0.0-0.7); ABSOLUTE GRANULOCYTE CT 14.1 /CUMM (1.4-6.5); ABSOLUTE LYMPH COUNT 0.5 /CUMM (1.2-3.4); ABSOLUTE MONOCYTE COUNT 0.7 /CUMM (0.10-0.60); BASOPHIL % 0.1 % (0.0-2.0); EOSINOPHIL % 0 % (0-5); GRANULOCYTE % 91.9 % (42.2-75.2); MEAN CORPUSCULAR HGB 29.1 PG (27.0-31.0); MEAN CORPUSCULAR HGB CONC 33.3 G/DL (33.0-37.0); MEAN CORPUSCULAR VOLUME 87.5 FL (81.0-99.0); MEAN PLATELET VOLUME 9.3 FL (7.4-10.4); PLATELET COUNT 197 /CUMM (130-400); RBC DISTRIBUTION WIDTH 15.8 % (11.5-14.5)
[2018-05-03 21:52] LABS: HEMATOCRIT 26.7 % (37-47); RED BLOOD CELL CT 3.05 /CUMM (4.20-5.40); WHITE BLOOD CELL COUNT 15.3 /CUMM (4.8-10.8)
[2018-05-04] VITALS: BP 120/60
[2018-05-04 06:37] LABS: ABSOLUTE BASOPHIL COUNT 0 /CUMM (0.0-0.2); ABSOLUTE EOSINOPHIL COUNT 0 /CUMM (0.0-0.7); ABSOLUTE GRANULOCYTE CT 11.2 /CUMM (1.4-6.5); ABSOLUTE LYMPH COUNT 0.8 /CUMM (1.2-3.4); ABSOLUTE MONOCYTE COUNT 1.3 /CUMM (0.10-0.60); BASOPHIL % 0.1 % (0.0-2.0); EOSINOPHIL % 0 % (0-5); GRANULOCYTE % 83.8 % (42.2-75.2); HEMATOCRIT 26.8 % (37-47); MEAN CORPUSCULAR HGB 29.2 PG (27.0-31.0); MEAN CORPUSCULAR HGB CONC 32.8 G/DL (33.0-37.0); MEAN CORPUSCULAR VOLUME 88.9 FL (81.0-99.0); MEAN PLATELET VOLUME 9.4 FL (7.4-10.4); PLATELET COUNT 205 /CUMM (130-400); RBC DISTRIBUTION WIDTH 15.7 % (11.5-14.5); RED BLOOD CELL CT 3.01 /CUMM (4.20-5.40); WHITE BLOOD CELL COUNT 13.4 /CUMM (4.8-10.8)
--- NOTE | 2018-05-04 07:08 | PN- Resident CRCU ---
Subjective HPI/CRCU Issues: Lower GI bleeding Patient seen and examined. Reports feeling better. Has not had any bleeding BM overnight or since her surgery. Complains of some abdominal pain. Feels her hands and feet are swelling up which she attributes it to her RA as she is not taking her medications currently. 24 Hour Events: No acute events overnight. Patient went to the OR yesterday evening where she had an Objective Vital Signs & I&O Last 8 Hrs of Vitals and I&O: Intake & Output 05/04 0800 Intake Total 825 Output Total 200 Balance 625 Intake, IV 725 Intake, Oral 100 Output, Urine 200 Exam General Appearance: well developed/nourished, alert, awake, mild distress Head: atraumatic, normal appearance Respiratory: normal breath sounds, chest non-tender, lungs clear Cardiovascular: regular rate/rhythm Gastrointestinal: soft, tenderness Extremities: mild edema of LE up to mid shins Cranial Nerves: normal hearing, normal speech Skin: intact, normal color Skin Temp/Moisture Exam: Warm/Dry Sepsis Skin Exam (color): Normal for Ethnicity Current Medications: Current Medications Sig/Lynette Start time Last Medication Dose Route Stop Time Status Admin Acetaminophen 1,000 MG Q6P PRN 05/03 1645 AC N/A 1 UNIT IV Acetaminophen 650 MG Q6-PRN PRN 04/25 2145 DC 04/26 PO 1113 Ampicillin Sodium/ 3,000 MG Q6 05/03 1800 DC 05/04 Sulbactam Sodium IV 05/04 0629 0552 Sodium Chloride 100 ML Benzocaine 1 CHRIS Q12P PRN 05/02 1015 AC TOP Cyclosporine 1 GTT Q12 04/25 2100 AC 05/03 OPH 2137 Dexamethasone 4 MG .STK-MED ONE 05/03 1226 DC IM 05/03 1227 Dextrose/Sodium 1,000 ML Q13H 05/03 0600 AC 05/04 Chloride IV 0515 Fentanyl Citrate 250 MCG .STK-MED ONE 05/03 1225 DC IM 05/03 1226 Fluticasone 2 SPRAY DAILY 05/03 1114 AC Propionate LIBBY Haloperidol 5 MG .STK-MED ONE 05/03 1658 DC IM 05/03 1659 Hydromorphone HCl 2 MG .STK-MED ONE 05/03 1642 DC IM 05/03 1643 Hydromorphone HCl 2 MG .STK-MED ONE 05/03 1225 DC IM 05/03 1226 Latanoprost 1 GTT AT BEDTIME 04/25 2100 AC 05/03 OPH 2114 Leflunomide 20 MG QPM 04/25 2145 AC 05/01 PO 2100 Loratadine 10 MG DAILY 04/26 1157 AC 05/02 PO 0928 Melatonin 5 MG AT BEDTIME 04/30 0015 AC 05/02 PO 205 Midazolam HCl 2 MG .STK-MED ONE 05/03 1226 DC IM 05/03 1227 Montelukast Sodium 10 MG AT BEDTIME 04/26 2100 AC 05/02 PO 205 Morphine Sulfate 4 MG Q3P PRN 05/04 0745 AC IV Morphine Sulfate 2 MG Q2P PRN 05/03 1645 DC 05/04 IV 0514 Ondansetron HCl 4 MG .STK-MED ONE 05/03 1520 DC IV 05/03 1521 Ondansetron HCl 4 MG Q4-6 PRN PRN 05/03 0600 AC 05/03 IV 0530 Pantoprazole Sodium 40 MG DAILY 04/25 1848 AC 05/03 IV 0826 Polyethylene Glycol 1 GAL SEE ADMIN CRITERIA 04/30 2355 AC PO Remifentanil 3 MG .STK-MED ONE 05/03 1225 DC IV 05/03 1226 Sucralfate 1 GM Q8 04/29 2200 AC 05/04 PO 0551 Impression/Plan Impression/Problem List Impression: 72 year old woman with past medical history of GI bleed secondary to NSAID use, chronic diarrhea, terminal ileitis, IBS, psoriatic arthritis, seasonal allergies , asthma, hypertension, GERD, glaucoma, and severe cervical stenosis presented to the ED for evaluation of bloody stools. Assesssmet: 1. BRBPR likely 2/2 diverticular disease w/ recurrency 2. Acute blood loss anemia 3. Hypokalemia likely 2/2 blood loss - resolved. 4. orthostatic hypotension 5. History of terminal ileitis 6. History of Hypertension, IBS, psoriatic arthritis, seasonal allergies/asthma, GERD, glaucoma, cervical stenosis, history of GI bleed secondary to NSAIDs, diverticulosis Plan: Respiratory: - Stable. No active issues. Infection: - Biopsy obtained during colonoscopy showed in CECUM AND PROXIMAL ASCENDING COLON - MILD TO MODERATELY ACTIVE COLITIS. - In TERMINAL ILEUM, MULTIPLE BIOPSIES: MILD CHRONIC ILEITIS, MODERATELY ACTIVE Cardio: blood pressure is on the high side. Hem: 8.7 -> 7.1 -> 8.9--8.4--->6.5--->7.3, S/P 3 units PRBC on 04/25, and again s/p 2 units PRBC on 04/28 and 1 unit 04/29, 04/30, 05/02, 05/03. A total of 9U PRBC during this admission. - Of note, she received 2U PRBC in last admission. - check CBC daily. - tagged RBC scan showed signs of bleeding in the right colon. An EGD and angiography was performed but no source of bleeding could be identified. - s/p two colonoscopies with no active bleeding site identified. - s/p surgery (Resection of terminal ileum and right colon) yesterday. Patient had a bowel movement today with some blood in it. Some blood in BM is expected due to residual blood in colon. - can be downgraded to general medicine today. Metabolism: - Prealbumin is slightly low. She may have mild protein malnutrition. Alimentary: Neuro: Sedation: None Vent Setting: None [id number]: MRSA (surveillance) DVT prophylaxis: Only ALPS Diet: Clear liquid IV Access: Peripheral IV Full Code Problem List: 1. Lower GI bleed Pain Ratin Tomorrow's Labs & Rationales: CBC Plan DVT/Prophylaxis: mechanical
--- NOTE | 2018-05-04 07:31 | PN- Student ---
Subjective Subjective: 5/10 abdominal pain. Morphine reduces pain to 2/10. No nausea, no vomiting. anorexic. No flatus, no bowel movements. Has not been OOB. Using incentive spirometer. No chest pain, no shortness of breath, no calf pain. Objective Objective: Vitals: Pulse Ox: 96 room air I/O I: 100 oral, 725 IV O: 200 allen Imaging: None Physical Exam: General: No acute distress, alert and oriented Pulm: Clear to auscultation bilaterally Cardio: s1,s2, RRR Abdomen: Soft, +bowel sounds, tender around incision. Dressing is intact with minimal serosanguinous discharge. Extremities: Calves non tender and soft bilaterally Results Results: Laboratory Tests 05/04/18 0615: CBC w Diff MAN DIFF ORDERED, RBC 3.01 L, MCV 88.9, MCH 29.2, MCHC 32.8 L, RDW 15.7 H, MPV 9.4, Gran % 83.8 H, Lymphocytes % 6.3 L, Monocytes % 9.8 H, Eosinophils % 0, Basophils % 0.1, Absolute Granulocytes 11.2 H, Segmented Neutrophils 81 H, Absolute Lymphocytes 0.8 L, Lymphocytes 12 L, Monocytes 7, Absolute Monocytes 1.3 H, Absolute Eosinophils 0, Absolute Basophils 0, Platelet Estimate ADEQUATE, Polychromasia 1+, Hypochromic-Microcytic 1+, Ovalocytes FEW, Fld Total RBCs Counted 100 05/04/18 0530: Anion Gap 7, Estimated GFR > 60, BUN/Creatinine Ratio 8.6 05/03/18 2131: CBC w Diff MAN DIFF ORDERED, RBC 3.05 L, MCV 87.5, MCH 29.1, MCHC 33.3, RDW 15.8 H, MPV 9.3, Gran % 91.9 H, Lymphocytes % 3.5 L, Monocytes % 4.5, Eosinophils % 0, Basophils % 0.1, Absolute Granulocytes 14.1 H, Segmented Neutrophils 41 L, Band Neutrophils 49 H, Absolute Lymphocytes 0.5 L, Lymphocytes 4 L, Monocytes 5, Absolute Monocytes 0.7 H, Absolute Eosinophils 0 , Absolute Basophils 0, Myelocytes 1 H, Platelet Estimate ADEQUATE, Polychromasia 1+, Anisocytosis 1+, Microcytic Cells 1+ 05/03/18 1000: CBC w Diff NO MAN DIFF REQ, RBC 2.33 L, MCV 88.3, MCH 29.9, MCHC 33.9, RDW 17.0 H, MPV 10.3, Gran % 68.0, Lymphocytes % 19.5 L, Monocytes % 8.8, Eosinophils % 3.1, Basophils % 0.6, Absolute Granulocytes 4.4, Absolute Lymphocytes 1.2, Absolute Monocytes 0.6, Absolute Eosinophils 0.2, Absolute Basophils 0 05/03/18 0448: Anion Gap 5, Estimated GFR > 60, BUN/Creatinine Ratio 3.8 L, CBC w Diff NO MAN DIFF REQ, RBC 2.61 L, MCV 89.3, MCH 28.8, MCHC 32.2 L, RDW 17.0 H, MPV 9.4, Gran % 55.1, Lymphocytes % 29.4, Monocytes % 9.8 H, Eosinophils % 5.3 H, Basophils % 0.4, Absolute Granulocytes 3.8, Absolute Lymphocytes 2.1, Absolute Monocytes 0.7 H, Absolute Eosinophils 0.4, Absolute Basophils 0 05/02/18 1755: CBC w Diff NO MAN DIFF REQ, RBC 2.34 L, MCV 89.4, MCH 29.4, MCHC 32.9 L, RDW 17.1 H, MPV 9.9, Gran % 71.2, Lymphocytes % 18.1 L, Monocytes % 7.4, Eosinophils % 2.7, Basophils % 0.6, Absolute Granulocytes 5.2, Absolute Lymphocytes 1.3, Absolute Monocytes 0.5, Absolute Eosinophils 0.2, Absolute Basophils 0 05/02/18 1010: CBC w Diff NO MAN DIFF REQ, RBC 2.55 L, MCV 88.9, MCH 29.8, MCHC 33.5, RDW 16.9 H, MPV 9.3, Gran % 67.2, Lymphocytes % 16.8 L, Monocytes % 10.3 H, Eosinophils % 5.3 H, Basophils % 0.4, Absolute Granulocytes 5.3, Absolute Lymphocytes 1.3, Absolute Monocytes 0.8 H, Absolute Eosinophils 0.4, Absolute Basophils 0 05/02/18 0457: Anion Gap 5, Estimated GFR > 60, Glucose 81, Calcium 7.7 L, Phosphorus 3.7, Magnesium 1.9, Total Bilirubin 0.2, AST 15, ALT 26, Albumin 2.1 L, CBC w Diff NO MAN DIFF REQ, RBC 2.63 L, MCV 89.1, MCH 29.6, MCHC 33.3, RDW 17.4 H, MPV 9.8, Gran % 54.7, Lymphocytes % 27.6, Monocytes % 9.8 H, Eosinophils % 6.7 H, Basophils % 1.2, Absolute Granulocytes 3.3, Absolute Lymphocytes 1.7, Absolute Monocytes 0.6, Absolute Eosinophils 0.4, Absolute Basophils 0.1 05/01/18 1900: PT 12.4, INR 1.14, APTT 27 05/01/18 1710: CBC w Diff NO MAN DIFF REQ, RBC 3.24 L, MCV 88.5, MCH 29.2, MCHC 33.0, RDW 17.1 H, MPV 9.9, Gran % 66.9, Lymphocytes % 20.4 L, Monocytes % 9.3, Eosinophils % 2.9, Basophils % 0.5, Absolute Granulocytes 5.5, Absolute Lymphocytes 1.7, Absolute Monocytes 0.8 H, Absolute Eosinophils 0.2, Absolute Basophils 0 Microbiology 05/03 1305 URINE ROUT: Urine Culture - RECD Assessment/Plan Assessment: 72 year old female POD1 s/p illeocecectomy doing well with appropriate post op pain awaiting return of bowel function. Plan: Continue pain control plan Sips of clear liquids ALPS for DVT prophylaxis Continue home meds encourage OOB Discuss with preceptor
[2018-05-04 08:00] VITALS: BP 152/62
--- NOTE | 2018-05-04 08:40 | PN- General Surgery ---
See Addendum Subjective Subjective: Pt in bed, moderate abd post-op pain, taking IV morphine and now scheduled IV tylenol. Has not been OOB yet. Deneis flatus. Allen in place. Deneis CP/SOB/fevers. Has mild lightheaded feeling aftet iv morphine Objective Vital Signs and I&Os Vital Signs Date Time Temp Pulse Resp B/P B/P Pulse O2 O2 Flow FiO2 Mean Ox Delivery Rate 05/04 0400 96 Room Air 05/04 0000 95 Room Air 05/04 0000 18.0 76 18 120/60 95 Room Air 05/03 2000 97 Nasal 2.0L Cannula 05/03 1200 Room Air Intake & Output 05/04 1600 05/04 0800 05/04 0000 05/03 1600 05/03 0805/03 0000 Intake Total 825 2483 670 75 770 Output Total 200 175 375 Balance 625 2308 670 -300 770 Intake, Blood 350 370 350 Product Intake, IV 725 2133 300 75 Intake, Oral 100 420 Number 0 1 5 4 Bowel Movements Output, Urine 200 175 375 Physical Exam: gen- NAD resp-clear cardiac- RRR abd- ND, +BS, soft, tender in epigastric area. minimal sang drainage on dressing. ext- no calf tenderness or significant edema Current Medications: Current Medications Sig/Lynette Start time Last Medication Dose Route Stop Time Status Admin Acetaminophen 1,000 MG Q6H 05/04 1045 AC N/A 1 UNIT IV Acetaminophen 1,000 MG Q6P PRN 05/03 1645 DC N/A 1 UNIT IV Acetaminophen 650 MG Q6-PRN PRN 04/25 2145 DC 04/26 PO 1113 Ampicillin Sodium/ 3,000 MG Q6 / 1800 DC 05/04 Sulbactam Sodium IV 05/04 0629 0552 Sodium Chloride 100 ML Benzocaine 1 CHRIS Q12P PRN 05/02 1015 AC TOP Cyclosporine 1 GTT Q12 04/25 2100 AC 05/03 OPH 2137 Dexamethasone 4 MG .STK-MED ONE 05/03 1226 DC IM 05/03 1227 Dextrose/Sodium 1,000 ML Q13H / 0600 AC 05/04 Chloride IV 0515 Fentanyl Citrate 250 MCG .STK-MED ONE 05/03 1225 DC IM 05/03 1226 Fluticasone 2 SPRAY DAILY 05/03 1114 AC Propionate LIBBY Haloperidol 5 MG .STK-MED ONE 05/03 1658 DC IM 05/03 1659 Hydromorphone HCl 2 MG .STK-MED ONE 05/03 1642 DC IM 05/03 1643 Hydromorphone HCl 2 MG .STK-MED ONE 05/03 1225 DC IM 05/03 1226 Latanoprost 1 GTT AT BEDTIME 04/25 2100 AC 05/03 OPH 2114 Leflunomide 20 MG QPM 04/25 2145 AC 05/01 PO 2100 Loratadine 10 MG DAILY 04/26 1157 AC 05/02 PO 0928 Melatonin 5 MG AT BEDTIME 04/30 0015 AC 05/02 PO 205 Midazolam HCl 2 MG .STK-MED ONE 05/03 1226 DC IM 05/03 1227 Montelukast Sodium 10 MG AT BEDTIME 04/26 2100 AC 05/02 PO 205 Morphine Sulfate 4 MG Q3P PRN 05/04 0745 05/04 IV 0815 Morphine Sulfate 2 MG Q2P PRN 05/03 1645 DC 05/04 IV 0514 Ondansetron HCl 4 MG .STK-MED ONE 05/03 1520 DC IV 05/03 1521 Ondansetron HCl 4 MG Q4-6 PRN PRN 05/03 0600 05/03 IV 0530 Pantoprazole Sodium 40 MG DAILY 04/25 1848 AC 05/03 IV 0826 Polyethylene Glycol 1 GAL SEE ADMIN CRITERIA 04/30 2355 AC PO Remifentanil 3 MG .STK-MED ONE 05/03 1225 DC IV 05/03 1226 Sucralfate 1 GM Q8 04/29 2200 05/04 PO 0551 Results Last 48 Hours of Labs: Laboratory Tests 05/04 05/04 0615 0530 Chemistry Sodium (137 - 145 mmol/L) 136 L Potassium (3.5 - 5.1 mmol/L) 3.9 Chloride (98 - 107 mmol/L) 107 Carbon Dioxide (22 - 30 mmol/L) 23 Anion Gap (5 - 16) 7 BUN (7 - 17 mg/dL) 6 L Creatinine (0.5 - 1.0 mg/dL) 0.7 Estimated GFR (>60 ml/min) > 60 BUN/Creatinine Ratio (7 - 25 %) 8.6 Phosphorus (2.5 - 4.5 mg/dL) Pending Magnesium (1.6 - 2.3 mg/dL) Pending Hematology CBC w Diff MAN DIFF ORDERED WBC (4.8 - 10.8 /CUMM) 13.4 H RBC (4.20 - 5.40 /CUMM) 3.01 L Hgb (12.0 - 16.0 G/DL) 8.8 L Hct (37 - 47 %) 26.8 L MCV (81.0 - 99.0 FL) 88.9 MCH (27.0 - 31.0 PG) 29.2 MCHC (33.0 - 37.0 G/DL) 32.8 L RDW (11.5 - 14.5 %) 15.7 H Plt Count (130 - 400 /CUMM) 205 MPV (7.4 - 10.4 FL) 9.4 Gran % (42.2 - 75.2 %) 83.8 H Lymphocytes % (20.5 - 51.1 %) 6.3 L Monocytes % (1.7 - 9.3 %) 9.8 H Eosinophils % (0 - 5 %) 0 Basophils % (0.0 - 2.0 %) 0.1 Absolute Granulocytes (1.4 - 6.5 /CUMM) 11.2 H Segmented Neutrophils (42.2 - 75.2 %) 81 H Absolute Lymphocytes (1.2 - 3.4 /CUMM) 0.8 L Lymphocytes (20.5 - 51.1 %) 12 L Monocytes (1.7 - 9.3 %) 7 Absolute Monocytes (0.10 - 0.60 /CUMM) 1.3 H Absolute Eosinophils (0.0 - 0.7 /CUMM) 0 Absolute Basophils (0.0 - 0.2 /CUMM) 0 Platelet Estimate (ADEQUATE) ADEQUATE Polychromasia 1+ Hypochromic-Microcytic 1+ Ovalocytes FEW Other Body Source Fld Total RBCs Counted (%) 100 0705/03 2131 1000 Hematology CBC w Diff MAN DIFF ORDERED NO MAN DIFF REQ WBC (4.8 - 10.8 /CUMM) 15.3 H 6.4 RBC (4.20 - 5.40 /CUMM) 3.05 L 2.33 L Hgb (12.0 - 16.0 G/DL) 8.9 L 7.0 *L Hct (37 - 47 %) 26.7 L 20.6 L MCV (81.0 - 99.0 FL) 87.5 88.3 MCH (27.0 - 31.0 PG) 29.1 29.9 MCHC (33.0 - 37.0 G/DL) 33.3 33.9 RDW (11.5 - 14.5 %) 15.8 H 17.0 H Plt Count (130 - 400 /CUMM) 197 194 MPV (7.4 - 10.4 FL) 9.3 10.3 Gran % (42.2 - 75.2 %) 91.9 H 68.0 Lymphocytes % (20.5 - 51.1 %) 3.5 L 19.5 L Monocytes % (1.7 - 9.3 %) 4.5 8.8 Eosinophils % (0 - 5 %) 0 3.1 Basophils % (0.0 - 2.0 %) 0.1 0.6 Absolute Granulocytes (1.4 - 6.5 /CUMM) 14.1 H 4.4 Segmented Neutrophils (42.2 - 75.2 %) 41 L Band Neutrophils (0.0 - 5.0 %) 49 H Absolute Lymphocytes (1.2 - 3.4 /CUMM) 0.5 L 1.2 Lymphocytes (20.5 - 51.1 %) 4 L Monocytes (1.7 - 9.3 %) 5 Absolute Monocytes (0.10 - 0.60 /CUMM) 0.7 H 0.6 Absolute Eosinophils (0.0 - 0.7 /CUMM) 0 0.2 Absolute Basophils (0.0 - 0.2 /CUMM) 0 0 Myelocytes (0 - 0 %) 1 H Platelet Estimate (ADEQUATE) ADEQUATE Polychromasia 1+ Anisocytosis 1+ Microcytic Cells 1+ 05/03 05/02 0448 1755 Chemistry Sodium (137 - 145 mmol/L) 139 Potassium (3.5 - 5.1 mmol/L) 3.7 Chloride (98 - 107 mmol/L) 109 H Carbon Dioxide (22 - 30 mmol/L) 25 Anion Gap (5 - 16) 5 BUN (7 - 17 mg/dL) 3 L Creatinine (0.5 - 1.0 mg/dL) 0.8 Estimated GFR (>60 ml/min) > 60 BUN/Creatinine Ratio (7 - 25 %) 3.8 L Hematology CBC w Diff NO MAN DIFF REQ NO MAN DIFF REQ WBC (4.8 - 10.8 /CUMM) 7.0 7.3 RBC (4.20 - 5.40 /CUMM) 2.61 L 2.34 L Hgb (12.0 - 16.0 G/DL) 7.5 L 6.9 *L Hct (37 - 47 %) 23.4 L 20.9 L MCV (81.0 - 99.0 FL) 89.3 89.4 MCH (27.0 - 31.0 PG) 28.8 29.4 MCHC (33.0 - 37.0 G/DL) 32.2 L 32.9 L RDW (11.5 - 14.5 %) 17.0 H 17.1 H Plt Count (130 - 400 /CUMM) 216 226 MPV (7.4 - 10.4 FL) 9.4 9.9 Gran % (42.2 - 75.2 %) 55.1 71.2 Lymphocytes % (20.5 - 51.1 %) 29.4 18.1 L Monocytes % (1.7 - 9.3 %) 9.8 H 7.4 Eosinophils % (0 - 5 %) 5.3 H 2.7 Basophils % (0.0 - 2.0 %) 0.4 0.6 Absolute Granulocytes (1.4 - 6.5 /CUMM) 3.8 5.2 Absolute Lymphocytes (1.2 - 3.4 /CUMM) 2.1 1.3 Absolute Monocytes (0.10 - 0.60 /CUMM) 0.7 H 0.5 Absolute Eosinophils (0.0 - 0.7 /CUMM) 0.4 0.2 Absolute Basophils (0.0 - 0.2 /CUMM) 0 0 07/04 1010 Hematology CBC w Diff NO MAN DIFF REQ WBC (4.8 - 10.8 /CUMM) 7.9 RBC (4.20 - 5.40 /CUMM) 2.55 L Hgb (12.0 - 16.0 G/DL) 7.6 L Hct (37 - 47 %) 22.6 L MCV (81.0 - 99.0 FL) 88.9 MCH (27.0 - 31.0 PG) 29.8 MCHC (33.0 - 37.0 G/DL) 33.5 RDW (11.5 - 14.5 %) 16.9 H Plt Count (130 - 400 /CUMM) 194 MPV (7.4 - 10.4 FL) 9.3 Gran % (42.2 - 75.2 %) 67.2 Lymphocytes % (20.5 - 51.1 %) 16.8 L Monocytes % (1.7 - 9.3 %) 10.3 H Eosinophils % (0 - 5 %) 5.3 H Basophils % (0.0 - 2.0 %) 0.4 Absolute Granulocytes (1.4 - 6.5 /CUMM) 5.3 Absolute Lymphocytes (1.2 - 3.4 /CUMM) 1.3 Absolute Monocytes (0.10 - 0.60 /CUMM) 0.8 H Absolute Eosinophils (0.0 - 0.7 /CUMM) 0.4 Absolute Basophils (0.0 - 0.2 /CUMM) 0 Assessment/Plan Assessment/Plan 72yo F with hx GI Bleed SP Right hemicolectomy/iliocecectomy POD1, stable. was transfused in OR. H&H stable this morning at 8.8/26.8. Cont NPO and IVF until return of bowle function. Expect first couple of BMs to be slightly bloody due to recent GI bleed as well as recent bowle resection and anastomosis. Ice chips and gum chewing ok DC allen this morning Encourage ambulation and IS Scheduled IV tylenol for baseline pain control to limit narcotics. Would avoid toradol for now DVT ppx- alps and ambulation. may consider Physical therapy Will discuss with attending
--- NOTE | 2018-05-04 08:45 | PN- CRCU ---
Subjective HPI/Critical Care Issues: The patient is awake and alert. The patient is postop day 1 for resection of distal ileum and right colon. She has not had any further bleeding overnight. She has relatively well controlled post-operative pain. No flatus. She complains of generalized edema which is slightly worse due to her arthritis. She remains NPO. She denies any respiratory complaints. There were no overnight events reported. Objective Current Medications: Current Medications Sig/Lynette Start time Last Medication Dose Route Stop Time Status Admin Acetaminophen 1,000 MG Q6P PRN 05/03 1645 AC N/A 1 UNIT IV Acetaminophen 650 MG Q6-PRN PRN 04/25 2145 DC 04/26 PO 1113 Ampicillin Sodium/ 3,000 MG Q6 05/03 1800 DC 05/04 Sulbactam Sodium IV 05/04 06 0552 Sodium Chloride 100 ML Benzocaine 1 CHRIS Q12P PRN 05/02 1015 AC TOP Cyclosporine 1 GTT Q12 04/25 2100 AC 05/03 OPH 2137 Dexamethasone 4 MG .STK-MED ONE 05/03 1226 DC IM 05/03 1227 Dextrose/Sodium 1,000 ML Q13H 05/03 0600 AC 05/04 Chloride IV 0515 Fentanyl Citrate 250 MCG .STK-MED ONE 05/03 1225 DC IM 05/03 1226 Fluticasone 2 SPRAY DAILY 05/03 1114 AC Propionate LIBBY Haloperidol 5 MG .STK-MED ONE 05/03 1658 DC IM 05/03 1659 Hydromorphone HCl 2 MG .STK-MED ONE 05/03 1642 DC IM 05/03 1643 Hydromorphone HCl 2 MG .STK-MED ONE 05/03 1225 DC IM 05/03 1226 Latanoprost 1 GTT AT BEDTIME 04/25 2100 05/03 OPH 2114 Leflunomide 20 MG QPM 04/25 2145 AC 05/01 PO 2100 Loratadine 10 MG DAILY 04/26 1157 AC 05/02 PO 09 Melatonin 5 MG AT BEDTIME 04/30 0015 AC 05/02 PO 2050 Midazolam HCl 2 MG .STK-MED ONE 05/03 1226 DC IM 05/03 1227 Montelukast Sodium 10 MG AT BEDTIME 04/26 2100 AC 05/02 PO 205 Morphine Sulfate 4 MG Q3P PRN 05/04 0745 AC IV Morphine Sulfate 2 MG Q2P PRN 05/03 1645 DC 05/04 IV 0514 Ondansetron HCl 4 MG .STK-MED ONE 05/03 1520 DC IV 05/03 1521 Ondansetron HCl 4 MG Q4-6 PRN PRN 05/03 0600 AC 05/03 IV 0530 Pantoprazole Sodium 40 MG DAILY 04/25 1848 AC 05/03 IV 0826 Polyethylene Glycol 1 GAL SEE ADMIN CRITERIA 04/30 2355 PO Remifentanil 3 MG .STK-MED ONE 05/03 1225 DC IV 05/03 1226 Sucralfate 1 GM Q8 04/29 2200 05/04 PO 0551 Vital Signs & I&O Last 24 Hrs of Vitals and I&O: Vital Signs Date Time Temp Pulse Resp B/P B/P Pulse O2 O2 Flow FiO2 Mean Ox Delivery Rate 05/04 0400 96 Room Air 05/04 0000 95 Room Air 05/04 0000 18.0 76 18 120/60 95 Room Air 05/03 2000 97 Nasal 2.0L Cannula 05/03 1200 Room Air Intake & Output 05/04 1600 06 0800 07 0000 Intake Total 825 2483 Output Total 200 175 Balance 625 2308 Intake, Blood 350 Product Intake, IV 725 2133 Intake, Oral 100 Number 0 Bowel Movements Output, Urine 200 175 Exam General Appearance: well developed/nourished, no apparent distress, alert, awake Head: atraumatic, normal appearance Neck: supple Respiratory: normal breath sounds, no respiratory distress, lungs clear Cardiovascular: regular rate/rhythm Abdomen: soft, surgical dressings in place, mild generalized tenderness, bowel sounds present Extremities: mild lower extremity edema, mild hand edema - L>R Neurologic/Psychiatric: no motor/sensory deficits Skin: intact, normal color, warm/dry Results Last 24 Hrs of Lab Results: Laboratory Tests 05/04/18 0615: CBC w Diff MAN DIFF ORDERED, RBC 3.01 L, MCV 88.9, MCH 29.2, MCHC 32.8 L, RDW 15.7 H, MPV 9.4, Gran % 83.8 H, Lymphocytes % 6.3 L, Monocytes % 9.8 H, Eosinophils % 0, Basophils % 0.1, Absolute Granulocytes 11.2 H, Segmented Neutrophils 81 H, Absolute Lymphocytes 0.8 L, Lymphocytes 12 L, Monocytes 7, Absolute Monocytes 1.3 H, Absolute Eosinophils 0, Absolute Basophils 0, Platelet Estimate ADEQUATE, Polychromasia 1+, Hypochromic-Microcytic 1+, Ovalocytes FEW, Fld Total RBCs Counted 100 05/04/18 0530: Anion Gap 7, Estimated GFR > 60, BUN/Creatinine Ratio 8.6 05/03/18 2131: CBC w Diff MAN DIFF ORDERED, RBC 3.05 L, MCV 87.5, MCH 29.1, MCHC 33.3, RDW 15.8 H, MPV 9.3, Gran % 91.9 H, Lymphocytes % 3.5 L, Monocytes % 4.5, Eosinophils % 0, Basophils % 0.1, Absolute Granulocytes 14.1 H, Segmented Neutrophils 41 L, Band Neutrophils 49 H, Absolute Lymphocytes 0.5 L, Lymphocytes 4 L, Monocytes 5, Absolute Monocytes 0.7 H, Absolute Eosinophils 0 , Absolute Basophils 0, Myelocytes 1 H, Platelet Estimate ADEQUATE, Polychromasia 1+, Anisocytosis 1+, Microcytic Cells 1+ 05/03/18 1000: CBC w Diff NO MAN DIFF REQ, RBC 2.33 L, MCV 88.3, MCH 29.9, MCHC 33.9, RDW 17.0 H, MPV 10.3, Gran % 68.0, Lymphocytes % 19.5 L, Monocytes % 8.8, Eosinophils % 3.1, Basophils % 0.6, Absolute Granulocytes 4.4, Absolute Lymphocytes 1.2, Absolute Monocytes 0.6, Absolute Eosinophils 0.2, Absolute Basophils 0 Impression/Plan Impression/Plan Impression/Plan: 1. Recurrent GI bleed, postop day 1 for resection of distal ileum and right colon. 2. Acute blood loss anemia, currently without further bleeding. 3. Hypokalemia secondary to blood loss, improved. 4. History of terminal ileitis. 5. Multiple comorbidities including hypertension, irritable bowel syndrome, seasonal allergies, asthma, GERD, glaucoma, cervical stenosis, and psoriatic arthritis. 6. Cultures today are positive for MRSA (surveillance). Recommendations: * N.p.o., monitor serial abdominal exams. * Continue to monitor for bleeding. * Continue to monitor hemoglobin, keep level greater than 7. * Follow up recommendations from general surgery. * Continue pain control. * Discontinue Ferrer catheter when okay with general surgery. * Advance diet and out of bed to chair when cleared by surgery. * Continue incentive spirometry. * Medications reviewed -oral medications are being held while the patient is n.p.o. * Monitor for signs of infection off antibiotics. * DVT prophylaxis with Alps only, avoid anticoagulation/subcu heparin in the setting of recurrent GI bleeding.
--- NOTE | 2018-05-04 08:54 | Operative Report ---
Operative/Inv Procedure Report Surgery Date: 05/03/18 Name of Procedure: Resection of terminal ileum and right colon Pre-Operative Diagnosis: Intestinal bleeding, ileitis Post-Operative Diagnosis: Same Estimated Blood Loss: scant Surgeon/Quote Clerk: MD Adriana Farfan Anesthesia: general endotracheal tube Operative/Procedure Note Note: Patient was positioned supine, after induction of general anesthesia, a tap block was performed, IV antibiotics were given and then the abdomen was clipped prepped and draped from the nipples to the groin in the usual sterile fashion. A infraumbilical midline 10 cm incision was made with a 10 blade based on preoperative CT scan and the abdominal habitus. The incision was deepened with cautery through Dimitris's fascia clearing off the linea alba first then carefully incising it avoiding injury to the underlying bowel. The abdomen was explored there was a little clear free fluid no peritoneal studding or obvious liver metastases. The cecum was grasped and then retracted towards the incision, opening up the lateral and posterior attachments to the retroperitoneum with cautery including those to the terminal ileum and appendix continuing the retraction superiorly and mobilizing inferiorly and a little medially as well and then continuing laterally up towards the hepatic flexure along the white line of Toldt. Here cares taken to avoid injury to the ureter and gonadal vessels which are identified and left alone in a deeper plane This is continued back and forth mostly with cautery and a little bit of blunt dissection in the avascular areas, but not quite to the hepatic flexure most of the pathology was visible palpable in the terminal ileum, the cecum was also thickened but distally the descending colon appeared and felt more normal. Decided where to divide the colon was more straightforward but on the terminal ileum it was not. We ran the small bowel several times marked where we felt the edema stopped then continued mobilizing scoring the mesentery suture ligating and dividing the ileocolic pedicle with 2-0 Vicryl sutures and then returning to the small bowel checking where we had marked it to see I readjusted the point a few times, also on the CT scans it appeared that most of the inflammation was in the distal 10 cm of the terminal ileum but it continued more proximally and I finally chose a spot that was roughly 30 cm from the ileocecal valve. A point on the right colon is marked lightly with cautery over the bare area in the mesentery approximating where the right branch of the middle colic artery comes off, and the omentum is divided here as well. On the other end, the ileum was similarly marked. The intervening mesentery was divided with LigaSure and also suture ligation of the ileocolic vessels and also higher up the right branch of the middle colic. Next a side to side functional end to end stapled anastomosis was made using a FERN stapler with two 80 mm cartridges, the first to make a common enterotomy, and the second to "T" -off the first. Before actually firing the stapler first we made sure that the distal small bowel and transverse colon are lined up parallel not twisted or stretched and that the mesenteric fat is cleared off circumferentially where the don will go, we placed a 3-0 silk suture at the top and at the bottom to line them up, then make adjacent enterotomies on the antimesenteric borders inserted the stapler check that fat hasn't rolled in posteriorly, and fired. The second firing which completes the anastomosis and the resection, is checked for hemostasis with cautery but also the corners are dunked with 3-0 silk Lemberts. Next the abdomen is irrigated checked for hemostasis small bowel is run and checked for any twisting and positioned down and away from the mesenteric defect, repeatedly checking the anastomosis for any bleeding or twisting. The position of the NG tube was checked and then the incision is closed in layers using 2 continuous runs of single 0 Maxon suture for the fascia then the subcutaneous layer is irrigated again, reapproximated subdermally with interrupted 3-0 Vicryl, followed by skin don and an island dressing. EBL minimal lap and sponge counts correct wound expectancy was clean- contaminated, IV fluids crystalloid complications none, patient tolerated the procedure well and was returned to the recovery room in satisfactory condition.
[2018-05-04 12:00] VITALS: BP 142/68
--- NOTE | 2018-05-04 13:54 | RADIOLOGY REPORT ---
EXAMINATION: XR PORTABLE ABDOMEN CLINICAL INFORMATION: Status post right hemicolectomy. COMPARISON: None TECHNIQUE: AP view of the abdomen. FINDINGS: Nonspecific bowel gas pattern is noted within the residual large bowel and stomach. The small bowel loops are decompressed. Postsurgical changes are noted within the lower abdomen and upper pelvis at midline. IMPRESSION: Nonspecific bowel gas pattern.
--- NOTE | 2018-05-04 15:36 | Patient Discharge Instructions ---
Discharge Instructions General Discharge Information You were seen/treated for: Lower GI bleeding Special Instructions: Please follow up with your PCP within one week of discharge. Please follow up with your GI doctor and general surgeon within 1-2 weeks of discharge. Activity Full Activity/No Limits: Yes Acute Coronary Syndrome Inclusion Criteria At DC or during hospital stay patient has or had the following: ACS DIAGNOSIS No Discharge Core Measures Meds if any: Prescribed or Continued at Discharge Meds if any: NOT Prescribed or Continued at Discharge Congestive Heart Failure Inclusion Criteria At DC or during hospital stay patient has or had the following: CHF DIAGNOSIS No Discharge Core Measures Meds if any: Prescribed or Continued at Discharge Meds if any: NOT Prescribed or Continued at Discharge Cerebrovascular accident Inclusion Criteria At DC or during hospital stay patient has or had the following: CVA/TIA Diagnosis No Discharge Core Measures Meds if any: Prescribed or Continued at Discharge Meds if any: NOT Prescribed or Continued at Discharge Venous thromboembolism Inclusion Criteria VTE Diagnosis No VTE Type NONE VTE Confirmed by (Test) NONE Discharge Core Measures - Per Current guidelines, there needs to be overlap - treatment for the first 5 days of Warfarin therapy. - If discharged on Warfarin prior to 5 days of - overlap therapy, the patient will need to be - assessed for post discharge needs including - *Post discharge parental anticoagulation - *Warfarin and/or parental anticoagulation education - *Follow up date to check INR post discharge At least 5 days overlap therapy as Inpatient No Meds if any: Prescribed or Continued at Discharge Note: Overlap Therapy is Warfarin and Anticoagulant Meds if any: NOT Prescribed or Continued at Discharge
[2018-05-04 16:00] VITALS: BP 154/64
[2018-05-05] VITALS: BP 126/80
[2018-05-05 04:00] VITALS: BP 140/68
[2018-05-05 05:18] LABS: ABSOLUTE BASOPHIL COUNT 0.1 /CUMM (0.0-0.2); ABSOLUTE EOSINOPHIL COUNT 0.6 /CUMM (0.0-0.7); ABSOLUTE GRANULOCYTE CT 4.6 /CUMM (1.4-6.5); ABSOLUTE LYMPH COUNT 1.8 /CUMM (1.2-3.4); ABSOLUTE MONOCYTE COUNT 0.8 /CUMM (0.10-0.60); BASOPHIL % 0.7 % (0.0-2.0); EOSINOPHIL % 7.3 % (0-5); GRANULOCYTE % 58.1 % (42.2-75.2); HEMATOCRIT 26.9 % (37-47); MEAN CORPUSCULAR HGB 29.4 PG (27.0-31.0); MEAN CORPUSCULAR HGB CONC 32.4 G/DL (33.0-37.0); MEAN CORPUSCULAR VOLUME 90.6 FL (81.0-99.0); MEAN PLATELET VOLUME 9.4 FL (7.4-10.4); PLATELET COUNT 224 /CUMM (130-400); RBC DISTRIBUTION WIDTH 16.2 % (11.5-14.5); RED BLOOD CELL CT 2.97 /CUMM (4.20-5.40); WHITE BLOOD CELL COUNT 7.9 /CUMM (4.8-10.8)
[2018-05-05 08:00] VITALS: BP 122/80
--- NOTE | 2018-05-05 08:15 | PN- Housestaff ---
See Addendum Subjective Follow-up For: GI bleed s/p partial colectomy Tele-Events Since Last Visit: off telemetry Subjective: no overnight events tolerating clears pain well controlled loose stools no hemodynamic instability or active bleeding Review of Systems Constitutional: Reports: see HPI. Objective Last 24 Hrs of Vital Signs/I&O Vital Signs Date Time Temp Pulse Resp B/P B/P Pulse O2 O2 Flow FiO2 Mean Ox Delivery Rate 05/05 1412 98.0 85 22 120/70 99 05/05 0927 140/72 05/05 0800 98.0 81 20 122/80 97 Room Air 05/05 0400 97.0 80 20 140/68 98 Room Air 05/05 0000 94 Room Air 05/05 0000 97.4 82 18 126/80 94 Room Air 05/04 2206 84 134/52 05/04 2006 Room Air 05/04 1600 98 Room Air 05/04 1600 98.6 80 18 154/64 98 Room Air Intake & Output 05/05 1600 05/05 0800 05/05 0000 Intake Total 225 800 Output Total 400 Balance 225 400 Intake, IV 600 Intake, Oral 225 200 Number 2 1 Bowel Movements Output, Urine 400 Physical Exam General Appearance: Alert, No Acute Distress Cardiovascular: Regular Rate, Normal S1, Normal S2, No Murmurs Lungs: Clear to Auscultation, Normal Air Movement Abdomen: Normal Bowel Sounds, Soft, diffuse mild tenderness on palpation Extremities: No Clubbing, No Cyanosis, Normal Pulses Current Medications: Current Medications Sig/Lynette Start time Last Medication Dose Route Stop Time Status Admin Acetaminophen 1,000 MG Q6H 05/04 1045 AC 05/05 N/A 1 UNIT IV 1609 Amlodipine Besylate 5 MG AT BEDTIME 05/04 2100 AC 05/04 PO 2206 Benzocaine 1 CHRIS Q12P PRN 05/02 1015 TOP Cyclosporine 1 GTT Q12 04/25 2100 05/05 OPH 0928 Dextrose/Sodium 1,000 ML Q13H 05/03 0600 DC 05/05 Chloride IV 0927 Fluticasone 2 SPRAY DAILY 05/03 1114 05/05 Propionate LIBBY 0934 Latanoprost 1 GTT AT BEDTIME 04/25 2100 AC 05/04 OPH 2207 Leflunomide 20 MG QPM 04/25 2145 AC 05/04 PO 2205 Loratadine 10 MG DAILY 04/26 1157 AC 05/05 PO 09 Losartan Potassium 75 MG DAILY 05/05 0900 AC 05/05 PO 09 Melatonin 5 MG AT BEDTIME 04/30 0015 AC 05/04 PO 220 Montelukast Sodium 10 MG AT BEDTIME 04/26 2100 AC 05/04 PO 220 Morphine Sulfate 4 MG Q3P PRN 05/04 0745 AC 05/04 IV 1850 Ondansetron HCl 4 MG Q4-6 PRN PRN 05/03 06 AC 05/04 IV 1330 Pantoprazole Sodium 40 MG DAILY 04/25 1848 AC 05/05 IV 09 Polyethylene Glycol 1 GAL SEE ADMIN CRITERIA 04/30 2355 AC PO Potassium Chloride 40 MEQ Q2 05/05 08 DC 05/05 PO 05/05 1001 0927 Potassium Chloride 40 MEQ Q1 05/05 600 CAN PO 05/05 07 Last 24 Hrs of Lab/Henry Results Last 24 Hrs of Labs/Mics: Laboratory Tests 05/05/18 0435: Anion Gap 6, Estimated GFR > 60, Glucose 73, Calcium 7.9 L, Phosphorus 3.2, Magnesium 2.1, Total Bilirubin 0.2, AST 18, ALT 35, Albumin 2.0 L, CBC w Diff NO MAN DIFF REQ, RBC 2.97 L, MCV 90.6, MCH 29.4, MCHC 32.4 L, RDW 16.2 H, MPV 9.4, Gran % 58.1, Lymphocytes % 23.3, Monocytes % 10.6 H, Eosinophils % 7.3 H, Basophils % 0.7, Absolute Granulocytes 4.6, Absolute Lymphocytes 1.8, Absolute Monocytes 0.8 H, Absolute Eosinophils 0.6, Absolute Basophils 0.1 Microbiology 05/05 1610 STOOL: Clostridium difficile Toxin A & B - ORD Assessment/Plan Assessment: 72 year old woman with past medical history of GI bleed secondary to NSAID use, chronic diarrhea, terminal ileitis, IBS, psoriatic arthritis, seasonal allergies , asthma, hypertension, GERD, glaucoma, and severe cervical stenosis presented with acute blood loss anemia secondary to GI bleed with inability to localize the source and requiring large volume transfusion now with no more active bleeding and stable CBC s/p ileum and right hemicolectomy. Assessment: 1. GI bleed 2. Acute blood loss anemia 3. Hypokalemia likely 2/2 blood loss 4. Orthostatic hypotension 5. History of terminal ileitis 6. History of Hypertension, IBS, psoriatic arthritis, seasonal allergies/asthma, GERD, glaucoma, cervical stenosis, history of GI bleed secondary to NSAIDs, diverticulosis Acute blood loss anemia and GI bleed: secondary to GI bleed Required 9 units pRBC during this admission Tagged RBC scan showed bleeding in the right colon EGD, colonoscopy, and angiography were unable to identify source of bleeding POD #2 resection of terminal ileum and right colon CBC stable Tolerating clear liquids Follow up gastroenterology and general surgery recommendations Advance to full liquids Urine culture postive for > 100k colonies klebsiella DVT ppx-ALPS only Diet: Clear liquid Full Code Problem List: 1. Lower GI bleed 2. GI hemorrhage 3. Acute blood loss anemia 4. Diverticula of colon Pain Ratin Pain Location: abdominal Pain Goal: Pain 4 or less Pain Plan: morphine Tomorrow's Labs & Rationales: cbc
--- NOTE | 2018-05-05 09:35 | PN- CRCU ---
See Addendum Subjective HPI/Critical Care Issues: Doing much better Afebrile Diarrhea noted Mild abdominal pain Mild pedal edema Nausea vomiting She is postop day 2 for resection of distal ileum and right colon. No significant GI bleed. Mild pain. Now on clear liquid. Objective Current Medications: Current Medications Sig/Lynette Start time Last Medication Dose Route Stop Time Status Admin Acetaminophen 1,000 MG Q6H 05/04 1045 AC 05/05 N/A 1 UNIT IV 0430 Amlodipine Besylate 5 MG AT BEDTIME 05/04 2100 AC 05/04 PO 2206 Amlodipine Besylate 5 MG DAILY 05/04 1510 DC PO Benzocaine 1 CHRIS Q12P PRN 05/02 1015 AC TOP Cyclosporine 1 GTT Q12 04/25 2100 AC 05/05 OPH 0928 Dextrose/Sodium 1,000 ML Q13H 05/03 0600 AC 05/05 Chloride IV 0927 Fluticasone 2 SPRAY DAILY 05/03 1114 AC 05/04 Propionate LIBBY 0948 Latanoprost 1 GTT AT BEDTIME 04/25 2100 AC 05/04 OPH 2207 Leflunomide 20 MG QPM 04/25 2145 AC 05/04 PO 2205 Loratadine 10 MG DAILY 04/26 1157 AC 05/05 PO 0927 Losartan Potassium 75 MG DAILY 05/05 09 AC 05/05 PO 0927 Magnesium Sulfate 1 GM ONCE ONE 05/04 09 DC 05/04 Dextrose/Water 100 ML IV 05/04 1259 0947 Melatonin 5 MG AT BEDTIME 04/30 0015 AC 05/04 PO 2205 Montelukast Sodium 10 MG AT BEDTIME 04/26 2100 AC 05/04 PO 2206 Morphine Sulfate 4 MG Q3P PRN 05/04 0745 AC 05/04 IV 1850 Ondansetron HCl 4 MG .STK-MED ONE 05/04 1323 DC IM 05/04 1324 Ondansetron HCl 4 MG Q4-6 PRN PRN 05/03 06 AC 05/04 IV 1330 Pantoprazole Sodium 40 MG DAILY 04/25 1848 AC 05/05 IV 0927 Polyethylene Glycol 1 GAL SEE ADMIN CRITERIA 04/30 2355 AC PO Potassium Chloride 40 MEQ Q2 05/05 0800 AC 05/05 PO 05/05 1001 0927 Potassium Chloride 40 MEQ Q1 05/05 0600 CAN PO 05/05 0701 Sucralfate 1 GM Q8 04/29 2200 DC 05/04 PO 1330 Vital Signs & I&O Last 24 Hrs of Vitals and I&O: Vital Signs Date Time Temp Pulse Resp B/P B/P Pulse O2 O2 Flow FiO2 Mean Ox Delivery Rate 05/05 0927 140/72 05/05 08 98.0 81 20 122/80 97 Room Air 05/05 0400 97.0 80 20 140/68 98 Room Air 05/05 0000 94 Room Air 05/05 0000 97.4 82 18 126/80 94 Room Air 05/04 2206 84 134/52 05/04 2006 Room Air 05/04 1600 98 Room Air 05/04 1600 98.6 80 18 154/64 98 Room Air 05/04 1200 98 Room Air 05/04 1200 98.1 86 29 142/68 96 Room Air Intake & Output 05/05 1600 05/05 0800 05/05 0000 Intake Total 225 800 Output Total 400 Balance 225 400 Intake, IV 600 Intake, Oral 225 200 Number 2 1 Bowel Movements Output, Urine 400 Laboratory Tests 05/05 05/04 0435 0615 Chemistry Sodium (137 - 145 mmol/L) 137 Potassium (3.5 - 5.1 mmol/L) 3.2 L Chloride (98 - 107 mmol/L) 106 Carbon Dioxide (22 - 30 mmol/L) 25 Anion Gap (5 - 16) 6 BUN (7 - 17 mg/dL) 5 L Creatinine (0.5 - 1.0 mg/dL) 0.8 Estimated GFR (>60 ml/min) > 60 Glucose (65 - 99 mg/dL) 73 Calcium (8.4 - 10.2 mg/dL) 7.9 L Phosphorus (2.5 - 4.5 mg/dL) 3.2 Magnesium (1.6 - 2.3 mg/dL) 2.1 Total Bilirubin (0.2 - 1.3 mg/dL) 0.2 AST (14 - 36 U/L) 18 ALT (9 - 52 U/L) 35 Albumin (3.5 - 5.0 g/dL) 2.0 L Hematology CBC w Diff NO MAN DIFF REQ MAN DIFF ORDERED WBC (4.8 - 10.8 /CUMM) 7.9 13.4 H RBC (4.20 - 5.40 /CUMM) 2.97 L 3.01 L Hgb (12.0 - 16.0 G/DL) 8.7 L 8.8 L Hct (37 - 47 %) 26.9 L 26.8 L MCV (81.0 - 99.0 FL) 90.6 88.9 MCH (27.0 - 31.0 PG) 29.4 29.2 MCHC (33.0 - 37.0 G/DL) 32.4 L 32.8 L RDW (11.5 - 14.5 %) 16.2 H 15.7 H Plt Count (130 - 400 /CUMM) 224 205 MPV (7.4 - 10.4 FL) 9.4 9.4 Gran % (42.2 - 75.2 %) 58.1 83.8 H Lymphocytes % (20.5 - 51.1 %) 23.3 6.3 L Monocytes % (1.7 - 9.3 %) 10.6 H 9.8 H Eosinophils % (0 - 5 %) 7.3 H 0 Basophils % (0.0 - 2.0 %) 0.7 0.1 Absolute Granulocytes (1.4 - 6.5 /CUMM) 4.6 11.2 H Segmented Neutrophils (42.2 - 75.2 %) 81 H Absolute Lymphocytes (1.2 - 3.4 /CUMM) 1.8 0.8 L Lymphocytes (20.5 - 51.1 %) 12 L Monocytes (1.7 - 9.3 %) 7 Absolute Monocytes (0.10 - 0.60 /CUMM) 0.8 H 1.3 H Absolute Eosinophils (0.0 - 0.7 /CUMM) 0.6 0 Absolute Basophils (0.0 - 0.2 /CUMM) 0.1 0 Platelet Estimate (ADEQUATE) ADEQUATE Polychromasia 1+ Hypochromic-Microcytic 1+ Ovalocytes FEW Other Body Source Fld Total RBCs Counted (%) 100 07/06 07/05 0530 2131 Chemistry Sodium (137 - 145 mmol/L) 136 L Potassium (3.5 - 5.1 mmol/L) 3.9 Chloride (98 - 107 mmol/L) 107 Carbon Dioxide (22 - 30 mmol/L) 23 Anion Gap (5 - 16) 7 BUN (7 - 17 mg/dL) 6 L Creatinine (0.5 - 1.0 mg/dL) 0.7 Estimated GFR (>60 ml/min) > 60 BUN/Creatinine Ratio (7 - 25 %) 8.6 Phosphorus (2.5 - 4.5 mg/dL) 4.0 Magnesium (1.6 - 2.3 mg/dL) 1.7 Hematology CBC w Diff MAN DIFF ORDERED WBC (4.8 - 10.8 /CUMM) 15.3 H RBC (4.20 - 5.40 /CUMM) 3.05 L Hgb (12.0 - 16.0 G/DL) 8.9 L Hct (37 - 47 %) 26.7 L MCV (81.0 - 99.0 FL) 87.5 MCH (27.0 - 31.0 PG) 29.1 MCHC (33.0 - 37.0 G/DL) 33.3 RDW (11.5 - 14.5 %) 15.8 H Plt Count (130 - 400 /CUMM) 197 MPV (7.4 - 10.4 FL) 9.3 Gran % (42.2 - 75.2 %) 91.9 H Lymphocytes % (20.5 - 51.1 %) 3.5 L Monocytes % (1.7 - 9.3 %) 4.5 Eosinophils % (0 - 5 %) 0 Basophils % (0.0 - 2.0 %) 0.1 Absolute Granulocytes (1.4 - 6.5 /CUMM) 14.1 H Segmented Neutrophils (42.2 - 75.2 %) 41 L Band Neutrophils (0.0 - 5.0 %) 49 H Absolute Lymphocytes (1.2 - 3.4 /CUMM) 0.5 L Lymphocytes (20.5 - 51.1 %) 4 L Monocytes (1.7 - 9.3 %) 5 Absolute Monocytes (0.10 - 0.60 /CUMM) 0.7 H Absolute Eosinophils (0.0 - 0.7 /CUMM) 0 Absolute Basophils (0.0 - 0.2 /CUMM) 0 Myelocytes (0 - 0 %) 1 H Platelet Estimate (ADEQUATE) ADEQUATE Polychromasia 1+ Anisocytosis 1+ Microcytic Cells 1+ 07/05 1000 Hematology CBC w Diff NO MAN DIFF REQ WBC (4.8 - 10.8 /CUMM) 6.4 RBC (4.20 - 5.40 /CUMM) 2.33 L Hgb (12.0 - 16.0 G/DL) 7.0 *L Hct (37 - 47 %) 20.6 L MCV (81.0 - 99.0 FL) 88.3 MCH (27.0 - 31.0 PG) 29.9 MCHC (33.0 - 37.0 G/DL) 33.9 RDW (11.5 - 14.5 %) 17.0 H Plt Count (130 - 400 /CUMM) 194 MPV (7.4 - 10.4 FL) 10.3 Gran % (42.2 - 75.2 %) 68.0 Lymphocytes % (20.5 - 51.1 %) 19.5 L Monocytes % (1.7 - 9.3 %) 8.8 Eosinophils % (0 - 5 %) 3.1 Basophils % (0.0 - 2.0 %) 0.6 Absolute Granulocytes (1.4 - 6.5 /CUMM) 4.4 Absolute Lymphocytes (1.2 - 3.4 /CUMM) 1.2 Absolute Monocytes (0.10 - 0.60 /CUMM) 0.6 Absolute Eosinophils (0.0 - 0.7 /CUMM) 0.2 Absolute Basophils (0.0 - 0.2 /CUMM) 0 Microbiology Date/Time Procedure - Status Source Growth 05/03 1305 Urine Culture - RES URINE ROUT GRAM NEGATIVE RODS Impression/Plan Impression/Plan Impression/Plan: This is a lady with history of on and off GI bleed, chronic diarrhea, terminal ileitis, irritable bowel, psychiatric arthritis, allergies, asthma, hypertension , GERD, previous glaucoma, cervical stenosis, came in with significant GI bleed. Subsequently she did have distal ileal and right hemicolectomy. She is doing well. Issues include GI bleed seems to be resolved Ongoing diarrhea Anemia Hypokalemia Acute blood loss anemia much improved Multiple other comorbidities including irritable bowel, psoriatic arthritis, allergies, asthma, GERD, glaucoma, cervical stenosis which appears to be stable. RECOMMENDATIONS Continue diet per surgery Can back off on IV fluids Aggressive potassium replacement Adequate pain control Send stool for C. difficile Keep magnesium more than 2 Continue her prophylaxis regimen
--- NOTE | 2018-05-05 10:19 | PN- General Surgery ---
Niurka Montemayor 05/05/18 1011: Subjective Subjective: The patient had an uneventful night and is sitting upright in bed without complaints. She is feeling much improved this morning however has intermittent diarrhea. Mild nausea however she has been tolerating clears. She reports passing gas and feeling a rumbling sensation in her stomach. Review of Systems Constitutional: Reports: weakness. Denies: chills, fever, malaise. Gastrointestinal: Reports: abdominal pain, bloating, diarrhea, nausea. Objective Vital Signs and I&Os Vital Signs Date Time Temp Pulse Resp B/P B/P Pulse O2 O2 Flow FiO2 Mean Ox Delivery Rate 05/05 0927 140/72 05/05 0800 98.0 81 20 122/80 97 Room Air 05/05 0400 97.0 80 20 140/68 98 Room Air 05/05 0000 94 Room Air 05/05 0000 97.4 82 18 126/80 94 Room Air 05/04 2206 84 134/52 05/04 2006 Room Air 05/04 1600 98 Room Air 05/04 1600 98.6 80 18 154/64 98 Room Air 05/04 1200 98 Room Air / 1200 98.1 86 29 142/68 96 Room Air Intake & Output 05/05 1600 / 0800 07/07 0000 07/06 1600 /06 0800 07/06 0000 Intake Total 206 822 0129 825 2483 Output Total 400 160 200 175 Balance 130 385 9983 625 2308 Intake, Blood 350 Product Intake, IV 600 729 627 3187 Intake, Oral 225 200 540 100 Number 2 1 2 0 Bowel Movements Output, Urine 400 160 200 175 Physical Exam: Patient sitting in bed alert and oriented appears comfortable Heart regular rate rhythm without murmurs rubs gallops Chest clear to auscultation symmetric without rales rhonchi or wheeze Abdomen surgical incision, staple line is clean dry and intact dressing is changed which is mildly saturated with serosanguineous drainage. Bowel sounds are present and she has generalized abdominal soreness on exam Lateral lower extremities are soft with good perfusion Current Medications: Current Medications Sig/Lynette Start time Last Medication Dose Route Stop Time Status Admin Acetaminophen 1,000 MG Q6H 05/04 1045 AC 05/05 N/A 1 UNIT IV 0430 Amlodipine Besylate 5 MG AT BEDTIME 05/04 2100 AC 05/04 PO 2206 Amlodipine Besylate 5 MG DAILY 05/04 1510 DC PO Benzocaine 1 CHRIS Q12P PRN 05/02 1015 AC TOP Cyclosporine 1 GTT Q12 04/25 2100 AC 05/05 OPH 0928 Dextrose/Sodium 1,000 ML Q13H 05/03 0600 AC 05/05 Chloride IV 0927 Fluticasone 2 SPRAY DAILY 05/03 1114 AC 05/05 Propionate LIBBY 0934 Latanoprost 1 GTT AT BEDTIME 04/25 2100 AC 05/04 OPH 2207 Leflunomide 20 MG QPM 04/25 2145 AC 05/04 PO 2205 Loratadine 10 MG DAILY 04/26 1157 AC 05/05 PO 0927 Losartan Potassium 75 MG DAILY 05/05 09 AC 05/05 PO 0927 Magnesium Sulfate 1 GM ONCE ONE 05/04 09 DC 05/04 Dextrose/Water 100 ML IV 05/04 1259 0947 Melatonin 5 MG AT BEDTIME 04/30 0015 AC 05/04 PO 2205 Montelukast Sodium 10 MG AT BEDTIME 04/26 2100 AC 05/04 PO 2206 Morphine Sulfate 4 MG Q3P PRN 05/04 0745 AC 05/04 IV 1850 Ondansetron HCl 4 MG .STK-MED ONE 05/04 1323 DC IM 05/04 1324 Ondansetron HCl 4 MG Q4-6 PRN PRN 05/03 0600 AC 05/04 IV 1330 Pantoprazole Sodium 40 MG DAILY 04/25 1848 AC 05/05 IV 0927 Polyethylene Glycol 1 GAL SEE ADMIN CRITERIA 04/30 2355 AC PO Potassium Chloride 40 MEQ Q2 05/05 08 DC 05/05 PO 05/05 1001 0927 Potassium Chloride 40 MEQ Q1 05/05 0600 CAN PO 05/05 0701 Sucralfate 1 GM Q8 04/29 2200 DC 05/04 PO 1330 Results Last 48 Hours of Labs: Laboratory Tests 05/05 05/04 0435 0615 Chemistry Sodium (137 - 145 mmol/L) 137 Potassium (3.5 - 5.1 mmol/L) 3.2 L Chloride (98 - 107 mmol/L) 106 Carbon Dioxide (22 - 30 mmol/L) 25 Anion Gap (5 - 16) 6 BUN (7 - 17 mg/dL) 5 L Creatinine (0.5 - 1.0 mg/dL) 0.8 Estimated GFR (>60 ml/min) > 60 Glucose (65 - 99 mg/dL) 73 Calcium (8.4 - 10.2 mg/dL) 7.9 L Phosphorus (2.5 - 4.5 mg/dL) 3.2 Magnesium (1.6 - 2.3 mg/dL) 2.1 Total Bilirubin (0.2 - 1.3 mg/dL) 0.2 AST (14 - 36 U/L) 18 ALT (9 - 52 U/L) 35 Albumin (3.5 - 5.0 g/dL) 2.0 L Hematology CBC w Diff NO MAN DIFF REQ MAN DIFF ORDERED WBC (4.8 - 10.8 /CUMM) 7.9 13.4 H RBC (4.20 - 5.40 /CUMM) 2.97 L 3.01 L Hgb (12.0 - 16.0 G/DL) 8.7 L 8.8 L Hct (37 - 47 %) 26.9 L 26.8 L MCV (81.0 - 99.0 FL) 90.6 88.9 MCH (27.0 - 31.0 PG) 29.4 29.2 MCHC (33.0 - 37.0 G/DL) 32.4 L 32.8 L RDW (11.5 - 14.5 %) 16.2 H 15.7 H Plt Count (130 - 400 /CUMM) 224 205 MPV (7.4 - 10.4 FL) 9.4 9.4 Gran % (42.2 - 75.2 %) 58.1 83.8 H Lymphocytes % (20.5 - 51.1 %) 23.3 6.3 L Monocytes % (1.7 - 9.3 %) 10.6 H 9.8 H Eosinophils % (0 - 5 %) 7.3 H 0 Basophils % (0.0 - 2.0 %) 0.7 0.1 Absolute Granulocytes (1.4 - 6.5 /CUMM) 4.6 11.2 H Segmented Neutrophils (42.2 - 75.2 %) 81 H Absolute Lymphocytes (1.2 - 3.4 /CUMM) 1.8 0.8 L Lymphocytes (20.5 - 51.1 %) 12 L Monocytes (1.7 - 9.3 %) 7 Absolute Monocytes (0.10 - 0.60 /CUMM) 0.8 H 1.3 H Absolute Eosinophils (0.0 - 0.7 /CUMM) 0.6 0 Absolute Basophils (0.0 - 0.2 /CUMM) 0.1 0 Platelet Estimate (ADEQUATE) ADEQUATE Polychromasia 1+ Hypochromic-Microcytic 1+ Ovalocytes FEW Other Body Source Fld Total RBCs Counted (%) 100 07/06 07/05 0530 2131 Chemistry Sodium (137 - 145 mmol/L) 136 L Potassium (3.5 - 5.1 mmol/L) 3.9 Chloride (98 - 107 mmol/L) 107 Carbon Dioxide (22 - 30 mmol/L) 23 Anion Gap (5 - 16) 7 BUN (7 - 17 mg/dL) 6 L Creatinine (0.5 - 1.0 mg/dL) 0.7 Estimated GFR (>60 ml/min) > 60 BUN/Creatinine Ratio (7 - 25 %) 8.6 Phosphorus (2.5 - 4.5 mg/dL) 4.0 Magnesium (1.6 - 2.3 mg/dL) 1.7 Hematology CBC w Diff MAN DIFF ORDERED WBC (4.8 - 10.8 /CUMM) 15.3 H RBC (4.20 - 5.40 /CUMM) 3.05 L Hgb (12.0 - 16.0 G/DL) 8.9 L Hct (37 - 47 %) 26.7 L MCV (81.0 - 99.0 FL) 87.5 MCH (27.0 - 31.0 PG) 29.1 MCHC (33.0 - 37.0 G/DL) 33.3 RDW (11.5 - 14.5 %) 15.8 H Plt Count (130 - 400 /CUMM) 197 MPV (7.4 - 10.4 FL) 9.3 Gran % (42.2 - 75.2 %) 91.9 H Lymphocytes % (20.5 - 51.1 %) 3.5 L Monocytes % (1.7 - 9.3 %) 4.5 Eosinophils % (0 - 5 %) 0 Basophils % (0.0 - 2.0 %) 0.1 Absolute Granulocytes (1.4 - 6.5 /CUMM) 14.1 H Segmented Neutrophils (42.2 - 75.2 %) 41 L Band Neutrophils (0.0 - 5.0 %) 49 H Absolute Lymphocytes (1.2 - 3.4 /CUMM) 0.5 L Lymphocytes (20.5 - 51.1 %) 4 L Monocytes (1.7 - 9.3 %) 5 Absolute Monocytes (0.10 - 0.60 /CUMM) 0.7 H Absolute Eosinophils (0.0 - 0.7 /CUMM) 0 Absolute Basophils (0.0 - 0.2 /CUMM) 0 Myelocytes (0 - 0 %) 1 H Platelet Estimate (ADEQUATE) ADEQUATE Polychromasia 1+ Anisocytosis 1+ Microcytic Cells 1+ Assessment/Plan Assessment/Plan POD 2 right hemicolectomy/ileocecectomy for GI bleed Patient improving slowly and hematocrit appears to have stabilized Would recommend advancing diet to full's Diarrhea has been cultured for C. difficile Out of bed to chair and ambulation with assistance Daily dry dressing changes Core Measures Venous Thromboembolism VTE Risk Factors Age>40 No Mechanical VTE Prophylaxis d/t N/A MechProphylax Ordered No VTE Pharm Prophylaxis d/t Bleeding (Active) Tobias GASTON,Ino Lopez 05/05/18 1221: Attending MD Review Statement Attending Statement Attending Assessment/Plan: as pa note. advance diet as tolerated. daily h/h.
--- NOTE | 2018-05-05 13:08 | PN- Gastroenterology ---
Assessment/Plan GI Assessment/Recommendations: Assessment: Ms. Sylvester is a 72 year old female psoriatic arthritis admitted for rectal bleeding found to be secondary to crohns ileitis on a colonoscopy which ultimately required an ileocecectomy/right hemicolectomy to control which it appears to have done as she has not had any significant bleeding since the surgery and her hemoglobin has been stable. She is having loose stool now and is tolerating a liquid diet and she still has some surgical discomfort, but overall she is doing well so hopefully her diet will be able to be advanced and she can be discharged home shortly to start stelara which will hopefully treat both her psoriatic arthritis and crohns. Recommendations: 1. Advance diet as per surgical team 2. If diarrhea persists to consider using imodium as needed, but would hold off on that for now 3. Follow CBC and tranfuse as needed 4. Notify GI for any recurrent hemodynamically significant GI bleeding 5. 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 Problem List: 1. Diverticula of colon 2. Lower GI bleed 3. GI hemorrhage 4. Acute blood loss anemia Subjective Subjective: pt with some abdominal discomfort from her surgical incisions which she notes has been improved with a pressure bandage. She is tolerating liquids and is asking if her diet can be advanced. Her bowels are loose, but she is without any rectal bleeding. Objective Vital Signs and I&Os Vital Signs Date Time Temp Pulse Resp B/P B/P Pulse O2 O2 Flow FiO2 Mean Ox Delivery Rate 05/05 0927 140/72 05/05 0800 98.0 81 20 122/80 97 Room Air / 0400 97.0 80 20 140/68 98 Room Air 07/ 0000 94 Room Air 07/ 0000 97.4 82 18 126/80 94 Room Air 05/04 2206 84 134/52 05/04 2006 Room Air 05/04 1600 98 Room Air 05/04 1600 98.6 80 18 154/64 98 Room Air Intake & Output 05/05 1600 07 0400 07/ 1600 05/04 0400 05/03 1600 05/03 0400 Intake Total 656 903 6193 2483 745 770 Output Total 400 360 175 375 Balance 795 214 3984 2308 370 770 Intake, Blood 350 370 350 Product Intake, IV 600 1460 2133 375 Intake, Oral 225 200 640 420 Number 2 1 2 0 6 4 Bowel Movements Output, Urine 400 360 175 375 Physical Exam General Appearance: well developed/nourished, no apparent distress, alert, comfortable Head: atraumatic, normal appearance Ears, Nose, Throat: normal pharynx, normal ENT inspection, hearing grossly normal Neck: normal inspection, supple, full range of motion Respiratory: normal breath sounds, chest non-tender, no respiratory distress Cardiovascular: regular rate/rhythm Abdomen: normal bowel sounds, soft, tenderness, dry sterile bandage not removed Extremities: no edema Current Medications: Current Medications Sig/Lynette Start time Last Medication Dose Route Stop Time Status Admin Acetaminophen 1,000 MG Q6H 05/04 1045 05/05 N/A 1 UNIT IV 0430 Amlodipine Besylate 5 MG AT BEDTIME 05/04 2100 05/04 PO 220 Amlodipine Besylate 5 MG DAILY 05/04 1510 DC PO Benzocaine 1 CHRIS Q12P PRN 05/02 1015 [facility] Cyclosporine 1 GTT Q12 04/25 2100 05/05 OPH 0928 Dextrose/Sodium 1,000 ML Q13H 05/03 0600 DC 05/05 Chloride IV 0927 Fluticasone 2 SPRAY DAILY 05/03 1114 05/05 Propionate LIBBY 0934 Latanoprost 1 GTT AT BEDTIME 04/25 2100 05/04 OPH 2207 Leflunomide 20 MG QPM 04/25 2145 05/04 PO 2205 Loratadine 10 MG DAILY 04/26 1157 05/05 PO 0927 Losartan Potassium 75 MG DAILY 05/05 09 05/05 PO 0927 Melatonin 5 MG AT BEDTIME 04/30 0015 05/04 PO 2205 Montelukast Sodium 10 MG AT BEDTIME 04/26 2100 05/04 PO 2206 Morphine Sulfate 4 MG Q3P PRN 05/04 0745 05/04 IV 1850 Ondansetron HCl 4 MG .STK-MED ONE 05/04 1323 DC IM 05/04 1324 Ondansetron HCl 4 MG Q4-6 PRN PRN 05/03 0600 05/04 IV 1330 Pantoprazole Sodium 40 MG DAILY 04/25 1848 05/05 IV 0927 Polyethylene Glycol 1 GAL SEE ADMIN CRITERIA 04/30 2355 AC PO Potassium Chloride 40 MEQ Q2 05/05 0800 DC 05/05 PO 05/05 1001 0927 Potassium Chloride 40 MEQ Q1 05/05 0600 CAN PO 05/05 0701 Sucralfate 1 GM Q8 04/29 2200 DC 05/04 PO 1330 Results Pertinent Lab Results: Laboratory Tests 05/05 05/04 0435 0615 Chemistry Sodium (137 - 145 mmol/L) 137 Potassium (3.5 - 5.1 mmol/L) 3.2 L Chloride (98 - 107 mmol/L) 106 Carbon Dioxide (22 - 30 mmol/L) 25 Anion Gap (5 - 16) 6 BUN (7 - 17 mg/dL) 5 L Creatinine (0.5 - 1.0 mg/dL) 0.8 Estimated GFR (>60 ml/min) > 60 Glucose (65 - 99 mg/dL) 73 Calcium (8.4 - 10.2 mg/dL) 7.9 L Phosphorus (2.5 - 4.5 mg/dL) 3.2 Magnesium (1.6 - 2.3 mg/dL) 2.1 Total Bilirubin (0.2 - 1.3 mg/dL) 0.2 AST (14 - 36 U/L) 18 ALT (9 - 52 U/L) 35 Albumin (3.5 - 5.0 g/dL) 2.0 L Hematology CBC w Diff NO MAN DIFF REQ MAN DIFF ORDERED WBC (4.8 - 10.8 /CUMM) 7.9 13.4 H RBC (4.20 - 5.40 /CUMM) 2.97 L 3.01 L Hgb (12.0 - 16.0 G/DL) 8.7 L 8.8 L Hct (37 - 47 %) 26.9 L 26.8 L MCV (81.0 - 99.0 FL) 90.6 88.9 MCH (27.0 - 31.0 PG) 29.4 29.2 MCHC (33.0 - 37.0 G/DL) 32.4 L 32.8 L RDW (11.5 - 14.5 %) 16.2 H 15.7 H Plt Count (130 - 400 /CUMM) 224 205 MPV (7.4 - 10.4 FL) 9.4 9.4 Gran % (42.2 - 75.2 %) 58.1 83.8 H Lymphocytes % (20.5 - 51.1 %) 23.3 6.3 L Monocytes % (1.7 - 9.3 %) 10.6 H 9.8 H Eosinophils % (0 - 5 %) 7.3 H 0 Basophils % (0.0 - 2.0 %) 0.7 0.1 Absolute Granulocytes (1.4 - 6.5 /CUMM) 4.6 11.2 H Segmented Neutrophils (42.2 - 75.2 %) 81 H Absolute Lymphocytes (1.2 - 3.4 /CUMM) 1.8 0.8 L Lymphocytes (20.5 - 51.1 %) 12 L Monocytes (1.7 - 9.3 %) 7 Absolute Monocytes (0.10 - 0.60 /CUMM) 0.8 H 1.3 H Absolute Eosinophils (0.0 - 0.7 /CUMM) 0.6 0 Absolute Basophils (0.0 - 0.2 /CUMM) 0.1 0 Platelet Estimate (ADEQUATE) ADEQUATE Polychromasia 1+ Hypochromic-Microcytic 1+ Ovalocytes FEW Other Body Source Fld Total RBCs Counted (%) 100 07/06 07/05 0530 2131 Chemistry Sodium (137 - 145 mmol/L) 136 L Potassium (3.5 - 5.1 mmol/L) 3.9 Chloride (98 - 107 mmol/L) 107 Carbon Dioxide (22 - 30 mmol/L) 23 Anion Gap (5 - 16) 7 BUN (7 - 17 mg/dL) 6 L Creatinine (0.5 - 1.0 mg/dL) 0.7 Estimated GFR (>60 ml/min) > 60 BUN/Creatinine Ratio (7 - 25 %) 8.6 Phosphorus (2.5 - 4.5 mg/dL) 4.0 Magnesium (1.6 - 2.3 mg/dL) 1.7 Hematology CBC w Diff MAN DIFF ORDERED WBC (4.8 - 10.8 /CUMM) 15.3 H RBC (4.20 - 5.40 /CUMM) 3.05 L Hgb (12.0 - 16.0 G/DL) 8.9 L Hct (37 - 47 %) 26.7 L MCV (81.0 - 99.0 FL) 87.5 MCH (27.0 - 31.0 PG) 29.1 MCHC (33.0 - 37.0 G/DL) 33.3 RDW (11.5 - 14.5 %) 15.8 H Plt Count (130 - 400 /CUMM) 197 MPV (7.4 - 10.4 FL) 9.3 Gran % (42.2 - 75.2 %) 91.9 H Lymphocytes % (20.5 - 51.1 %) 3.5 L Monocytes % (1.7 - 9.3 %) 4.5 Eosinophils % (0 - 5 %) 0 Basophils % (0.0 - 2.0 %) 0.1 Absolute Granulocytes (1.4 - 6.5 /CUMM) 14.1 H Segmented Neutrophils (42.2 - 75.2 %) 41 L Band Neutrophils (0.0 - 5.0 %) 49 H Absolute Lymphocytes (1.2 - 3.4 /CUMM) 0.5 L Lymphocytes (20.5 - 51.1 %) 4 L Monocytes (1.7 - 9.3 %) 5 Absolute Monocytes (0.10 - 0.60 /CUMM) 0.7 H Absolute Eosinophils (0.0 - 0.7 /CUMM) 0 Absolute Basophils (0.0 - 0.2 /CUMM) 0 Myelocytes (0 - 0 %) 1 H Platelet Estimate (ADEQUATE) ADEQUATE Polychromasia 1+ Anisocytosis 1+ Microcytic Cells 1+ 05/03 07/05 1000 0448 Chemistry Sodium (137 - 145 mmol/L) 139 Potassium (3.5 - 5.1 mmol/L) 3.7 Chloride (98 - 107 mmol/L) 109 H Carbon Dioxide (22 - 30 mmol/L) 25 Anion Gap (5 - 16) 5 BUN (7 - 17 mg/dL) 3 L Creatinine (0.5 - 1.0 mg/dL) 0.8 Estimated GFR (>60 ml/min) > 60 BUN/Creatinine Ratio (7 - 25 %) 3.8 L Hematology CBC w Diff NO MAN DIFF REQ NO MAN DIFF REQ WBC (4.8 - 10.8 /CUMM) 6.4 7.0 RBC (4.20 - 5.40 /CUMM) 2.33 L 2.61 L Hgb (12.0 - 16.0 G/DL) 7.0 *L 7.5 L Hct (37 - 47 %) 20.6 L 23.4 L MCV (81.0 - 99.0 FL) 88.3 89.3 MCH (27.0 - 31.0 PG) 29.9 28.8 MCHC (33.0 - 37.0 G/DL) 33.9 32.2 L RDW (11.5 - 14.5 %) 17.0 H 17.0 H Plt Count (130 - 400 /CUMM) 194 216 MPV (7.4 - 10.4 FL) 10.3 9.4 Gran % (42.2 - 75.2 %) 68.0 55.1 Lymphocytes % (20.5 - 51.1 %) 19.5 L 29.4 Monocytes % (1.7 - 9.3 %) 8.8 9.8 H Eosinophils % (0 - 5 %) 3.1 5.3 H Basophils % (0.0 - 2.0 %) 0.6 0.4 Absolute Granulocytes (1.4 - 6.5 /CUMM) 4.4 3.8 Absolute Lymphocytes (1.2 - 3.4 /CUMM) 1.2 2.1 Absolute Monocytes (0.10 - 0.60 /CUMM) 0.6 0.7 H Absolute Eosinophils (0.0 - 0.7 /CUMM) 0.2 0.4 Absolute Basophils (0.0 - 0.2 /CUMM) 0 0 07/04 1755 Hematology CBC w Diff NO MAN DIFF REQ WBC (4.8 - 10.8 /CUMM) 7.3 RBC (4.20 - 5.40 /CUMM) 2.34 L Hgb (12.0 - 16.0 G/DL) 6.9 *L Hct (37 - 47 %) 20.9 L MCV (81.0 - 99.0 FL) 89.4 MCH (27.0 - 31.0 PG) 29.4 MCHC (33.0 - 37.0 G/DL) 32.9 L RDW (11.5 - 14.5 %) 17.1 H Plt Count (130 - 400 /CUMM) 226 MPV (7.4 - 10.4 FL) 9.9 Gran % (42.2 - 75.2 %) 71.2 Lymphocytes % (20.5 - 51.1 %) 18.1 L Monocytes % (1.7 - 9.3 %) 7.4 Eosinophils % (0 - 5 %) 2.7 Basophils % (0.0 - 2.0 %) 0.6 Absolute Granulocytes (1.4 - 6.5 /CUMM) 5.2 Absolute Lymphocytes (1.2 - 3.4 /CUMM) 1.3 Absolute Monocytes (0.10 - 0.60 /CUMM) 0.5 Absolute Eosinophils (0.0 - 0.7 /CUMM) 0.2 Absolute Basophils (0.0 - 0.2 /CUMM) 0
[2018-05-05 14:12] VITALS: BP 120/70
[2018-05-05 21:58] VITALS: BP 120/60
[2018-05-06 06:33] VITALS: BP 118/60
--- NOTE | 2018-05-06 08:32 | PN- General Surgery ---
See Addendum Subjective Subjective: feeling well, kayla diet. still with loose stools. abd pain well controlled. no n/ v/cp/sob. +oob Objective Vital Signs and I&Os Vital Signs Date Time Temp Pulse Resp B/P B/P Pulse O2 O2 Flow FiO2 Mean Ox Delivery Rate 05/06 633 98.4 83 20 118/60 97 Room Air 05/05 2220 83 120/60 05/05 2158 98.5 83 20 120/60 96 Room Air 05/05 1600 98 Room Air 05/05 1412 98.0 85 22 120/70 99 05/05 0927 140/72 Intake & Output 05/06 1600 05/06 0800 05/06 0000 05/05 1600 05/05 0800 05/05 0000 Intake Total 200 100 480 225 800 Output Total 250 205 400 Balance -50 -105 480 225 400 Intake, IV 600 Intake, Oral 200 100 480 225 200 Number 3 1 2 1 Bowel Movements Output, Stool 5 Output, Urine 250 200 400 Physical Exam: gen- nad card-s1s2 rrr pulm-ctab abd- soft, ttp at incision, dressing dc'ed- staple line cdi, no erythema/ drainage. +bs ext- calves soft nt, +edema bl Results Last 48 Hours of Labs: Laboratory Tests 05/06 05/05 0605 0435 Chemistry Sodium (137 - 145 mmol/L) 137 Potassium (3.5 - 5.1 mmol/L) 3.2 L Chloride (98 - 107 mmol/L) 106 Carbon Dioxide (22 - 30 mmol/L) 25 Anion Gap (5 - 16) 6 BUN (7 - 17 mg/dL) 5 L Creatinine (0.5 - 1.0 mg/dL) 0.8 Estimated GFR (>60 ml/min) > 60 Glucose (65 - 99 mg/dL) 73 Calcium (8.4 - 10.2 mg/dL) 7.9 L Phosphorus (2.5 - 4.5 mg/dL) 3.2 Magnesium (1.6 - 2.3 mg/dL) 2.1 Total Bilirubin (0.2 - 1.3 mg/dL) 0.2 AST (14 - 36 U/L) 18 ALT (9 - 52 U/L) 35 Albumin (3.5 - 5.0 g/dL) 2.0 L Hematology CBC w Diff Pending NO MAN DIFF REQ WBC (4.8 - 10.8 /CUMM) Pending 7.9 RBC (4.20 - 5.40 /CUMM) Pending 2.97 L Hgb (12.0 - 16.0 G/DL) Pending 8.7 L Hct (37 - 47 %) Pending 26.9 L MCV (81.0 - 99.0 FL) Pending 90.6 MCH (27.0 - 31.0 PG) Pending 29.4 MCHC (33.0 - 37.0 G/DL) Pending 32.4 L RDW (11.5 - 14.5 %) Pending 16.2 H Plt Count (130 - 400 /CUMM) Pending 224 MPV (7.4 - 10.4 FL) Pending 9.4 Gran % (42.2 - 75.2 %) 58.1 Lymphocytes % (20.5 - 51.1 %) 23.3 Monocytes % (1.7 - 9.3 %) 10.6 H Eosinophils % (0 - 5 %) 7.3 H Basophils % (0.0 - 2.0 %) 0.7 Absolute Granulocytes (1.4 - 6.5 /CUMM) 4.6 Absolute Lymphocytes (1.2 - 3.4 /CUMM) 1.8 Absolute Monocytes (0.10 - 0.60 /CUMM) 0.8 H Absolute Eosinophils (0.0 - 0.7 /CUMM) 0.6 Absolute Basophils (0.0 - 0.2 /CUMM) 0.1 Assessment/Plan Assessment/Plan A- POD3 sp R maxine 2/2 colon bleed, with stablized h&h and appropriate postop pain, with some loose stool. P- advance diet as tolerated fu h&h fu lytes in setting of hypoK and diarrhea oob, ambulate, alps don out in 2 weeks medical care per primary team Core Measures Venous Thromboembolism VTE Risk Factors Age>40 No Mechanical VTE Prophylaxis d/t N/A MechProphylax Ordered No VTE Pharm Prophylaxis d/t Bleeding (Active)
[2018-05-06 09:18] LABS: ABSOLUTE EOSINOPHIL COUNT 0.6 /CUMM (0.0-0.7); ABSOLUTE LYMPH COUNT 1.3 /CUMM (1.2-3.4); ABSOLUTE MONOCYTE COUNT 0.8 /CUMM (0.10-0.60); RBC DISTRIBUTION WIDTH 16.4 % (11.5-14.5); WHITE BLOOD CELL COUNT 7.3 /CUMM (4.8-10.8)
[2018-05-06 09:25] LABS: ABSOLUTE BASOPHIL COUNT 0 /CUMM (0.0-0.2); ABSOLUTE GRANULOCYTE CT 4.6 /CUMM (1.4-6.5); BASOPHIL % 0.6 % (0.0-2.0); HEMATOCRIT 23.7 % (37-47); MEAN CORPUSCULAR HGB 29.5 PG (27.0-31.0); MEAN CORPUSCULAR HGB CONC 32.4 G/DL (33.0-37.0); MEAN CORPUSCULAR VOLUME 91.1 FL (81.0-99.0); MEAN PLATELET VOLUME 9.4 FL (7.4-10.4)
[2018-05-06 09:49] LABS: PLATELET COUNT 234 /CUMM (130-400)
--- NOTE | 2018-05-06 12:03 | PN- Housestaff ---
JoniNelidashailesh 05/06/18 1202: Subjective Follow-up For: R. Hemicolectomy/ileocecectomy Subjective: Patient is seen and examined at bedside. Patient was having hamburger for lunch. Patient states she has been having multiple episodes of water diarrhea, has had 3 since waking up this morning. Patient is requesting anti-diarrheal medication. Patient is toleraing her diet. Denies blood in cough, blood in stool. Patient denies lightheadedness, double/blurry vision, dizziness, weakness. Review of Systems Constitutional: Denies: chills, diaphoresis, fever. Cardiovascular: Denies: chest pain, palpitations. Respiratory: Denies: cough, hemoptysis, short of breath. Gastrointestinal: Reports: diarrhea. Denies: abdominal pain, melena, bloody stool. Objective Last 24 Hrs of Vital Signs/I&O Vital Signs Date Time Temp Pulse Resp B/P B/P Pulse O2 O2 Flow FiO2 Mean Ox Delivery Rate 05/06 0930 92 110/72 05/06 0800 Room Air 05/06 0633 98.4 83 20 118/60 97 Room Air 05/05 2220 83 120/60 05/05 2158 98.5 83 20 120/60 96 Room Air 05/05 1600 98 Room Air 05/05 1412 98.0 85 22 120/70 99 Intake & Output 05/06 1600 08 0800 /08 0000 Intake Total 200 100 Output Total 250 205 Balance -50 -105 Intake, Oral 200 100 Number 3 1 Bowel Movements Output, Stool 5 Output, Urine 250 200 Physical Exam General Appearance: Alert, Oriented X3, Cooperative Skin: No Rashes Skin Temp/Moisture Exam: Warm/Dry HEENT: Atraumatic, EOMI Neck: Supple, No LAD Cardiovascular: Regular Rate, Normal S1, Normal S2 Lungs: Clear to Auscultation, Normal Air Movement Abdomen: Binder in place, don in hypogastric region, no erythema, tenderness or warmth appreciated. Neurological: Normal Speech, Sensation Intact Extremities: No Cyanosis, No Edema, Normal Pulses Assessment/Plan Problem List: 1. Lower GI bleed Pain Ratin Pain Location: n/a Pain Goal: Remain pain free Pain Plan: none Tomorrow's Labs & Rationales: CBC, BEP Reji GASTON,Katrina 05/06/18 1301: Attending MD Review Statement Attending Statement Attending MD Statement: examined this patient, discuss w/resident/PA/[employer], agreed w/resident/PA/[employer]AD[employer], reviewed EMR data (avail), discussed with nursing, discussed with case mgmt, amended to note Attending Assessment/Plan: Patient seen and examined. Chart reviewed. Case discussed with Trent Serna MD and examined. Patient currently sitting up comfortably within a number of the maxillofacial. Denies nausea vomiting. She reports having several bowel movements daily. Stools are loose in consistency. She reports associated cramping with bowel movements. Denies any blood per rectum. On examination she is not in any acute distress. Abdomen is nondistended soft with mild tenderness. No rebound or guarding. Problems: 1. Lower gastrointestinal bleeding; status post resection of the terminal ileum and right colon. Pathology report from colonoscopy done prior to the surgery shows evidence of active and chronic inflammation. It appears that she has underlying Crohn's disease that was controlled with her Humira which she was taking for her psoriasis. Unfortunately the Humira was discontinued after she developed antibodies and she was started on another immunologic agent that apparently did not provide suppression of inflammatory bowel disease. 2. Diarrhea 3. Acute blood loss anemia 4. Hypertension 5. Asthma Plan: -Monitor H&H daily. Transfuse for hemoglobin less than 7. -Stool studies are negative for Clostridium difficile toxin. Begin patient on Imodium. -Begin discharge planning once diarrhea resolves and if H&H is stable. -Mobilize patient as tolerated. -Urine cultures positive for Klebsiella. She is asymptomatic. Afebrile with no leukocytosis. Hold off antibiotic therapy for now.
[2018-05-06 13:53] VITALS: BP 120/78
[2018-05-06 21:31] VITALS: BP 140/80
--- NOTE | 2018-05-06 23:51 | Transfer of Care Summary ---
Hospital Course Course Hospital Course: 72 year old woman with past medical history of GI bleed secondary to NSAID use, chronic diarrhea, terminal ileitis, IBS, psoriatic arthritis, seasonal allergies , asthma, hypertension, GERD, glaucoma, and severe cervical stenosis presented to the ED for evaluation of bloody stools. Issues Addressed: Lower GI bleed Acute blood loss anemia On admission, patient was found to have a low H&H. She has had multiple transfusions to keep her Hb >7. S/P 3 units PRBC on 04/25, and again s/p 2 units PRBC on 04/28 and 1 unit 04/29, 04/30, 05/02, 05/03. A total of 9U PRBC during this admission. She had a colonoscopy done on her previous admission with no identifiable source of bleeding found. On this admission, she initially had 3 CTA with GI bleeding protocol on 04/25, 04/27, 04/29 with no source of bleeding found. She underwent an upper GI endoscopy on 04/30 with no source of bleeding found. During the endoscopy , the patient was observed to have continued bloody bowel movements. A tagged nuclear RBC performed at the time localized the bleeding site to right colon extending from the cecal region into the hepatic flexure and mid transverse colon. She underwent bowel preparation that night followed by colonoscopy on 05/01. However, no source of bleeding was again identified. She underwent two colonoscopies on the same day with no success. With continued lower GI bleeding (requiring transfusions to maintain her Hb) and no source of bleeding found on endoscopy/colonoscopy, the patient underwent a resection of terminal ileum and right colon on 05/03 with subsequent resolution of symptoms. Her current problem includes frequent diarrhea for which she is on Imodium.
[2018-05-07 06:41] VITALS: BP 144/70
--- NOTE | 2018-05-07 08:16 | PN- Housestaff ---
See Addendum Subjective Follow-up For: GI BLeed Subjective: Patient seen and examined at bedside. She has no c/o. Patient is tolerating her diet, states her diarrhea is improving, she recieved Imodium and states she is beginning to form stool. Denies headache, dizziness, weakness, Chest pain, palpitations. Review of Systems Constitutional: Denies: chills, diaphoresis, fever. EENTM: Denies: blurred vision. Cardiovascular: Denies: chest pain, palpitations. Respiratory: Denies: cough, hemoptysis, short of breath. Gastrointestinal: Reports: abdominal pain. Denies: constipation, diarrhea, bloody stool. Genitourinary: Denies: hematuria. Neurological/Psychological: Denies: confusion, headache, numbness. Objective Last 24 Hrs of Vital Signs/I&O Vital Signs Date Time Temp Pulse Resp B/P B/P Pulse O2 O2 Flow FiO2 Mean Ox Delivery Rate 05/07 0641 98.1 84 20 144/70 98 Room Air 05/06 2131 98.4 91 20 140/80 94 / 2053 91 140/80 / 1353 98.4 88 20 120/78 99 Room Air 05/06 0930 92 110/72 Intake & Output 05/07 1600 05/07 0800 05/07 0000 Intake Total 200 Output Total Balance 200 Intake, Oral 200 Number 3 Bowel Movements Physical Exam General Appearance: Alert, Oriented X3, Cooperative Skin: No Rashes HEENT: Atraumatic, EOMI Neck: Supple, No LAD Cardiovascular: Regular Rate, Normal S1, Normal S2 Lungs: Clear to Auscultation, Normal Air Movement Abdomen: Normal Bowel Sounds, Soft, Abdominal binder on, don covered with dressing. Minimal tenderness to palpation, no warmth or erythema appreciated Assessment/Plan Assessment: 72 year old woman with past medical history of GI bleed secondary to NSAID use, chronic diarrhea, terminal ileitis, IBS, psoriatic arthritis, seasonal allergies , asthma, hypertension, GERD, glaucoma, and severe cervical stenosis presented with acute blood loss anemia secondary to GI bleed with inability to localize the source and requiring large volume transfusion now with no more active bleeding and stable CBC s/p ileum and right hemicolectomy. Problem List: 1. Lower GI Bleed - resolved 2. Blood loss Anemia - improving 3. Diarrhea - resolved #Anemia History of lower GI Bleed vs Surgical blood loss. S/p 9 PRBC transfusions. H/H Stable. Asymptomatic. Today Hb at 9.9 up from 7.3 yestreday. Plan: - monitor H/H - Transfuse if Hb<7 - Ferrous Sulfate 325mg Qdaily #Diarrhea- resolved Negative for C. diff stool toxin on 05/05/18 Plan: Continue Imodium #Lower GI Bleed Patient is s/p resection of terminal ileum and right colon POD #3. Patient is tolerating regular diet. Patient is stable, asymptomatic plan: -Monitor H/H #Asymptomatic Bactiuria patient is asymptomatic, afebrile. Plan: watch off ABx Problem List: 1. Lower GI bleed Pain Ratin Pain Location: surgical site Pain Goal: Remain pain free Pain Plan: none Tomorrow's Labs & Rationales: none
[2018-05-07 10:00] LABS: ABSOLUTE BASOPHIL COUNT 0.1 /CUMM (0.0-0.2); ABSOLUTE EOSINOPHIL COUNT 0.7 /CUMM (0.0-0.7); ABSOLUTE GRANULOCYTE CT 6.9 /CUMM (1.4-6.5); ABSOLUTE LYMPH COUNT 1.5 /CUMM (1.2-3.4); ABSOLUTE MONOCYTE COUNT 0.7 /CUMM (0.10-0.60); BASOPHIL % 0.6 % (0.0-2.0); EOSINOPHIL % 6.9 % (0-5); GRANULOCYTE % 69.7 % (42.2-75.2); HEMATOCRIT 28.3 % (37-47); MEAN CORPUSCULAR HGB 29.4 PG (27.0-31.0); MEAN CORPUSCULAR HGB CONC 32.2 G/DL (33.0-37.0); MEAN CORPUSCULAR VOLUME 91.3 FL (81.0-99.0); PLATELET COUNT 317 /CUMM (130-400); RBC DISTRIBUTION WIDTH 15.9 % (11.5-14.5); RED BLOOD CELL CT 3.11 /CUMM (4.20-5.40); WHITE BLOOD CELL COUNT 9.9 /CUMM (4.8-10.8)
[2018-05-07 11:31] VITALS: BP 130/70
== END 2018-05-07 13:09 | DRG 330 ==
LOC: ERH 13:29 → ERHI 17:39 → CRI 17:39 → ENRESERV 18:32 → ENTRNSPT 20:31 → EDTRNSPT 20:34 → EDTRNSPTSTS 20:34 → CRI 20:55 → CMPTRNSPT 21:18 → CRI 04-26 07:47 → ENTRNSPT 05-05 10:22 → EDTRNSPT 05-05 10:28 → EDTRNSPTSTS 05-05 10:28 → 2NA 05-05 10:45 → CMPTRNSPT 05-05 10:52 → 2NA 05-07 08:00 → ENPENDDIS 05-07 12:12 → ENTRNSPT 05-07 12:59 → CMPTRNSPT 05-07 13:08 → 2NA 05-07 13:09
PROVIDERS: Hospitalist; Internal Medicine; Internal Medicine Critical Care Medicine; Internal Medicine Endocrinology, Diabetes & Metabolism; Preventive Medicine Public Health & General Preventive Medicine; Student in an Organized Health Care Education/Training Program
PROC: 30233N1 Transfusion of Nonautologous Red Blood Cells into Peripheral Vein, Percutaneous Approach (ICD-10-PCS; principal; 2018-04-26)
PROC: 0DJ08ZZ Inspection of Upper Intestinal Tract, Via Natural or Artificial Opening Endoscopic (ICD-10-PCS; 2018-04-30)
PROC: 0DJD8ZZ Inspection of Lower Intestinal Tract, Via Natural or Artificial Opening Endoscopic (ICD-10-PCS; 2018-05-01)
PROC: 0DTF0ZZ Resection of Right Large Intestine, Open Approach (ICD-10-PCS; 2018-05-03)
DX: K57.31 Diverticulosis of large intestine without perforation or abscess with bleeding (principal); D62 Acute posthemorrhagic anemia; L40.50 Arthropathic psoriasis, unspecified; K52.9 Noninfective gastroenteritis and colitis, unspecified; I95.1 Orthostatic hypotension; E87.6 Hypokalemia; K21.9 Gastro-esophageal reflux disease without esophagitis; K58.9 Irritable bowel syndrome, unspecified; J45.909 Unspecified asthma, uncomplicated; I10 Essential (primary) hypertension
CPT/HCPCS: 2NAP; CCU; 36415; 36592; 74018; 74174; 82436; 86920; 87086; 87147; 93005; 93010; 99291; A9512; A9538; C1725; C1769; J0131; J1100; J1630; J2001; J2405; J3101; J3490; J7040; J7042; P9016; Q9967